=== PATIENT | female | born 1945 | race Caucasian/White ===

== ENCOUNTER 2017-02-19 08:15 | Emergency (ER) | payer OTHER ==
[~2017-02-19] VITALS: Ht 167.6 cm; Wt 84.3 kg
[~2017-02-19 08:15] MED LIST: ALLO300T2 PO; AMLO-110 PO; CLON0.2T11 PO; DLN/100 PO; ESCI1TAB9 PO; FENO145T26 PO; LEVO100T PO; LYR50 PO; METO1TAB31 PO; MULT-506 PO; NXM/40 PO; PRED-301 PO; TACR1CAP PO
[2017-02-19 08:17] VITALS: TEMP 36.4; Ht 167.6 cm; Wt 84.3 kg
[2017-02-19] MEDS ORDERED: PANT40TA PO (08:40)
[2017-02-19] MEDS ORDERED: ERGO1CAP41 PO (08:46)
[2017-02-19] MEDS ORDERED: TACR1CAP PO (08:46)
[2017-02-19] MEDS ORDERED: CALC667C PO (08:46)
--- NOTE | 2017-02-19 09:24 | EMERGENCY ROOM VISIT NOTE ---
History First contact with patient: 08:23 Chief Complaint: RECTAL BLEEDING Stated Complaint: BLACK STOOL, NAUSEA Nursing Triage Summary: Pt. reports onset of black stools yesterday with associated nausea. states that she had a GI bleed in the past caused by a reaction to pain medications, but states she has not started any new medications recently. History of Present Illness The patient is a 71 year old female who presents to the Emergency Room with complaints of black stool since yesterday. The patient states yesterday, she moved her bowels approximately 4 times, which is more than normal. She reports her next will continue to be formed, however it was black in color. The patient denies obvious blood or pain. She denies abdominal pain, nausea, vomiting, diarrhea, fever. The patient's does state that she complained of nausea yesterday at dialysis. The patient does have a history of CKD, and is currently on dialysis. The patient does have history of cholecystectomy and appendectomy. The patient reports feeling more fatigued than normal. She denies dyspnea or chest pain. The patient believes her last colonoscopy was less than 5 years ago, however is uncertain of the exact date or time. She states this was completed by a [facility] surgeon. The patient denies recent travel or illness. The patient did bring a stool sample from home to the ED for testing. Review of Systems A complete 10 point review of systems was reviewed with the patient with pertinent positives and negatives as per history of present illness. All else were negative. Past Medical/Surgical History Medical Problems: (1) CYSTITIS NOS (2) End stage renal disease (3) HYPERLIPIDEMIA NEC/NOS (4) HYPERTENSION NOS (5) HYPOTHYROIDISM NOS (6) KIDNEY TRANSPLANT STATUS (7) MITRAL VALVE DISORDER Surgical Problems: (1) H/O: hysterectomy (2) History of nephrectomy (3) History of renal transplant (4) History of renal transplant (5) History of renal transplant (6) Hx of cholecystectomy Family History Heart disease Hypertension Kidney disease Kidney stones Seizures Social History Smoking Status: Never Smoker Smokeless Tobacco Use: No Alcohol Use: none Drug Use: none Marital Status: Housing Status: lives with family Occupation Status: retired Current/Historical Medications Scheduled Allopurinol (Zyloprim), 300 MG PO DAILY Amlodipine (Norvasc), 5 MG PO BID Calcium Acetate (Phosphate Bin (Phoslo 667 Mg), 3 CAP PO TIDM Clonidine Hcl (Catapres), 0.2 MG PO HS Ergocalciferol (Vitamin D 84995 Unit), 50,000 UNITS PO WK Escitalopram Oxalate (Lexapro), 10 MG PO DAILY Fenofibrate (Tricor), 145 MG PO DAILY Levothyroxine Sodium (Synthroid), 100 MCG PO DAILY Metoprolol Succinate (Toprol Xl), 25 MG PO BID Multivitamin (Multivitamin), 1 TAB PO DAILY Pantoprazole (Protonix), 40 MG PO DAILY Phenytoin Sodium (Dilantin), 100 MG PO QAM Prednisone (Prednisone), 5 MG PO DAILY Pregabalin (Lyrica), 50 MG PO BID Tacrolimus (Astagraf Xl), 0.5 MG PO DAILY Allergies Please see list. Physical Exam Vital Signs Date Time Temp Pulse Resp B/P (MAP) Pulse Ox O2 Delivery O2 Flow Rate FiO2 02/19/17 11:05 67 24 155/54 99 Room Air 02/19/17 10:15 64 17 163/65 99 Room Air 02/19/17 09:50 63 02/19/17 09:37 65 22 156/92 99 Room Air 02/19/17 08:17 36.4 68 18 159/79 96 Room Air Physical Exam VITALS: Vitals are noted on the nurse's note and reviewed by myself. Vital signs stable. GENERAL: 71-year-old female, in no acute distress, nondiaphoretic, well- developed well-nourished. SKIN: The skin was without rashes, erythema, edema, or bruising. There is no tenting of the skin. Capillary reflex less than 2 seconds. HEAD: Normocephalic atraumatic. EARS: External auditory canals clear, tympanic membranes pearly banks without erythema or effusion bilaterally. EYES: Pupils equal round and reactive to light and accommodation. Conjunctivae without injection, sclerae without icterus. Extraocular movements intact. NOSE: Patent, turbinates without inflammation or discharge. No sinus tenderness. MOUTH: Mucous membranes moist. Tonsils are not enlarged. Pharynx without erythema or exudate. Uvula midline. Airway patent. Tongue does not deviate. NECK: Supple without nuchal rigidity. No lymphadenopathy. No thyromegaly. Cervical spine is nontender. No JVD. HEART: Regular rate and rhythm without murmurs gallops or rubs. LUNGS: Clear to auscultation bilaterally without wheezes, rales or rhonchi. No dullness to percussion. No retractions or accessory muscle use. ABDOMEN: Positive bowel sounds x 4. Normal tympanic percussion. Soft, nontender, without masses or organomegaly. Chu sign negative. No guarding or rebound tenderness. RECTAL: No rectal fissures. No skin tags appreciated. No active bleeding. A sterile, water-soluble lubricant was applied to the examiner's finger prior to internal exam. Rectal vault without tenderness. No rectal masses. No fecal impaction. Stool Guaiac Test: Hemoccult negative. MUSCULOSKELETAL: No muscle atrophy, erythema, or edema noted. Full range of motion without joint tenderness in all extremities. No tenderness to palpation. Normal gait. Strength 5/5 throughout. NEURO: Patient was alert and oriented to person place and time. Normal sensation to light and sharp touch. Deep tendon reflexes 2+ throughout. No focal neurological deficits. Medical Decision & Procedures ER Provider Diagnostic Interpretation: Did note anemia on labs. This has improved since her previous labs were performed. I do not feel that this is related to an active bleed. Lipase also mildly elevated, however, patient is not experiencing any abdominal pain at this time. I encouraged outpatient follow-up. Renal function severely impaired, however, patient follows with nephrology regarding CKD and is on dialysis. Laboratory Results 02/19/17 09:30 Red Blood Count 3.27, Mean Corpuscular Volume 112.2, Mean Corpuscular Hemoglobin 34.3, Mean Corpuscular Hemoglobin Concent 30.5, Mean Platelet Volume 10.9, Neutrophils (%) (Auto) 64.4, Lymphocytes (%) (Auto) 23.0, Monocytes (%) ( Auto) 10.2, Eosinophils (%) (Auto) 1.8, Basophils (%) (Auto) 0.4, Neutrophils # (Auto) 3.17, Lymphocytes # (Auto) 1.13, Monocytes # (Auto) 0.50, Eosinophils # ( Auto) 0.09, Basophils # (Auto) 0.02 02/19/17 09:30 Test 02/19/17 00:00 02/19/17 09:30 Stool Occult Blood NEGATIVE (NEGATIVE) White Blood Count 4.92 K/uL (4.8-10.8) Red Blood Count 3.27 M/uL (4.2-5.4) Hemoglobin 11.2 g/dL (12.0-16.0) Hematocrit 36.7 % (37-47) Mean Corpuscular Volume 112.2 fL (80-100) Mean Corpuscular Hemoglobin 34.3 pg (25-34) Mean Corpuscular Hemoglobin Concent 30.5 g/dl (32-36) Platelet Count 101 K/uL (130-400) Mean Platelet Volume 10.9 fL (7.4-10.4) Neutrophils (%) (Auto) 64.4 % Lymphocytes (%) (Auto) 23.0 % Monocytes (%) (Auto) 10.2 % Eosinophils (%) (Auto) 1.8 % Basophils (%) (Auto) 0.4 % Neutrophils # (Auto) 3.17 K/uL (1.4-6.5) Lymphocytes # (Auto) 1.13 K/uL (1.2-3.4) Monocytes # (Auto) 0.50 K/uL (0.11-0.59) Eosinophils # (Auto) 0.09 K/uL (0-0.5) Basophils # (Auto) 0.02 K/uL (0-0.2) RDW Standard Deviation 65.9 fL (36.4-46.3) RDW Coefficient of Variation 16.0 % (11.5-14.5) Immature Granulocyte % (Auto) 0.2 % Immature Granulocyte # (Auto) 0.01 K/uL (0.00-0.02) Macrocytosis PRESENT Stomatocytes 1+ Prothrombin Time 12.1 SECONDS (9.0-12.0) Prothromb Time International Ratio 1.1 (0.9-1.1) Activated Partial Thromboplast Time 24.5 SECONDS (21.0-31.0) Partial Thromboplastin Ratio 0.9 Anion Gap 9.0 mmol/L (3-11) Est Creatinine Clear Calc Drug Dose 9.5 ml/min Estimated GFR () 7.5 Estimated GFR (Non- 6.5 BUN/Creatinine Ratio 9.5 (10-20) Calcium Level 9.2 mg/dl (8.5-10.1) Total Bilirubin 0.5 mg/dl (0.2-1) Direct Bilirubin 0.2 mg/dl (0-0.2) Aspartate Amino Transf (AST/SGOT) 33 U/L (15-37) Alanine Aminotransferase (ALT/SGPT) 25 U/L (12-78) Alkaline Phosphatase 61 U/L (45-117) Total Protein 6.9 gm/dl (6.4-8.2) Albumin 3.2 gm/dl (3.4-5.0) Lipase 594 U/L (73-393) Thyroid Stimulating Hormone (TSH) 6.620 uIu/ml (0.300-4.500) ED Course The patient was seen and evaluated as above. Labs and IV were ordered. We did send pt's home stool sample to the lab for testing. Rectal examination performed by our PA Student. Heme-occult negative. Pt's home stool sample tested negative in the lab. I did re-evaluate the patient and she states she is feeling well and has not had any further bowel movements. I reviewed discharge instructions with the patient and she was discharged home in good condition. Medical Decision Differential Diagnosis: GI bleed, diverticulitis, fissure, hemorrhoid, food- induced stool discoloration, anemia, gastroenteritis, allergic reaction to medication, malignancy, pancreatitis, and others. The patient presented with black stools yesterday. She states the stool was slightly soft in consistency. She states she had one episode of dark stool this am, however, states it was not as black as stool yesterday. Pt. has not had any further bowel movements since first thing this morning. She denies abdominal pain. I do feel that her symptoms are possibly medication-or food related, however, due to chronic medical conditions, encouraged her to follow-up outpatient with her PCP and cable television technician. Medication Reconcilliation Current Medication List: was personally reviewed by me Blood Pressure Screening Patient's blood pressure: Normal blood pressure Impression Primary Impression: Anemia Additional Impression: Stool color black Departure Information Dispostion Home / Self-Care Condition GOOD Referrals Grabiel Richard M.D. (PCP) Yadiel Posada D.O. Patient Instructions GI Bleeding - [facility], My [facility] Additional Instructions Please follow up outpatient with gastroenterology and your primary care provider for further evaluation. We did perform a workup in the emergency department and tested your stool for blood. These tests were negative in the emergency department. We did note elevated lipase, however, noted a history of this elevation in your records. You should follow-up if you begin experiencing severe abdominal pain or other symptoms. You should follow up with a cable television technician and/or your PCP in 1-2 days. If you continue to experience dark, tarry stools, lightheadedness, dizziness, fatigue, bloody stool, paleness, or other concerning symptoms, return to emergency department for further evaluation and management. Problem Qualifiers Primary Impression: Anemia Anemia type: unspecified type Qualified Codes: D64.9 - Anemia, unspecified
[2017-02-19 09:44] LABS: BASO % 0.4 %; BASO ABS # 0.02 K/uL (0-0.2); EOS % 1.8 %; HEMATOCRIT 36.7 % (37-47); IG% 0.2 %; LYMPH ABS # 1.13 K/uL (1.2-3.4); MEAN CELL VOLUME 112.2 fL (80-100); MEAN CORPUSCULAR HEMOGLOBIN 34.3 pg (25-34); MEAN CORPUSCULAR HGB CONC 30.5 g/dl (32-36); MEAN PLATELET VOLUME 10.9 fL (7.4-10.4); MONO % 10.2 %; NEUT % 64.4 %; PLATELET COUNT 101 K/uL (130-400); RED BLOOD COUNT 3.27 M/uL (4.2-5.4); WHITE BLOOD COUNT 4.92 K/uL (4.8-10.8)
[2017-02-19 09:57] LABS: INR 1.1 (0.9-1.1); PARTIAL THROMBOPLASTIN RATIO 0.9; PROTHROMBIN TIME (PATIENT) 12.1 SECONDS (9.0-12.0)
[2017-02-19 10:10] LABS: BUN/CREATININE RATIO 9.5 (10-20); CALCIUM 9.2 mg/dl (8.5-10.1); CREATININE 6.1 mg/dl (0.60-1.20); POTASSIUM 4.3 mmol/L (3.5-5.1)
[2017-02-19 10:50] LABS: THYROID STIMULATING HORMONE 6.62 uIu/ml (0.300-4.500)
[2017-02-19 10:56] LABS: COMPLETE YES; STOMATOCYTE 1+
[2017-02-19 12:13] VITALS: BP 143/93; PULSE 67; O2SAT 97
--- NOTE | 2017-02-19 16:00 | EMERGENCY ROOM VISIT NOTE ---
ED Visit Note First contact with patient: 08:23 I have personally evaluated and examined this patient. I agree with assessment and plan of Helen Cartwright PA-C. Dark heme-negative stools with normal labs and states feeling well.
== END 2017-02-19 12:15 | disposition home or self-care (01) ==
LOC: C.EDB 08:17
DX: D64.9 Anemia, unspecified (principal); Z99.2 Dependence on renal dialysis; Z90.49 Acquired absence of other specified parts of digestive tract; N18.6 End stage renal disease; I12.0 Hypertensive chronic kidney disease with stage 5 chronic kidney disease or end stage renal disease; E03.9 Hypothyroidism, unspecified; Z94.0 Kidney transplant status; Z90.710 Acquired absence of both cervix and uterus; Z90.5 Acquired absence of kidney; Z82.49 Family history of ischemic heart disease and other diseases of the circulatory system; Z84.1 Family history of disorders of kidney and ureter; Z82.0 Family history of epilepsy and other diseases of the nervous system; Z79.899 Other long term (current) drug therapy

== ENCOUNTER → 2017-02-28 | Outpatient (CLI) | payer OTHER ==
[~2017-02-28] MED LIST changes: +CALC667C PO; +ERGO1CAP41 PO; -NXM/40 PO; +PANT40TA PO
--- NOTE | 2017-02-28 14:49 | DIAGNOSTIC IMAGING REPORT ---
LUMBAR SPINE W/O CONTRAST CLINICAL HISTORY: 72 years-old Female presenting with SCIATICA, chronic low back pain radiating to the right leg, no trauma, no cancer, patient on dialysis. TECHNIQUE: Multisequence, multiplanar MR imaging of the lumbar spine was performed without the use of intravenous contrast. IV contrast: None. COMPARISON: Correlation made to CT of the abdomen and pelvis from 11/07/2012. FINDINGS: Localizer images: Unremarkable. Slight straightening of normal lumbar lordosis. Vertebral body heights, alignment, and bone marrow signal intensity preserved. No bony edema. Intervertebral disc height and signal intensity essentially preserved, allowing for the presence of multilevel degenerative change, further detailed below: T12-L1: Normal. L1-2: Minimal disc bulge. No significant spinal canal or neural foraminal narrowing. L2-3: Minimal disc bulge. No significant spinal canal or neural foraminal narrowing. L3-4: Normal. L4-5: Moderate disc bulge with focal disc protrusion along the right paramedian aspect with minimal caudal migration. This results in effacement of the right lateral recess and abutment of the transiting right L5 nerve root. No significant spinal canal narrowing. Minimal likely nonsignificant neural foraminal narrowing present. L5-S1: Minimal disc bulge. No significant spinal canal or neural foraminal narrowing. Mild hyperintensity in the interspinous region of L4-5 and L5 S1 to a lesser degree. No significant paraspinal inflammatory change. Superficial subcutaneous edema in the posterior soft tissues, nonspecific. Spinal cord ends in good position at L1. Cauda equina has a normal morphology. IMPRESSION: 1. Multilevel degenerative changes most severe at L4-5, where there is a focal disc protrusion with minimal caudal migration. This results in effacement of the right lateral recess and abutment of the transiting right L5 nerve root. No significant spinal canal narrowing. 2. Interspinous edema at L4-5 and L5-S1 is likely related to degenerative change. Electronically signed by: Omar Dewey M.D. 02/28/2017 2:47 PM Dictated Date/Time: 02/28/2017 2:33 PM
== END | disposition home or self-care (01) ==
LOC: C.MRI 12:45
PROVIDERS: ATTEND Internal Medicine
DX: M54.9 Dorsalgia, unspecified (principal); R60.0 Localized edema; M51.16 Intervertebral disc disorders with radiculopathy, lumbar region

== ENCOUNTER → 2017-04-03 | Outpatient (CLI) | payer OTHER | END | disposition home or self-care (01) | LOC: C.LABPVFM 09:43 | PROVIDERS: ATTEND Psychiatry & Neurology Neurology | DX: G40.909 Epilepsy, unspecified, not intractable, without status epilepticus (principal); G62.9 Polyneuropathy, unspecified; E55.9 Vitamin D deficiency, unspecified ==

== ENCOUNTER → 2017-05-13 | Outpatient (CLI) | payer OTHER ==
[~2017-05-13] MED LIST changes: -ALLO300T2 PO; -CLON0.2T11 PO; -LYR50 PO; -PANT40TA PO
[2017-05-13 12:26] LABS: BASO % 0.3 %; BASO ABS # 0.02 K/uL (0-0.2); COMPLETE YES; EOS % 1.8 %; HEMATOCRIT 33.2 % (37-47); IG% 0.3 %; LYMPH % 19.2 %; LYMPH ABS # 1.31 K/uL (1.2-3.4); MEAN CELL VOLUME 108.5 fL (80-100); MEAN CORPUSCULAR HGB CONC 32.2 g/dl (32-36); MEAN PLATELET VOLUME 9.6 fL (7.4-10.4); MONO % 9.8 %; NEUT % 68.6 %; PLATELET COUNT 122 K/uL (130-400); RED BLOOD COUNT 3.06 M/uL (4.2-5.4); WHITE BLOOD COUNT 6.81 K/uL (4.8-10.8)
== END | disposition home or self-care (01) ==
LOC: C.LAB1850 10:10
PROVIDERS: ATTEND Internal Medicine
DX: N18.9 Chronic kidney disease, unspecified (principal)

== ENCOUNTER → 2017-05-21 | Day surgery (SDC) | payer OTHER ==
[2017-05-20 11:38] VITALS: BMI 29.0
[~2017-05-21] VITALS: Ht 167.6 cm; Wt 81.8 kg
[~2017-05-21] MED LIST changes: +ACET-1256 PO; +ALLO300T2 PO; +ATROPINE SULFATE 0.1 MG/ML 5ML SYR IV PRN; +CLON0.2T PO; +DLN100 PO; +EpHEDrine SULFATE INJ 50 MG/ML AMP IV PRN; +LIDOCAINE HCL 2% 2 ML VIAL (20MG/ML) ONE; -MULT-506 PO; +MULT-648 PO; +ONDA4TAB46 PO; +ONDANSETRON INJ 2 MG/ML 2 ML VIAL ONE; +PANT1TAB48 PO; +PROPOFOL IV EMULSION 10 MG/ML 20 ML VIAL IV ONE; +SODIUM CHLORIDE 0.9% 500ML 500 ML IV ONE; -TACR1CAP PO; +TRAM-10 PO
--- NOTE | 2017-05-21 14:06 | Endo History and Physical ---
History & Physical Date of Service: May 21, 2017. Chief Complaint: GERD, Nausea and Vomiting Referring Physician: Dr. Richard History of Present Illness 72 yo CF who presents for EGD secondary to GERD, nausea and vomiting. Past Medical History Seizure Disorder, Hypertension, Thyroid Disease, Chronic Steroid Use, Kidney Disease, Depression Past Surgical History Hx Cardiac Surgery: No Hx Internal Defibrillator: No Hx Pacemaker: No Hx Abdominal Surgery: No Hx of Implantable Prosthesis: No Hx Post-Op Nausea and Vomiting: No Hx Cancer Surgery: No Hx Thoracic Surgery: No Hx Orthopedic: No Hx Urinary Tract Surgery: Yes (KIDNEY TRANSPLANT) Family History None Social History Smoking Status: Never Smoker Hx Substance Use: No Hx Alcohol Use: No Allergies Coded Allergies: Levofloxacin (Verified Allergy, Intermediate, hives, itching, per patient tolerates Cipro, 05/21/17) Lisinopril (Verified Allergy, Intermediate, HIVES, ITCHING, 05/21/17) Morphine (Verified Allergy, Intermediate, HIVES, 05/21/17) Cephalosporins (Verified Allergy, Unknown, ertapenem ok from multiple occasions, 05/21/17) Codeine (Verified Allergy, Unknown, RASH, 05/21/17) Meperidine (Verified Allergy, Unknown, HAD RXN IN RR, 05/21/17) Sulfa Drugs (Verified Allergy, Unknown, PT ON BACTRIM AT HOME, 05/21/17) Chlorhexidine (Verified Adverse Reaction, Intermediate, RASH, 05/21/17) SEVERE ITCHING Celecoxib (Verified Adverse Reaction, Mild, ITCHING, 05/21/17) Nitrofurantoin (Verified Adverse Reaction, Mild, GI PROBLEMS, 05/21/17) Captopril (Verified Adverse Reaction, Unknown, ITCHING, 05/21/17) Hydralazine (Verified Adverse Reaction, Unknown, ITCHING, 05/21/17) Uncoded Allergies: contrast dye (Adverse Reaction, Severe, had a kidney transplant, 04/11/17) Current Medications Reported Home Medications Medications Dose Route/Sig Max Daily Dose Days Date Category Dose Instructions Protonix (Pantoprazole) 40 Mg Tab 40 Mg PO BID 05/20/17 Reported Zofran (Ondansetron HCl) 4 Mg Tab 4 Mg PO Q6H PRN 05/20/17 Reported Catapres (Clonidine Hcl) 0.2 Mg Tab 0.2 Mg PO HS 05/20/17 Reported Zyloprim (Allopurinol) 300 Mg Tab 300 Mg PO QAM 05/20/17 Reported Tylenol (Acetaminophen) 500 Mg Tab 500 Mg PO TID PRN 05/20/17 Reported Ultram (Tramadol HCl) 50 Mg Tab 50 Mg PO TID PRN 05/20/17 Reported Prorenal Vital (Multiple Vitamins W/ Minerals) 1 Tab Tab 1 Tab PO QAM 05/20/17 Reported Dilantin (Phenytoin Sodium) 100 Mg Cap 2 Cap PO QPM 05/20/17 Reported Vitamin D 00562 Unit (Ergocalciferol) 50,000 Unit Cap 50,000 Units PO WK 02/19/17 Reported on tuesdays Phoslo 667 Mg (Calcium Acetate (Phosphate Bin) 667 Mg Cap 3 Cap PO TIDM 02/19/17 Reported Synthroid (Levothyroxine Sodium) 100 Mcg Tab 100 Mcg PO QAM 12/29/13 Reported Norvasc (Amlodipine Besylate) 5 Mg Tab 5 Mg PO BID 11/29/13 Reported Toprol Xl (Metoprolol Succinate) 25 Mg Tab 25 Mg PO BID 10/17/13 Reported Tricor (Fenofibrate) 145 Mg Tab 145 Mg PO QAM 10/17/13 Reported Lexapro (Escitalopram Oxalate) 10 Mg Tab 10 Mg PO Q2D 07/15/12 Reported Dilantin (Phenytoin Sodium) 100 Mg Cap 100 Mg PO QAM 03/27/12 Reported Prednisone 5 Mg Tab 5 Mg PO QAM 03/27/12 Reported Vital Signs Weight (Kilograms): 81.82 Height (Feet): 5 Height (Inches): 6 Physical Exam General Appearance: WD/WN, no apparent distress Respiratory/Chest: Auscultation: breath sounds normal Cardiovascular: Heart Auscultation: RRR Abdomen: Bowel Sounds: normal Inspection & Palpation: soft, non-distended, no tenderness, guarding & rebound Assessment and Plan Assessment: 72 yo CF who presents for EGD secondary to GERD, nausea and vomiting. Plan: Proceed with EGD.
[2017-05-21 14:18] VITALS: Ht 167.6 cm; Wt 81.8 kg
--- NOTE | 2017-05-21 15:04 | Discharge Instructions ---
Endoscopy Patient Instructions Date / Procedure(s) Performed May 21, 2017. EGD Allergy Information Coded Allergies: Levofloxacin (Verified Allergy, Intermediate, hives, itching, per patient tolerates Cipro, 05/21/17) Lisinopril (Verified Allergy, Intermediate, HIVES, ITCHING, 05/21/17) Morphine (Verified Allergy, Intermediate, HIVES, 05/21/17) Cephalosporins (Verified Allergy, Unknown, ertapenem ok from multiple occasions, 05/21/17) Codeine (Verified Allergy, Unknown, RASH, 05/21/17) Iodinated Diagnostic Agents (Verified Allergy, Unknown, PT HAD A KIDNEY TRANSPLANT, 05/21/17) Meperidine (Verified Allergy, Unknown, HAD RXN IN RR, 05/21/17) Sulfa Drugs (Verified Allergy, Unknown, PT ON BACTRIM AT HOME, 05/21/17) Chlorhexidine (Verified Adverse Reaction, Intermediate, RASH, 05/21/17) SEVERE ITCHING Celecoxib (Verified Adverse Reaction, Mild, ITCHING, 05/21/17) Nitrofurantoin (Verified Adverse Reaction, Mild, GI PROBLEMS, 05/21/17) Captopril (Verified Adverse Reaction, Unknown, ITCHING, 05/21/17) Hydralazine (Verified Adverse Reaction, Unknown, ITCHING, 05/21/17) Discharge Date / Findings May 21, 2017. Gastritis s/p biopsies Medication Instructions Stopped Medication(s): NONE TAKEN THIS AM OK to resume all medications today as prescribed Reported Home Medications Medications Dose Route/Sig Max Daily Dose Days Date Category Dose Instructions Protonix (Pantoprazole) 40 Mg Tab 40 Mg PO BID 05/20/17 Reported Zofran (Ondansetron HCl) 4 Mg Tab 4 Mg PO Q6H PRN 05/20/17 Reported Catapres (Clonidine Hcl) 0.2 Mg Tab 0.2 Mg PO HS 05/20/17 Reported Zyloprim (Allopurinol) 300 Mg Tab 300 Mg PO QAM 05/20/17 Reported Tylenol (Acetaminophen) 500 Mg Tab 500 Mg PO TID PRN 05/20/17 Reported Ultram (Tramadol HCl) 50 Mg Tab 50 Mg PO TID PRN 05/20/17 Reported Prorenal Vital (Multiple Vitamins W/ Minerals) 1 Tab Tab 1 Tab PO QAM 05/20/17 Reported Dilantin (Phenytoin Sodium) 100 Mg Cap 2 Cap PO QPM 05/20/17 Reported Vitamin D 90708 Unit (Ergocalciferol) 50,000 Unit Cap 50,000 Units PO WK 02/19/17 Reported on tuesdays Phoslo 667 Mg (Calcium Acetate (Phosphate Bin) 667 Mg Cap 3 Cap PO TIDM 02/19/17 Reported Synthroid (Levothyroxine Sodium) 100 Mcg Tab 100 Mcg PO QAM 12/29/13 Reported Norvasc (Amlodipine Besylate) 5 Mg Tab 5 Mg PO BID 11/29/13 Reported Toprol Xl (Metoprolol Succinate) 25 Mg Tab 25 Mg PO BID 10/17/13 Reported Tricor (Fenofibrate) 145 Mg Tab 145 Mg PO QAM 10/17/13 Reported Lexapro (Escitalopram Oxalate) 10 Mg Tab 10 Mg PO Q2D 07/15/12 Reported Dilantin (Phenytoin Sodium) 100 Mg Cap 100 Mg PO QAM 03/27/12 Reported Prednisone 5 Mg Tab 5 Mg PO QAM 03/27/12 Reported Provider Instructions Activity Restrictions - No exercising or heavy lifting for 24 hours. - Do not drink alcohol the day of the procedure. - Do not drive a car or operate machinery until the day after the procedure. - Do not make any important decisions or sign important papers in 24 hours after the procedure. Following Day: - Return to full activity which may include returning to work/school. Diet Start your diet with liquids and light foods (jello, soup, juice, toast). Then eat your usual diet if not nauseated. Treatment For Common After Affects For mild abdominal pain, bloating, or excessive gas: - Rest - Eat lightly - Lie on right side Follow-Up Information Follow-up with DR. ZAVALA as scheduled Anesthesia Information What You Should Know You have had a procedure that required some medicine to reduce anxiety and discomfort. This treatment is called moderate sedation. After receiving the treatment, you may be sleepy, but you will be able to breathe on your own. The effects of the treatment may last for several hours. Follow these instructions along with Activity/Diet recommendations noted above: * Do NOT do anything where dizziness or clumsiness would be dangerous. * Rest quietly at home today, then you can be up and about tomorrow. * Have a responsible person stay with you the rest of today. * You may have had an I.V. today. If so, you may take the dressing off later today. Recommendations Call your doctor if: * Trouble breathing * Continuous vomiting for more than 24 hours * Temperature above 101 degrees * Severe abdominal pain or bloating * Pain not relieved by pain medicine ordered * There is increased drainage or redness from any incision * A large amount of rectal bleeding greater than 2-3 tablespoons. (If you had a polyp/s removed or have hemorrhoids, a small amount of blood - from the rectum is to be expected.) * You have any unanswered questions or concerns. IN THE EVENT OF A SERIOUS EMERGENCY, GO TO THE NEAREST EMERGENCY ROOM Your discharge instructions were prepared by provider Yadiel Posada. Patient Instructions Signature Page Whit Cruz Patient (or Guardian) Signature/Date: I have read and understand the instructions given to me by my caregivers. Caregiver/RN/Doctor Signature/Date: The above-named patient and/or guardian has received patient instructions on this date. + Original Patient Signature Page (only) stays with chart. Please make copy for patient.
[2017-05-21 16:00] VITALS: BP 191/83; PULSE 73; O2SAT 97
--- NOTE | 2017-05-21 16:22 | Anesthesiology Progress Note ---
Anesthesia Post Op Note Date & Time May 21, 2017 at 16:22 Vital Signs Pain Intensity: 0 Vital Signs Past 12 Hours Date Time Temp Pulse Resp B/P (MAP) Pulse Ox O2 Delivery O2 Flow Rate FiO2 05/21/17 16:00 73 20 191/83 (119) 97 Room Air 05/21/17 15:38 74 18 178/83 (114) 97 Room Air 05/21/17 15:23 74 18 172/84 (113) 97 Room Air 05/21/17 15:07 73 13 166/85 (112) 96 Room Air 05/21/17 14:28 37.1 75 20 163/85 (111) 96 Room Air Notes Mental Status: alert / awake / arousable, participated in evaluation Pt Amnestic to Procedure: Yes Nausea / Vomiting: adequately controlled Pain: adequately controlled Airway Patency, RR, SpO2: stable & adequate BP & HR: stable & adequate Hydration State: stable & adequate Anesthetic Complications: no major complications apparent
--- NOTE | 2017-05-21 20:25 | GI REPORT ---
Procedure Date: 05/21/2017 2:40 PM Procedure: Upper GI endoscopy Indications: Gastro-esophageal reflux disease, Nausea with vomiting Medicines: Monitored Anesthesia Care Complications: No immediate complications. Estimated Blood Loss: Estimated blood loss: none. Procedure: Pre-Anesthesia Assessment: - Prior to the procedure, a History and Physical was performed, and patient medications and allergies were reviewed. The patient's tolerance of previous anesthesia was also reviewed. The risks and benefits of the procedure and the sedation options and risks were discussed with the patient. All questions were answered, and informed consent was obtained. Prior Anticoagulants: The patient has taken no previous anticoagulant or antiplatelet agents. ASA Grade Assessment: II - A patient with mild systemic disease. After reviewing the risks and benefits, the patient was deemed in satisfactory condition to undergo the procedure. After obtaining informed consent, the endoscope was passed under direct vision. Throughout the procedure, the patient's blood pressure, pulse, and oxygen saturations were monitored continuously. The Scope was introduced through the mouth, and advanced to the second part of duodenum. The upper GI endoscopy was accomplished without difficulty. The patient tolerated the procedure well. Findings: The esophagus was normal. Localized mild inflammation characterized by erythema was found in the gastric antrum. Biopsies were taken with a cold forceps for histology. The examined duodenum was normal. Impression: - Normal esophagus. - Gastritis. Biopsied. - Normal examined duodenum. Recommendation: - Resume previous diet. - Continue present medications. - Await pathology results. - Return to primary care physician as previously scheduled. Yadiel Posada DO 05/21/2017 3:08:51 PM This report has been signed electronically. Note Initiated On: 05/21/2017 2:40 PM I attest to the content of the Intraoperative Record and orders documented therein, exceptions below
== END | disposition home or self-care (01) ==
LOC: C.GI 13:09
PROVIDERS: ATTEND Internal Medicine
DX: K21.9 Gastro-esophageal reflux disease without esophagitis (principal); R11.2 Nausea with vomiting, unspecified; K29.70 Gastritis, unspecified, without bleeding; R56.9 Unspecified convulsions; I10 Essential (primary) hypertension; Z79.52 Long term (current) use of systemic steroids; F32.9 Major depressive disorder, single episode, unspecified; Z94.0 Kidney transplant status; E78.5 Hyperlipidemia, unspecified; N18.6 End stage renal disease; E03.9 Hypothyroidism, unspecified; G47.33 Obstructive sleep apnea (adult) (pediatric); D64.9 Anemia, unspecified

== ENCOUNTER → 2017-06-11 | Outpatient (CLI) | payer OTHER ==
[~2017-06-11] MED LIST changes: -ATROPINE SULFATE 0.1 MG/ML 5ML SYR IV PRN; -ERGO1CAP41 PO; +ERGO500011 PO; -EpHEDrine SULFATE INJ 50 MG/ML AMP IV PRN; -LIDOCAINE HCL 2% 2 ML VIAL (20MG/ML) ONE; +METO-478 PO; -METO1TAB31 PO; -ONDANSETRON INJ 2 MG/ML 2 ML VIAL ONE; -PROPOFOL IV EMULSION 10 MG/ML 20 ML VIAL IV ONE; -SODIUM CHLORIDE 0.9% 500ML 500 ML IV ONE
--- NOTE | 2017-06-11 15:21 | MAMMOGRAPHY REPORT ---
ULTRASOUND OF LEFT BREAST: 06/11/2017 CLINICAL HISTORY: Callback from screening mammogram for left breast mass. COMPARISON: Comparison is made to exams dated: 05/28/2017 mammogram, 04/17/2016 mammogram, 04/14/2015 m ammogram, 02/24/2014 mammogram, 02/23/2013 mammogram - [facility], and 01/19/2009. TECHNIQUE: Real-time targeted ultrasound of the left breast was performed. FINDINGS: Real-time, high resolution targeted ultrasound was performed of the left superior breast a t approximately 12 to 1:00 in the region of the mammographic mass seen on the recent screening mammog lisette. In the left breast at approximately 11:00, 8 cm from the nipple, there is a superficial mixed e chogenicity mass which contains hyperechoic portions as well as central hypoechoic portions. In tota l the mass measures 10 x 7 x 6 mm. The patient reported focal point tenderness in this region during the ultrasound exam. The patient denies any known trauma to this region but notes that she is on di alysis and bruises easily. On clinical exam, a faint yellowish bruise is noted on the skin over this mass. This corresponds with the mammographic mass and has sonographic features of fat necrosis. Re commend short interval follow-up to ensure resolution. IMPRESSION: ACR-BI-RADS CATEGORY 3: PROBABLY BENIGN - FOLLOW-UP RECOMMENDED Superficial mixed echogenicity 10 mm mass in the left 11:00 breast on ultrasound, which corresponds w ith the new mammographic mass. This has imaging features of fat necrosis. The patient denies any kn own trauma to the region although there is a faint bruise on the overlying skin and the patient noted tenderness in this region during the ultrasound. Findings are probably benign and likely represent fat necrosis. Recommend follow-up diagnostic tomosynthesis mammogram and possible ultrasound of the left breast in 3 months to ensure resolution. The patient was verbally notified of the results. Eri Chavez M.D. /:06/11/2017 10:37:10 Fence Maker: Denisa WHYTE)([place]), [facility] letter sent: Follow Up Recommended 3 BI-RADS Code: ACR-BI-RADS Category 3: Probably Benign
== END | disposition home or self-care (01) ==
LOC: C.MAMM 10:13
PROVIDERS: ATTEND Internal Medicine
DX: N63.0 Unspecified lump in unspecified breast (principal)

== ENCOUNTER 2017-07-01 11:50 | Inpatient (IN) | payer OTHER ==
[~2017-07-01] VITALS: Ht 167.6 cm; Wt 74.3 kg
--- NOTE | 2017-07-01 12:59 | EMERGENCY ROOM VISIT NOTE ---
History First contact with patient: 12:26 Chief Complaint: NAUSEA Stated Complaint: NAUSEA History of Present Illness The patient is a 72 year old female who presents to the Emergency Room with complaints of loss of weight and intense pruritus. The patient comes from home where her is her primary caregiver. There is a slight baseline of dementia. The patient is on dialysis and receives dialysis Tuesdays and Saturdays. is concerned that the patient has had a failure to thrive and that her blood pressure has not been under control. The patient has a history of a failed renal transplant. She is currently complaining of the rash and is asking for a cream for it. Review of Systems See HPI for pertinent positives & negatives. A total of 10 systems reviewed and were otherwise negative. Past Medical/Surgical History Medical Problems: (1) CYSTITIS NOS (2) End stage renal disease (3) HYPERLIPIDEMIA NEC/NOS (4) HYPERTENSION NOS (5) HYPOTHYROIDISM NOS (6) KIDNEY TRANSPLANT STATUS (7) MITRAL VALVE DISORDER (8) severe hypokalemia, esrd, accelerated HTN (9) severe hypokalemia, esrd, accelerated HTN Surgical Problems: (1) H/O: hysterectomy (2) History of nephrectomy (3) History of renal transplant (4) History of renal transplant (5) History of renal transplant (6) Hx of cholecystectomy Family History Heart disease Hypertension Kidney disease Kidney stones Seizures Social History Smoking Status: Never Smoker Alcohol Use: none Drug Use: none Marital Status: Housing Status: lives with family Occupation Status: retired Current/Historical Medications Scheduled Allopurinol (Zyloprim), 300 MG PO QAM Amlodipine (Norvasc), 5 MG PO BID Calcium Acetate (Phosphate Bin (Phoslo 667 Mg), 2 CAP PO TIDM Clonidine Hcl (Catapres), 0.2 MG PO HS Ergocalciferol (Vitamin D 64722 Unit), 50,000 UNITS PO WK Escitalopram Oxalate (Lexapro), 10 MG PO Q2D Fenofibrate (Tricor), 145 MG PO QAM Levothyroxine Sodium (Synthroid), 100 MCG PO QAM Metoprolol Succinate (Toprol Xl), 25 MG PO BID Multiple Vitamins W/ Minerals (Prorenal Vital), 1 TAB PO QAM Pantoprazole (Protonix), 40 MG PO BID Phenytoin Sodium (Dilantin), 100 MG PO QAM Phenytoin Sodium (Dilantin), 200 MG PO QPM Prednisone (Prednisone), 5 MG PO QAM Scheduled PRN Acetaminophen (Tylenol), 500 MG PO TID PRN for Pain Ondansetron Hcl (Zofran), 4 MG PO Q6H PRN for Nausea Tramadol (Ultram), 50 MG PO TID PRN for Pain Physical Exam Vital Signs Date Time Temp Pulse Resp B/P (MAP) Pulse Ox O2 Delivery O2 Flow Rate FiO2 07/01/17 13:22 76 20 194/85 97 07/01/17 13:16 76 07/01/17 13:10 76 194/85 80 186/92 87 182/87 07/01/17 13:10 97 Room Air 07/01/17 11:53 36.3 78 18 161/77 100 Room Air Physical Exam GENERAL: Patient is a healthy-appearing well-nourished female HEAD: Normocephalic atraumatic EYES: Ocular movements intact pupils equal and react to light OROPHARYNX mucous membranes are moist no exudates present no erythema or edema present NECK: Supple no nuchal rigidity CHEST: Good equal expansion LUNGS: Clear and equal to auscultation CARDIAC: Normal S1 and S2 ABDOMEN: Soft nontender no guarding BACK: No CVA tenderness EXTREMITIES: No pain upon palpation normal muscle strength in all groups no clubbing cyanosis or edema, bruising present b/l UE, Dialysis fistula present with bruit NEURO: Patient is following commands is answering questions appropriately. Alert and oriented x3 Cranial Nerves 2-12 grossly intact Medical Decision & Procedures ER Provider Diagnostic Interpretation: SINGLE VIEW CHEST CLINICAL HISTORY: Generalized weakness. Nausea FINDINGS: An AP, portable, upright chest radiograph is compared to study dated 03/07/2014. The examination is degraded by portable technique and patient rotation. A left subclavian central venous infusion port is unchanged in position. The heart is top normal for projection and there is atherosclerotic calcification of the thoracic aorta. The pulmonary vasculature is noncongested. Chronic interstitial thickening is similar to previous. There is chronic elevation of the right hemidiaphragm with mild basilar atelectasis. No airspace consolidation, large pleural effusion, or pneumothorax is seen. The skeletal structures are osteopenic. The bony thorax is grossly intact. IMPRESSION: No acute cardiopulmonary abnormality. Electronically signed by: Sami Schmidt M.D. 07/01/2017 1:38 PM Dictated Date/Time: 07/01/2017 1:37 PM Laboratory Results 07/01/17 12:50 Red Blood Count 3.15, Mean Corpuscular Volume 111.7, Mean Corpuscular Hemoglobin 35.6, Mean Corpuscular Hemoglobin Concent 31.8, Mean Platelet Volume 10.1, Neutrophils (%) (Auto) 65.8, Lymphocytes (%) (Auto) 20.1, Monocytes (%) ( Auto) 11.5, Eosinophils (%) (Auto) 1.8, Basophils (%) (Auto) 0.6, Neutrophils # (Auto) 3.21, Lymphocytes # (Auto) 0.98, Monocytes # (Auto) 0.56, Eosinophils # ( Auto) 0.09, Basophils # (Auto) 0.03 Test 07/01/17 12:22 07/01/17 12:50 07/01/17 13:10 Bedside Glucose 114 mg/dl (70-90) White Blood Count 4.88 K/uL (4.8-10.8) Red Blood Count 3.15 M/uL (4.2-5.4) Hemoglobin 11.2 g/dL (12.0-16.0) Hematocrit 35.2 % (37-47) Mean Corpuscular Volume 111.7 fL (80-100) Mean Corpuscular Hemoglobin 35.6 pg (25-34) Mean Corpuscular Hemoglobin Concent 31.8 g/dl (32-36) Platelet Count 127 K/uL (130-400) Mean Platelet Volume 10.1 fL (7.4-10.4) Neutrophils (%) (Auto) 65.8 % Lymphocytes (%) (Auto) 20.1 % Monocytes (%) (Auto) 11.5 % Eosinophils (%) (Auto) 1.8 % Basophils (%) (Auto) 0.6 % Neutrophils # (Auto) 3.21 K/uL (1.4-6.5) Lymphocytes # (Auto) 0.98 K/uL (1.2-3.4) Monocytes # (Auto) 0.56 K/uL (0.11-0.59) Eosinophils # (Auto) 0.09 K/uL (0-0.5) Basophils # (Auto) 0.03 K/uL (0-0.2) RDW Standard Deviation 68.8 fL (36.4-46.3) RDW Coefficient of Variation 17.3 % (11.5-14.5) Immature Granulocyte % (Auto) 0.2 % Immature Granulocyte # (Auto) 0.01 K/uL (0.00-0.02) Nucleated RBC Absolute Count (auto) 0.05 K/uL (0-0) Nucleated Red Blood Cells % 1.0 % Macrocytosis PRESENT Prothrombin Time 12.0 SECONDS (9.0-12.0) Prothromb Time International Ratio 1.1 (0.9-1.1) Total Bilirubin 0.9 mg/dl (0.2-1) Direct Bilirubin 0.4 mg/dl (0-0.2) Aspartate Amino Transf (AST/SGOT) 57 U/L (15-37) Alanine Aminotransferase (ALT/SGPT) 33 U/L (12-78) Alkaline Phosphatase 67 U/L (45-117) Total Creatine Kinase 19 U/L (26-192) Creatine Kinase MB 0.9 ng/ml (0.5-3.6) Creatine Kinase MB Ratio 4.7 (0-3.0) Troponin I 0.050 ng/ml (0-0.045) Total Protein 6.7 gm/dl (6.4-8.2) Albumin 3.1 gm/dl (3.4-5.0) Thyroid Stimulating Hormone (TSH) 5.330 uIu/ml (0.300-4.500) Phenytoin (Dilantin) Level 5.2 mcg/mL (10-20) Influenza Type A (RT-PCR) Neg for Influ A (NEG) Influenza Type A Antigen Neg for Influ A (NEG) Influenza Type B Antigen Neg for Influ B (NEG) Influenza Type B (RT-PCR) Neg for Influ B (NEG) Medications Administered Medications (Trade) Dose Ordered Sig/Adam Route Start Time Stop Time Status Last Admin Dose Admin Menthol/Zinc Oxide (Calmoseptine Oint) 1 appln QID PRN EXT 07/01/17 12:45 07/31/17 12:44 07/01/17 13:35 1 APPLN Heparin Sodium (Porcine) (Heparin 100 Unit/ml 5ml Flush) 5 ml STK-MED ONCE .ROUTE 07/01/17 13:26 07/01/17 13:27 DC 07/01/17 13:26 5 ML Potassium Chloride (Klor-Con M10) 40 meq NOW STAT PO 07/01/17 13:40 07/01/17 13:41 DC 07/01/17 13:56 40 MEQ Acetaminophen (Tylenol Tab) 650 mg Q4H PRN PO 07/01/17 13:45 07/31/17 13:44 07/01/17 23:37 650 MG Ondansetron HCl (Zofran Inj) 4 mg Q6H PRN IV 07/01/17 13:45 07/31/17 13:44 07/01/17 17:01 4 MG Metoprolol Succinate (Toprol Xl Tab) 25 mg NOW STAT PO 07/01/17 13:43 07/01/17 14:17 DC 07/01/17 14:38 25 MG Amlodipine Besylate (Norvasc Tab) 5 mg NOW ONCE PO 07/01/17 13:45 07/01/17 14:17 DC 07/01/17 14:38 5 MG Hydralazine HCl (HydrALAZINE INJ) 20 mg Q6 PRN IV. 07/01/17 13:45 07/31/17 13:44 07/01/17 15:53 20 MG Phenytoin Sodium (Dilantin Er Cap) 100 mg NOW STAT PO 07/01/17 13:57 07/01/17 14:17 DC 07/01/17 14:37 100 MG Medical Decision This is a 72-year-old female who presents emergency Department with generalized weakness fatigue and itching. The patient receives her dialysis on Tuesdays and Saturdays. She comes to the emergency department from dialysis. 8-year-old female who presents emergency department complaining of generalized weakness after dialysis. The patient's potassium supposed to be low. She was given potassium in the emergency department as well as a cream for her itching. I did discuss the case with the hospitalist service who agreed to admit the patient. Patient and family were in agreement with treatment plan. Impression Primary Impression: severe hypokalemia, esrd, accelerated HTN Departure Information Dispostion Still a Patient Referrals Grabiel Richard M.D. (PCP) Patient Instructions [facility]
[2017-07-01 13:08] LABS: BASO % 0.6 %; BASO ABS # 0.03 K/uL (0-0.2); EOS % 1.8 %; HEMATOCRIT 35.2 % (37-47); IG% 0.2 %; LYMPH % 20.1 %; LYMPH ABS # 0.98 K/uL (1.2-3.4); MEAN CELL VOLUME 111.7 fL (80-100); MEAN CORPUSCULAR HEMOGLOBIN 35.6 pg (25-34); MEAN CORPUSCULAR HGB CONC 31.8 g/dl (32-36); MEAN PLATELET VOLUME 10.1 fL (7.4-10.4); MONO % 11.5 %; NEUT % 65.8 %; PLATELET COUNT 127 K/uL (130-400); RED BLOOD COUNT 3.15 M/uL (4.2-5.4); WHITE BLOOD COUNT 4.88 K/uL (4.8-10.8)
[2017-07-01 13:14] LABS: INR 1.1 (0.9-1.1)
[2017-07-01] MEDS: MENTHOL-ZINC OXIDE 360 APPLN/120 GM TUBE EXT PRN ×2 (13:23→13:35)
[2017-07-01 13:27] LABS: COMPLETE YES
[2017-07-01 13:36] LABS: BUN/CREATININE RATIO 3.6 (10-20); CALCIUM 8.3 mg/dl (8.5-10.1); CREATININE 3.11 mg/dl (0.60-1.20); POTASSIUM 2.5 mmol/L (3.5-5.1)
[2017-07-01] MEDS ORDERED: POTASSIUM CHLORIDE 10 MEQ TABCR PO STA ×2 (13:40→13:43)
--- NOTE | 2017-07-01 13:40 | NEPHROLOGY CONSULTATION ---
DATE OF CONSULTATION: 07/01/2017 REQUESTING PHYSICIAN: [facility] hospitalist service. SUBJECTIVE: Mrs. Cruz is a 72-year-old white female who was brought to the Emergency Room directly from the [facility] dialysis unit in [place]. She was accompanied by her . Over the course of the past several months, Mrs. Cruz has had a failure to thrive. She has had multiple complaints including back pain, which apparently has resolved; significant hypertension, which has improved somewhat with therapy; recurring episodes of nausea without vomiting and generalized weakness and malaise. Mrs. Cruz has a history of adult polycystic kidney disease, which is hereditary. Years ago, she had a left nephrectomy because of a persistent renal hemorrhage. Overtime, her renal function failed completely. In 2000, she was started on maintenance dialysis. At that time because of recurring infections, she had a right nephrectomy and a cholecystectomy to prepare her for renal transplant. In 2001, she received a renal transplant from her son. She did well with the transplant, but began to have problems with declining renal function and hypertension in late 2012. By November of 2013, she developed symptomatic uremia and volume overload. She was started back on hemodialysis. Her current vascular access is a left upper arm AV fistula. Initially, Mrs. Cruz did reasonably well on dialysis. However, it has been apparent that she has developed very slowly progressive periods of confusion. She did have an evaluation for dementia with neuropsychological testing, which was consistent with an early dementia, possibly on a vascular basis. In the early winter of this year, she was in [place], where and Mrs. Cruz have a home. While there, she had a fall and suffered a fracture of her left ankle. That did require some surgery. Nonetheless, she seemed to do well. However, her course was complicated by gastrointestinal bleeding. It was presumed that that was related to the use of nonsteroidal anti-inflammatory drugs use to help control her discomfort. Nonetheless, after transfusion, she was stabilized and otherwise did well and was nicely rehabilitated. However, her periods of confusion have persisted, although they do seem to wax and wane to some degree. Over the course of the past several months, she has had a persistently elevated blood pressure, which has improved with adjustments in her medications. She usually presents to the dialysis unit with a significant elevation of her blood pressure, but it does respond to volume reduction with her dialysis treatments. Additionally, she is complained of headaches, although they seem to be less severe of late. She has a longstanding history of headaches and neck pain. Those headaches appeared to be cervical in nature. Additionally, she has complained of nausea. She has had dry heaves, but rarely has episodes of vomiting. She has had no definite diarrhea. According to her, she is having one formed bowel movement a day at the current time. She has had generalized weakness. When asked what her major complaint is, she said that she hurts all over, but when I asked her where her pain is, she says that she has no pain!. Nonetheless, over the course of the past several days, she has been increasingly lethargic and spending most of her time in bed. She says that she is too weak to get out of bed and too weak to go to eat. For that reason, her discussed her problems with me and I suggested that she at least be held in the hospital for observation after her dialysis treatment today. She has no other specific complaints, although she does say that she will occasionally have some left-sided chest discomfort when she takes a deep breath or coughs. PAST MEDICAL HISTORY: Essentially as outlined above. Her major issue was one of adult polycystic kidney disease, which is hereditary and complicated by hypertension and subsequent renal failure. Hypothyroidism, controlled with Synthroid and gout controlled with allopurinol. Seizure disorder. PAST SURGICAL HISTORY: Left nephrectomy, subsequent right nephrectomy, cholecystectomy and a renal transplant. ALLERGIES: PRESUMED ALLERGIES OR ADVERSE REACTIONS TO LAMONT INHIBITORS, CELEBREX, CEPHALOSPORINS, CHLORHEXIDINE, CODEINE, HYDRALAZINE, IODINATED DIAGNOSTIC AGENTS, LEVOFLOXACIN, MEPERIDINE AND MORPHINE. CURRENT MEDICATIONS: Tylenol 500 mg q. 8 hours p.r.n. pain, allopurinol 300 mg daily for gout, amlodipine 5 mg b.i.d., PhosLo 667 mg 3 with each meal, clonidine hydrochloride 0.4 mg at bedtime, vitamin D 50,000 units weekly on Tuesdays, Lexapro 10 mg daily, fenofibrate 145 mg each morning, levothyroxine 100 mcg daily, metoprolol succinate 25 mg daily, multiple vitamins 1 daily, Zofran 4 mg q. 6 hours p.r.n. nausea, Protonix 40 mg daily, Dilantin 100 mg in the morning and 200 mg at bedtime, prednisone 5 mg daily, and tramadol 50 mg q. 8 hours p.r.n. pain. FAMILY HISTORY: There is a strong family history of polycystic kidney disease. There is also a family history in her children of hypercholesterolemia. REVIEW OF SYSTEMS: Essentially as outlined in her present illness. OBJECTIVE: GENERAL: On physical exam when seen by me, she appears to be a somewhat chronically ill woman of about her stated age of 72. VITAL SIGNS: She is afebrile (36.3), her blood pressure 161/77, her pulse 78 and regular, respiratory rate 18, and her pulse ox 100% on room air. SKIN: Shows a somewhat sallow complexion. She has scars from prior surgical procedures including a right lower quadrant scar from her kidney transplant and a scar on her left arm from the creation of her current AV fistula, which is dilated. She has some ecchymoses around that fistula. There are scars on her right arm from previous AV fistulas. There are scars from her 2 nephrectomies and a scar from her cholecystectomy. There is no rash or evidence of urticaria. She has no palpable lymphadenopathy. HEAD: Normal. EYES: Grossly normal, although somewhat injected. Pupils are equal and reactive to light. Her ocular fundi on the left shows a relatively dense cataract. On the right, there is a cataract. She has some scattered small hemorrhages in both eyes, more prominent on the right than on the left. EARS, NOSE, MOUTH AND THROAT: Unremarkable. Her oral mucous membranes are moist. NECK: Supple. There is no current jugular venous distention. She has no carotid bruit or thyromegaly. CHEST: Clear to auscultation. She has some left chest wall tenderness to palpation. CARDIAC: Shows a regular rhythm. S1 and S2 are normal. She has a soft systolic murmur at the base. ABDOMEN: Nontender. There is no organomegaly or mass. Bowel sounds are present. There is a right lower quadrant renal transplant, which is nontender. She has no bruit over the graft. EXTREMITIES: Show no cyanosis, clubbing or peripheral edema. She has a left upper arm AV fistula. Her left ankle is somewhat tender to palpation in movement. NEUROLOGIC: Shows some intermittent confusion. She has no focal or lateralizing neurologic findings. No laboratory work is currently available. ASSESSMENT: Mrs. Cruz has a history of end-stage renal disease. She has been back on dialysis for about 3 years after having had a kidney transplant for 12 years. She has had progressive issues with confusion and early dementia. She has had recent problems with hypertension that has been somewhat difficult to control, but has been somewhat improved. On physical exam, she has some evidence of small hemorrhages in her retina. Whether or not that is a direct relation to her blood pressure or simply the results of her chronic kidney disease is difficult to say. Her blood vessels do not appear that abnormal in the ocular fundi. She has some nonspecific symptoms of nausea, generalized weakness and headache. Certainly, there will be concerns that her headache is related to severe hypertension. However, the headache as most of her symptoms has tended to come and go. RECOMMENDATIONS: I would place her on observation for the next 24-48 hours to watch her blood pressure and symptomatology. Many of her symptoms have been evaluated as an outpatient. She has been seen by neurology. She has had an MRI of her low back. She has been to physical therapy with regard to her low back with some improvement. She complains of pruritus. Symptoms have improved with Sarna cream and moisturizers. I will follow her on a daily basis. If it appears that her blood pressure continues to be a significant issue that contributes to her symptomatology, we can try to adjust her medications, but she does have multiple sensitivities to the multiple medications that had been tried as alluded to above. No other immediate recommendations, but I will likely have more as her clinical course unfolds.
--- NOTE | 2017-07-01 13:40 | DIAGNOSTIC IMAGING REPORT ---
SINGLE VIEW CHEST CLINICAL HISTORY: Generalized weakness. Nausea FINDINGS: An AP, portable, upright chest radiograph is compared to study dated 03/07/2014. The examination is degraded by portable technique and patient rotation. A left subclavian central venous infusion port is unchanged in position. The heart is top normal for projection and there is atherosclerotic calcification of the thoracic aorta. The pulmonary vasculature is noncongested. Chronic interstitial thickening is similar to previous. There is chronic elevation of the right hemidiaphragm with mild basilar atelectasis. No airspace consolidation, large pleural effusion, or pneumothorax is seen. The skeletal structures are osteopenic. The bony thorax is grossly intact. IMPRESSION: No acute cardiopulmonary abnormality. Electronically signed by: Sami Schmidt M.D. 07/01/2017 1:38 PM Dictated Date/Time: 07/01/2017 1:37 PM
[2017-07-01] MEDS ORDERED: METOPROLOL SUCC 25MG EXT REL TAB PO STA (13:43)
[2017-07-01] MEDS ORDERED: TRAMADOL HCL 50 MG TAB PO PRN (13:45)
[2017-07-01] MEDS ORDERED: MAGNESIUM HYDROXIDE SUSP 30 ML UDC PO PRN (13:45)
[2017-07-01] MEDS ORDERED: AMLODIPINE BESYLATE 5 MG TAB PO ONE (13:45)
[2017-07-01] MEDS ORDERED: HydrALAZINE HCL 20 MG/ML VIAL IV. PRN (13:45)
[2017-07-01] MEDS ORDERED: ALUMINUM/MAGNESIUM/SIMETH (MAALOX MAX) 30 ML UDC PO PRN (13:45)
[2017-07-01] MEDS ORDERED: POLYETHYLENE (MIRALAX) 17 GM PACK PO PRN (13:45)
[2017-07-01] MEDS ORDERED: ZOLPIDEM TARTRATE 5 MG TAB PO PRN (13:45)
[2017-07-01 13:46] LABS: CKMB/CK RATIO 4.7 (0-3.0); THYROID STIMULATING HORMONE 5.33 uIu/ml (0.300-4.500)
[2017-07-01] MEDS ORDERED: PHENYTOIN SODIUM ER 100 MG CAP PO STA (13:57)
[2017-07-01 14:42] LABS: INFLUENZA A PCR Neg for Influ A (NEG); INFLUENZA B PCR Neg for Influ B (NEG)
--- NOTE | 2017-07-01 14:51 | HISTORY & PHYSICAL EXAMINATION ---
DATE OF ADMISSION: 07/01/2017 This is a level 3 observation H&P 40 minutes. CHIEF COMPLAINT: Generalized weakness, forgetful and headache. HISTORY OF PRESENT ILLNESS: The patient is a 72-year-old white female with a significant past medical history of adult polycystic kidney disease. She was having kidney transplant which was failed , and now she is getting dialysis on Friday, and Friday, has some other conditions such as hypertension, cystitis, dyslipidemia, hypothyroidism, kidney transplant, mitral valve disorder, comes to the hospital Emergency Department because of the above chief complaint. The patient's chief complaint is weight loss and intense pleuritis. She came from home with her after dialysis. Report has baseline dementia. concerned the patient has failure to thrive and her blood pressure has been out of control. When patient arrived to the Emergency Room, blood pressure was significantly high up to 190/85. Lab was checked, potassium was 2.5. When I interviewed with her she is complaining about skin pleuritis for several months. Report confirmed me the above information include history of fall and ankle fractures and weight loss, no appetite as well. She reported chronic headache and skin scratchiness too. The patient's at the bedside feels frustrated of her not getting better. Denied fever or chills. Denied cough, sputum, shortness of breath. Denied chest pain, palpitation, lower extremity swelling. Denied vomiting, abdominal pain, diarrhea, constipation. Denied dysuria, urgency and frequencies. The patient is not making any urine. PAST MEDICAL HISTORY: Like I mentioned in the above which include cystitis, end-stage renal disease, dyslipidemia, hypertension, hypothyroidism, kidney transplantation, mitral valve disorder. PAST SURGICAL HISTORY: Include hysterectomy, nephrectomy, renal transplant and cholecystectomy. FAMILY HISTORY: Include heart disease, hypertension, kidney disease and seizure. SOCIAL HISTORY: Never smoked. Denied alcohol abuse disorder, denied drug abuse, denied illicit drug abuse. The patient is and lives with family, retired. MEDICATIONS: Taking at home include allopurinol 300 mg p.o. q.a.m., Norvasc 5 mg p.o. b.i.d., PhosLo 3 caps p.o. t.i.d., clonidine 0.2 mg p.o. at bedtime, vitamin D 50,000 international p.o. q. weekly, lisinopril 10 mg p.o. q. every other day, TriCor 145 mg p.o. q.a.m., Synthroid 100 mcg p.o. q.a.m., Toprol 25 mg p.o. b.i.d., multiple vitamin 1 tab p.o. q.a.m., Protonix 40 mg p.o. b.i.d., phenytoin 100 mg p.o. q.a.m. 2 cap p.o. q.p.m., prednisone 5 mg p.o. q.a.m. Medicine as needed include Zofran 4 mg p.o. q. 6 hours p.r.n. for nauseation, Ultram 50 mg p.o. t.i.d. p.r.n. for the pain. PHYSICAL EXAMINATION: VITAL SIGNS: Temperature is 36.6, pulse 78, respiratory rate 18, blood pressure initially was 161/77, currently is 194/85. GENERAL: The patient is white female, healthy, but looked tired but pleasant to conversational. HEAD: Normocephalic. EYES: Pupils equal, round responds to light. EARS: Ear was normal. NOSE: Normal. NECK: Supple. Thyroid no enlargement. Trachea midline. MOUTH: Mild dry mucous membranes. HEART: Regular rhythm. Obvious systolic murmur. S1, S2. LUNGS: Decreased breathing sounds. There was no wheezing, rhonchi or crackle. ABDOMEN: Soft, nontender. Bowel sound was positive. EXTREMITIES: Bilateral CVA was nontender. Bilateral lower extremities, no limited range of motion. No clubbing, no cyanosis. Dialysis fistulas in the left arm with good bruits, left anterior chest wall has MediPort. NEUROLOGICAL EVALUATION: Cranial nerve II-XII was intact. There were no local deficits. SKIN: Has no obvious rashes. LABORATORY STUDIES: WBC 4, hemoglobin 11, platelet 127. PT/INR was 12/1.1. Sodium 136, potassium 2.5. BUN 11, creatinine 3.1. AST 57, ALT 33, total CK 19. Troponin 0.05. TSH was 5.53. Phenytoin 5.2. Influenza A and B is pending. IMAGING STUDIES: Chest x-ray studies which shows no acute abnormalities. EKG studies shows sinus rhythm with marked sinus arrhythmia with first degree AV block, right superior atrial deviations, septal infarction. ASSESSMENT AND PLAN: A 72-year-old white female with the conditions seen below: 1. Severe weakness, possible deconditioning. 2. End-stage renal disease on dialysis. 3. Severe hypokalemia. 4. Dementia. 5. History of seizure, on Dilantin. 6. Accelerated hypertension. 7. Mild elevated troponin at 0.05. 8. Mild elevated TSH at 5.3. 9. Phenytoin level is hypotherapeutic. 10. Hypothyroidism. 11. Dyslipidemia. PLAN: The patient has end-stage renal disease with severe hypokalemia and accelerated hypertension. I feel she needs full admission and needs to have tele monitor. She reported usually after dialysis she take blood pressure medicine. Today instead she came into the Emergency Room, therefore need to have blood pressure medicine additional dose for now, which was ordered. I ordered Toprol 25 mg p.o. 1 dose now and amlodipine 5 mg p.o. 1 dose now. At the same time, I ordered hydralazine as needed. The patient has end-stage renal disease. Will continue renal diet. Request nephrology consultation. Will ordered PT, OT evaluation and treatment. Will replace potassium and check magnesium level. For the headache will continue naproxen as needed. Per Dr. Richard patient has EGD and MRI done recently, was not remarkable. Because platelet levels is 127 which is on lower side, I will not give heparin but will give SCD for DVT prophylaxis. The patient is on Protonix, GI prophylaxis is covered. THE PATIENT IS FULL CODE. [facility]
[2017-07-01] MEDS: ACETAMINOPHEN 325 MG TAB PO PRN ×2 (15:07→23:37)
[2017-07-01 15:54] VITALS: BP 158/70; PULSE 81; TEMP 36.8; O2SAT 100; BMI 29.5
[2017-07-01 15:56] VITALS: Ht 167.6 cm; Wt 74.3 kg
[2017-07-01 16:06] VITALS: O2SAT 100
[2017-07-01] MEDS ORDERED: IV FLUIDS COMPLETED PRN (16:15)
[2017-07-01] MEDS: ONDANSETRON INJ 2 MG/ML 2 ML VIAL IV PRN (17:01)
[2017-07-01 18:28] LABS: BUN/CREATININE RATIO 4.1 (10-20); CALCIUM 8.5 mg/dl (8.5-10.1); CREATININE 4.01 mg/dl (0.60-1.20); POTASSIUM 3.1 mmol/L (3.5-5.1)
[2017-07-01] MEDS: CALCIUM ACETATE 667MG GELCAP PO SCH (18:38)
[2017-07-01 19:52] VITALS: BP 154/70; PULSE 81; TEMP 37; O2SAT 96
[2017-07-01] MEDS ORDERED: HEPARIN SOD 5000 UNIT/0.5 ML CARP SQ SCH (21:00)
[2017-07-01 21:48] VITALS: BP 162/91; PULSE 70; O2SAT 98
[2017-07-01] MEDS: CLONIDINE HCL 0.1 MG TAB PO SCH (21:50)
[2017-07-01] MEDS: AMLODIPINE BESYLATE 5 MG TAB PO SCH (21:50)
[2017-07-01] MEDS: METOPROLOL SUCC 25MG EXT REL TAB PO SCH (21:50)
[2017-07-01] MEDS: PANTOprazole SOD 40 MG TAB PO SCH (21:50)
[2017-07-01] MEDS: PHENYTOIN SODIUM ER 100 MG CAP PO SCH (21:51)
[2017-07-01 23:48] VITALS: BP 154/75; PULSE 69; TEMP 37.1; O2SAT 95
[2017-07-02] VITALS (7 sets, daily range): BP systolic 124–207; BP diastolic 55–100; PULSE 19–76; TEMP 36.5–37.2; O2SAT 94–97
[2017-07-02] MEDS: LEVOTHYROXINE 100 MCG TAB PO SCH (05:53)
[2017-07-02 06:37] LABS: BUN/CREATININE RATIO 4.9 (10-20); CALCIUM 8.3 mg/dl (8.5-10.1); CREATININE 4.83 mg/dl (0.60-1.20); POTASSIUM 3.6 mmol/L (3.5-5.1)
--- NOTE | 2017-07-02 06:57 | Family Medicine Progress Note ---
Progress Note Date of Service Jul 02, 2017. Subjective Pt evaluation today including: conversation w/ patient, physical exam, chart review, lab review, review of studies Found patient sitting up in the bed, very pleasantly conversational, explaining how she didn't feel well which prompted this admission. Says she would like to get better then go home. Denies any particular acute concerns but says she has her baseline frontal bilateral headache this morning. Says her itching is completely currently controlled with topical lotions. Denies any other acute c/ o. Constitutional: No fever, No chills Respiratory: No cough, No shortness of breath Cardiovascular: No chest pain, No edema Abdomen: No pain, No nausea Neurologic: + problem reported (ongoing headache) Medications Current Inpatient Medications Medications (Trade) Dose Ordered Sig/Adam Route Start Time Stop Time Status Last Admin Dose Admin Menthol/Zinc Oxide (Calmoseptine Oint) 1 appln QID PRN EXT 07/01/17 12:45 07/31/17 12:44 07/01/17 13:35 1 APPLN Acetaminophen (Tylenol Tab) 650 mg Q4H PRN PO 07/01/17 13:45 07/31/17 13:44 07/01/17 23:37 650 MG Al Hydrox/Mg Hydrox/Simethicone (Maalox Max Susp) 15 ml Q4H PRN PO 07/01/17 13:45 07/31/17 13:44 Magnesium Hydroxide (Milk Of Magnesia Susp) 30 ml Q12H PRN PO 07/01/17 13:45 07/31/17 13:44 Zolpidem Tartrate (Ambien Tab) 5 mg HSZ PRN PO 07/01/17 13:45 07/31/17 13:44 Ondansetron HCl (Zofran Inj) 4 mg Q6H PRN IV 07/01/17 13:45 07/31/17 13:44 07/01/17 17:01 4 MG Polyethylene (Miralax Powder Packet) 17 gm DAILY PRN PO 07/01/17 13:45 07/31/17 13:44 Allopurinol (Zyloprim Tab) 300 mg QAM PO 07/02/17 09:00 08/01/17 08:59 Amlodipine Besylate (Norvasc Tab) 5 mg BID PO 07/01/17 21:00 07/31/17 20:59 07/01/17 21:50 5 MG Calcium Acetate (Phoslo Cap) 1,334 mg TIDM PO 07/01/17 17:00 07/31/17 17:59 07/01/17 18:38 1,334 MG Ergocalciferol (Vitamin D Cap) 50,000 interunit Tu@0900 PO 07/08/17 09:00 08/07/17 08:59 Escitalopram Oxalate (Lexapro Tab) 10 mg Q2D@0900 PO 07/02/17 09:00 08/01/17 08:59 Fenofibrate (Tricor Tab) 145 mg QAM PO 07/02/17 09:00 08/01/17 08:59 Levothyroxine Sodium (Synthroid Tab) 100 mcg DAILYBB PO 07/02/17 06:30 08/01/17 06:59 07/02/17 05:53 100 MCG Metoprolol Succinate (Toprol Xl Tab) 25 mg BID PO 07/01/17 21:00 07/31/17 20:59 07/01/17 21:50 25 MG Multivitamins/ Minerals (Multivitamin W/ Minerals Tab) 1 tab QAM PO 07/02/17 09:00 08/01/17 08:59 Ondansetron HCl (Zofran Tab) 4 mg Q6H PRN PO 07/01/17 13:45 07/31/17 13:44 Pantoprazole Sodium (Protonix Tab) 40 mg BID PO 07/01/17 21:00 07/31/17 20:59 07/01/17 21:50 40 MG Phenytoin Sodium (Dilantin Er Cap) 100 mg QAM PO 07/02/17 09:00 08/01/17 08:59 Phenytoin Sodium (Dilantin Er Cap) 200 mg QPM PO 07/01/17 21:00 07/31/17 20:59 07/01/17 21:51 200 MG Prednisone (PredniSONE TAB) 5 mg QAM PO 07/02/17 09:00 08/01/17 08:59 Tramadol HCl (Ultram Tab) 50 mg TID PRN PO 07/01/17 13:45 07/31/17 13:44 Clonidine HCl (Catapres Tab) 0.2 mg HS PO 07/01/17 21:00 07/31/17 20:59 07/01/17 21:50 0.2 MG Hydralazine HCl (HydrALAZINE INJ) 20 mg Q6 PRN IV. 07/01/17 13:45 07/31/17 13:44 07/01/17 15:53 20 MG Miscellaneous (Iv Fluids Completed) 1 ea PRN PRN N/A 07/01/17 16:15 07/01/18 16:14 Heparin Sodium (Porcine) (Heparin 100 Unit/ml 5ml Flush) 5 ml PRN PRN IV 07/02/17 06:15 08/01/17 06:14 07/02/17 06:33 5 ML Objective Vital Signs Date Time Temp Pulse Resp B/P (MAP) Pulse Ox O2 Delivery O2 Flow Rate FiO2 07/02/17 04:00 Room Air 07/02/17 03:37 36.5 65 16 161/76 (104) 97 Room Air 07/02/17 00:00 Room Air 07/01/17 23:48 37.1 69 18 154/75 (101) 95 Room Air 07/01/17 21:48 70 162/91 (114) 98 07/01/17 20:00 Room Air 07/01/17 19:52 37.0 81 18 154/70 (98) 96 Room Air 07/01/17 16:06 82 18 185/75 100 Room Air 07/01/17 16:00 Room Air 07/01/17 15:54 36.8 81 16 158/70 100 Room Air 07/01/17 15:53 83 18 205/98 99 Room Air 07/01/17 15:09 76 18 198/87 99 Room Air 07/01/17 14:51 77 20 170/74 96 Room Air 07/01/17 13:22 76 20 194/85 97 07/01/17 13:16 76 07/01/17 13:10 76 194/85 80 186/92 87 182/87 07/01/17 13:10 97 Room Air 07/01/17 11:53 36.3 78 18 161/77 100 Room Air Physical Exam General Appearance: no apparent distress (very lucid, describing past events without any hesitation or difficulty) Respiratory/Chest: lungs clear, normal breath sounds, no respiratory distress Cardiovascular: regular rate, rhythm, + systolic murmur, + pertinent finding ( left chest mediport) Abdomen: normal bowel sounds, non tender, soft Extremities: normal range of motion, no pedal edema, + pertinent finding (left arm dialysis fistula) Neurologic/Psychiatric: alert, + pertinent finding (rather upbeat, smiling overall, trying to keep positive attitude) Laboratory Results 07/01/17 12:50 Red Blood Count 3.15, Mean Corpuscular Volume 111.7, Mean Corpuscular Hemoglobin 35.6, Mean Corpuscular Hemoglobin Concent 31.8, Mean Platelet Volume 10.1, Neutrophils (%) (Auto) 65.8, Lymphocytes (%) (Auto) 20.1, Monocytes (%) ( Auto) 11.5, Eosinophils (%) (Auto) 1.8, Basophils (%) (Auto) 0.6, Neutrophils # (Auto) 3.21, Lymphocytes # (Auto) 0.98, Monocytes # (Auto) 0.56, Eosinophils # ( Auto) 0.09, Basophils # (Auto) 0.03 07/02/17 05:21 Test 07/01/17 12:22 07/01/17 12:50 07/01/17 13:10 07/01/17 15:07 Bedside Glucose 114 mg/dl (70-90) White Blood Count 4.88 K/uL (4.8-10.8) Red Blood Count 3.15 M/uL (4.2-5.4) Hemoglobin 11.2 g/dL (12.0-16.0) Hematocrit 35.2 % (37-47) Mean Corpuscular Volume 111.7 fL (80-100) Mean Corpuscular Hemoglobin 35.6 pg (25-34) Mean Corpuscular Hemoglobin Concent 31.8 g/dl (32-36) Platelet Count 127 K/uL (130-400) Mean Platelet Volume 10.1 fL (7.4-10.4) Neutrophils (%) (Auto) 65.8 % Lymphocytes (%) (Auto) 20.1 % Monocytes (%) (Auto) 11.5 % Eosinophils (%) (Auto) 1.8 % Basophils (%) (Auto) 0.6 % Neutrophils # (Auto) 3.21 K/uL (1.4-6.5) Lymphocytes # (Auto) 0.98 K/uL (1.2-3.4) Monocytes # (Auto) 0.56 K/uL (0.11-0.59) Eosinophils # (Auto) 0.09 K/uL (0-0.5) Basophils # (Auto) 0.03 K/uL (0-0.2) RDW Standard Deviation 68.8 fL (36.4-46.3) RDW Coefficient of Variation 17.3 % (11.5-14.5) Immature Granulocyte % (Auto) 0.2 % Immature Granulocyte # (Auto) 0.01 K/uL (0.00-0.02) Nucleated RBC Absolute Count (auto) 0.05 K/uL (0-0) Nucleated Red Blood Cells % 1.0 % Macrocytosis PRESENT Prothrombin Time 12.0 SECONDS (9.0-12.0) Prothromb Time International Ratio 1.1 (0.9-1.1) Total Bilirubin 0.9 mg/dl (0.2-1) Direct Bilirubin 0.4 mg/dl (0-0.2) Aspartate Amino Transf (AST/SGOT) 57 U/L (15-37) Alanine Aminotransferase (ALT/SGPT) 33 U/L (12-78) Alkaline Phosphatase 67 U/L (45-117) Total Creatine Kinase 19 U/L (26-192) Creatine Kinase MB 0.9 ng/ml (0.5-3.6) Creatine Kinase MB Ratio 4.7 (0-3.0) Troponin I 0.050 ng/ml (0-0.045) Total Protein 6.7 gm/dl (6.4-8.2) Albumin 3.1 gm/dl (3.4-5.0) Thyroid Stimulating Hormone (TSH) 5.330 uIu/ml (0.300-4.500) Phenytoin (Dilantin) Level 5.2 mcg/mL (10-20) Influenza Type A (RT-PCR) Neg for Influ A (NEG) Influenza Type A Antigen Neg for Influ A (NEG) Influenza Type B Antigen Neg for Influ B (NEG) Influenza Type B (RT-PCR) Neg for Influ B (NEG) Vitamin B12 Level 768 pg/mL (211-911) Folate > 24.00 ng/mL (>5.38) Thyroxine (T4) 9.3 mcg/dl (4.5-10.9) Free Triiodothyronine 2.50 pg/ml (2.30-4.20) Test 07/02/17 05:21 Anion Gap 5.0 mmol/L (3-11) Est Creatinine Clear Calc Drug Dose 11.3 ml/min Estimated GFR () 9.8 Estimated GFR (Non- 8.5 BUN/Creatinine Ratio 4.9 (10-20) Calcium Level 8.3 mg/dl (8.5-10.1) Magnesium Level 2.0 mg/dl (1.8-2.4) Assessment and Plan Ms. Cruz is a 72-year-old white female with a PMH of adult PCKD (on dialysis, failed kidney transplant), HTN, HLD, hypothyroid, MV issues who was admitted on [id number] after transfer from [facility] dialysis unit in [place] for generalized weakness, forgetful and headache. 1. Severe weakness, possible deconditioning, and headache - Reports of chronic headache, possibly cervical in nature. Concern for failure to thrive, recurring episodes of nausea without emesis. More recent reported lethargy, staying in bed, not eating much. 06Dec am appears very comfortable overall, no acute changes in headaches, does not appear acutely weak at all. - Has previously been seen by neurology for headaches. - Tylenol prn. 1.5. Pruritis - Improved with Sarna cream and moisturizers 2. End-stage renal disease on dialysis. - PSH left nephrectomy due to renal hemorrhage. Began dialysis 2000, then right nephrectomy. 2001 renal transplant, restarted dialysis 2013 via LUE AV fistula. - Normal dialysis schedule TuThSat. Aneuric at baseline. - Nephrology consulted, please see [facility] note. 3. Severe hypokalemia: In ED on admit was 2.5. - Replaced K in ED. Magnesium check was 2.0. Monitoring. 4. Dementia. - Possibly vascular. 5. History of seizure, on Dilantin. 5.5. History of traumatic subarachnoid hemorrhage (s/p fall). - Mentioned in neurology note Oct 2013. 6. Accelerated hypertension. - Noted elevation in ED 190/85. - Given on admit Toprol 25 mg p.o. one dose and amlodipine 5 mg p.o. one dose - As inpatient Norvasc 5 BID, Toprol XL 25 BID, Clonidine 0.2 HS, Hydralazine 20 q6h PRN. 7. Mild elevated troponin at 0.05. 8. Mild elevated TSH at 5.3. 9. Phenytoin level is hypotherapeutic. - As inpatient Phenytoin 200 PM. 10. Hypothyroidism. - As inpatient Synthroid 100 daily. 10.5. Gout - Allopurinol previously 11. Dyslipidemia. 12. GI prophy - History of GI bleed in early 2017, ? related to hospitalization for left ankle fracture/surgery. - As inpatient Protonix 40 BID. Code: Full DVT: SCD's. Hold heparin due to relatively low platelets. Disbo: Admitted overnight. - PT consulted - OT consulted Resident Physician Supervision Note: I interviewed and examined the patient. Discussed with Dr. Fish and agree with findings and plan as documented in the note. Any exceptions or clarifications are listed here: If she has not had a recent adjustment of her Synthroid, would increase dose given TSH > 5 in setting of increased fatigue. Documented By: Joe Perez Resident Tracking Resident Involvement: Resident Care Provided Care Provided: Adult Hospital Medicine (inpt rounds)
[2017-07-02] MEDS: AMLODIPINE BESYLATE 5 MG TAB PO SCH ×2 (07:31→20:40)
[2017-07-02] MEDS: METOPROLOL SUCC 25MG EXT REL TAB PO SCH ×2 (07:31→20:40)
[2017-07-02] MEDS: ALLOPURINOL 300 MG TAB PO SCH (07:31)
[2017-07-02] MEDS: PANTOprazole SOD 40 MG TAB PO SCH ×2 (07:31→20:39)
[2017-07-02] MEDS: ESCITALOPRAM OXALATE 10 MG TAB PO SCH (07:31)
[2017-07-02] MEDS: CEROVITE ADV FORMULA TAB PO SCH (07:31)
[2017-07-02] MEDS: FENOFIBRATE 145 MG TAB PO SCH (07:31)
[2017-07-02] MEDS: PHENYTOIN SODIUM ER 100 MG CAP PO SCH ×2 (07:32→20:39)
[2017-07-02] MEDS: CALCIUM ACETATE 667MG GELCAP PO SCH ×3 (07:32→17:15)
--- NOTE | 2017-07-02 11:50 | NEPHROLOGY PROGRESS NOTE ---
DATE: 07/02/2017 DATE: 07/02/2017 SUBJECTIVE: Mrs. Cruz says that she is feeling a bit better. She denies having a headache. She said that she had a relatively restful might but still did not sleep well. She denies having a current headache. Yesterday, her blood pressure was significantly elevated throughout much of the day. It dropped somewhat in the evening. She did receive some IV hydralazine, which did lead to a significant improvement. She has no chest pain and no shortness of breath. She has no headache. She denies having a stiff neck. She is not being bothered by pruritus. OBJECTIVE: GENERAL: On her current exam she appears relatively comfortable and well. She has a minimal temperature of 37.2. Her blood pressure is 124/55 but after having received IV hydralazine. Prior to that, systolic blood pressures were much higher. Her pulse is 64 and regular, respiratory rate 18, her pulse ox 95-97% on room air. SKIN: Shows normal skin turgor. She has no rash or infiltrative skin disease. She has scars from prior surgical procedures including a scar over her left antecubital fossa from the creation of her left upper arm AV fistula. She has a right lower quadrant scar from her kidney transplant and bilateral flank incisions for nephrectomies as well as a right upper quadrant incision from her cholecystectomy. LYMPHATICS: Show no palpable adenopathy. HEAD: Grossly normal. EYES: Normal. Her pupils are equal and reactive to light. She has no conjunctival injection. The ocular fundi were not examined. Yesterday they did show evidence of small hemorrhages. EARS, NOSE, MOUTH AND THROAT: All unremarkable. Her oral mucous membranes are moist. NECK: Supple. There is no jugular venous distention, carotid bruit or thyromegaly. CHEST: Clear to auscultation. There are no wheezes, rales or rhonchi. CARDIAC EXAMINATION: Shows a regular rhythm. S1 and S2 are normal. I hear no murmur or gallop. ABDOMEN: Nontender. There is no organomegaly or mass. Her transplant is palpable in the right lower quadrant. EXTREMITIES: Show no cyanosis, clubbing or peripheral edema. She has a left arm AV fistula. NEUROLOGIC EXAMINATION: Shows some minimal confusion. However, there are no lateralizing neurologic changes. LABORATORY WORK ON ADMISSION: Showed a white count of 4880. Her hemoglobin 11.2. Her hematocrit 35.2. Red cell indices are macrocytic consistent with her use of Dilantin. Her platelet count 127,000. Her prothrombin time was 12.0 with an INR of 1.1. Her Dilantin level was 5.2. Her clinical chemistries from today show a sodium of 137 mmol/L, potassium 3.6 mmol/L, chloride 100 mmol/L, and CO2 content 32 mmol/L. Her BUN is 24, creatinine 4.83. Her influenza titers are negative. Her chest x-ray shows evidence of mild cardiomegaly and some calcifications in the thoracic aorta. She has no pulmonary vascular congestion. She does have some chronic interstitial thickening that is again noted. She does have an A-Port in the left subclavian vein. ASSESSMENT: Mrs. Cruz seems symptomatically a bit better. However, she continued to have hypertension even in a post-dialysis period for much of the day yesterday. Oral hydralazine was apparently discontinued at the time of her admission. She does appear to respond to IV hydralazine however. RECOMMENDATIONS: Laboratory quinn would check a renin and aldosterone level. Certainly if her renin is high and her aldosterone level is high, she may respond to an angiotensin receptor ligia. Previously renins were normal, as this has been checked before. Tomorrow we will try to reduce her plasma volume further by removing about 4 liters of fluid on dialysis. Orders have been written. For now, we will place her on a higher dose of oral hydralazine, 50 mg twice a day. If she responds to that we might want to try to cut back on her use of either Catapres or beta blockers since the combination may lead to increasing symptoms of lethargy. No other immediate recommendations. I will continue to follow her with you.
[2017-07-02] MEDS: ONDANSETRON 4 MG TAB PO PRN (18:04)
[2017-07-02] MEDS: CLONIDINE HCL 0.1 MG TAB PO SCH (20:39)
[2017-07-03] VITALS (24 sets, daily range): BP systolic 98–184; BP diastolic 53–97; PULSE 54–95; TEMP 36.5–37.1; O2SAT 95–99
[2017-07-03] MEDS: LEVOTHYROXINE 100 MCG TAB PO SCH (06:47)
[2017-07-03] MEDS: AMLODIPINE BESYLATE 5 MG TAB PO SCH ×2 (07:06→20:33)
[2017-07-03] MEDS: METOPROLOL SUCC 25MG EXT REL TAB PO SCH ×2 (07:07→20:34)
[2017-07-03] MEDS: ONDANSETRON INJ 2 MG/ML 2 ML VIAL IV PRN (07:32)
[2017-07-03] MEDS: CALCIUM ACETATE 667MG GELCAP PO SCH ×3 (07:32→16:58)
[2017-07-03] MEDS: PANTOprazole SOD 40 MG TAB PO SCH ×2 (07:33→20:35)
[2017-07-03] MEDS: PHENYTOIN SODIUM ER 100 MG CAP PO SCH ×2 (07:33→20:36)
[2017-07-03] MEDS: CEROVITE ADV FORMULA TAB PO SCH (07:33)
[2017-07-03] MEDS: ALLOPURINOL 300 MG TAB PO SCH (07:33)
[2017-07-03] MEDS: FENOFIBRATE 145 MG TAB PO SCH (07:34)
[2017-07-03] MEDS ORDERED: SODIUM CHLORIDE 0.9% 1000ML 1,000 ML IV PRN (08:00)
--- NOTE | 2017-07-03 08:31 | Family Medicine Progress Note ---
Progress Note Date of Service Jul 03, 2017. Subjective Pt evaluation today including: conversation w/ patient, physical exam, chart review, lab review, review of studies Found patient resting comfortably in bed. She smiles but says she remains generally uncomfortable, noting ongoing nausea and her chronic headache. Denies any emesis or abdominal pains/concerns. No other acute patient concerns. Constitutional: No fever, No chills Respiratory: No cough, No shortness of breath Cardiovascular: No chest pain, No edema Abdomen: + nausea, No pain, No vomiting, No diarrhea Medications Current Inpatient Medications Medications (Trade) Dose Ordered Sig/Adam Route Start Time Stop Time Status Last Admin Dose Admin Menthol/Zinc Oxide (Calmoseptine Oint) 1 appln QID PRN EXT 07/01/17 12:45 07/31/17 12:44 07/01/17 13:35 1 APPLN Acetaminophen (Tylenol Tab) 650 mg Q4H PRN PO 07/01/17 13:45 07/31/17 13:44 07/01/17 23:37 650 MG Al Hydrox/Mg Hydrox/Simethicone (Maalox Max Susp) 15 ml Q4H PRN PO 07/01/17 13:45 07/31/17 13:44 Magnesium Hydroxide (Milk Of Magnesia Susp) 30 ml Q12H PRN PO 07/01/17 13:45 07/31/17 13:44 Zolpidem Tartrate (Ambien Tab) 5 mg HSZ PRN PO 07/01/17 13:45 07/31/17 13:44 Ondansetron HCl (Zofran Inj) 4 mg Q6H PRN IV 07/01/17 13:45 07/31/17 13:44 07/03/17 07:32 4 MG Polyethylene (Miralax Powder Packet) 17 gm DAILY PRN PO 07/01/17 13:45 07/31/17 13:44 Allopurinol (Zyloprim Tab) 300 mg QAM PO 07/02/17 09:00 08/01/17 08:59 07/03/17 07:33 300 MG Amlodipine Besylate (Norvasc Tab) 5 mg BID PO 07/01/17 21:00 07/31/17 20:59 07/02/17 20:40 5 MG Calcium Acetate (Phoslo Cap) 1,334 mg TIDM PO 07/01/17 17:00 07/31/17 17:59 07/03/17 07:32 1,334 MG Ergocalciferol (Vitamin D Cap) 50,000 interunit Tu@0900 PO 07/08/17 09:00 08/07/17 08:59 Escitalopram Oxalate (Lexapro Tab) 10 mg Q2D@0900 PO 07/02/17 09:00 08/01/17 08:59 07/02/17 07:31 10 MG Fenofibrate (Tricor Tab) 145 mg QAM PO 07/02/17 09:00 08/01/17 08:59 07/03/17 07:34 145 MG Levothyroxine Sodium (Synthroid Tab) 100 mcg DAILYBB PO 07/02/17 06:30 08/01/17 06:59 07/03/17 06:47 100 MCG Metoprolol Succinate (Toprol Xl Tab) 25 mg BID PO 07/01/17 21:00 07/31/17 20:59 07/02/17 20:40 25 MG Multivitamins/ Minerals (Multivitamin W/ Minerals Tab) 1 tab QAM PO 07/02/17 09:00 08/01/17 08:59 07/03/17 07:33 1 TAB Ondansetron HCl (Zofran Tab) 4 mg Q6H PRN PO 07/01/17 13:45 07/31/17 13:44 07/02/17 18:04 4 MG Pantoprazole Sodium (Protonix Tab) 40 mg BID PO 07/01/17 21:00 07/31/17 20:59 07/03/17 07:33 40 MG Phenytoin Sodium (Dilantin Er Cap) 100 mg QAM PO 07/02/17 09:00 08/01/17 08:59 07/03/17 07:33 100 MG Phenytoin Sodium (Dilantin Er Cap) 200 mg QPM PO 07/01/17 21:00 07/31/17 20:59 07/02/17 20:39 200 MG Prednisone (PredniSONE TAB) 5 mg QAM PO 07/02/17 09:00 08/01/17 08:59 07/03/17 07:33 5 MG Tramadol HCl (Ultram Tab) 50 mg TID PRN PO 07/01/17 13:45 07/31/17 13:44 Clonidine HCl (Catapres Tab) 0.2 mg HS PO 07/01/17 21:00 07/31/17 20:59 07/02/17 20:39 0.2 MG Miscellaneous (Iv Fluids Completed) 1 ea PRN PRN N/A 07/01/17 16:15 07/01/18 16:14 Heparin Sodium (Porcine) (Heparin 100 Unit/ml 5ml Flush) 5 ml PRN PRN IV 07/02/17 06:15 08/01/17 06:14 07/02/17 11:22 5 ML Hydralazine HCl (Apresoline Tab) 50 mg BID PO 07/02/17 21:00 08/01/17 20:59 07/02/17 20:38 50 MG Sodium Chloride 1,000 ml @ 0 mls/hr Q0M PRN IV 07/03/17 08:00 07/03/17 18:00 Objective Vital Signs Date Time Temp Pulse Resp B/P (MAP) Pulse Ox O2 Delivery O2 Flow Rate FiO2 07/03/17 07:31 36.5 66 18 184/75 (111) 96 Room Air 07/03/17 04:10 Room Air 07/03/17 03:50 36.6 63 18 148/66 (93) 96 Room Air 07/03/17 00:10 Room Air 07/02/17 23:30 36.8 67 18 154/70 (98) 96 Room Air 07/02/17 19:52 36.9 73 18 183/83 (116) 95 Room Air 07/02/17 19:50 Room Air 07/02/17 16:00 Room Air 07/02/17 15:45 36.8 19 19 152/100 (117) 94 Room Air 07/02/17 12:43 72 193/80 (117) 07/02/17 12:28 36.8 76 18 207/84 (125) 96 Room Air 07/02/17 12:00 Room Air Physical Exam General Appearance: no apparent distress (remains lucid, upbeat overall) Respiratory/Chest: lungs clear, normal breath sounds, no respiratory distress, + pertinent finding (left chest mediport) Cardiovascular: regular rate, rhythm, + systolic murmur Abdomen: normal bowel sounds, non tender, soft Extremities: non-tender, no pedal edema, + pertinent finding (left arm dialysis fistula) Neurologic/Psychiatric: alert Laboratory Results Test 07/02/17 11:33 Assessment and Plan Ms. 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 Severe weakness, possible deconditioning, and headache - Reports of chronic headache, possibly cervical in nature. Concern for failure to thrive, recurring episodes of nausea without emesis. More recent reported lethargy, staying in bed, not eating much. 06 and 07Dec am appears very comfortable overall, no acute changes in headaches, does not appear acutely weak at all. - Has previously been seen by neurology for headaches. - Tylenol prn for headache symptoms. Accelerated hypertension - Persistent elevations in SBP 180-200's. - Given on admit Toprol 25 mg p.o. one dose and amlodipine 5 mg p.o. one dose. - As inpatient Norvasc 5 BID, Toprol XL 25 BID, Clonidine 0.2 HS. - Transitioned to hydralazine 50 mg PO BID scheduled, which apparently has helped in the past. Is due for hemodialysis today (07Dec) which should help with overall volume. - Per renal note, can consider decreasing doses of clondine or her metoprolol ( due to symptoms of lethargy). Will watch overall BP, though. After 07Dec dialysis, was noted to be quite labile. End-stage renal disease on dialysis - PSH left nephrectomy due to renal hemorrhage. Began dialysis 2000, then right nephrectomy. 2001 renal transplant, restarted dialysis 2013 via LUE AV fistula. - Normal dialysis schedule TuThSat. Aneuric at baseline. - Nephrology consulted, please see their notes as well. - 07Dec after her scheduled dialysis said she felt a little better but still was itchy. Admit ED lab findings - Hypokalemia: In ED on admit was 2.5. Replaced K in ED, resolved. Magnesium check was 2.0. Monitoring. - Mild elevated troponin at 0.05. Never really c/o chest pain or respiratory difficulties to suggest ACS. May be renal-related. - Phenytoin level was low, though patient had just arrived from dialysis. Patient has PMH of seizures. Prior medical history - Hypothyroidism: Admit mildly elevated TSH at 5.3. Prior to admit was on Synthroid 100 daily. 07Dec increased synthroid to 125 mcg daily. - Pruritis: Improved with Sarna cream and moisturizers. - Dementia: Possibly vascular. - Gout: On home allopurinol 300 daily. - Dyslipidemia - History of traumatic subarachnoid hemorrhage (s/p fall) as mentioned in neurology note Oct 2013. GI prophy - History of GI bleed in early 2016, ? related to hospitalization for left ankle fracture/surgery. - As inpatient Protonix 40 BID. Code: Full. DVT: SCD's. Hold heparin due to relatively low platelets. Disbo: Pending. Resident Physician Supervision Note: I was present with the resident during the history and exam. I discussed the case with the resident and agree with the findings and plan as documented in the note. Any exceptions or clarifications are listed here: Overall, the patient feels better with the exception of the pruritus. PLAN 1) Monitor BPs 2) Topical agents for the pruritus, which is somewhat chronic; consider Atarax this evening if needed. 3) increase Synthroid to 125 g daily; recommend repeat TSH in 8 weeks. Documented By: Joe Perez Resident Tracking Resident Involvement: Resident Care Provided Care Provided: Adult Hospital Medicine (inpt rounds)
--- NOTE | 2017-07-03 11:02 | PROGRESS NOTE ---
DATE: 07/03/2017 SUBJECTIVE: Mrs. Cruz says that she is feeling relatively well. However, she still complains of pruritus which is generalized. Apparently it had improved yesterday, but is somewhat worse today. She has no associated rash. She denies having a headache. She denies chest pain or shortness of breath. She has no definite symptoms of uremia or volume overload. OBJECTIVE: GENERAL: On physical examination, Mrs. Cruz appears comfortable and relatively well and was not scratching at the time seen by me. She was seen during her dialysis treatment. VITAL SIGNS: Her blood pressure at the time seen was 155/53, her pulse 67 and regular, her respiratory rate was 18 and her pulse ox 96% on room air. SKIN: Seem somewhat dry. There is no rash or infiltrative skin disease. She has scars from prior surgical procedures including a scar in her left arm from a current AV fistula with some ecchymoses near the fistula. She has scars on her right arm from attempts at AV fistulas. She has scars over both flanks from nephrectomies and right upper quadrant scar from a cholecystectomy. There is a right lower quadrant scar from her kidney transplant. LYMPHATICS: Show no palpable lymphadenopathy. HEAD: Normal. EYES: Grossly normal. The ocular fundi were not examined. Previously, she did show evidence of bilateral cataract worse on the left than on the right plus she had multiple small hemorrhages, particularly noted in her right eye, but some noted bilaterally. EARS, NOSE, MOUTH AND THROAT: Unremarkable. Her oral mucous membranes are moist. CHEST: Clear to auscultation. There are no wheezes, rales or rhonchi. CARDIAC: Shows a regular rhythm. S1 and S2 are normal. I hear no definite murmur or gallop. ABDOMEN: Nontender. There is no organomegaly or mass. Her transplant is palpable in the right lower quadrant. There is no bruit over the transplant. EXTREMITIES: Show no cyanosis, clubbing or peripheral edema. She has a left upper arm AV fistula which is functioning nicely. NEUROLOGIC: Shows no lateralizing changes. She is minimally confused. No laboratory work was done today. ASSESSMENT: Mrs. Cruz seems to be fairly stable. However, her blood pressure has been significantly elevated. It is trending downward with her dialysis treatment today. We have already removed about 1.7 liters of fluid at the time of this dictation and her blood pressure has improved. It is planned for her to have an additional 2 liters removed with today's dialysis. She seems to be tolerating it well. Her pruritus is likely secondary to dry skin. At the current time, her antihypertensive medications continue to include amlodipine 5 mg twice a day, metoprolol succinate ER 25 mg twice daily, clonidine 0.2 mg at bedtime and hydralazine currently at a dose of 50 mg b.i.d. PLAN: No change. We will see how her blood pressure does as additional fluid is removed. Hopefully, she will tolerate it and we will see if her blood pressure stabilizes at a lower level. Renin and aldosterone levels are pending. For her pruritus topical agents would appear to be the best alternative, although drugs such as Atarax might also be used.
[2017-07-03] MEDS: CLONIDINE HCL 0.1 MG TAB PO SCH (20:34)
[2017-07-04] MEDS: ONDANSETRON 4 MG TAB PO PRN (04:07)
[2017-07-04] MEDS: ACETAMINOPHEN 325 MG TAB PO PRN (04:07)
[2017-07-04 04:31] VITALS: BP 175/97; PULSE 71; TEMP 36.4; O2SAT 96
[2017-07-04 06:23] LABS: HEMATOCRIT 37.5 % (37-47); MEAN CELL VOLUME 114.7 fL (80-100); MEAN CORPUSCULAR HEMOGLOBIN 36.4 pg (25-34); MEAN CORPUSCULAR HGB CONC 31.7 g/dl (32-36); RED BLOOD COUNT 3.27 M/uL (4.2-5.4); WHITE BLOOD COUNT 4.97 K/uL (4.8-10.8)
[2017-07-04 06:24] VITALS: BP 153/91; PULSE 77
[2017-07-04] MEDS ORDERED: LEVOTHYROXINE 125 MCG TAB PO SCH (06:30)
[2017-07-04 06:55] LABS: BUN/CREATININE RATIO 4.9 (10-20); CREATININE 4.47 mg/dl (0.60-1.20)
[2017-07-04 06:58] LABS: ALB/GLOB RATIO 0.9 (0.9-2)
[2017-07-04 07:01] LABS: BASO % 0.6 %; BASO ABS # 0.03 K/uL (0-0.2); COMPLETE YES; IG% 0.4 %; LYMPH ABS # 1.74 K/uL (1.2-3.4); MEAN PLATELET VOLUME 9.5 fL (7.4-10.4); MONO % 12.9 %; NEUT % 48.1 %; PLATELET COUNT 99 K/uL (130-400); PLT ESTIMATE DECREASED
[2017-07-04 07:49] VITALS: BP 169/95; PULSE 68; TEMP 36.6; O2SAT 98
[2017-07-04] MEDS: CALCIUM ACETATE 667MG GELCAP PO SCH (07:54)
[2017-07-04 07:55] VITALS: BP 171/83; PULSE 64; TEMP 36.6; O2SAT 97
[2017-07-04] MEDS: ESCITALOPRAM OXALATE 10 MG TAB PO SCH (07:55)
[2017-07-04] MEDS: CEROVITE ADV FORMULA TAB PO SCH (07:55)
[2017-07-04] MEDS: AMLODIPINE BESYLATE 5 MG TAB PO SCH (07:55)
[2017-07-04] MEDS: PANTOprazole SOD 40 MG TAB PO SCH (07:55)
[2017-07-04] MEDS: METOPROLOL SUCC 25MG EXT REL TAB PO SCH (07:55)
[2017-07-04] MEDS: ALLOPURINOL 300 MG TAB PO SCH (07:56)
[2017-07-04] MEDS: FENOFIBRATE 145 MG TAB PO SCH (07:56)
[2017-07-04] MEDS: PHENYTOIN SODIUM ER 100 MG CAP PO SCH (07:56)
--- NOTE | 2017-07-04 08:46 | Family Medicine Progress Note ---
Progress Note Date of Service Jul 04, 2017. Medications Current Inpatient Medications Medications (Trade) Dose Ordered Sig/Adam Route Start Time Stop Time Status Last Admin Dose Admin Menthol/Zinc Oxide (Calmoseptine Oint) 1 appln QID PRN EXT 07/01/17 12:45 07/31/17 12:44 07/01/17 13:35 1 APPLN Acetaminophen (Tylenol Tab) 650 mg Q4H PRN PO 07/01/17 13:45 07/31/17 13:44 07/04/17 04:07 650 MG Al Hydrox/Mg Hydrox/Simethicone (Maalox Max Susp) 15 ml Q4H PRN PO 07/01/17 13:45 07/31/17 13:44 Magnesium Hydroxide (Milk Of Magnesia Susp) 30 ml Q12H PRN PO 07/01/17 13:45 07/31/17 13:44 Zolpidem Tartrate (Ambien Tab) 5 mg HSZ PRN PO 07/01/17 13:45 07/31/17 13:44 Ondansetron HCl (Zofran Inj) 4 mg Q6H PRN IV 07/01/17 13:45 07/31/17 13:44 07/03/17 07:32 4 MG Polyethylene (Miralax Powder Packet) 17 gm DAILY PRN PO 07/01/17 13:45 07/31/17 13:44 Allopurinol (Zyloprim Tab) 300 mg QAM PO 07/02/17 09:00 08/01/17 08:59 07/04/17 07:56 300 MG Amlodipine Besylate (Norvasc Tab) 5 mg BID PO 07/01/17 21:00 07/31/17 20:59 07/04/17 07:55 5 MG Calcium Acetate (Phoslo Cap) 1,334 mg TIDM PO 07/01/17 17:00 07/31/17 17:59 07/04/17 07:54 1,334 MG Ergocalciferol (Vitamin D Cap) 50,000 interunit Tu@0900 PO 07/08/17 09:00 08/07/17 08:59 Escitalopram Oxalate (Lexapro Tab) 10 mg Q2D@0900 PO 07/02/17 09:00 08/01/17 08:59 07/04/17 07:55 10 MG Fenofibrate (Tricor Tab) 145 mg QAM PO 07/02/17 09:00 08/01/17 08:59 07/04/17 07:56 145 MG Metoprolol Succinate (Toprol Xl Tab) 25 mg BID PO 07/01/17 21:00 07/31/17 20:59 07/04/17 07:55 25 MG Multivitamins/ Minerals (Multivitamin W/ Minerals Tab) 1 tab QAM PO 07/02/17 09:00 08/01/17 08:59 07/04/17 07:55 1 TAB Ondansetron HCl (Zofran Tab) 4 mg Q6H PRN PO 07/01/17 13:45 07/31/17 13:44 07/04/17 04:07 4 MG Pantoprazole Sodium (Protonix Tab) 40 mg BID PO 07/01/17 21:00 07/31/17 20:59 07/04/17 07:55 40 MG Phenytoin Sodium (Dilantin Er Cap) 100 mg QAM PO 07/02/17 09:00 08/01/17 08:59 07/04/17 07:56 100 MG Phenytoin Sodium (Dilantin Er Cap) 200 mg QPM PO 07/01/17 21:00 07/31/17 20:59 07/03/17 20:36 200 MG Prednisone (PredniSONE TAB) 5 mg QAM PO 07/02/17 09:00 08/01/17 08:59 07/04/17 07:56 5 MG Tramadol HCl (Ultram Tab) 50 mg TID PRN PO 07/01/17 13:45 07/31/17 13:44 Clonidine HCl (Catapres Tab) 0.2 mg HS PO 07/01/17 21:00 07/31/17 20:59 07/03/17 20:34 0.2 MG Miscellaneous (Iv Fluids Completed) 1 ea PRN PRN N/A 07/01/17 16:15 07/01/18 16:14 Heparin Sodium (Porcine) (Heparin 100 Unit/ml 5ml Flush) 5 ml PRN PRN IV 07/02/17 06:15 08/01/17 06:14 07/02/17 11:22 5 ML Hydralazine HCl (Apresoline Tab) 50 mg BID PO 07/02/17 21:00 08/01/17 20:59 07/04/17 07:56 50 MG Levothyroxine Sodium (Synthroid Tab) 125 mcg DAILYBB PO 07/04/17 06:30 08/03/17 06:29 07/04/17 06:22 125 MCG Objective Vital Signs Date Time Temp Pulse Resp B/P (MAP) Pulse Ox O2 Delivery O2 Flow Rate FiO2 07/04/17 07:55 36.6 64 18 171/83 (112) 97 07/04/17 07:49 36.6 68 18 169/95 (119) 98 Room Air 07/04/17 06:24 77 153/91 (111) 07/04/17 04:31 36.4 71 16 175/97 (123) 96 Room Air 07/04/17 04:00 Room Air 07/03/17 23:59 Room Air 07/03/17 23:53 36.6 72 20 121/71 (88) 95 Room Air 07/03/17 20:00 Room Air 07/03/17 19:09 36.9 73 16 150/78 (102) 97 Room Air 07/03/17 16:00 Room Air 07/03/17 15:49 37.1 76 18 136/65 (88) 96 Room Air 07/03/17 13:45 Room Air 07/03/17 13:45 36.8 69 16 153/71 (98) 99 Room Air 07/03/17 13:01 36.6 67 150/80 (103) 07/03/17 12:45 68 145/72 07/03/17 12:30 74 157/87 07/03/17 12:15 70 139/71 07/03/17 12:00 69 124/72 07/03/17 11:45 74 146/97 07/03/17 11:30 71 153/85 07/03/17 11:15 95 99/81 07/03/17 11:00 54 98/68 07/03/17 10:45 71 150/81 07/03/17 10:30 70 162/79 07/03/17 10:15 67 155/53 07/03/17 10:00 72 148/92 07/03/17 09:45 69 165/75 07/03/17 09:30 72 166/86 07/03/17 09:15 66 164/84 07/03/17 09:00 69 169/89 Laboratory Results 07/04/17 05:39 Red Blood Count 3.27, Mean Corpuscular Volume 114.7, Mean Corpuscular Hemoglobin 36.4, Mean Corpuscular Hemoglobin Concent 31.7, Mean Platelet Volume 9.5, Neutrophils (%) (Auto) 48.1, Lymphocytes (%) (Auto) 35.0, Monocytes (%) ( Auto) 12.9, Eosinophils (%) (Auto) 3.0, Basophils (%) (Auto) 0.6, Neutrophils # (Auto) 2.39, Lymphocytes # (Auto) 1.74, Monocytes # (Auto) 0.64, Eosinophils # ( Auto) 0.15, Basophils # (Auto) 0.03 07/04/17 05:39 Test 07/04/17 04:15 07/04/17 05:39 Bedside Glucose 90 mg/dl (70-90) White Blood Count 4.97 K/uL (4.8-10.8) Red Blood Count 3.27 M/uL (4.2-5.4) Hemoglobin 11.9 g/dL (12.0-16.0) Hematocrit 37.5 % (37-47) Mean Corpuscular Volume 114.7 fL (80-100) Mean Corpuscular Hemoglobin 36.4 pg (25-34) Mean Corpuscular Hemoglobin Concent 31.7 g/dl (32-36) Platelet Count 99 K/uL (130-400) Mean Platelet Volume 9.5 fL (7.4-10.4) Neutrophils (%) (Auto) 48.1 % Lymphocytes (%) (Auto) 35.0 % Monocytes (%) (Auto) 12.9 % Eosinophils (%) (Auto) 3.0 % Basophils (%) (Auto) 0.6 % Neutrophils # (Auto) 2.39 K/uL (1.4-6.5) Lymphocytes # (Auto) 1.74 K/uL (1.2-3.4) Monocytes # (Auto) 0.64 K/uL (0.11-0.59) Eosinophils # (Auto) 0.15 K/uL (0-0.5) Basophils # (Auto) 0.03 K/uL (0-0.2) RDW Standard Deviation 74.4 fL (36.4-46.3) RDW Coefficient of Variation 17.7 % (11.5-14.5) Immature Granulocyte % (Auto) 0.4 % Immature Granulocyte # (Auto) 0.02 K/uL (0.00-0.02) Platelet Estimate DECREASED Macrocytosis PRESENT Anion Gap 6.0 mmol/L (3-11) Est Creatinine Clear Calc Drug Dose 12.2 ml/min Estimated GFR () 10.8 Estimated GFR (Non- 9.3 BUN/Creatinine Ratio 4.9 (10-20) Calcium Level 9.0 mg/dl (8.5-10.1) Total Bilirubin 0.9 mg/dl (0.2-1) Aspartate Amino Transf (AST/SGOT) 52 U/L (15-37) Alanine Aminotransferase (ALT/SGPT) 33 U/L (12-78) Alkaline Phosphatase 69 U/L (45-117) Total Protein 6.9 gm/dl (6.4-8.2) Albumin 3.2 gm/dl (3.4-5.0) Globulin 3.7 gm/dl (2.5-4.0) Albumin/Globulin Ratio 0.9 (0.9-2) Resident Tracking Resident Involvement: Resident Care Provided Care Provided: Adult Hospital Medicine (inpt rounds)
--- NOTE | 2017-07-04 11:01 | Discharge Summary ---
Discharge Summary Date of Service Jul 04, 2017. Discharge Summary Admission Date: Jul 01, 2017 at 14:18 Discharge Date: Jul 04, 2017 Discharge Disposition: Home Principal Diagnosis: Weakness Problems/Secondary Diagnoses: - Hypertension - Headache - ESRD Immunizations: Have You Had Influenza Vaccine: Yes Influenza Vaccine Date: May 25, 2010 History of Tetanus Vaccine?: Yes History of Pneumococcal: Yes History of Hepatitis B Vaccine: No Procedures: [id number] CXR single view: No acute cardiopulmonary abnormality. Consultations: Nephrology (Dr. Richard, patient's PCM as well) Medication Reconciliation New Medications: Hydralazine HCl (Hydralazine HCl) 50 Mg Tab 50 MG PO BID for 30 Days, #60 TAB 0 Refills Continued Medications: Acetaminophen (Tylenol) 500 Mg Tab 500 MG PO TID PRN for Pain Allopurinol (Zyloprim) 300 Mg Tab 300 MG PO QAM Amlodipine (Norvasc) 5 Mg Tab 5 MG PO BID, TAB Calcium Acetate (Phosphate Bin (Phoslo 667 Mg) 667 Mg Cap 2 CAP PO TIDM Clonidine Hcl (Catapres) 0.2 Mg Tab 0.2 MG PO HS Ergocalciferol (Vitamin D 30778 Unit) 50,000 Unit Cap 96590 UNITS PO WK on tuesdays Escitalopram Oxalate (Lexapro) 10 Mg Tab 10 MG PO Q2D Fenofibrate (Tricor) 145 Mg Tab 145 MG PO QAM Levothyroxine Sodium (Synthroid) 100 Mcg Tab 100 MCG PO QAM Metoprolol Succinate (Toprol Xl) 25 Mg Tab 25 MG PO BID Multiple Vitamins W/ Minerals (Prorenal Vital) 1 Tab Tab 1 TAB PO QAM Ondansetron Hcl (Zofran) 4 Mg Tab 4 MG PO Q6H PRN for Nausea Pantoprazole (Protonix) 40 Mg Tab 40 MG PO BID Phenytoin Sodium (Dilantin) 100 Mg Cap 100 MG PO QAM, CAP Phenytoin Sodium (Dilantin) 100 Mg Cap 200 MG PO QPM Prednisone (Prednisone) 5 Mg Tab 5 MG PO QAM Tramadol (Ultram) 50 Mg Tab 50 MG PO TID PRN for Pain Discharge Exam Review of Systems: Constitutional: No fever, No chills Respiratory: No cough, No shortness of breath Cardiovascular: No chest pain, No edema Abdomen: + nausea (much improved), No vomiting Physical Exam: General Appearance: WD/WN, no apparent distress Respiratory/Chest: lungs clear, normal breath sounds, no respiratory distress, + pertinent finding (left chest mediport) Cardiovascular: regular rate, rhythm, + systolic murmur Abdomen / GI: normal bowel sounds, non tender, soft Extremities: no calf tenderness, no pedal edema, + pertinent finding (left arm dialysis fistula) Neurologic/Psychiatric: alert, normal mood/affect Hospital Course HPI at time of admission on [id number] HISTORY OF PRESENT ILLNESS: The patient is a 72-year-old white female with a significant past medical history of adult polycystic kidney disease. She was having kidney transplant which was failed , and now she is getting dialysis on Friday, and Friday, has some other conditions such as hypertension, cystitis, dyslipidemia, hypothyroidism, kidney transplant, mitral valve disorder , comes to the hospital Emergency Department because of the above chief complaint. The patient's chief complaint is weight loss and intense pleuritis. She came from home with her after dialysis. Report has baseline dementia. concerned the patient has failure to thrive and her blood pressure has been out of control. When patient arrived to the Emergency Room, blood pressure was significantly high up to 190/85. Lab was checked, potassium was 2.5. When I interviewed with her she is complaining about skin pleuritis for several months. Report confirmed me the above information include history of fall and ankle fractures and weight loss, no appetite as well. She reported chronic headache and skin scratchiness too. The patient's at the bedside feels frustrated of her not getting better. Denied fever or chills. Denied cough, sputum, shortness of breath. Denied chest pain, palpitation, lower extremity swelling. Denied vomiting, abdominal pain, diarrhea, constipation. Denied dysuria, urgency and frequencies. The patient is not making any urine. Discharge summary on 04Jul2017 Ms. 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 Severe weakness, possible deconditioning, and headache - Reports of chronic headache, possibly cervical in nature. Concern for failure to thrive, recurring episodes of nausea without emesis. More recent reported lethargy, staying in bed, not eating much. 06 and 07Dec am appears very comfortable overall, no acute changes in headaches, does not appear acutely weak at all. - 07Dec: States headache has resolved, though per nursing notes did c/o a headache a few hours before, given tylenol prn for same. Accelerated hypertension - Persistent elevations in SBP 180-200's. - Given on admit Toprol 25 mg p.o. one dose and amlodipine 5 mg p.o. one dose. - As inpatient Norvasc 5 BID, Toprol XL 25 BID, Clonidine 0.2 HS. - Transitioned to hydralazine 50 mg PO BID scheduled, which apparently has helped in the past. Last dialysis De, with BP noted to be quite labile, then leveled out with SBP elevated again. - Per renal note, can consider decreasing doses of clondine or her metoprolol ( due to symptoms of lethargy), but did not modify at all as inpatient. Plan for d/c home on above medication. End-stage renal disease on dialysis - PSH left nephrectomy due to renal hemorrhage. Began dialysis 2000, then right nephrectomy. 2001 renal transplant, restarted dialysis 2013 via LUE AV fistula. - Normal dialysis schedule TuThSat. Aneuric at baseline. Had uneventful dialysis on . - Nephrology consulted, please see their notes as well. Admit ED lab findings - Hypokalemia: In ED on admit was 2.5. Replaced K in ED, resolved. Magnesium check was 2.0. - Mild elevated troponin at 0.05. Never really c/o chest pain or respiratory difficulties to suggest ACS. May be renal-related. - Phenytoin level was low, though patient had just arrived from dialysis. Patient has PMH of seizures. Prior medical history - Hypothyroidism: Admit mildly elevated TSH at 5.3. Prior to admit was on Synthroid 100 daily. 07Dec increased synthroid to 125 mcg daily. - Pruritis: Improved with Sarna cream and moisturizers. - Dementia: Possibly vascular. - Gout: On home allopurinol 300 daily. - Dyslipidemia - History of traumatic subarachnoid hemorrhage (s/p fall) as mentioned in neurology note Oct 2013. GI prophy - History of GI bleed in early 2017, ? related to hospitalization for left ankle fracture/surgery. - As inpatient Protonix 40 BID. Resident Physician Supervision Note: I was present with Dr. Fish during the history and exam. I discussed the case with the resident and agree with the findings and plan as documented in the note. I also discussed the case with nephrology. Documented By: Joe Perze Total Time Spent: Less than 30 minutes This includes examination of the patient, discharge planning, medication reconciliation, and communication with other providers. Discharge Instructions Please refer to the electronic Patient Visit Report (Discharge Instructions) for additional information. Follow-Up With PCM Additional Copies To Grabiel Richard M.D.
--- NOTE | 2017-07-04 11:06 | NEPHROLOGY PROGRESS NOTE ---
DATE: 07/04/2017 SUBJECTIVE: Mrs. Cruz says that she is feeling much better today. However, she does admit that she still has a mild ____ headache, not nearly as severe as it has been in the past. She also has some pruritus, which started again after she had a bath this morning. She says that she bathed in quite warm water. Her appetite is good. She has no nausea or vomiting and she feels somewhat more energetic. She denies chest pain and shortness of breath. She has no other symptoms of uremia or volume overload. Her dialysis treatment yesterday went well and was well tolerated. A 3.2 kilos of fluid were removed. She then became somewhat hypotensive with systolic blood pressures less than 100. Her blood pressure has rebounded somewhat, but still remains much improved. Her maximum blood pressure was 175/97 early this morning. However, post-dialysis blood pressures yesterday showed systolic pressures for the most part in the range of 140-155 with diastolic blood pressures predominantly in the 70s and 80s. OBJECTIVE: GENERAL: On physical exam at the current time, she appears relatively well, but still somewhat chronically ill. VITAL SIGNS: She is afebrile (36.6), her blood pressure this morning 171/83 with a pulse of 64 and regular. Her respiratory rate is 18 and her pulse ox 96%-98% on room air. SKIN: Shows a somewhat sallow complexion. She has no rash or infiltrative skin disease. She has a few scattered ecchymoses, particularly on her left upper arm at the site of her AV fistula. Her skin turgor is normal. She has no palpable lymphadenopathy. HEAD: Normal. EYES: Grossly normal. The ocular fundi were not examined. As noted previously, they had shown a few scattered small hemorrhages bilaterally. EARS, NOSE, MOUTH AND THROAT: Unremarkable. Oral mucous membranes are moist. CHEST: Clear to auscultation. She has no wheezes, rales or rhonchi. CARDIAC: Shows a regular rhythm. S1 and S2 are normal. She has no definite murmur or gallop. ABDOMEN: Nontender. There is no organomegaly or mass. Her transplant is barely palpable in the right lower quadrant. She has no bruit over the transplant. She has abdominal scars from prior surgeries. EXTREMITIES: Show no cyanosis, clubbing or peripheral edema. There is a left upper arm AV fistula, which is functioning. NEUROLOGIC: Shows no lateralizing changes. PERTINENT LABORATORY WORK: From today shows a white count of 4970 with a normal differential. Her hemoglobin is 11.9 and her hematocrit is 37.5. Red cell indices are macrocytic. Her platelet count was 99,000. Her clinical chemistries show a sodium of 137 mmol/L, potassium 4.0 mmol/L, chloride is 100 mmol/L, and CO2 content 32 mmol/L. Her BUN is 22 and creatinine 4.47 less than 24 hours following the completion of her dialysis treatment. Her blood sugars vary from 75 to 103. Her serum calcium 9.0. Her AST is 52. Her ALT is 33. Her alkaline phosphatase is 69. Her total protein 6.9 and her albumin is 3.2. ASSESSMENT: Mrs. Cruz seems significantly better. Her blood pressure still is somewhat labile, but appears to be improved and that is associated with an improvement in her headache. She still has some pruritus, which I think is related to dry skin. RECOMMENDATIONS: I think that she can be safely discharged for outpatient followup. She will have her dialysis treatment tomorrow at [facility]. Her discharge medications should be the same medicines that she is on as an inpatient. She may need a prescription for hydralazine. No other immediate recommendations. I will be following her closely as an outpatient.
[2017-07-04] MEDS ORDERED: APR50 PO (11:08)
--- NOTE | 2017-07-04 11:11 | Discharge Instructions ---
Discharge Instructions Date of Service Jul 04, 2017. Admission Reason for Admission: Severe Hypokalemia, Esrd, Accelerated Htn Discharge Discharge Diagnosis / Problem: Weakness, Elevated blood pressure (Hypertension) Discharge Goals Goal(s): Improve disease control, Learn about illness Activity Recommendations Activity Limitations: resume your previous activity . Instructions / Follow-Up Instructions / Follow-Up You were admitted to the hospital for your weakness and very elevated blood pressures. Both have improved during your stay, however both issues still need to be addressed by your primary care provider (Dr. Richard) on an ongoing basis. For your blood pressure, we have added a medication called Hydralazine that you should take twice a day. An electronic prescription to your pharmacy was sent for this. Otherwise, your home medications are unchanged after this hospitalization. Please continue your normal schedule for dialysis, including early tomorrow ( Friday) morning. Please also continue to closely follow with Dr. Richard for your ongoing medical care, including monitoring of your weakness, headaches, overall kidney/dialysis status, and overall medical care. Return to the emergency department (or call 911) if you have any new emergent concerns. Current Hospital Diet Patient's current hospital diet: Renal Diet Discharge Diet Recommended Diet: Renal Diet Pending Studies Studies pending at discharge: no Medical Emergencies . Who to Call and When: Medical Emergencies: If at any time you feel your situation is an emergency, please call 911 immediately. . Non-Emergent Contact Non-Emergency issues call your: Primary Care Provider . . "Provider Documentation" section prepared by Steve Fish. . VTE Core Measure Inpt VTE Proph given/why not?: SCD's
[2017-07-04 11:21] VITALS: BP 171/83; PULSE 64; TEMP 36.6; O2SAT 97
[2017-07-04] MEDS ORDERED: SYN125 PO (17:42)
[2017-07-08] MEDS ORDERED: ERGOCALCIFEROL 50,000 INTER.UNIT CAP PO SCH (09:00)
== END 2017-07-04 11:56 | disposition home or self-care (01) | DRG 640 ==
LOC: C.EDB 11:51 → C.MED 14:18 → ENRESERV 15:41
PROVIDERS: ADMIT Hospitalist; ATTEND Family Medicine
DX: E87.6 Hypokalemia (principal); N18.6 End stage renal disease; I12.0 Hypertensive chronic kidney disease with stage 5 chronic kidney disease or end stage renal disease; Z94.0 Kidney transplant status; R62.7 Adult failure to thrive; R51 Headache; R94.6 Abnormal results of thyroid function studies; R74.8 Abnormal levels of other serum enzymes; R53.1 Weakness; R53.81 Other malaise; L29.9 Pruritus, unspecified; L85.3 Xerosis cutis; R11.0 Nausea; H35.63 Retinal hemorrhage, bilateral; R89.2 Abnormal level of other drugs, medicaments and biological substances in specimens from other organs, systems and tissues; E78.5 Hyperlipidemia, unspecified; E03.9 Hypothyroidism, unspecified; I05.9 Rheumatic mitral valve disease, unspecified; M10.9 Gout, unspecified; G40.909 Epilepsy, unspecified, not intractable, without status epilepticus; F01.50 Vascular dementia, unspecified severity, without behavioral disturbance, psychotic disturbance, mood disturbance, and anxiety; R63.4 Abnormal weight loss; Z68.26 Body mass index [BMI] 26.0-26.9, adult; Z95.828 Presence of other vascular implants and grafts; Z99.2 Dependence on renal dialysis; Z91.81 History of falling; Z86.79 Personal history of other diseases of the circulatory system; Z87.19 Personal history of other diseases of the digestive system; Z79.52 Long term (current) use of systemic steroids; Z79.891 Long term (current) use of opiate analgesic; Z79.899 Other long term (current) drug therapy

== ENCOUNTER → 2017-07-11 | Outpatient (CLI) | payer OTHER ==
[~2017-07-11] MED LIST changes: +APR50 PO; +PANT1TAB3 PO; -PANT1TAB48 PO; +SYN125 PO
--- NOTE | 2017-07-11 11:09 | DIAGNOSTIC IMAGING REPORT ---
CT OF THE ABDOMEN AND PELVIS WITH ORAL CONTRAST CLINICAL HISTORY: Lower abdominal pain and nausea. COMPARISON STUDY: CT of the abdomen and pelvis November 07, 2012. FINDINGS: Evaluation of the abdomen and pelvis is suboptimal given the lack of IV contrast. Innumerable cysts within the liver are noted. Mild dilatation of the common bile duct is unchanged and likely related to prior cholecystectomy. There is mild nodularity of the liver surface. Borderline splenomegaly is unchanged. Both [place] kidneys have been resected. A right lower quadrant renal allograft is noted. There is marked allograft cortical thinning with graft hydronephrosis which is new since exam of November 07, 2012. No pneumatosis, free air or portal venous gas is present. There is no bowel obstruction. The appendix is not visualized. There is sigmoid diverticulosis. There is mild wall thickening of the proximal to mid sigmoid colon with mild adjacent infiltration. There is no free air or abscess. No abdominal or pelvic lymphadenopathy is present. There are no suspicious osseous lesions. There is extensive vascular calcification. IMPRESSION: 1. Sigmoid diverticulosis with mild wall thickening of the proximal to mid sigmoid colon with mild pericolonic infiltration. The findings suggest mild acute sigmoid diverticulitis. No free air or abscess. 2. 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 3. Innumerable hepatic cysts. 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 4. Mild nodularity of the liver surface which raises the possibility of cirrhosis. Electronically signed by: Nasim Selby M.D. 07/11/2017 11:08 AM Dictated Date/Time: 07/11/2017 10:54 AM
== END | disposition home or self-care (01) ==
LOC: C.CTS 10:10
PROVIDERS: ATTEND Internal Medicine
DX: R10.9 Unspecified abdominal pain (principal)

== ENCOUNTER → 2017-09-05 | Outpatient (CLI) | payer OTHER ==
[~2017-09-05] MED LIST changes: -SYN125 PO
--- NOTE | 2017-09-05 15:27 | MAMMOGRAPHY REPORT ---
UNILATERAL LEFT DIGITAL DIAGNOSTIC MAMMOGRAM TOMOSYNTHESIS WITH CAD: 09/05/2017 CLINICAL HISTORY: Short interval follow-up of left breast asymmetry, which was felt to represent fat necrosis. TECHNIQUE: Breast tomosynthesis in addition to standard 2D mammography was performed. Current study was also evaluated with a Computer Aided Detection (CAD) system. Left CC and MLO 2-D and tomosynthes is images were obtained. COMPARISON: Comparison is made to exams dated: 06/11/2017 ultrasound, 05/28/2017 mammogram, 04/17/2016 mammogram, 04/14/2015 mammogram, 02/24/2014 mammogram, and 02/23/2013 mammogram - [facility]. BREAST COMPOSITION: There are scattered areas of fibroglandular density in the left breast. FINDINGS: The previously described mass seen within the left superior breast at approximately 12:00 i s no longer evident on the current exam, and is therefore benign and compatible with resolved fat nec rosis. The remainder of the left breast is stable compared to prior exams, without suspicious masses , calcifications, or areas of architectural distortion noted. A port catheter is partially visualize d in the left axillary region. A few scattered benign-appearing left breast calcifications are stabl e. IMPRESSION: ACR BI-RADS CATEGORY 2: BENIGN The previously seen mammographic mass in the left 12 o'clock breast is no longer evident, and is olaf gn and compatible with resolved fat necrosis. There is no mammographic evidence of malignancy. Retur n to annual mammogram screening schedule is recommended, due May 2018. The patient has been stefanie bally notified of the results. Approximately 10% of breast cancers are not detected with mammography. A negative mammographic report should not delay biopsy if a clinically suggestive mass is present. Eri Chavez M.D. /:09/05/2017 09:15:55 Senior Data Integration Developer: Jessy Flannery, [facility] letter sent: Normal 1/2 BI-RADS Code: ACR BI-RADS Category 2: Benign
== END | disposition home or self-care (01) ==
LOC: C.MAMM 08:46
PROVIDERS: ATTEND Internal Medicine
DX: R92.8 Other abnormal and inconclusive findings on diagnostic imaging of breast (principal)

== ENCOUNTER 2021-08-27 08:46 | Inpatient (IN) ==
[2021-08-27] MEDS ORDERED: ONDANSETRON INJ 2 MG/ML 2 ML VIAL IV STA (09:21)
[2021-08-27] MEDS ORDERED: SODIUM CHLORIDE 0.9% 1000ML 1,000 ML IV SCH (09:30)
--- NOTE | 2021-08-27 09:48 | CT Scan Report ---
CT head/brain wo con CLINICAL HISTORY: 76 years-old Female with AMS. Acutely altered mental status TECHNIQUE: Multiple axial CT images of the head were obtained without contrast. A dose lowering tech nique was utilized adhering to the principles of ALARA. CT DOSE: 638.56 mGycm COMPARISON: Head CT 01/15/2021. FINDINGS: No acute intracranial hemorrhage, midline shift, intracranial mass, hydrocephalus, territorial ischem ia or abnormal extra-axial collection. Age-related involutional changes. Cerebral vascular calcificat ions. Unchanged subcentimeter hypodense focus posterior to the left caudate head on image 13 series 2 , possibly food products sales representative of a chronic lacunar infarct. The calvarium is intact. Prior bilateral lens repair. Prior bilateral maxillary antrostomy. The paran michael sinuses, mastoid air cells, and middle ear cavities are clear. IMPRESSION: No acute intracranial abnormality. ACT 112: Negative or not required by law. The above report was generated using voice recognition software. It may contain grammatical, syntax o r spelling errors. Electronically signed by: Tito Sanabria M.D. 08/27/2021 9:46 AM
--- NOTE | 2021-08-27 09:59 | XRay Report ---
XR chest 1V portable CLINICAL HISTORY: weakness. Evaluate cardiopulmonary status COMPARISON STUDY: 01/15/2021 TECHNIQUE: 1 view of the chest FINDINGS: Single frontal view of the chest demonstrates the cardiomediastinal silhouette to be within normal li mits. There is a decreased inspiratory effort with elevation of the hemidiaphragms, right greater liam n left and crowding of the bronchovascular markings at the lung bases and centrally. The lungs are cl ear of alveolar opacities. There is no evidence for pleural effusion. There is no evidence for vascul ar congestion. There is no acute osseous pathology. IMPRESSION: There is a decreased inspiratory effort with otherwise no acute chest disease. ACT 112: Negative or not required by law. Electronically signed by: Rolando Cooper M.D. 08/27/2021 9:58 AM
[2021-08-27 10:22] LABS: Basophils # (auto) 0.01 K/uL (0-0.2); Basophils % (auto) 0.2 %; Eosinophils # (auto) 0.01 K/uL (0-0.5); Eosinophils % (auto) 0.2 %; Hemoglobin 11.2 g/dL (12.0-16.0); Immature Granulocytes # (auto) 0.01 K/uL (0.00-0.02); Immature Granulocytes % (auto) 0.2 %; Lymphocytes # (auto) 1.01 K/uL (1.2-3.4); Lymphocytes % (auto) 21.3 %; Mean Corpuscular Hemoglobin 35.7 pg (25-34); Mean Corpuscular Hgb Conc 31.1 g/dL (32-36); Mean Corpuscular Volume 114.6 fL (80-100); Mean Platelet Volume 11.3 fL (7.4-10.4); Monocytes # (auto) 0.29 K/uL (0.11-0.59); Monocytes % (auto) 6.1 %; Neutrophils # (auto) 3.42 K/uL (1.4-6.5); Platelet Count 119 K/uL (130-400); RDW Coefficient of Variation 15.7 % (11.5-14.5); RDW Standard Deviation 64.5 fL (36.4-46.3); Red Blood Count 3.14 M/uL (4.2-5.4); White Blood Count 4.75 K/uL (4.8-10.8)
[2021-08-27 10:32] LABS: INR 1.3 (0.9-1.1); Prothrombin Time 12.8 Seconds (9.0-12.0)
[2021-08-27 10:43] LABS: Macrocytosis Present; Ovalocytes 1+
[2021-08-27 10:47] LABS: Troponin I 0.04 ng/ml (0-0.04)
--- NOTE | 2021-08-27 11:11 | Electrocardiogram Report ---
Test Reason : Blood Pressure : / mmHG Vent. Rate : 072 BPM Atrial Rate : 072 BPM P-R Int : 200 ms QRS Dur : 102 ms QT Int : 458 ms P-R-T Axes : 074 255 035 degrees QTc Int : 501 ms Normal sinus rhythm Right superior axis deviation Septal infarct , age undetermined Abnormal ECG When compared with ECG of 15-JAN-2021 16:00, Nonspecific T wave abnormality no longer evident in Anterior leads Confirmed by Julito Covarrubias ([id number]) on 08/27/2021 11:11:14 AM Referred By: REFERRED SELF Confirmed By:Julito Covarrubias
[2021-08-27 11:17] LABS: Albumin Globulin Ratio 1.3 (0.9-2); Albumin Level 3.7 gm/dl (3.4-5.0); BUN Creatinine Ratio 8.7 (10-20); Bilirubin,Total 1.3 mg/dl (0.2-1.0); Calcium 9.6 mg/dl (8.5-10.1); Creatinine Clr Calc Pharmacy 6.3 ml/min; Est GFR (African American) 5.5 ml/min; Est GFR (Non-African American) 4.8 ml/min; Globulin 2.9 gm/dl (2.5-4.0); Magnesium 2.4 mg/dl (1.7-2.4); Potassium 4.3 mmol/L (3.5-5.1); Total Protein 6.6 gm/dl (6.0-8.3)
--- NOTE | 2021-08-27 12:54 | History & Physical Report ---
Date of Service August 27, 2021 Assessment & Plan (1) Mild cognitive impairment: Plan: From history and patient appearance, I suspect this may be worsening dementia more so than acute encephalopathy Lab abnormalities consistent with hemodialysis patient, no sign of infection. Patient is anuric at baseline. Ammonia normal. TSH normal No significant findings on CT of the head. can consider MRI Will ask PT/OT to evaluate for ambulation Consideration to neurology evaluation for any further work-up after hemodialysis (2) Cirrhosis: Plan: Cirrhosis and liver liver cyst seen on previous imaging We will ask GI to evaluate prior patient request. Consideration to adding lactulose on the possibility that there is hepatic encephalopathy but again this does not seem likely considering patient's prese ntation (3) Colitis: Plan: Currently asymptomatic, patient describes no abdominal symptoms and has no pain or tenderness on exam Continue to monitor for now. Advance diet as able (4) End-stage renal disease on hemodialysis: Plan: Patient follows with Dr. Reis, will consult him for hemodialysis No indication for emergent hemodialysis (5) HTN (hypertension): Plan: Will continue medications as ordered. Reassess after hemodialysis History of Present Illness Chief Complaint: confusion Primary Care Provider: Niki Nobles MD This is a 76-year-old female with past medical history of end-stage renal disease on hemodialysis Friday, hyperlipidemia, diverticulosis, previous hemorrhagic colitis that presents today with confusion. Patient is a limited historian although very pleasant. is at bedside is able to give more details. states that he is noted for the past week that the patient has been getting slowly more confused. She typically will color with colored pencils as recreation, he has noticed that she now will stare at the coloring book or organizing pencils without clear idea how to use his eyes. He is also noted that she has had much more difficulty ambulating over the past few days. She will typically use a walker but he has been having to assist her much more than previously. She has had diminished appetite along with a little bit of nausea that was relieved with oral Zofran. He will typically cook for her but finds that she is not eating as well. He denies any things such as fever or chills, cough, ongoing vomiting, significant weight changes. He did note that she was having some lower abdominal pain and has had previous diverticulitis but this is not been significant over the past few weeks. The felt that the overall problems were worsening, she was due for hemodialysis today but elected to bring the patient to the hospital for further evaluation. For me, patient is awake and alert. She is pleasant but has obvious memory deficit. She is oriented to person. She does recognize she is in the hospital but not which one specifically. Patient previously followed with Dr. Richard but is establishing with a new physician after his snf. She was just seen on 08/24. She was told at that time that she may have cirrhosis due to multiple hepatic cysts seen on imaging and was referred to GI. She has not yet seen that specialist yet. Allergies Allergy/AdvReac Type Severity Reaction Status Date / Time Cephalosporins Allergy Intermediate ertapenem Verified 08/27/21 10:34 ok from multiple occasions codeine Allergy Intermediate RASH Verified 08/27/21 10:34 levofloxacin Allergy Intermediate hives, Verified 08/27/21 10:34 itching, per patient tolerates Cipro lisinopril Allergy Intermediate HIVES, Verified 08/27/21 10:34 ITCHING morphine Allergy Intermediate HIVES Verified 08/27/21 10:34 Sulfa (Sulfonamide Allergy Intermediate Rash Verified 08/27/21 10:34 Antibiotics) meperidine Allergy Unknown HAD RXN IN Verified 08/27/21 10:34 RR Iodinated Contrast Media AdvReac Severe PT HAD A Verified 08/27/21 10:34 KIDNEY TRANSPLANT chlorhexidine AdvReac Intermediate RASH Verified 08/27/21 10:34 captopril AdvReac Mild ITCHING Verified 08/27/21 10:34 celecoxib AdvReac Mild ITCHING Verified 08/27/21 10:34 hydralazine AdvReac Mild ITCHING Verified 08/27/21 10:34 nitrofurantoin AdvReac Mild GI PROBLEMS Verified 08/27/21 10:34 Home Medications Medication Instructions Recorded Confirmed Type vit B complx, C-iron 8 mg-folic 1 tab PO QAM 12/25/18 08/27/21 History acid 800 mcg-D3 1,000 unit-zinc tablet (ProRenal) calcium acetate(phosphat bind) 667 1,334 mg PO TIDM #720 cap 07/29/19 08/27/21 Rx mg capsule ondansetron HCl 4 mg tablet 4 mg PO QID PRN #12 tab 12/06/19 08/27/21 Rx levothyroxine 100 mcg tablet 100 mcg PO QAM 10/19/20 08/27/21 History pantoprazole 40 mg tablet,delayed 40 mg PO QAM 10/19/20 08/27/21 History release sertraline 25 mg tablet 25 mg PO DAILY #90 tab 11/23/20 08/27/21 Rx metoprolol succinate 25 mg 25 mg PO BID #180 tab 01/03/21 08/27/21 Rx tablet,extended release 24 hr amlodipine 5 mg tablet 5 mg PO BID #180 tab 01/04/21 08/27/21 Rx allopurinol 300 mg tablet 300 mg PO QAM #90 tab 01/10/21 08/27/21 Rx clonidine HCl 0.2 mg tablet 0.2 mg PO HS #90 tab 03/11/21 08/27/21 Rx fenofibrate nanocrystallized 145 145 mg PO DAILY #90 tab 03/11/21 08/27/21 Rx mg tablet (Tricor) tramadol 50 mg tablet 50 mg PO TID PRN #30 tab 07/25/21 08/27/21 Rx Lactobacillus acidophilus and 1 cap PO DAILY 08/27/21 08/27/21 History rhamnosus 15 billion cell capsule (Probiotic) Past Med/Surg History Medical History Acute gastric ulcer AMY (acute kidney injury) (06/28/13) Anemia HX OF Anxiety HX OF Arachnoid cyst Ataxic gait AV fistula thrombosis UPPER LEFT ARM Back pain with sciatica Benign familial tremor Breast mass, left Cardiac murmur Cellulitis of left arm Chronic abdominal pain Chronic kidney disease (06/28/13) Cirrhosis Clostridium difficile colitis Colitis Degenerative joint disease, ankle, left Depression HX OF End-stage renal disease on hemodialysis FRIDAY, FRIDAY AND FRIDAY [facility] Gout, joint HANNA (headache) Hemorrhage of colon Hyperlipidemia Hypertension Hypothyroidism Intractable headache (11/18/13) Intractable nausea and vomiting (11/18/13) Left tibialis posterior tendonitis Lower back pain Lumbosacral radiculopathy Mild cognitive impairment Mitral valve disorder (10/14/12) MVP (mitral valve prolapse) Peripheral neuropathy Renal failure CKD (REASON FOR FAILURE) 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 CHAUDHARY) Sensorineural hearing loss (SNHL) of both ears Stomach ulcer Subarachnoid hemorrhage 5 YEARS AGO Transplanted organ rejection 1 TRANSPLANTED KIDNEY Traumatic injury of head Vitamin D deficiency Surgical History H/O: hysterectomy History of colonoscopy History of esophagogastroduodenoscopy (EGD) History of herniorrhaphy History of nephrectomy RT/LEFT REMOVED History of open reduction and internal fixation (ORIF) procedure LEFT ANKLE History of vascular access device A-PORT ACCESS LEFT SIDE (DIFFICULT IV STICK) Hx of cholecystectomy Status post hardware removal 12/2018 left ankle Family History Other Family history non-contributory Denies family history of Ovarian cancer Prostate cancer Crohn's disease Myocardial infarction Breast cancer Colorectal cancer Ulcerative colitis Social History Smoking Status: Never smoker Second Hand Exposure: No; Hx Alcohol Use: No Hx Substance Use: No Preferred Language: Italian Communication Ability: Effective Plan Consultant Required: No Beliefs That Will Affect Care: None marital status: Current Living Situation: Spouse Feels Safe at Home: Yes Assistive Devices: Glasses and Wheelchair Review of Systems Constitutional: + anorexia and + weight loss; no fever, no chills, no weakness and no weight gain Eyes: as per Subjective / HPI Respiratory: no cough, no chest congestion, no dyspnea and no dyspnea on ex ertion Cardiovascular: no chest pain, no orthopnea, no palpitations, no lightheadedness and no edema Gastrointestinal: + abdominal pain and + nausea; no vomiting, no constipation and no diarrhea/loose stools Genitourinary: no dysuria, no difficulty urinating, no urinary frequency, no urinary hesitancy, no urinary urgency and no flank pain Musculoskeletal: no back pain, no neck pain, no joint pain, no stiffness and no myalgia Integumentary: no rash Neurologic: + unsteadiness, + generalized weakness and + confusion; no gait abnormality and no falls Physical Exam Constitutional: cooperative; no acute distress Neck: trachea midline, no thyromegaly Respiratory: normal respiratory effort Auscultation: lungs clear to auscultation bilaterally; no crackles, no rales, no rhonchi and no wheezes Cardiovascular: Rate/Rhythm: regular rate and regular rhythm Heart Sounds: normal S1 and normal S2 Gastrointestinal (Abdomen): Inspection/Auscultation: abdomen normal to inspection Percussion/Palpation: abdomen soft; abdomen nontender, no guarding, abdomen not rigid and no hepatosplenomegaly Skin: no rashes, warm and dry Results & Data Results & Data ([facility]) Vital Signs (Past 12 Hours) Vital Signs Temp Pulse Resp BP Pulse Ox 08/27/21 10:31 69 20 173/85 H 100 08/27/21 10:30 69 17 100 08/27/21 10:25 68 18 120/103 H 100 08/27/21 09:21 100 08/27/21 09:02 36.6 C 74 20 174/83 H 100 Laboratory Results Laboratory Results WBC 4.75 K/uL (4.8-10.8) L 08/27/21 10:10 RBC 3.14 M/uL (4.2-5.4) L 08/27/21 10:10 Hgb 11.2 g/dL (12.0-16.0) L 08/27/21 10:10 Hct 36.0 % (37-47) L 08/27/21 10:10 MCV 114.6 fL (80-100) H 08/27/21 10:10 MCH 35.7 pg (25-34) H 08/27/21 10:10 MCHC 31.1 g/dL (32-36) L 08/27/21 10:10 RDW Std Deviation 64.5 fL (36.4-46.3) H 08/27/21 10:10 RDW Coeff of Joseph 15.7 % (11.5-14.5) H 08/27/21 10:10 Plt Count 119 K/uL (130-400) L 08/27/21 10:10 MPV 11.3 fL (7.4-10.4) H 08/27/21 10:10 Immature Gran % (Auto) 0.2 % 08/27/21 10:10 Neut % (Auto) 72.0 % 08/27/21 10:10 Lymph % (Auto) 21.3 % 08/27/21 10:10 Upson % (Auto) 6.1 % 08/27/21 10:10 Eos % (Auto) 0.2 % 08/27/21 10:10 Baso % (Auto) 0.2 % 08/27/21 10:10 Neut # (Auto) 3.42 K/uL (1.4-6.5) 08/27/21 10:10 Lymph # (Auto) 1.01 K/uL (1.2-3.4) L 08/27/21 10:10 Upson # (Auto) 0.29 K/uL (0.11-0.59) 08/27/21 10:10 Eos # (Auto) 0.01 K/uL (0-0.5) 08/27/21 10:10 Baso # (Auto) 0.01 K/uL (0-0.2) 08/27/21 10:10 Immature Gran # (Auto) 0.01 K/uL (0.00-0.02) 08/27/21 10:10 Macrocytosis Present 08/27/21 10:10 Ovalocytes 1+ 08/27/21 10:10 PT 12.8 Seconds (9.0-12.0) H 08/27/21 10:10 INR 1.3 (0.9-1.1) H 08/27/21 10:10 Sodium 145 mmol/L (136-145) 08/27/21 10:10 Potassium 4.3 mmol/L (3.5-5.1) 08/27/21 10:10 Chloride 100 mmol/L (98-107) 08/27/21 10:10 Carbon Dioxide 28 mmol/L (21-32) 08/27/21 10:10 Anion Gap 17 (3-11) H 08/27/21 10:10 BUN 66 mg/dl (6-23) H 08/27/21 10:10 Creatinine 7.59 mg/dl (0.6-1.2) H* 08/27/21 10:10 Est Cr Clr Drug Dosing 6.3 ml/min 08/27/21 10:10 Est GFR ( Amer) 5.5 ml/min 08/27/21 10:10 Est GFR (Non-Af Amer) 4.8 ml/min 08/27/21 10:10 BUN/Creatinine Ratio 8.7 (10-20) L 08/27/21 10:10 Glucose 95 mg/dl (70-99(Fasting)) 08/27/21 10:10 Lactate 1.3 mmol/L (0.4-2.0) 08/27/21 10:10 Calcium 9.6 mg/dl (8.5-10.1) 08/27/21 10:10 Magnesium 2.4 mg/dl (1.7-2.4) 08/27/21 10:10 Total Bilirubin 1.3 mg/dl (0.2-1.0) H 08/27/21 10:10 AST 49 U/L (13-39) H 08/27/21 10:10 ALT 24 U/L (7-52) 08/27/21 10:10 Alkaline Phosphatase 81 U/L (34-104) 08/27/21 10:10 Ammonia 36.0 umol/L (18-72) 08/27/21 10:10 Troponin I 0.04 ng/ml (0-0.04) 08/27/21 10:10 Total Protein 6.6 gm/dl (6.0-8.3) 08/27/21 10:10 Albumin 3.7 gm/dl (3.4-5.0) 08/27/21 10:10 Globulin 2.9 gm/dl (2.5-4.0) 08/27/21 10:10 Albumin/Globulin Ratio 1.3 (0.9-2) 08/27/21 10:10 TSH 2.602 uIu/ml (0.300-4.500) 08/27/21 10:10 SARS-CoV-2, RNA, NAAT NEGATIVE (NEGATIVE) 08/27/21 09:29 Impressions Chest X-Ray 08/27/21 09:21 XR chest 1V portable CLINICAL HISTORY: weakness. Evaluate cardiopulmonary status COMPARISON STUDY: 01/15/2021 TECHNIQUE: 1 view of the chest FINDINGS: Single frontal view of the chest demonstrates the cardiomediastinal silhouette to be within normal limits. There is a decreased inspiratory effort with elevation of the hemidiaphragms, right greater than left and crowding of the bronchovascular markings at the lung bases and centrally. The lungs are clear of alveolar opacities. There is no evidence for pleural effusion. There is no evidence for vascular congestion. There is no acute osseous pathology. IMPRESSION: There is a decreased inspiratory effort with otherwise no acute chest disease. ACT 112: Negative or not required by law. Electronically signed by: Rolando Cooper M.D. 08/27/2021 9:[address] 08/27/21 09:21 CT head/brain wo con CLINICAL HISTORY: 76 years-old Female with AMS. Acutely altered mental status TECHNIQUE: Multiple axial CT images of the head were obtained without contrast. A dose lowering technique was utilized adhering to the principles of ALARA. CT DOSE: 638.56 mGycm COMPARISON: Head CT 01/15/2021. FINDINGS: No acute intracranial hemorrhage, midline shift, intracranial mass, hydrocephalus, territorial ischemia or abnormal extra-axial collection. Age- related involutional changes. Cerebral vascular calcifications. Unchanged subcentimeter hypodense focus posterior to the left caudate head on image 13 series 2, possibly outside sales representative of a chronic lacunar infarct. The calvarium is intact. Prior bilateral lens repair. Prior bilateral maxillary antrostomy. The paranasal sinuses, mastoid air cells, and middle ear cavities are clear. IMPRESSION: No acute intracranial abnormality. ACT 112: Negative or not required by law. The above report was generated using voice recognition software. It may contain grammatical, syntax or spelling errors. Electronically signed by: Tito Sanabria M.D. 08/27/2021 9:46 AM PG Care Time/CCT Total # of Minutes Spent Total Time Spent with Patient: Total time spent is greater than 50% in coordination of care (as documented) at patient's floor/unit and/or counseling patient: Coding Level of Care Code 61094 Initial Inpt Care Lvl 3 Diagnoses Cirrhosis K74.60 Colitis K52.9 Mild cognitive impairment G31.84 End-stage renal disease on hemodialysis N18.6; Z99.2 HTN (hypertension) I10
--- NOTE | 2021-08-27 14:38 | Emergency Department Note ---
Impression & Plan Encephalopathy acute, Cirrhosis, ESRD on hemodialysis, Anemia in chronic renal disease ED Provider Note CHIEF COMPLAINT: AMS, weakness HISTORY OF PRESENT ILLNESS: This 76 yo female patient presents to the emergency department with who states she has been a bit off for ~1 week since he picked up after dialysis. He noticed the pt picking at things in the air and not responding appropriately. Sx seem to wax and wane, but he had great difficulty getting her into bed that same day. Pt as confused and incontinent of loose stool, which is unusual. He did not notice blood in the stool. Pt has recently been diagnosed with cirrhosis of the liver by PCP and is awaiting evaluation by GI. denies fever, chills, cough, vomiting and recent fall/[facility]. Pt did miss dialysis today. REVIEW OF SYSTEMS: A review of systems was performed with positives and pertinent negatives listed in the history of present illness. 10 systems were reviewed and are otherwise negative. ALLERGIES: see below MEDICATIONS: see below PMH: see below SOCIAL HISTORY: see below DDx: Infection, dehydration, metabolic abnormality, hypo/hyperglycemia, electrolyte disturbance, anemia, hypoxia, cardiac sources, intracerebral event, toxicologic, neurologic, as well as other pathologies. PHYSICAL EXAM: Vital signs reviewed. General: Chronically ill appearing 76 yo female, in no significant distress. HEENT: No scleral icterus, PERRLA, neck supple. Atraumatic. Cardiovascular: Regular rate and rhythm, no extra sounds. Pulmonary: Clear to auscultation bilaterally, normal work of breathing. Abdomen: Soft, nontender, nondistended, positive bowel sounds. Musculoskeletal: Atraumatic, no peripheral edema. Neurologic: Patient awake alert and following commands, but subtly confused. Skin: Warm, dry, no rash. Multiple areas of iatrogenic bruising to BUE. EMERGENCY DEPARTMENT COURSE/MDM: This patient was evaluated and appeared to be in no significant distress. IV access was obtained and laboratory work was drawn. 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 Head CT was performed and is negative for acute intracranial pathology. Chest x-ray is negative for focal infiltrate and reveals only decreased respiratory effort. EKG reveals no evidence of acute ischemia. Patient's laboratory work reveals a chronic anemia. Stool studies have been ordered. The etiology of the patient's encephalopathy is unclear at this time but may be related to chronic renal and/or liver disease. she will require further evaluation by the hospitalist service. They have been consulted. Patient and are aware of the plan and agreed. MONITORING: An order for cardiac monitoring was placed and the patient is noted to be in a NSR at 68 beats per minute. RADIOLOGY: see below EKG: NSR at 72 bpm with right axis deviation. Previous septal infarct, normal ST segments, no PVC, no PAC, prolonged QTc at 501. DISPOSITION:admit Past Med/Surg History Medical History (Updated 08/30/21 @ 09:19 by Pao Brand MD) Acute gastric ulcer AMY (acute kidney injury) (06/28/13) Anemia HX OF Anxiety HX OF Arachnoid cyst Ataxic gait AV fistula thrombosis UPPER LEFT ARM Back pain with sciatica Benign familial tremor Breast mass, left Cardiac murmur Cellulitis of left arm Chronic abdominal pain Chronic kidney disease (06/28/13) Cirrhosis Clostridium difficile colitis Colitis Degenerative joint disease, ankle, left Depression HX OF End-stage renal disease on hemodialysis FRIDAY, FRIDAY AND FRIDAY [facility] ESRD on hemodialysis Gout, joint HANNA (headache) Hemorrhage of colon Hyperlipidemia Hypertension Hypothyroidism Intractable headache (11/18/13) Intractable nausea and vomiting (11/18/13) Left tibialis posterior tendonitis Lower back pain Lumbosacral radiculopathy Mild cognitive impairment Mitral valve disorder (10/14/12) MVP (mitral valve prolapse) Peripheral neuropathy Renal failure CKD (REASON FOR FAILURE) 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 CHAUDHARY) Sensorineural hearing loss (SNHL) of both ears Stomach ulcer Subarachnoid hemorrhage 5 YEARS AGO Transplanted organ rejection 1 TRANSPLANTED KIDNEY Traumatic injury of head Vitamin D deficiency Surgical History H/O: hysterectomy History of colonoscopy History of esophagogastroduodenoscopy (EGD) History of herniorrhaphy History of nephrectomy RT/LEFT REMOVED History of open reduction and internal fixation (ORIF) procedure LEFT ANKLE History of vascular access device A-PORT ACCESS LEFT SIDE (DIFFICULT IV STICK) Hx of cholecystectomy Status post hardware removal 12/2018 left ankle Family History Other Family history non-contributory Denies family history of Ovarian cancer Prostate cancer Crohn's disease Myocardial infarction Breast cancer Colorectal cancer Ulcerative colitis Social History Smoking Status: Never smoker Second Hand Exposure: No; Hx Alcohol Use: No Hx Substance Use: No Preferred Language: Kyrgyz Communication Ability: Impaired Interviewing Clerk Required: No Beliefs That Will Affect Care: None marital status: Current Living Situation: Spouse Feels Safe at Home: Yes Assistive Devices: Glasses and Walker Allergies Allergies Allergy/AdvReac Type Severity Reaction Status Date / Time Cephalosporins Allergy Intermediate ertapenem Verified 08/27/21 10:34 ok from multiple occasions codeine Allergy Intermediate RASH Verified 08/27/21 10:34 levofloxacin Allergy Intermediate hives, Verified 08/27/21 10:34 itching, per patient tolerates Cipro lisinopril Allergy Intermediate HIVES, Verified 08/27/21 10:34 ITCHING morphine Allergy Intermediate HIVES Verified 08/27/21 10:34 Sulfa (Sulfonamide Allergy Intermediate Rash Verified 08/27/21 10:34 Antibiotics) meperidine Allergy Unknown HAD RXN IN Verified 08/27/21 10:34 RR Iodinated Contrast Media AdvReac Severe PT HAD A Verified 08/27/21 10:34 KIDNEY TRANSPLANT chlorhexidine AdvReac Intermediate RASH Verified 08/27/21 10:34 captopril AdvReac Mild ITCHING Verified 08/27/21 10:34 celecoxib AdvReac Mild ITCHING Verified 08/27/21 10:34 hydralazine AdvReac Mild ITCHING Verified 08/27/21 10:34 nitrofurantoin AdvReac Mild GI PROBLEMS Verified 08/27/21 10:34 Home Meds Home Medications Medication Instructions Recorded Confirmed vit B complx, C-iron 8 mg-folic 1 tab PO QAM 12/25/18 08/27/21 acid 800 mcg-D3 1,000 unit-zinc tablet (ProRenal) levothyroxine 100 mcg tablet 100 mcg PO QAM 10/19/20 08/27/21 pantoprazole 40 mg tablet,delayed 40 mg PO QAM 10/19/20 08/27/21 release Lactobacillus acidophilus and 1 cap PO DAILY 08/27/21 08/27/21 rhamnosus 15 billion cell capsule (Probiotic) Previous Rx's Medication Instructions Recorded calcium acetate(phosphat bind) 667 1,334 mg PO TIDM #720 cap 07/29/19 mg capsule ondansetron HCl 4 mg tablet 4 mg PO QID PRN #12 tab 12/06/19 sertraline 25 mg tablet 25 mg PO DAILY #90 tab 11/23/20 metoprolol succinate 25 mg 25 mg PO BID #180 tab 01/03/21 tablet,extended release 24 hr amlodipine 5 mg tablet 5 mg PO BID #180 tab 01/04/21 allopurinol 300 mg tablet 300 mg PO QAM #90 tab 01/10/21 clonidine HCl 0.2 mg tablet 0.2 mg PO HS #90 tab 03/11/21 fenofibrate nanocrystallized 145 145 mg PO DAILY #90 tab 03/11/21 mg tablet (Tricor) tramadol 50 mg tablet 50 mg PO TID PRN #30 tab 07/25/21 Results & Data (ED) Vital Signs Vital Signs - 24 hr 08/27/21 09:02 08/27/21 09:21 08/27/21 10:25 Temperature 36.6 C Temperature Source Oral Pulse Rate 74 68 Pulse Rate from SpO2 Sensor Pulse Rhythm Regular Pulse Strength Normal Respiratory Rate 20 18 Respiratory Effort / Characteristics Non-Labored Spontaneous Respiratory Depth Normal Respiratory Pattern Regular Blood Pressure 174/83 H 120/103 H Blood Pressure Mean 113 108 Blood Pressure Position Sitting Pulse Oximetry 100 100 100 Oxygen Delivery Method Room Air Room Air Sepsis Recent Fever Within 48 Hours No Sepsis New/Unexplained Change in Mental Status No Sepsis Action Taken by Nursing No Action Required 08/27/21 10:30 08/27/21 10:31 08/27/21 11:01 Temperature Temperature Source Pulse Rate 69 69 Pulse Rate from SpO2 Sensor 69 Pulse Rhythm Pulse Strength Respiratory Rate 17 20 Respiratory Effort / Characteristics Respiratory Depth Respiratory Pattern Blood Pressure 173/85 H 163/60 H Blood Pressure Mean 114 94 Blood Pressure Position Pulse Oximetry 100 100 Oxygen Delivery Method Sepsis Recent Fever Within 48 Hours Sepsis New/Unexplained Change in Mental Status Sepsis Action Taken by Nursing 08/27/21 12:00 08/27/21 13:00 08/27/21 13:01 Temperature Temperature Source Pulse Rate 70 70 69 Pulse Rate from SpO2 Sensor 70 70 69 Pulse Rhythm Pulse Strength Respiratory Rate 17 11 L 12 Respiratory Effort / Characteristics Respiratory Depth Respiratory Pattern Blood Pressure 191/74 H Blood Pressure Mean 113 Blood Pressure Position Pulse Oximetry 100 100 100 Oxygen Delivery Method Sepsis Recent Fever Within 48 Hours Sepsis New/Unexplained Change in Mental Status Sepsis Action Taken by Nursing 08/27/21 14:01 Temperature Temperature Source Pulse Rate 71 Pulse Rate from SpO2 Sensor 72 Pulse Rhythm Pulse Strength Respiratory Rate 13 Respiratory Effort / Characteristics Respiratory Depth Respiratory Pattern Blood Pressure Blood Pressure Mean 111 Blood Pressure Position Pulse Oximetry 100 Oxygen Delivery Method Sepsis Recent Fever Within 48 Hours Sepsis New/Unexplained Change in Mental Status Sepsis Action Taken by [facility] Medications Current Medication List: was personally reviewed by me Laboratory Data Attestation: I reviewed the patient's lab results. Result diagrams: 08/29/21 06:37 08/29/21 06:37 Lab Results 08/27/21 08/27/21 08/27/21 Range/Units 09:29 10:10 10:10 WBC 4.75 L (4.8-10.8) K/uL RBC 3.14 L (4.2-5.4) M/uL Hgb 11.2 L (12.0-16.0) g/dL Hct 36.0 L (37-47) % MCV 114.6 H (80-100) fL MCH 35.7 H (25-34) pg MCHC 31.1 L (32-36) g/dL RDW Std Deviation 64.5 H (36.4-46.3) fL RDW Coeff of Joseph 15.7 H (11.5-14.5) % Plt Count 119 L (130-400) K/uL MPV 11.3 H (7.4-10.4) fL Immature Gran % (Auto) 0.2 % Neut % (Auto) 72.0 % Lymph % (Auto) 21.3 % [place] % (Auto) 6.1 % Eos % (Auto) 0.2 % Baso % (Auto) 0.2 % Neut # (Auto) 3.42 (1.4-6.5) K/uL Lymph # (Auto) 1.01 L (1.2-3.4) K/uL [place] # (Auto) 0.29 (0.11-0.59) K/uL Eos # (Auto) 0.01 (0-0.5) K/uL Baso # (Auto) 0.01 (0-0.2) K/uL Immature Gran # (Auto) 0.01 (0.00-0.02) K/uL Macrocytosis Present Ovalocytes 1+ PT 12.8 H (9.0-12.0) Seconds INR 1.3 H (0.9-1.1) Sodium (136-145) mmol/L Potassium (3.5-5.1) mmol/L Chloride (98-107) mmol/L Carbon Dioxide (21-32) mmol/L Anion Gap (3-11) BUN (6-23) mg/dl Creatinine (0.6-1.2) mg/dl Est Cr Clr Drug Dosing ml/min Est GFR ( Amer) ml/min Est GFR (Non-Af Amer) ml/min BUN/Creatinine Ratio (10-20) Glucose (70-99(Fasting)) mg/dl Lactate (0.4-2.0) mmol/L Calcium (8.5-10.1) mg/dl Magnesium (1.7-2.4) mg/dl Total Bilirubin (0.2-1.0) mg/dl AST (13-39) U/L ALT (7-52) U/L Alkaline Phosphatase (34-104) U/L Ammonia (18-72) umol/L Troponin I (0-0.04) ng/ml Total Protein (6.0-8.3) gm/dl Albumin (3.4-5.0) gm/dl Globulin (2.5-4.0) gm/dl Albumin/Globulin Ratio (0.9-2) TSH (0.300-4.500) uIu/ml SARS-CoV-2, RNA, NAAT NEGATIVE (NEGATIVE) 08/27/21 08/27/21 08/27/21 Range/Units 10:10 10:10 10:10 WBC (4.8-10.8) K/uL RBC (4.2-5.4) M/uL Hgb (12.0-16.0) g/dL Hct (37-47) % MCV (80-100) fL MCH (25-34) pg MCHC (32-36) g/dL RDW Std Deviation (36.4-46.3) fL RDW Coeff of Joseph (11.5-14.5) % Plt Count (130-400) K/uL MPV (7.4-10.4) fL Immature Gran % (Auto) % Neut % (Auto) % Lymph % (Auto) % [place] % (Auto) % Eos % (Auto) % Baso % (Auto) % Neut # (Auto) (1.4-6.5) K/uL Lymph # (Auto) (1.2-3.4) K/uL [place] # (Auto) (0.11-0.59) K/uL Eos # (Auto) (0-0.5) K/uL Baso # (Auto) (0-0.2) K/uL Immature Gran # (Auto) (0.00-0.02) K/uL Macrocytosis Ovalocytes PT (9.0-12.0) Seconds INR (0.9-1.1) Sodium 145 (136-145) mmol/L Potassium 4.3 (3.5-5.1) mmol/L Chloride 100 (98-107) mmol/L Carbon Dioxide 28 (21-32) mmol/L Anion Gap 17 H (3-11) BUN 66 H (6-23) mg/dl Creatinine 7.59 H* (0.6-1.2) mg/dl Est Cr Clr Drug Dosing 6.3 ml/min Est GFR ( Amer) 5.5 ml/min Est GFR (Non-Af Amer) 4.8 ml/min BUN/Creatinine Ratio 8.7 L (10-20) Glucose 95 (70-99(Fasting)) mg/dl Lactate 1.3 (0.4-2.0) mmol/L Calcium 9.6 (8.5-10.1) mg/dl Magnesium 2.4 (1.7-2.4) mg/dl Total Bilirubin 1.3 H (0.2-1.0) mg/dl AST 49 H (13-39) U/L ALT 24 (7-52) U/L Alkaline Phosphatase 81 (34-104) U/L Ammonia (18-72) umol/L Troponin I 0.04 (0-0.04) ng/ml Total Protein 6.6 (6.0-8.3) gm/dl Albumin 3.7 (3.4-5.0) gm/dl Globulin 2.9 (2.5-4.0) gm/dl Albumin/Globulin Ratio 1.3 (0.9-2) TSH 2.602 (0.300-4.500) uIu/ml SARS-CoV-2, RNA, NAAT (NEGATIVE) 08/27/21 Range/Units 10:10 WBC (4.8-10.8) K/uL RBC (4.2-5.4) M/uL Hgb (12.0-16.0) g/dL Hct (37-47) % MCV (80-100) fL MCH (25-34) pg MCHC (32-36) g/dL RDW Std Deviation (36.4-46.3) fL RDW Coeff of Joseph (11.5-14.5) % Plt Count (130-400) K/uL MPV (7.4-10.4) fL Immature Gran % (Auto) % Neut % (Auto) % Lymph % (Auto) % [place] % (Auto) % Eos % (Auto) % Baso % (Auto) % Neut # (Auto) (1.4-6.5) K/uL Lymph # (Auto) (1.2-3.4) K/uL [place] # (Auto) (0.11-0.59) K/uL Eos # (Auto) (0-0.5) K/uL Baso # (Auto) (0-0.2) K/uL Immature Gran # (Auto) (0.00-0.02) K/uL Macrocytosis Ovalocytes PT (9.0-12.0) Seconds INR (0.9-1.1) Sodium (136-145) mmol/L Potassium (3.5-5.1) mmol/L Chloride (98-107) mmol/L Carbon Dioxide (21-32) mmol/L Anion Gap (3-11) BUN (6-23) mg/dl Creatinine (0.6-1.2) mg/dl Est Cr Clr Drug Dosing ml/min Est GFR ( Amer) ml/min Est GFR (Non-Af Amer) ml/min BUN/Creatinine Ratio (10-20) Glucose (70-99(Fasting)) mg/dl Lactate (0.4-2.0) mmol/L Calcium (8.5-10.1) mg/dl Magnesium (1.7-2.4) mg/dl Total Bilirubin (0.2-1.0) mg/dl AST (13-39) U/L ALT (7-52) U/L Alkaline Phosphatase (34-104) U/L Ammonia 36.0 (18-72) umol/L Troponin I (0-0.04) ng/ml Total Protein (6.0-8.3) gm/dl Albumin (3.4-5.0) gm/dl Globulin (2.5-4.0) gm/dl Albumin/Globulin Ratio (0.9-2) TSH (0.300-4.500) uIu/ml SARS-CoV-2, RNA, NAAT (NEGATIVE) Administered Medications Discontinued Medications Allopurinol (Allopurinol 300 Mg Tab) 300 mg PO QAM [facility] Stop: 09/27/21 08:59 Last Admin: 08/29/21 08:58 Dose: 300 mg Documented by: [id number] Admin: 08/28/21 08:22 Dose: 300 mg Documented by: [id number] Amlodipine Besylate (Amlodipine Besylate 5 Mg Tab) 5 mg PO BID [facility] Stop: 09/26/21 20:59 Last Admin: 08/29/21 09:00 Dose: 5 mg Documented by: [id number] Admin: 08/28/21 20:00 Dose: 5 mg Documented by: [id number] Admin: 08/28/21 10:50 Dose: Not Given Documented by: [id number] Admin: 08/27/21 20:21 Dose: 5 mg Documented by: [id number] Calcium Acetate (Calcium Acetate 667 Mg Cap/Tab) 1,334 mg PO TIDM [facility] Stop: 09/26/21 16:59 Last Admin: 08/29/21 17:27 Dose: 1,334 mg Documented by: [id number] Admin: 08/29/21 12:27 Dose: 1,334 mg Documented by: [id number] Admin: 08/29/21 08:58 Dose: 1,334 mg Documented by: [id number] Admin: 08/28/21 15:56 Dose: Not Given Documented by: [id number] Admin: 08/28/21 13:06 Dose: Not Given Documented by: [id number] Admin: 08/28/21 08:21 Dose: 1,334 mg Documented by: [id number] Admin: 08/27/21 18:30 Dose: 1,334 mg Documented by: [id number] Clonidine HCl (Clonidine Hcl 0.1 Mg Tab) 0.2 mg PO HS [facility] Stop: 09/26/21 20:59 Last Admin: 08/28/21 20:01 Dose: 0.2 mg Documented by: [id number] Admin: 08/27/21 20:21 Dose: 0.2 mg Documented by: [id number] Epoetin [place] (Epoetin [place] 20,000 Units/Ml Vial) 20,000 units IV NOW STA Stop: 08/28/21 10:47 Last Admin: 08/28/21 17:37 Dose: 20,000 units Documented by: [id number] Fenofibrate (Fenofibrate Nanocrystallized 145 Mg Tablet) 145 mg PO DAILY [facility] Stop: 09/27/21 08:59 Last Admin: 08/29/21 08:58 Dose: 145 mg Documented by: [id number] Admin: 08/28/21 08:21 Dose: 145 mg Documented by: [id number] Heparin Sodium (Porcine) (Heparin Sod 5,000 Unit/0.5 Ml Vial) 5,000 units SQ Q12 [facility] Stop: 09/26/21 20:59 Last Admin: 08/29/21 09:00 Dose: 5,000 units Documented by: [id number] Admin: 08/28/21 20:01 Dose: 5,000 units Documented by: [id number] Admin: 08/28/21 08:21 Dose: 5,000 units Documented by: [id number] Admin: 08/27/21 20:21 Dose: 5,000 units Documented by: [id number] Sodium Chloride (Nss 1000ml) 1,000 mls @ 100 mls/hr IV .Q10H [facility] Stop: 08/27/21 19:29 Last Infusion: 08/27/21 19:30 Dose: 0 mls/hr Documented by: [id number] Admin: 08/27/21 10:26 Dose: 100 mls/hr Documented by: [id number] Levothyroxine Sodium (Levothyroxine Sodium 100 Mcg Tablet) 100 mcg PO DAILYBB [facility] Stop: 09/27/21 06:29 Last Admin: 08/29/21 05:36 Dose: 100 mcg Documented by: [id number] Admin: 08/28/21 05:40 Dose: 100 mcg Documented by: [id number] Metoprolol Succinate (Metoprolol Succ 25mg Ext Rel Tab) 25 mg PO BID [facility] Stop: 09/26/21 20:59 Last Admin: 02/02/22 08:58 Dose: 25 mg Documented by: [id number] Admin: 08/28/21 20:01 Dose: 25 mg Documented by: [id number] Admin: 08/28/21 10:51 Dose: Not Given Documented by: [id number] Admin: 08/27/21 20:21 Dose: 25 mg Documented by: [id number] Miconazole Nitrate (Miconazole Nitrate Powder 43 Gm) 1 appln EXT BID [facility] Stop: 09/28/21 08:59 Last Admin: 08/29/21 09:31 Dose: 1 appln Documented by: [id number] Ondansetron HCl (Ondansetron Inj 2 Mg/Ml 2 Ml Vial) 4 mg IV NOW STA Stop: 08/27/21 09:22 Last Admin: 08/27/21 10:26 Dose: 4 mg Documented by: [id number] Ondansetron HCl (Ondansetron Inj 2 Mg/Ml 2 Ml Vial) 4 mg IV Q6H PRN PRN Reason: Nausea Stop: 09/26/21 16:13 Last Admin: 08/28/21 18:02 Dose: 4 mg Documented by: [id number] Pantoprazole Sodium (Pantoprazole 40 Mg Tab) 40 mg PO QAM [facility] Stop: 09/27/21 08:59 Last Admin: 08/29/21 09:01 Dose: 40 mg Documented by: [id number] Admin: 08/28/21 08:22 Dose: 40 mg Documented by: [id number] Sertraline HCl (Sertraline Hcl 50 Mg Tablet) 25 mg PO DAILY [facility] Stop: 09/27/21 08:59 Last Admin: 08/29/21 08:58 Dose: 25 mg Documented by: [id number] Admin: 08/28/21 08:22 Dose: 25 mg Documented by: [id number] Vitamin B Complex/Folic Acid (Nephrocaps) 1 cap PO QAM [facility] Stop: 09/27/21 08:59 Last Admin: 08/29/21 08:58 Dose: 1 cap Documented by: [id number] Admin: 08/28/21 08:21 Dose: 1 cap Documented by: [id number] Imaging Data Radiologist's Impression: Chest X-Ray 08/27/21 09:21 XR chest 1V portable CLINICAL HISTORY: weakness. Evaluate cardiopulmonary status COMPARISON STUDY: 01/15/2021 TECHNIQUE: 1 view of the chest FINDINGS: Single frontal view of the chest demonstrates the cardiomediastinal silhouette to be within normal limits. There is a decreased inspiratory effort with elevation of the hemidiaphragms, right greater than left and crowding of the bronchovascular markings at the lung bases and centrally. The lungs are clear of alveolar opacities. There is no evidence for pleural effusion. There is no evidence for vascular congestion. There is no acute osseous pathology. IMPRESSION: There is a decreased inspiratory effort with otherwise no acute chest disease. ACT 112: Negative or not required by law. Electronically signed by: Rolando Cooper M.D. 08/27/2021 9:[address] 08/27/21 09:21 CT head/brain wo con CLINICAL HISTORY: 76 years-old Female with AMS. Acutely altered mental status TECHNIQUE: Multiple axial CT images of the head were obtained without contrast. A dose lowering technique was utilized adhering to the principles of ALARA. CT DOSE: 638.56 mGycm COMPARISON: Head CT 01/15/2021. FINDINGS: No acute intracranial hemorrhage, midline shift, intracranial mass, hydrocephalus, territorial ischemia or abnormal extra-axial collection. Age- related involutional changes. Cerebral vascular calcifications. Unchanged subcentimeter hypodense focus posterior to the left caudate head on image 13 series 2, possibly service support representative of a chronic lacunar infarct. The calvarium is intact. Prior bilateral lens repair. Prior bilateral maxillary antrostomy. The paranasal sinuses, mastoid air cells, and middle ear cavities are clear. IMPRESSION: No acute intracranial abnormality. ACT 112: Negative or not required by law. The above report was generated using voice recognition software. It may contain grammatical, syntax or spelling errors. Electronically signed by: Tito Sanabria M.D. 08/27/2021 9:46 AM Blood Pressure Blood Pressure Findings: Elevated blood pressure Blood Pressure Disposition: further management by hospitalist Discharge Plan Visit Data Chief Complaint: Confusion ED Provider: Pao Brand Discharge Problem: Encephalopathy acute, Cirrhosis, ESRD on hemodialysis, Anemia in chronic renal disease Patient Disposition: Admitted As Inpatient Discharge Instructions Interventions: ED Discharge Assessment Last Done: 08/27/21 16:32 Discharge Problem: Cirrhosis Qualifiers: Hepatic cirrhosis type: unspecified hepatic cirrhosis Ascites presence: without ascites Qualified Code(s): K74.60 - Unspecified cirrhosis of liver Anemia in chronic renal disease Qualifiers: Chronic kidney disease stage: stage 5, not on chronic dialysis Qualified Code(s): N18.5 - Chronic kidney disease, stage 5
[2021-08-27] MEDS ORDERED: ACETAMINOPHEN 325 MG TAB PO PRN (16:14)
[2021-08-27] MEDS ORDERED: ONDANSETRON INJ 2 MG/ML 2 ML VIAL IV PRN (16:14)
[2021-08-27] MEDS: CALCIUM ACETATE 667 MG CAP/TAB PO SCH (18:30)
[2021-08-27] MEDS: HEPARIN SOD 5,000 UNIT/0.5 ML VIAL SQ SCH (20:21)
[2021-08-27] MEDS: cloNIDine HCL 0.1 MG TAB PO SCH (20:21)
[2021-08-27] MEDS: METOPROLOL SUCC 25MG EXT REL TAB PO SCH (20:21)
[2021-08-27] MEDS: amLODIPine BESYLATE 5 MG TAB PO SCH (20:21)
[2021-08-28] MEDS: LEVOTHYROXINE SODIUM 100 MCG TABLET PO SCH (05:40)
[2021-08-28 07:53] LABS: Hematocrit (blood only) 30.5 % (37-47); Hemoglobin 9.4 g/dL (12.0-16.0); Mean Corpuscular Hemoglobin 35.3 pg (25-34); Mean Corpuscular Hgb Conc 30.8 g/dL (32-36); Mean Corpuscular Volume 114.7 fL (80-100); Nucleated RBC # (auto) 0.02 K/uL (0-0); Nucleated RBC % (auto) 0.5 %; RDW Standard Deviation 66.1 fL (36.4-46.3); Red Blood Count 2.66 M/uL (4.2-5.4)
[2021-08-28 08:14] LABS: Albumin Globulin Ratio 1.2 (0.9-2); Albumin Level 3.1 gm/dl (3.4-5.0); BUN Creatinine Ratio 8.5 (10-20); Bilirubin,Total 1.2 mg/dl (0.2-1.0); Calcium 8.6 mg/dl (8.5-10.1); Creatinine Clr Calc Pharmacy 5.3 ml/min; Est GFR (African American) 4.7 ml/min; Est GFR (Non-African American) 4.1 ml/min; Globulin 2.5 gm/dl (2.5-4.0); Potassium 4.6 mmol/L (3.5-5.1); Total Protein 5.6 gm/dl (6.0-8.3)
[2021-08-28] MEDS: FENOFIBRATE NANOCRYSTALLIZED 145 MG TABLET PO SCH (08:21)
[2021-08-28] MEDS: CALCIUM ACETATE 667 MG CAP/TAB PO SCH ×3 (08:21→15:56)
[2021-08-28] MEDS: HEPARIN SOD 5,000 UNIT/0.5 ML VIAL SQ SCH ×2 (08:21→20:01)
[2021-08-28] MEDS: NEPHROCAPS PO SCH (08:21)
[2021-08-28] MEDS: SERTRALINE HCL 50 MG TABLET PO SCH (08:22)
[2021-08-28] MEDS: PANTOprazole 40 MG TAB PO SCH (08:22)
[2021-08-28] MEDS: allopurinoL 300 MG TAB PO SCH (08:22)
[2021-08-28 08:25] LABS: Basophils # (auto) 0.01 K/uL (0-0.2); Basophils % (auto) 0.3 %; Eosinophils # (auto) 0.04 K/uL (0-0.5); Eosinophils % (auto) 1.3 %; Immature Granulocytes # (auto) 0.01 K/uL (0.00-0.02); Immature Granulocytes % (auto) 0.3 %; Lymphocytes # (auto) 1.18 K/uL (1.2-3.4); Lymphocytes % (auto) 36.9 %; Macrocytosis Present; Mean Platelet Volume 10.1 fL (7.4-10.4); Monocytes # (auto) 0.16 K/uL (0.11-0.59); Neutrophils % (auto) 56.2 %; Platelet Count 95 K/uL (130-400); Platelet Estimate Decreased (Normal)
[2021-08-28] MEDS ORDERED: [UNRECOGNIZED DRUG - OTHER] PO SCH (09:00)
--- NOTE | 2021-08-28 09:39 | Gastrointestinal Consultation ---
Date of Consultation August 28, 2021 Assessment & Plan (1) Cirrhosis: Incidentally noted on CT scan. Will plan to do a full evaluation regarding the etiology of her cirrhosis as well as HCC management and screenings in the outpatient setting once patient is discharged. I do not suspect hepatic encephalopathy given the presentation and normal ammonia levels, but if no other etiology of her encephalopathy is identified, could consider addition of Xifaxan 550 mg BID and Lactulose titrated to 3 BMs daily. Of note, it is documented that patient is anuric, however nursing staff did report to me that she makes urine and was incontinent overnight. If she truly makes urine, would advise obtaining a UA to rule out UTI as source of her confusion. Supervising Physician Co-Signing Physician Notes I personally evaluated the patient and agree with the findings as documented by Leigh Alvarado, ALEX Exam: abd: soft, nt, nd History of Present Illness Reason for Consultation: Possible cirrhosis Attending Physician: Tyson Mancuso, DO History of Present Illness Patient is a 76 yo female with PMH of ESRD on HD MWF, HLD, diverticulosis, & history of hemorrhagic colitis. She presented to the ED due to confusion. She is alone at the time of my evaluation, but had previously reported to staff that over the past week, she has been confused and disoriented at home. notes that she has had ambulatory dysfunction as well. Her appetite was decreased. There were no other symptoms with the exception of lower abdominal cramping intermittently. Her ammonia level was unremarkable as was her TSH. Head CT negative for acute changes. Incidentally noted on liver imaging recently was possible suspected cirrhosis. Patient is confused at the time of my visit and is unable to offer a great history. She denies abdominal pain, jaundice, and constipation. No UA has been obtained and it is documented in her chart that she is anuric, but nurse noted that she was incontinent overnight. Her MELD score at 23 is certainly influenced by the fact that she has ESRD. Allergies Allergy/AdvReac Type Severity Reaction Status Date / Time Cephalosporins Allergy Intermediate ertapenem Verified 08/27/21 10:34 ok from multiple occasions codeine Allergy Intermediate RASH Verified 08/27/21 10:34 levofloxacin Allergy Intermediate hives, Verified 08/27/21 10:34 itching, per patient tolerates Cipro lisinopril Allergy Intermediate HIVES, Verified 08/27/21 10:34 ITCHING morphine Allergy Intermediate HIVES Verified 08/27/21 10:34 Sulfa (Sulfonamide Allergy Intermediate Rash Verified 08/27/21 10:34 Antibiotics) meperidine Allergy Unknown HAD RXN IN Verified 08/27/21 10:34 RR Iodinated Contrast Media AdvReac Severe PT HAD A Verified 08/27/21 10:34 KIDNEY TRANSPLANT chlorhexidine AdvReac Intermediate RASH Verified 08/27/21 10:34 captopril AdvReac Mild ITCHING Verified 08/27/21 10:34 celecoxib AdvReac Mild ITCHING Verified 08/27/21 10:34 hydralazine AdvReac Mild ITCHING Verified 08/27/21 10:34 nitrofurantoin AdvReac Mild GI PROBLEMS Verified 08/27/21 10:34 Home Medications Medication Instructions Recorded Confirmed Type vit B complx, C-iron 8 mg-folic 1 tab PO QAM 12/25/18 08/27/21 History acid 800 mcg-D3 1,000 unit-zinc tablet (ProRenal) calcium acetate(phosphat bind) 667 1,334 mg PO TIDM #720 cap 07/29/19 08/27/21 Rx mg capsule ondansetron HCl 4 mg tablet 4 mg PO QID PRN #12 tab 12/06/19 08/27/21 Rx levothyroxine 100 mcg tablet 100 mcg PO QAM 10/19/20 08/27/21 History pantoprazole 40 mg tablet,delayed 40 mg PO QAM 10/19/20 08/27/21 History release sertraline 25 mg tablet 25 mg PO DAILY #90 tab 11/23/20 08/27/21 Rx metoprolol succinate 25 mg 25 mg PO BID #180 tab 01/03/21 08/27/21 Rx tablet,extended release 24 hr amlodipine 5 mg tablet 5 mg PO BID #180 tab 01/04/21 08/27/21 Rx allopurinol 300 mg tablet 300 mg PO QAM #90 tab 01/10/21 08/27/21 Rx clonidine HCl 0.2 mg tablet 0.2 mg PO HS #90 tab 03/11/21 08/27/21 Rx fenofibrate nanocrystallized 145 145 mg PO DAILY #90 tab 03/11/21 08/27/21 Rx mg tablet (Tricor) tramadol 50 mg tablet 50 mg PO TID PRN #30 tab 07/25/21 08/27/21 Rx Lactobacillus acidophilus and 1 cap PO DAILY 08/27/21 08/27/21 History rhamnosus 15 billion cell capsule (Probiotic) Patient History Medical History (Updated 08/28/21 @ 10:42 by Anahi Castro MD) Acute gastric ulcer AMY (acute kidney injury) (06/28/13) Anemia HX OF Anxiety HX OF Arachnoid cyst Ataxic gait AV fistula thrombosis UPPER LEFT ARM Back pain with sciatica Benign familial tremor Breast mass, left Cardiac murmur Cellulitis of left arm Chronic abdominal pain Chronic kidney disease (06/28/13) Cirrhosis Clostridium difficile colitis Colitis Degenerative joint disease, ankle, left Depression HX OF End-stage renal disease on hemodialysis FRIDAY, FRIDAY AND FRIDAY [facility] ESRD on hemodialysis Gout, joint HANNA (headache) Hemorrhage of colon Hyperlipidemia Hypertension Hypothyroidism Intractable headache (11/18/13) Intractable nausea and vomiting (11/18/13) Left tibialis posterior tendonitis Lower back pain Lumbosacral radiculopathy Mild cognitive impairment Mitral valve disorder (10/14/12) MVP (mitral valve prolapse) Peripheral neuropathy Renal failure CKD (REASON FOR FAILURE) 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 CHAUDHARY) Sensorineural hearing loss (SNHL) of both ears Stomach ulcer Subarachnoid hemorrhage 5 YEARS AGO Transplanted organ rejection 1 TRANSPLANTED KIDNEY Traumatic injury of head Vitamin D deficiency Surgical History H/O: hysterectomy History of colonoscopy History of esophagogastroduodenoscopy (EGD) History of herniorrhaphy History of nephrectomy RT/LEFT REMOVED History of open reduction and internal fixation (ORIF) procedure LEFT ANKLE History of vascular access device A-PORT ACCESS LEFT SIDE (DIFFICULT IV STICK) Hx of cholecystectomy Status post hardware removal 12/2018 left ankle Family History Other Family history non-contributory Denies family history of Ovarian cancer Prostate cancer Crohn's disease Myocardial infarction Breast cancer Colorectal cancer Ulcerative colitis Social History Smoking Status: Never smoker Second Hand Exposure: No; Hx Alcohol Use: No Hx Substance Use: No Preferred Language: Citizen Of [place] Communication Ability: Effective Cancer Registry Coordinator Required: No Beliefs That Will Affect Care: None marital status: Current Living Situation: Spouse Feels Safe at Home: Yes Assistive Devices: Glasses and Wheelchair Review of Systems Review of Systems: Patient participates in ROS, but she is intermittently confused Constitutional: + fatigue Gastrointestinal: no abdominal pain, no constipation and no blood in stools Neurologic: + confusion Psychiatric: + confusion Hematologic / Lymphatic: no unexplained weight loss Physical Exam Constitutional: no acute distress Respiratory: normal respiratory effort Cardiovascular: Rate/Rhythm: regular rate Gastrointestinal (Abdomen): Inspection/Auscultation: abdomen normal to inspection Percussion/Palpation: abdomen soft; abdomen nontender and no ascites No asterixis Musculoskeletal: Head/Neck/Chest: normocephalic Skin: no jaundice Psychiatric: Orientation: alert and oriented x 3 Results & Data ([facility]) Vital Signs (Past 12 Hours) Vital Signs Temp Pulse Pulse Resp BP Pulse Ox 08/28/21 08:00 36.6 C 98 H 18 161/85 H 94 08/28/21 03:09 36.4 C L 58 L 18 129/61 98 08/27/21 22:50 36.3 C L 58 L 18 108/60 98 08/27/21 22:20 59 L PG Care Time/CCT Total # of Minutes Spent Total Time Spent with Patient: Total time spent is greater than 50% in coordination of care (as documented) at patient's floor/unit and/or counseling patient: Coding Level of Care Code 77556 Initial Inpt Care Lvl 3 Diagnoses Cirrhosis K74.60
--- NOTE | 2021-08-28 10:34 | Nephrology Consultation ---
Date of Consultation August 28, 2021 Assessment & Plan (1) ESRD on hemodialysis: (2) Anemia: (3) HTN (hypertension): End-stage renal disease on hemodialysis, admitted with confusion, change in mental status. Workup unremarkable. Recent finding of cirrhosis on imaging however ammonia level is normal. Electrolyte within her baseline level. --plan for dialysis today as she missed dialysis yesterday and currently more than 2 kg over her dry weight although respiratory status acceptable and electrolyte acceptable. Will aim for of 2 L if blood pressure allows. -- although there was some confusion on admission currently she seems to be close to her baseline. However, she has history of vascular dementia and periods of confusion for years and overall she seems to be clinically declining. --CARMINE 53289 units x 1 dose -- Left arm nephrology precaution, does meds for eGFR less than 10 Will follow Thank you for allowing me to participate in your patient's care. It was a pleasure to see Whit History of Present Illness Reason for Consultation: End-stage renal disease on hemodialysis, admitted with confusion and change in mental status. Attending Physician: Tyson Mancuso DO History of Present Illness Whit Cruz is a 76-year-old female with PMH significant for ESRD, on hemodialysis, hypertension, dyslipidemia, diverticulosis and recent finding of cirrhosis on imaging admitted to the hospital with confusion and change in mental status. Nephrology consult was requested to manage ESRD and provide hemodialysis. EMR records are reviewed in detail during patient's visit. Nkechi/Q was admitted to hospital yesterday after she was brought to the hospital by her with concern of progressive confusion over last week or so. She also has been having difficulty ambulating at home. her appetite has been low and she has not been eating much and was having some nausea at home. Workup since admission including CT head, chest x-ray, EKG otherwise unremarkable. Lab seems to be close to her baseline. Urinalysis was ordered but was not done. This morning she denied any dysuria, fever, chest pain, shortness of breath. she does not make much urine anymore. She was emotional and tearful and just wanted to go home. ESRD secondary to polycystic kidney disease, has been on hemodialysis Friday, Friday, Friday via left brachiocephalic AV fistula at [facility]. Had left nephrectomy many years ago because of repeated hemorrhage in renal cyst. Eventually her renal function started to decline and she was started on hemodialysis in 2000. Soon after that she had right nephrectomy and cholecystectomy prior to live donor renal transplant from her son in 2001. Renal allograft function started to decline eventually and by 2012 she developed advanced CKD and hypertension and started on hemodialysis again in 2013 via left brachiocephalic AV fistula. Has been doing well on dialysis. Currently under care of Dr. Reis. She had history of repeated episodes of periods of confusion with history of vascular dementia for last at least more than 5 years. Her is her main caregiver who takes care of her at home. HTN for years, BP has been variable. Blood pressure relatively well controlled today, volume status acceptable. Electrolyte within acceptable range. Allergies Allergy/AdvReac Type Severity Reaction Status Date / Time Cephalosporins Allergy Intermediate ertapenem Verified 08/27/21 10:34 ok from multiple occasions codeine Allergy Intermediate RASH Verified 08/27/21 10:34 levofloxacin Allergy Intermediate hives, Verified 08/27/21 10:34 itching, per patient tolerates Cipro lisinopril Allergy Intermediate HIVES, Verified 08/27/21 10:34 ITCHING morphine Allergy Intermediate HIVES Verified 08/27/21 10:34 Sulfa (Sulfonamide Allergy Intermediate Rash Verified 08/27/21 10:34 Antibiotics) meperidine Allergy Unknown HAD RXN IN Verified 08/27/21 10:34 RR Iodinated Contrast Media AdvReac Severe PT HAD A Verified 08/27/21 10:34 KIDNEY TRANSPLANT chlorhexidine AdvReac Intermediate RASH Verified 08/27/21 10:34 captopril AdvReac Mild ITCHING Verified 08/27/21 10:34 celecoxib AdvReac Mild ITCHING Verified 08/27/21 10:34 hydralazine AdvReac Mild ITCHING Verified 08/27/21 10:34 nitrofurantoin AdvReac Mild GI PROBLEMS Verified 08/27/21 10:34 Home Medications Medication Instructions Recorded Confirmed Type vit B complx, C-iron 8 mg-folic 1 tab PO QAM 12/25/18 08/27/21 History acid 800 mcg-D3 1,000 unit-zinc tablet (ProRenal) calcium acetate(phosphat bind) 667 1,334 mg PO TIDM #720 cap 07/29/19 08/27/21 Rx mg capsule ondansetron HCl 4 mg tablet 4 mg PO QID PRN #12 tab 12/06/19 08/27/21 Rx levothyroxine 100 mcg tablet 100 mcg PO QAM 10/19/20 08/27/21 History pantoprazole 40 mg tablet,delayed 40 mg PO QAM 10/19/20 08/27/21 History release sertraline 25 mg tablet 25 mg PO DAILY #90 tab 11/23/20 08/27/21 Rx metoprolol succinate 25 mg 25 mg PO BID #180 tab 01/03/21 08/27/21 Rx tablet,extended release 24 hr amlodipine 5 mg tablet 5 mg PO BID #180 tab 01/04/21 08/27/21 Rx allopurinol 300 mg tablet 300 mg PO QAM #90 tab 01/10/21 08/27/21 Rx clonidine HCl 0.2 mg tablet 0.2 mg PO HS #90 tab 03/11/21 08/27/21 Rx fenofibrate nanocrystallized 145 145 mg PO DAILY #90 tab 03/11/21 08/27/21 Rx mg tablet (Tricor) tramadol 50 mg tablet 50 mg PO TID PRN #30 tab 07/25/21 08/27/21 Rx Lactobacillus acidophilus and 1 cap PO DAILY 08/27/21 08/27/21 History rhamnosus 15 billion cell capsule (Probiotic) Patient History Medical History (Updated 08/28/21 @ 10:42 by Anahi Castro MD) Acute gastric ulcer AMY (acute kidney injury) (06/28/13) Anemia HX OF Anxiety HX OF Arachnoid cyst Ataxic gait AV fistula thrombosis UPPER LEFT ARM Back pain with sciatica Benign familial tremor Breast mass, left Cardiac murmur Cellulitis of left arm Chronic abdominal pain Chronic kidney disease (06/28/13) Cirrhosis Clostridium difficile colitis Colitis Degenerative joint disease, ankle, left Depression HX OF End-stage renal disease on hemodialysis FRIDAY, FRIDAY AND FRIDAY [facility] ESRD on hemodialysis Gout, joint HANNA (headache) Hemorrhage of colon Hyperlipidemia Hypertension Hypothyroidism Intractable headache (11/18/13) Intractable nausea and vomiting (11/18/13) Left tibialis posterior tendonitis Lower back pain Lumbosacral radiculopathy Mild cognitive impairment Mitral valve disorder (10/14/12) MVP (mitral valve prolapse) Peripheral neuropathy Renal failure CKD (REASON FOR FAILURE) 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 NEENA) Sensorineural hearing loss (SNHL) of both ears Stomach ulcer Subarachnoid hemorrhage 5 YEARS AGO Transplanted organ rejection 1 TRANSPLANTED KIDNEY Traumatic injury of head Vitamin D deficiency Surgical History H/O: hysterectomy History of colonoscopy History of esophagogastroduodenoscopy (EGD) History of herniorrhaphy History of nephrectomy RT/LEFT REMOVED History of open reduction and internal fixation (ORIF) procedure LEFT ANKLE History of vascular access device A-PORT ACCESS LEFT SIDE (DIFFICULT IV STICK) Hx of cholecystectomy Status post hardware removal 12/2018 left ankle Family History Other Family history non-contributory Denies family history of Ovarian cancer Prostate cancer Crohn's disease Myocardial infarction Breast cancer Colorectal cancer Ulcerative colitis Social History Smoking Status: Never smoker Second Hand Exposure: No; Hx Alcohol Use: No Hx Substance Use: No Preferred Language: Portuguese Communication Ability: Effective Button 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 Physical Exam Constitutional: WD/WN, vitals as above + ill appearing and + frail appearing; no acute distress Eyes: + anicteric sclerae Neck: normal visual inspection Thyroid: no thyromegaly Respiratory: normal respiratory effort; no respiratory distress and no cough Auscultation: lungs clear to auscultation bilaterally Cardiovascular: Rate/Rhythm: regular rate and regular rhythm Heart Sounds: normal S1 and normal S2 Extremities: no edema Gastrointestinal (Abdomen): Inspection/Auscultation: abdomen normal to inspection and normal bowel sounds Percussion/Palpation: abdomen soft; abdomen nontender Musculoskeletal: Extremities: extremities normal to inspection Skin: + turgor decreased, + rash, + skin atrophy and + ecchymosis Neurologic: no focal motor deficits and not confused Psychiatric: Orientation: alert and oriented x 3 Affect: euthymic affect and + tearful affect Results & Data ([facility]) Vital Signs (Past 12 Hours) Vital Signs Temp Pulse Resp BP Pulse Ox 08/28/21 08:00 36.6 C 98 H 18 161/85 H 94 08/28/21 03:09 36.4 C L 58 L 18 129/61 98 08/27/21 22:50 36.3 C L 58 L 18 108/60 98 PG Care Time/CCT Total # of Minutes Spent Total Time Spent with Patient: Total time spent is greater than 50% in coordination of care (as documented) at patient's floor/unit and/or counseling patient: Coding Level of Care Code 63747 Initial Inpt Care Lvl 3 Diagnoses ESRD on hemodialysis N18.6; Z99.2 Anemia D64.9 HTN (hypertension) I10
[2021-08-28] MEDS ORDERED: EPOETIN ALFA 20,000 UNITS/ML VIAL IV STA (10:46)
[2021-08-28] MEDS: amLODIPine BESYLATE 5 MG TAB PO SCH ×2 (10:50→20:00)
[2021-08-28] MEDS: METOPROLOL SUCC 25MG EXT REL TAB PO SCH ×2 (10:51→20:01)
[2021-08-28 11:53] LABS: Vitamin B12 608 pg/ml (211-911)
[2021-08-28 16:24] LABS: Folate (Folic Acid) > 22.30 ng/ml (>5.38)
--- NOTE | 2021-08-28 18:30 | Hospitalist Progress Note ---
Date of Service August 28, 2021 Assessment & Plan (1) Mild cognitive impairment: Plan: From history and patient appearance, I suspect this may be worsening dementia more so than acute encephalopathy -- Possibly some dehydration? has had ongoing issues with colitis/stool so maybe the culprit? given she was due to dialysis that day maybe some toxin build-up? Lab abnormalities consistent with hemodialysis patient, no sign of infection. Patient is anuric at baseline. Ammonia normal. TSH normal. B12 normal No significant findings on CT of the head. can consider MRI but currently appearing more at baseline Will ask PT/OT to evaluate for ambulation (2) Cirrhosis: Plan: - Cirrhosis and liver liver cyst seen on previous imaging - GI - planning for outpatient work-up - Ammonia WNL - had multiple BMs today - would hold on Lactulose/Rifaximin (3) Colitis: Plan: - Currently no symptoms but reports this is a chronic issue - no pain when palpating abdomen - Multiple stool studies ordered - await results (4) End-stage renal disease on hemodialysis: Plan: - Patient follows with Dr. Reis, will consult him for hemodialysis; normally MWF - Had dialysis this afternoon (5) HTN (hypertension): Plan: - Continue Amlodipine 5 mg BID; Clonidine 0.2 mg HS; Metoprolol Succinate 25 mg BID Plan: - Await stool studies - GI assessment as outpatient - PT/OT evaluations - Possible D/C next 1-2 days Admission and Anticipated Discharge Date Admission Date: August 27, 2021 Subjective No acute events overnight. It appears she may have had some urine last night but and patient reports she is anuric. She was having multiple BMs today and possibly some of the liquid may have made it appear to be urine? Multiple stool studies ordered. Patient verbalizes no complaints. at bedside states she is acting more her normal self. She was due for dialysis this afternoon. Review of Systems Review of Systems: All systems reviewed & are unremarkable except as noted in Subjective Physical Exam Physical Exam: PHYSICAL EXAM General Appearance: WDWN in NAD who is A&O to person; intermittent to place; not to situation HEENT: Head is normocephalic/atraumatic; Hearing grossly intact; Mucous membranes moist Neck: Supple; Trachea midline; Neg JVD Heart: RRR with no M/G/R Lungs: CTA in all lung wesley bilaterally; Respirations unlabored; Neg accessory muscle use Abdomen: Soft, non-tender, non-distended; Positive BS x 4 quadrants Extremities: Neg cyanosis or edema Neurological: Speech clear; Gross motor/sensory function intact; Neg focal neurologic deficits Psychiatric: Appropriate mood/affect Skin: Normal Color; Warm/Dry Results & Data Results & Data ([facility]) Vital Signs (Past 12 Hours) Vital Signs Temp Pulse Pulse Pulse Resp BP BP 08/28/21 18:20 75 124/74 08/28/21 18:00 69 143/66 H 08/28/21 17:40 70 157/80 H 08/28/21 17:20 66 156/81 H 08/28/21 17:10 36.9 C 64 08/28/21 17:00 64 147/73 H 08/28/21 16:48 64 154/73 H 08/28/21 15:23 70 08/28/21 12:50 37.2 C 118 H 19 121/85 08/28/21 12:49 36.6 C 62 19 155/83 H 08/28/21 08:00 36.6 C 58 L 98 H 18 161/85 H Pulse Ox 08/28/21 18:20 08/28/21 18:00 08/28/21 17:40 08/28/21 17:20 08/28/21 17:10 08/28/21 17:00 08/28/21 16:48 08/28/21 15:23 08/28/21 12:50 94 08/28/21 12:49 100 08/28/21 08:00 94 PG Care Time/CCT Total # of Minutes Spent Total Time Spent with Patient: Total time spent is greater than 50% in coordination of care (as documented) at patient's floor/unit and/or counseling patient: Coding Level of Care Code 66518 Subseq Hosp Care Lvl 3 Diagnoses Mild cognitive impairment G31.84 Cirrhosis K74.60 Colitis K52.9 End-stage renal disease on hemodialysis N18.6; Z99.2 HTN (hypertension) I10
[2021-08-28] MEDS: cloNIDine HCL 0.1 MG TAB PO SCH (20:01)
[2021-08-29] MEDS: LEVOTHYROXINE SODIUM 100 MCG TABLET PO SCH (05:36)
[2021-08-29 07:04] LABS: Hematocrit (blood only) 29.6 % (37-47); Hemoglobin 8.9 g/dL (12.0-16.0); Mean Corpuscular Hemoglobin 34.5 pg (25-34); Mean Corpuscular Hgb Conc 30.1 g/dL (32-36); Mean Corpuscular Volume 114.7 fL (80-100); Nucleated RBC # (auto) 0.03 K/uL (0-0); RDW Coefficient of Variation 16.1 % (11.5-14.5); RDW Standard Deviation 67.1 fL (36.4-46.3); Red Blood Count 2.58 M/uL (4.2-5.4)
[2021-08-29 07:29] LABS: Mean Platelet Volume 10.7 fL (7.4-10.4); Platelet Count 92 K/uL (130-400); Platelet Estimate Decreased (Normal)
[2021-08-29 07:41] LABS: Albumin Globulin Ratio 1.3 (0.9-2); Albumin Level 2.9 gm/dl (3.4-5.0); BUN Creatinine Ratio 6.4 (10-20); Bilirubin,Total 1.1 mg/dl (0.2-1.0); Calcium 8.1 mg/dl (8.5-10.1); Creatinine Clr Calc Pharmacy 8.5 ml/min; Est GFR (African American) 8.6 ml/min; Est GFR (Non-African American) 7.4 ml/min; Globulin 2.2 gm/dl (2.5-4.0); Potassium 3.8 mmol/L (3.5-5.1); Total Protein 5.1 gm/dl (6.0-8.3)
[2021-08-29] MEDS: NEPHROCAPS PO SCH (08:58)
[2021-08-29] MEDS: SERTRALINE HCL 50 MG TABLET PO SCH (08:58)
[2021-08-29] MEDS: METOPROLOL SUCC 25MG EXT REL TAB PO SCH (08:58)
[2021-08-29] MEDS: allopurinoL 300 MG TAB PO SCH (08:58)
[2021-08-29] MEDS: CALCIUM ACETATE 667 MG CAP/TAB PO SCH ×3 (08:58→17:27)
[2021-08-29] MEDS: FENOFIBRATE NANOCRYSTALLIZED 145 MG TABLET PO SCH (08:58)
[2021-08-29] MEDS: amLODIPine BESYLATE 5 MG TAB PO SCH (09:00)
[2021-08-29] MEDS: HEPARIN SOD 5,000 UNIT/0.5 ML VIAL SQ SCH (09:00)
[2021-08-29] MEDS ORDERED: MICONAZOLE NITRATE POWDER 43 GM EXT SCH (09:00)
[2021-08-29] MEDS: PANTOprazole 40 MG TAB PO SCH (09:01)
--- NOTE | 2021-08-29 11:27 | Nephrology Progress Note ---
Date of Service August 29, 2021 Assessment & Plan (1) ESRD on hemodialysis: (2) Anemia: (3) HTN (hypertension): Plan: End-stage renal disease on hemodialysis, admitted with confusion, change in mental status. Workup unremarkable. Recent finding of cirrhosis on imaging however ammonia level is normal. Electrolyte within her baseline level. Overall doing better, had dialysis yesterday. -- hold HD today and monitor with plan for next HD on Friday. --CARMINE 66738 units x 1 dose given on 08/28/21 -- Left arm nephrology precaution, does meds for eGFR less than 10 Will follow. Admission and Anticipated Discharge Date Admission Date: August 27, 2021 Cesia Sherman was seen and evaluated this am, no overnight events. Overall she is feeling better, close to her baseline. Had HD yesterday, but could not complete as BP was low, had 1.1 L UF. BP, volume status and electrolyte acceptable. Review of Systems Review of Systems: Detailed review of system was negative except mentioned above. Physical Exam Constitutional: WD/WN, vitals as above + frail appearing; no acute distress Eyes: + anicteric sclerae Respiratory: normal respiratory effort; no respiratory distress and no cough Auscultation: lungs clear to auscultation bilaterally Cardiovascular: Rate/Rhythm: regular rate and regular rhythm Heart Sounds: normal S1 and normal S2 Extremities: no edema Skin: + turgor decreased, + rash, + skin atrophy and + ecchymosis Neurologic: no focal motor deficits and not confused Psychiatric: Orientation: alert and oriented x 3 Affect: euthymic affect Results & Data ([facility]) Vital Signs (Past 12 Hours) Vital Signs Temp Pulse Pulse Resp BP Pulse Ox 08/29/21 07:48 36.4 C L 64 18 151/94 H 100 08/29/21 07:20 57 L 08/29/21 03:36 36.6 C 57 L 18 138/72 100 PG Care Time/CCT Total # of Minutes Spent Total Time Spent with Patient: Total time spent is greater than 50% in coordination of care (as documented) at patient's floor/unit and/or counseling patient: Coding Level of Care Code 66839 Subseq Hosp Care Lvl 2 Diagnoses ESRD on hemodialysis N18.6; Z99.2 Anemia D64.9 HTN (hypertension) I10
[2021-08-29 13:04] LABS: Adenovirus F 40/41 PCR Not Detected (NotDetected); Astrovirus PCR Not Detected (NotDetected); Campylobacter PCR Not Detected (NotDetected); Cryptosporidium PCR Not Detected (NotDetected); Cyclospora cayetanensis PCR Not Detected (NotDetected); Entamoeba histolytica PCR Not Detected (NotDetected); Enteroaggregative E.coli(EAEC) Not Detected (NotDetected); Enteropathogenic E.coli (EPEC) Not Detected (NotDetected); Enterotoxigenic E.coli (ETEC) Not Detected (NotDetected); Giardia lamblia PCR Not Detected (NotDetected); Norovirus GI/GII PCR Not Detected (NotDetected); Plesiomonas shigelloides PCR Not Detected (NotDetected); Rotavirus A PCR Not Detected (NotDetected); Salmonella PCR Not Detected (NotDetected); Sapovirus PCR Not Detected (NotDetected); Shiga-like Toxin E.coli (STEC) Not Detected (NotDetected); Shigella/Enteroinvasive E.coli Not Detected (NotDetected); Vibrio cholerae PCR Not Detected (NotDetected); Vibrio species PCR Not Detected (NotDetected); Yersinia enterocolitica PCR Not Detected (NotDetected)
[2021-08-29 14:53] LABS: Cdiff Antigen Positive; Cdiff Toxin A+B Negative Cdiff Toxin (Negative)
--- NOTE | 2021-08-29 16:55 | Discharge Summary ---
Date of Service August 29, 2021 Admission HPI Per Admitting Provider This is a 76-year-old female with past medical history of end-stage renal disease on hemodialysis Friday, hyperlipidemia, diverticulosis, previous hemorrhagic colitis that presents today with confusion. Patient is a limited historian although very pleasant. is at bedside is able to give more details. states that he is noted for the past week that the patient has been getting slowly more confused. She typically will color with colored pencils as recreation, he has noticed that she now will stare at the coloring book or organizing pencils without clear idea how to use his eyes. He is also noted that she has had much more difficulty ambulating over the past few days. She will typically use a walker but he has been having to assist her much more than previously. She has had diminished appetite along with a little bit of nausea that was relieved with oral Zofran. He will typically cook for her but finds that she is not eating as well. He denies any things such as fever or chills, cough, ongoing vomiting, significant weight changes. He did note that she was having some lower abdominal pain and has had previous diverticulitis but this is not been significant over the past few weeks. The felt that the overall problems were worsening, she was due for hemodialysis today but elected to bring the patient to the hospital for further evaluation. For me, patient is awake and alert. She is pleasant but has obvious memory deficit. She is oriented to person. She does recognize she is in the hospital but not which one specifically. Patient previously followed with Dr. Richard but is establishing with a new physician after his fpc. She was just seen on 08/24. She was told at that time that she may have cirrhosis due to multiple hepatic cysts seen on imaging and was referred to GI. She has not yet seen that specialist yet. Principal Diagnosis Confusion (RESOLVED) - Uncertain Etiology Discharge Exam PHYSICAL EXAM General Appearance: WDWN in NAD who is A&O to person and place; not to situation HEENT: Head is normocephalic/atraumatic; Hearing grossly intact; Mucous membranes moist Neck: Supple; Trachea midline; Neg JVD Heart: RRR with no M/G/R Lungs: CTA in all lung wesley bilaterally; Respirations unlabored; Neg accessory muscle use Abdomen: Soft, non-tender, non-distended; Positive BS x 4 quadrants Extremities: Neg cyanosis or edema Neurological: Speech clear; Gross motor/sensory function intact; Neg focal neurologic deficits Psychiatric: Appropriate mood/affect Skin: Normal Color; Warm/Dry Discharge Data Allergies Allergy/AdvReac Type Severity Reaction Status Date / Time Cephalosporins Allergy Intermediate ertapenem Verified 09/06/21 14:11 ok from multiple occasions codeine Allergy Intermediate RASH Verified 09/06/21 14:11 levofloxacin Allergy Intermediate hives, Verified 09/06/21 14:11 itching, per patient tolerates Cipro lisinopril Allergy Intermediate HIVES, Verified 09/06/21 14:11 ITCHING morphine Allergy Intermediate HIVES Verified 09/06/21 14:11 Sulfa (Sulfonamide Allergy Intermediate Rash Verified 09/06/21 14:11 Antibiotics) meperidine Allergy Unknown HAD RXN IN Verified 09/06/21 14:11 RR Iodinated Contrast Media AdvReac Severe PT HAD A Verified 09/06/21 14:11 KIDNEY TRANSPLANT chlorhexidine AdvReac Intermediate RASH Verified 09/06/21 14:11 captopril AdvReac Mild ITCHING Verified 09/06/21 14:11 celecoxib AdvReac Mild ITCHING Verified 09/06/21 14:11 hydralazine AdvReac Mild ITCHING Verified 09/06/21 14:11 nitrofurantoin AdvReac Mild GI PROBLEMS Verified 09/06/21 14:11 Consultations 08/27/21 11:48 ED Decision to Admit Stat 08/27/21 16:14 Consult Gastroenterology Routine Consult Nephrology Routine Ordered Studies Chest X-Ray 08/27/21 09:21 XR chest 1V portable CLINICAL HISTORY: weakness. Evaluate cardiopulmonary status COMPARISON STUDY: 01/15/2021 TECHNIQUE: 1 view of the chest FINDINGS: Single frontal view of the chest demonstrates the cardiomediastinal silhouette to be within normal limits. There is a decreased inspiratory effort with elevation of the hemidiaphragms, right greater than left and crowding of the bronchovascular markings at the lung bases and centrally. The lungs are clear of alveolar opacities. There is no evidence for pleural effusion. There is no evidence for vascular congestion. There is no acute osseous pathology. IMPRESSION: There is a decreased inspiratory effort with otherwise no acute chest disease. ACT 112: Negative or not required by law. Electronically signed by: Rolando Cooper M.D. 08/27/2021 9:[address] 08/27/21 09:21 CT head/brain wo con CLINICAL HISTORY: 76 years-old Female with AMS. Acutely altered mental status TECHNIQUE: Multiple axial CT images of the head were obtained without contrast. A dose lowering technique was utilized adhering to the principles of ALARA. CT DOSE: 638.56 mGycm COMPARISON: Head CT 01/15/2021. FINDINGS: No acute intracranial hemorrhage, midline shift, intracranial mass, hydrocephalus, territorial ischemia or abnormal extra-axial collection. Age- related involutional changes. Cerebral vascular calcifications. 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 The calvarium is intact. Prior bilateral lens repair. Prior bilateral maxillary antrostomy. The paranasal sinuses, mastoid air cells, and middle ear cavities are clear. IMPRESSION: No acute intracranial abnormality. ACT 112: Negative or not required by law. The above report was generated using voice recognition software. It may contain grammatical, syntax or spelling errors. Electronically signed by: Tito Sanabria M.D. 08/27/2021 9:46 AM Hospital Course (1) Mild cognitive impairment: From history and patient appearance, I suspect this may be worsening dementia more so than acute encephalopathy (but reporting back to baseline today) -- Possibly some dehydration? has had ongoing issues with colitis/stool so maybe the culprit? given she was due to dialysis that day maybe some toxin build-up? Lab abnormalities consistent with hemodialysis patient, no sign of infection. Patient is anuric at baseline. Ammonia normal. TSH normal. B12 normal No significant findings on CT of the head. can consider MRI but currently appearing at baseline and no focal deficit appreciated Ambulating better today and very supportive at home (2) Cirrhosis: - Cirrhosis and liver cyst seen on previous imaging -- Question polycystic liver - GI - planning for outpatient work-up - Ammonia WNL - had multiple BMs today - would hold on Lactulose/Rifaximin as unlikely that hepatic encephalopathy was the cause of the noted confusion (3) Colitis: - Currently no symptoms but reports this is a chronic issue - no pain when palpating abdomen -- Patient states that sometimes it hurts more in the morning and improves throughout the day - Multiple stool studies ordered - PCR negative; 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 However, reviewed her last colonoscopy from a few years ago that had this friable tissue...could this be inflammatory bowel disease/ulcerative colitis? -- Hgb is stable and given this is chronic can safely discharge her with outpatient follow-up. Maybe repeat colonoscopy or further work-up warranted by GI (4) End-stage renal disease on hemodialysis: - Patient follows with Dr. Reis - Had dialysis this on Friday - volume status is acceptable and was planning on HD in-house of Friday if still hospitalized and can then just keep normal schedule as outpatient (5) HTN (hypertension): - Continue Amlodipine 5 mg BID; Clonidine 0.2 mg HS; Metoprolol Succinate 25 mg BID Discharge home; Recomend close PCP and GI follow-up Total Time Total Time Spent Total Time Spent (In Minutes): Spent greater than 30 minutes preparing patient for discharge. This includes discussion with patient/family, assessment, intervention, medication reconciliation, and coordination of care. Discharge Plan Discharge Items Patient Disposition: Home - Self-Care Reason For Visit: CONFUSION Discharge Diagnosis: Confusion - possibly from dehydration or needing dialysis Activity: Resume your previous activity Non-emergency contact: Primary Care Provider Call non-emergency contact if: you have any medication questions, your symptoms worsen and you have a fever Follow-up/Referrals: Chance Paiz MD [Physician] - (Followup in 2-3 weeks if possible) Niki Nobles MD [Primary Care Provider] - Diet: Low Potassium (2gm) Addtl Attending Provider Instructions: Confusion: - We do not have a clear explanation for this. It is possible she was a little dehydrated vs she was soon to have dialysis so sometimes toxins we normally just urinate out build up and could have caused this - Thankfully we did not find any source of infection. No pneumonia, no urinary tract infection, the stool studies were negative for infection. - The CAT scan of the brain did not show any strokes - We checked the thyroid which was normal. Also checked B12 levels which were normal as well. We checked ammonia levels and this was normal. Liver and Colitis: - The CAT scan of the abdomen shows some cysts of the liver. It does question if this is a polycystic liver condition and the GI doctors would like to follow-up as an outpatient to do more screenings/testing. - Thankfully the liver tests are only slightly out of normal range but these should be monitored - It may be worth doing another colonoscopy to look at the inflammed colon (colitis). So far it does not seem like an infectious cause as the stool studies are negative. The only finding is that she is a c. diff carrier but no active infection. - The GI doctors can follow-up on this as well and see if other treatments are warranted. - It may be worth a try to follow a gluten-free diet to see if this eases some GI symptoms Dialysis: - You had dialysis on Friday. The plan is to continue dialysis as previously scheduled on Friday Pending Studies at Discharge: Yes Studies:: Stool studies Stand-Alone Forms: My [facility] [employer], Smoking Cessation Medications and DC Order Prescriptions: Continued calcium acetate(phosphat bind) 667 mg capsule 1,334 mg PO TIDM Qty: 720 RF: 3 ondansetron HCl 4 mg tablet 4 mg PO QID PRN (Reason: Nausea) Qty: 12 RF: 0 sertraline 25 mg tablet 25 mg PO DAILY Qty: 90 RF: 3 metoprolol succinate 25 mg tablet extended release 24 hr 25 mg PO BID Qty: 180 RF: 3 amlodipine 5 mg tablet 5 mg PO BID Qty: 180 RF: 3 allopurinol 300 mg tablet 300 mg PO QAM Qty: 90 RF: 3 fenofibrate nanocrystallized [Tricor] 145 mg tablet 145 mg PO DAILY Qty: 90 RF: 3 clonidine HCl 0.2 mg tablet 0.2 mg PO HS Qty: 90 RF: 3 tramadol 50 mg tablet 50 mg PO TID PRN (Reason: Pain) Qty: 30 RF: 0 ProRenal 8 mg iron-800 mcg-1,000 unit Tablet 1 tab PO QAM RF: 0 levothyroxine 100 mcg tablet 100 mcg PO QAM RF: 0 pantoprazole 40 mg tablet,delayed release (DR/EC) 40 mg PO QAM RF: 0 Probiotic 15 billion cell Capsule 1 cap PO DAILY RF: 0 Discharge Orders: Discharge Order (Routine); Ordered 08/29/21 Ordered By: Tawny Kunz Admission Data Admit Date/Time: 08/27/21 13:08 Attending Provider: Tyson Mancuso Admit Provider: Barry Kraus Primary Care Provider: Niki Nobles Other Providers: Barry Kraus ; Brent Feng Kevin C. Other Interventions: Discharge Summary Assessment (RN) Last Done: 08/29/21 17:47 Supervising Physician Co-Signing Physician Notes Attending note: patient seen and examined with Tawny Kunz PA-C. I agree with her discharge summary. I personally reviewed the labs and imaging findings. patient doing well, tolerating diet, mental status back to baseline after getting HD - Cognitive impairment: resolved after HD Coding Level of Care Code D/C DAY MANAGEMENT >30 MINS Diagnoses Mild cognitive impairment G31.84 Cirrhosis K74.60 Colitis K52.9 End-stage renal disease on hemodialysis N18.6; Z99.2 HTN (hypertension) I10
== END 2021-08-29 18:39 | disposition home or self-care (01) | DRG 947 ==
LOC: ED 08:46 → EDINP 13:08 → SUATTDRO 13:08 → 2N 16:32

== ENCOUNTER 2021-10-08 08:56 | Inpatient (IN) ==
[2021-10-08] MEDS ORDERED: ONDANSETRON INJ 2 MG/ML 2 ML VIAL IV STA (09:05)
[2021-10-08] MEDS ORDERED: ACETAMINOPHEN 1000 MG/100 ML IV IV ONE (09:07)
--- NOTE | 2021-10-08 09:08 | Emergency Department Note ---
Impression & Plan Closed hip fracture ADMIT ED Provider Note HPI: The patient is a 76-year-old female with history of end-stage renal disease, on dialysis Friday/Friday/Friday, presents the emergency department with a chief complaint of left hip pain status post mechanical fall this morning. Patient states that she tripped on her pajamas when she was attempting to walk in her house and fell and hit the left hip. She has not been able to move her left leg since the fall. On arrival to the ED the patient is in mild distress secondary to pain, she is otherwise alert and hemodynamically stable. ROS: -MSK: Left hip pain status post fall *10 point review systems was conducted and is otherwise negative unless stated above *Outpatient medications and allergy history reviewed PE: General: Alert, NAD HEENT: Normocephalic, atraumatic Eyes: Extraocular eye movement is intact, no scleral erythema Pulmonary: Clear to auscultation bilaterally, no wheezing Cardio: Regular rate and rhythm GI: Abdomen is soft, nontender : No suprapubic tenderness MSK: No evidence of trauma or malformation of the extremities, no edema, fistula with palpable thrill in the left upper extremity, limited range of motion of the left lower extremity secondary to pain at the left hip, motor and sensory function is intact distally in the left foot Skin: No evidence of rash Neuro: Alert, no focal deficits 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 X-ray imaging does not show any obvious hip fracture although the patient does have relatively significant acute pain in this area after fall, therefore I did obtain CT imaging of the left hip that shows evidence of nondisplaced fracture. CT imaging of the head does not show any evidence of intracranial bleeding. Patient was given IV Tylenol here in the ED for pain secondary to opioid allergy. 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, Dr. Hector, and the patient will be accepted for orthopedic consultation and further management. Patient was in agreement to the above plan and she was admitted in stable condition. Diagnosis: 1. Left hip fracture, closed 2. End-stage renal disease patient, on dialysis 3. Mechanical fall 4. Chronic anemia Disposition: ADMIT Azam Carney DO Emergency Medicine Past Med/Surg History Medical History (Updated 10/08/21 @ 12:20 by Azam Carney DO) Anxiety HX OF Arachnoid cyst Ataxic gait Back pain with sciatica Benign familial tremor Breast mass, left Cardiac murmur Chronic abdominal pain Cirrhosis Clostridium difficile colitis Colitis Degenerative joint disease, ankle, left Depression HX OF ESRD on hemodialysis Gout, joint Hyperlipidemia Hypertension Hypothyroidism Lumbosacral radiculopathy Mild cognitive impairment MVP (mitral valve prolapse) Pancytopenia Peripheral neuropathy 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 CHAUDHARY) Sensorineural hearing loss (SNHL) of both ears Stomach ulcer Subarachnoid hemorrhage 5 YEARS AGO Transplanted organ rejection 1 TRANSPLANTED KIDNEY Traumatic injury of head Vitamin D deficiency Surgical History H/O: hysterectomy History of colonoscopy History of esophagogastroduodenoscopy (EGD) History of herniorrhaphy History of nephrectomy RT/LEFT REMOVED History of open reduction and internal fixation (ORIF) procedure LEFT ANKLE History of vascular access device A-PORT ACCESS LEFT SIDE (DIFFICULT IV STICK) Hx of cholecystectomy Status post hardware removal 12/2018 left ankle Family History Other Family history non-contributory Denies family history of Ovarian cancer Prostate cancer Crohn's disease Myocardial infarction Breast cancer Colorectal cancer Ulcerative colitis Social History Smoking Status: Never smoker Second Hand Exposure: No; Hx Alcohol Use: No Hx Substance Use: No Preferred Language: Pry[place]in[place] Communication Ability: Impaired 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 Beliefs That Will Affect Care: None marital status: Current Living Situation: Spouse How many Children do You have: 2 Feels Safe at Home: Yes caffeine: No during the past year weight has: remained stable Assistive Devices: Glasses, Walker and Wheelchair Allergies Allergies Allergy/AdvReac Type Severity Reaction Status Date / Time Cephalosporins Allergy Intermediate ertapenem Verified 10/08/21 09:25 ok from multiple occasions codeine Allergy Intermediate RASH Verified 10/08/21 09:25 levofloxacin Allergy Intermediate hives, Verified 10/08/21 09:25 itching, per patient tolerates Cipro lisinopril Allergy Intermediate HIVES, Verified 10/08/21 09:25 ITCHING morphine Allergy Intermediate HIVES Verified 10/08/21 09:25 Sulfa (Sulfonamide Allergy Intermediate Rash Verified 10/08/21 09:25 Antibiotics) meperidine Allergy Unknown HAD RXN IN Verified 10/08/21 09:25 RR Iodinated Contrast Media AdvReac Severe PT HAD A Verified 10/08/21 09:25 KIDNEY TRANSPLANT chlorhexidine AdvReac Intermediate RASH Verified 10/08/21 09:25 captopril AdvReac Mild ITCHING Verified 10/08/21 09:25 celecoxib AdvReac Mild ITCHING Verified 10/08/21 09:25 hydralazine AdvReac Mild ITCHING Verified 10/08/21 09:25 nitrofurantoin AdvReac Mild GI PROBLEMS Verified 10/08/21 09:25 Home Meds Home Medications Medication Instructions Recorded Confirmed vit B complx, C-iron 8 mg-folic 1 tab PO QAM 12/25/18 10/08/21 acid 800 mcg-D3 1,000 unit-zinc tablet (ProRenal) pantoprazole 40 mg tablet,delayed 40 mg PO QAM 10/19/20 10/08/21 release Lactobacillus acidophilus and 1 cap PO DAILY 08/27/21 10/08/21 rhamnosus 15 billion cell capsule (Probiotic) levothyroxine 100 mcg tablet 100 mcg PO DAILYBB 10/08/21 10/08/21 Previous Rx's Medication Instructions Recorded calcium acetate(phosphat bind) 667 1,334 mg PO TIDM #720 cap 07/29/19 mg capsule ondansetron HCl 4 mg tablet 4 mg PO QID PRN #12 tab 12/06/19 metoprolol succinate 25 mg 25 mg PO BID #180 tab 01/03/21 tablet,extended release 24 hr amlodipine 5 mg tablet 5 mg PO BID #180 tab 01/04/21 clonidine HCl 0.2 mg tablet 0.2 mg PO HS #90 tab 03/11/21 tramadol 50 mg tablet 50 mg PO TID PRN #30 tab 07/25/21 budesonide 3 mg 9 mg PO DAILY #90 ea 09/13/21 capsule,delayed,extended release (Entocort EC) allopurinol 100 mg tablet 100 mg PO QAM #90 tab 09/18/21 sertraline 25 mg tablet 25 mg PO DAILY #90 tab 09/18/21 Results & Data (ED) Vital Signs Vital Signs - 24 hr 10/08/21 08:41 10/08/21 09:04 10/08/21 11:04 Temperature 36.7 C Temperature Source Oral Pulse Rate 60 Pulse Rate [Apical] 57 L Respiratory Rate 14 18 Respiratory Effort / Characteristics Non-Labored Spontaneous Respiratory Depth Normal Blood Pressure 159/63 H Blood Pressure [Right Arm] 145/51 H Blood Pressure Mean 95 Blood Pressure Mean [Right Arm] 82 Blood Pressure Position [Right Arm] Sitting Pulse Oximetry 98 99 97 Oxygen Delivery Method Room Air Room Air Room Air Sepsis Recent Fever Within 48 Hours No Sepsis New/Unexplained Change in Mental Status N/A Sepsis Action Taken by Nursing No Action Required Laboratory Data Result diagrams: 10/08/21 09:21 10/08/21 09:21 Lab Results 10/08/21 10/08/21 10/08/21 Range/Units 09:21 09:21 09:21 WBC 4.46 L (4.8-10.8) K/uL RBC 2.80 L (4.2-5.4) M/uL Hgb 10.1 L (12.0-16.0) g/dL Hct 33.0 L (37-47) % MCV 117.9 H (80-100) fL MCH 36.1 H (25-34) pg MCHC 30.6 L (32-36) g/dL RDW Std Deviation 83.5 H (36.4-46.3) fL RDW Coeff of Joseph 19.3 H (11.5-14.5) % Plt Count 91 L (130-400) K/uL MPV 11.8 H (7.4-10.4) fL Immature Gran % (Auto) 0.4 % Neut % (Auto) 68.3 % Lymph % (Auto) 22.4 % [place] % (Auto) 7.6 % Eos % (Auto) 1.1 % Baso % (Auto) 0.2 % Neut # (Auto) 3.04 (1.4-6.5) K/uL Lymph # (Auto) 1.00 L (1.2-3.4) K/uL [place] # (Auto) 0.34 (0.11-0.59) K/uL Eos # (Auto) 0.05 (0-0.5) K/uL Baso # (Auto) 0.01 (0-0.2) K/uL Immature Gran # (Auto) 0.02 (0.00-0.02) K/uL Platelet Estimate Decreased L (Normal) Polychromasia 1+ Anisocytosis Present Macrocytosis Present PT Cancelled INR Cancelled Sodium 141 (136-145) mmol/L Potassium TNP Chloride 99 (98-107) mmol/L Carbon Dioxide 27 (21-32) mmol/L Anion Gap 15 H (3-11) BUN 74 H (6-23) mg/dl Creatinine 7.35 H* (0.6-1.2) mg/dl Est Cr Clr Drug Dosing 6.3 ml/min Est GFR ( Amer) 5.8 ml/min Est GFR (Non-Af Amer) 5.0 ml/min BUN/Creatinine Ratio 10.1 (10-20) Glucose 83 (70-99(Fasting)) mg/dl Calcium 8.8 (8.5-10.1) mg/dl Total Bilirubin 1.5 H (0.2-1.0) mg/dl AST TNP ALT 21 (7-52) U/L Alkaline Phosphatase 66 (34-104) U/L Total Protein 5.8 L (6.0-8.3) gm/dl Albumin 3.2 L (3.4-5.0) gm/dl Globulin 2.6 (2.5-4.0) gm/dl Albumin/Globulin Ratio 1.2 (0.9-2) SARS-CoV-2, RNA, NAAT (NEGATIVE) 10/08/21 10/08/21 Range/Units 10:16 11:40 WBC (4.8-10.8) K/uL RBC (4.2-5.4) M/uL Hgb (12.0-16.0) g/dL Hct (37-47) % MCV (80-100) fL MCH (25-34) pg MCHC (32-36) g/dL RDW Std Deviation (36.4-46.3) fL RDW Coeff of Joseph (11.5-14.5) % Plt Count (130-400) K/uL MPV (7.4-10.4) fL Immature Gran % (Auto) % Neut % (Auto) % Lymph % (Auto) % [place] % (Auto) % Eos % (Auto) % Baso % (Auto) % Neut # (Auto) (1.4-6.5) K/uL Lymph # (Auto) (1.2-3.4) K/uL [place] # (Auto) (0.11-0.59) K/uL Eos # (Auto) (0-0.5) K/uL Baso # (Auto) (0-0.2) K/uL Immature Gran # (Auto) (0.00-0.02) K/uL Platelet Estimate (Normal) Polychromasia Anisocytosis Macrocytosis PT 13.5 H INR 1.3 H Sodium (136-145) mmol/L Potassium Chloride (98-107) mmol/L Carbon Dioxide (21-32) mmol/L Anion Gap (3-11) BUN (6-23) mg/dl Creatinine (0.6-1.2) mg/dl Est Cr Clr Drug Dosing ml/min Est GFR ( Amer) ml/min Est GFR (Non-Af Amer) ml/min BUN/Creatinine Ratio (10-20) Glucose (70-99(Fasting)) mg/dl Calcium (8.5-10.1) mg/dl Total Bilirubin (0.2-1.0) mg/dl AST ALT (7-52) U/L Alkaline Phosphatase (34-104) U/L Total Protein (6.0-8.3) gm/dl Albumin (3.4-5.0) gm/dl Globulin (2.5-4.0) gm/dl Albumin/Globulin Ratio (0.9-2) SARS-CoV-2, RNA, NAAT NEGATIVE (NEGATIVE) Administered Medications Discontinued Medications Acetaminophen (Acetaminophen 1000 Mg/100 Ml Iv) 1,000 mg IV ONCE ONE Stop: 10/08/21 09:08 Last Admin: 10/08/21 09:37 Dose: 1,000 mg Documented by: [id number] Ondansetron HCl (Ondansetron Inj 2 Mg/Ml 2 Ml Vial) 4 mg IV NOW STA Stop: 10/08/21 09:06 Last Admin: 10/08/21 09:37 Dose: 4 mg Documented by: [id number] Imaging Data Radiologist's Impression: Chest X-Ray 10/08/21 09:04 XR chest 1V portable CLINICAL HISTORY: fall COMPARISON STUDY: Chest radiograph September 07, 2021. FINDINGS: Lung volumes are normal. Linear right basilar opacity favors atelectasis. There is no pneumothorax or pleural effusion. Cardiac size is stable. Mediastinal contours are normal. There is no evidence for pulmonary edema. Mild elevation of the right hemidiaphragm is unchanged. Skin folds project over the chest. IMPRESSION: No acute cardiopulmonary findings. No change in appearance of the chest. ACT 112: Negative or not required by law. Electronically signed by: Nasim Selby M.D. 10/08/2021 10:[address] 10/08/21 09:[address] DOSE: 912.23 mGycm HISTORY: Progressive weakness. Trauma/fall TECHNIQUE: Multiaxial CT images of the head were performed without the use of intravenous contrast. Automated exposure control was utilized for this study. A dose lowering technique was utilized adhering to the principles of ALARA. Comparison: Head CT 08/27/2021. Findings: Partially visualized small retention cyst within the right maxillary sinus. The remaining paranasal sinuses and mastoid air cells are clear. Mild motion artifact. The calvarium and skull base are intact. There is no mass, hematoma, midline shift, acute infarct. White matter hypodensity is nonspecific but suggestive of microvascular ischemic change. The ventricles and sulci demo nstrate mild age-related involutional changes. Impression: Motion artifact. No definite acute intracranial abnormality. ACT 112: Negative or not required by law. Electronically signed by: Antonino Oden M.D. 10/08/2021 10:54 AM Hip/Pelvis X-Ray 10/08/21 09:05 XR hip WILLEM 2v w pelvis HISTORY: 76 years-old Female fall . Acute pelvic and left hip pain status post fall COMPARISON: CT abdomen and pelvis 07/25/2021 TECHNIQUE: AP view of the pelvis with 2 views of the hips FINDINGS: Demineralized appearance the bones. Mild osteoarthritis of the hips. No acute fracture, dislocation or avascular necrosis. There is soft tissue swelling lateral to the left hip. Arterial calcifications. Partially calcified right lower quadrant renal allograft. IMPRESSION: No acute fracture or dislocation. ACT 112: Negative or not required by law. The above report was generated using voice recognition software. It may contain grammatical, syntax or spelling errors. Electronically signed by: Tito Sanabria M.D. 10/08/2021 9:[address] 10/08/21 10:10 CT hip LT wo con HISTORY: 76 years-old Female fall acute pain of the left hip status post fall COMPARISON: Pelvis and hip radiographs of same day, CT abdomen and pelvis 2020 TECHNIQUE: Multiple axial CT images of the left hip were obtained without the use of IV contrast. A dose lowering technique was used consistent with the principals of ALARA. FINDINGS: Arterial calcifications. Nonspecific circumferential wall thickening of the rectum and sigmoid with perirectal and pericolonic inflammation. Colonic diverticulosis. Small volume free pelvic fluid. Urinary bladder wall thickening with partial distention. Partially imaged renal allograft within the abdominal right lower quadrant with parenchymal calcifications. Hysterectomy. Demineralized appearance of the bones. Mild to moderate osteoarthritis of the hips. There is an acute comminuted fracture involving the left greater trochanter and basicervical distribution with subtle extension into the intertrochanteric posterior cortex as seen on image 88 series 2. There is mild impaction of a few millimeters with posterior displacement measuring up to 5 mm at the base of the femoral neck. No dislocation. The left hemipelvis appears intact. Small left joint effusion/hemarthrosis with deep tissue edema surrounding the left hip fracture. IMPRESSION: 1. Acute mildly impacted and minimally displaced left femoral greater trochanteric and basicervical fractures with subtle fracture extension into the intertrochanteric posterior cortex. 2. Small posttraumatic hemarthrosis. 3. Findings compatible with a nonspecific proctocolitis with small volume of pelvic ascites. Findings could be correlated with colonoscopy. 4. Colonic diverticulosis. ACT 112: Negative or not required by law. The above report was generated using voice recognition software. It may contain grammatical, syntax or spelling errors. Electronically signed by: Tito Sanabria M.D. 10/08/2021 10:56 AM Discharge Plan Visit Data Chief Complaint: Fall Stated Complaint: FALL, L HIP & ARM PAIN ED Provider: Azam Carney Discharge Problem: Closed hip fracture Forms Stand Alone Forms: [facility] Prescriptions Prescriptions: No Action calcium acetate(phosphat bind) 667 mg capsule 1,334 mg PO TIDM Qty: 720 RF: 3 ondansetron HCl 4 mg tablet 4 mg PO QID PRN (Reason: Nausea) Qty: 12 RF: 0 metoprolol succinate 25 mg tablet extended release 24 hr 25 mg PO BID Qty: 180 RF: 3 amlodipine 5 mg tablet 5 mg PO BID Qty: 180 RF: 3 clonidine HCl 0.2 mg tablet 0.2 mg PO HS Qty: 90 RF: 3 allopurinol 100 mg tablet 100 mg PO QAM Qty: 90 RF: 3 tramadol 50 mg tablet 50 mg PO TID PRN (Reason: Pain) Qty: 30 RF: 0 budesonide [Entocort EC] 3 mg capsule,delayed,extend.release 9 mg PO DAILY Qty: 90 RF: 1 sertraline 25 mg tablet 25 mg PO DAILY Qty: 90 RF: 3 ProRenal 8 mg iron-800 mcg-1,000 unit Tablet 1 tab PO QAM RF: 0 pantoprazole 40 mg tablet,delayed release (DR/EC) 40 mg PO QAM RF: 0 Probiotic 15 billion cell Capsule 1 cap PO DAILY RF: 0 levothyroxine 100 mcg tablet 100 mcg PO DAILYBB RF: 0 Referrals Referrals: Niki Nobles MD [Primary Care Provider] - Discharge Problem: Closed hip fracture Qualifiers: Encounter type: initial encounter Laterality: left Qualified Code(s): S72.002A - Fracture of unspecified part of neck of left femur, initial encounter for closed fracture
[2021-10-08 09:32] LABS: Hemoglobin 10.1 g/dL (12.0-16.0); Mean Corpuscular Hemoglobin 36.1 pg (25-34); Mean Corpuscular Hgb Conc 30.6 g/dL (32-36); Mean Corpuscular Volume 117.9 fL (80-100); RDW Coefficient of Variation 19.3 % (11.5-14.5); RDW Standard Deviation 83.5 fL (36.4-46.3); White Blood Count 4.46 K/uL (4.8-10.8)
[2021-10-08 09:57] LABS: Alanine Aminotransferase 21 U/L (7-52); Albumin Globulin Ratio 1.2 (0.9-2); Albumin Level 3.2 gm/dl (3.4-5.0); Alkaline Phosphatase 66 U/L (34-104); Anion Gap 15 (3-11); BUN Creatinine Ratio 10.1 (10-20); Bilirubin,Total 1.5 mg/dl (0.2-1.0); Blood Urea Nitrogen 74 mg/dl (6-23); Calcium 8.8 mg/dl (8.5-10.1); Carbon Dioxide 27 mmol/L (21-32); Chloride 99 mmol/L (98-107); Creatinine Clr Calc Pharmacy 6.3 ml/min; Est GFR (African American) 5.8 ml/min; Globulin 2.6 gm/dl (2.5-4.0); Glucose 83 mg/dl (70-99(Fasting)); Sodium 141 mmol/L (136-145); Total Protein 5.8 gm/dl (6.0-8.3)
--- NOTE | 2021-10-08 10:00 | XRay Report ---
XR hip WILLEM 2v w pelvis HISTORY: 76 years-old Female fall . Acute pelvic and left hip pain status post fall COMPARISON: CT abdomen and pelvis 07/25/2021 TECHNIQUE: AP view of the pelvis with 2 views of the hips FINDINGS: Demineralized appearance the bones. Mild osteoarthritis of the hips. No acute fracture, dislocation o r avascular necrosis. There is soft tissue swelling lateral to the left hip. Arterial calcifications. Partially calcified right lower quadrant renal allograft. IMPRESSION: No acute fracture or dislocation. ACT 112: Negative or not required by law. The above report was generated using voice recognition software. It may contain grammatical, syntax o r spelling errors. Electronically signed by: Tito Sanabria M.D. 10/08/2021 9:58 AM
--- NOTE | 2021-10-08 10:01 | XRay Report ---
XR chest 1V portable CLINICAL HISTORY: fall COMPARISON STUDY: Chest radiograph September 07, 2021. FINDINGS: Lung volumes are normal. Linear right basilar opacity favors atelectasis. There is no pneum othorax or pleural effusion. Cardiac size is stable. Mediastinal contours are normal. There is no kamila dence for pulmonary edema. Mild elevation of the right hemidiaphragm is unchanged. Skin folds project over the chest. IMPRESSION: No acute cardiopulmonary findings. No change in appearance of the chest. ACT 112: Negative or not required by law. Electronically signed by: Nasim Selby M.D. 10/08/2021 10:00 AM
[2021-10-08 10:17] LABS: Anisocytosis Present; Basophils # (auto) 0.01 K/uL (0-0.2); Basophils % (auto) 0.2 %; Eosinophils # (auto) 0.05 K/uL (0-0.5); Eosinophils % (auto) 1.1 %; Immature Granulocytes # (auto) 0.02 K/uL (0.00-0.02); Immature Granulocytes % (auto) 0.4 %; Lymphocytes % (auto) 22.4 %; Macrocytosis Present; Mean Platelet Volume 11.8 fL (7.4-10.4); Monocytes # (auto) 0.34 K/uL (0.11-0.59); Monocytes % (auto) 7.6 %; Neutrophils # (auto) 3.04 K/uL (1.4-6.5); Neutrophils % (auto) 68.3 %; Platelet Count 91 K/uL (130-400); Platelet Estimate Decreased (Normal); Polychromasia 1+
[2021-10-08 10:49] LABS: INR 1.3 (0.9-1.1); Prothrombin Time 13.5 Seconds (9.0-12.0)
--- NOTE | 2021-10-08 11:12 | Electrocardiogram Report ---
Test Reason : Blood Pressure : / mmHG Vent. Rate : 061 BPM Atrial Rate : 061 BPM P-R Int : 160 ms QRS Dur : 100 ms QT Int : 466 ms P-R-T Axes : 057 264 047 degrees QTc Int : 469 ms Normal sinus rhythm Right superior axis deviation Abnormal ECG When compared with ECG of 27-AUG-2021 08:52, No significant change was found Confirmed by Bal Ramos ([id number]) on 10/08/2021 11:11:29 AM Referred By: Confirmed By:Bal Ramos
--- NOTE | 2021-10-08 11:27 | CT Scan Report ---
CT hip LT wo con HISTORY: 76 years-old Female fall acute pain of the left hip status post fall COMPARISON: Pelvis and hip radiographs of same day, CT abdomen and pelvis 07/25/2021 TECHNIQUE: Multiple axial CT images of the left hip were obtained without the use of IV contrast. A d ose lowering technique was used consistent with the principals of ENEIDA. FINDINGS: Arterial calcifications. Nonspecific circumferential wall thickening of the rectum and sigmoid with p erirectal and pericolonic inflammation. Colonic diverticulosis. Small volume free pelvic fluid. Urina ry bladder wall thickening with partial distention. Partially imaged renal allograft within the abdom inal right lower quadrant with parenchymal calcifications. Hysterectomy. Demineralized appearance of the bones. Mild to moderate osteoarthritis of the hips. There is an acute comminuted fracture involving the left greater trochanter and basicervical distribution with subtle extension into the intertrochanteric posterior cortex as seen on image 88 series 2. There is mild imp action of a few millimeters with posterior displacement measuring up to 5 mm at the base of the femor al neck. No dislocation. The left hemipelvis appears intact. Small left joint effusion/hemarthrosis w ith deep tissue edema surrounding the left hip fracture. IMPRESSION: 1. Acute mildly impacted and minimally displaced left femoral greater trochanteric and basicervical f ractures with subtle fracture extension into the intertrochanteric posterior cortex. 2. Small posttraumatic hemarthrosis. 3. Findings compatible with a nonspecific proctocolitis with small volume of pelvic ascites. Findings could be correlated with colonoscopy. 4. Colonic diverticulosis. ACT 112: Negative or not required by law. The above report was generated using voice recognition software. It may contain grammatical, syntax o r spelling errors. Electronically signed by: Tito Sanabria M.D. 10/08/2021 10:56 AM
--- NOTE | 2021-10-08 11:27 | CT Scan Report ---
HEAD CT NONCONTRAST CT DOSE: 912.23 mGycm HISTORY: Progressive weakness. Trauma/fall TECHNIQUE: Multiaxial CT images of the head were performed without the use of intravenous contrast. A utomated exposure control was utilized for this study. A dose lowering technique was utilized adheri ng to the principles of ALARA. Comparison: Head CT 08/27/2021. Findings: Partially visualized small retention cyst within the right maxillary sinus. The remaining p aranasal sinuses and mastoid air cells are clear. Mild motion artifact. The calvarium and skull base are intact. There is no mass, hematoma, midline shift, acute infarct. White matter hypodensity is non specific but suggestive of microvascular ischemic change. The ventricles and sulci demonstrate mild a ge-related involutional changes. Impression: Motion artifact. No definite acute intracranial abnormality. ACT 112: Negative or not required by law. Electronically signed by: Antonino Oden M.D. 10/08/2021 10:54 AM
--- NOTE | 2021-10-08 12:19 | History & Physical Report ---
Date of Service October 08, 2021 Assessment & Plan (1) Closed left hip fracture: Plan: Tramadol (1st line) +/- Dilaudid (2nd line) for pain Bedrest Does not produce urine therefore no need for martins catheter Revised cardiac risk index 1: 6.0% 30 day risk of , ME or cardiac arrest - likely an underestimate given her co-morbidities not included in this score. Pending dialysis today and clearance by nephrology she medically optimized for surgery Consult orthopedics (2) Left wrist pain: Plan: XR left wrist (3) Nonspecific colitis: Plan: No diarrhea but has chronic abdominal pain and proctocolitis on CT despite budesonide use. ?cause of her ongoing weakness therefore will consult GI for reassessment this admission. (4) ESRD on hemodialysis: Plan: Avoid IV fluids Consult nephrology for dialysis management, due MWF (5) Pancytopenia: Plan: At baseline, secondary to ESRD (6) Frequent falls: Plan: Suspected secondary to multiple medical conditions (7) Anemia in chronic renal disease: Plan: Management per nephrology with EPO At baseline (8) Cirrhosis: Plan: No acute management Fluid management with dialysis (9) HTN (hypertension): Plan: Continue home meds: Amlodipine 5mg PO BID Clonidine 0.2mg HS Metoprolol succinate 25mg PO BID Plan: VTE Prophylaxis - pending surgery Diet - dialysis renal, NPO after midnight Disposition - admit to med/surg Admission and Anticipated Discharge Date Admission Date: October 08, 2021 History of Present Illness Chief Complaint: Hip hurts, can't walk Primary Care Provider: Niki Nobles MD Whit Cruz is a 76 year old female who presents to the ER with left hip pain following a fall. The patient reports having multiple falls recently due to being unbalanced. While getting up this morning before heading to dialysis, her was bringing her breakfast but did not witness the fall. She was getting herself dressed while leaning on the side of the bed. She fell to her left side and hit her head on the way down. After falling she had been unable to stand up due to left hip pain therefore her called for an ambulance who brought her to the ER. While she is still she is not in any pain but has pain on any movement. She denies any chest pain, shortness of breath or dizziness before falling. Her has noted she has been more weak over the last week and required help getting her back from dialysis last week to get her back into the car. No fever or chills. Most of the time at home she spends in bed where she is most comfortable. In the ER CT hip was concerning for mildly impacted and minimally displaced left femoral greater trochanteric and basicervical fractures. She was referred to medicine for admission and ongoing management of this. This CT also showed nonspecific proctocolitis with small volume pelvic ascites. She has chronic abdominal pain and reports this is no worse than usual but no improvement with budesonide recently started last month by gastroenterology. She cannot remember is she is having any problems with diarrhea. She has known end stage renal disease and undergoes dialysis on Friday, Friday and Fridays. Can't remember if she is having any problem with diarrhea. Allergies Allergy/AdvReac Type Severity Reaction Status Date / Time Cephalosporins Allergy Intermediate ertapenem Verified 10/08/21 09:25 ok from multiple occasions codeine Allergy Intermediate RASH Verified 10/08/21 09:25 levofloxacin Allergy Intermediate hives, Verified 10/08/21 09:25 itching, per patient tolerates Cipro lisinopril Allergy Intermediate HIVES, Verified 10/08/21 09:25 ITCHING morphine Allergy Intermediate HIVES Verified 10/08/21 09:25 Sulfa (Sulfonamide Allergy Intermediate Rash Verified 10/08/21 09:25 Antibiotics) meperidine Allergy Unknown HAD RXN IN Verified 10/08/21 09:25 RR Iodinated Contrast Media AdvReac Severe PT HAD A Verified 10/08/21 09:25 KIDNEY TRANSPLANT chlorhexidine AdvReac Intermediate RASH Verified 10/08/21 09:25 captopril AdvReac Mild ITCHING Verified 10/08/21 09:25 celecoxib AdvReac Mild ITCHING Verified 10/08/21 09:25 hydralazine AdvReac Mild ITCHING Verified 10/08/21 09:25 nitrofurantoin AdvReac Mild GI PROBLEMS Verified 10/08/21 09:25 Home Medications Medication Instructions Recorded Confirmed Type vit B complx, C-iron 8 mg-folic 1 tab PO QAM 12/25/18 10/08/21 History acid 800 mcg-D3 1,000 unit-zinc tablet (ProRenal) calcium acetate(phosphat bind) 667 1,334 mg PO TIDM #720 cap 07/29/19 10/08/21 Rx mg capsule ondansetron HCl 4 mg tablet 4 mg PO QID PRN #12 tab 12/06/19 10/08/21 Rx pantoprazole 40 mg tablet,delayed 40 mg PO QAM 10/19/20 10/08/21 History release metoprolol succinate 25 mg 25 mg PO BID #180 tab 01/03/21 10/08/21 Rx tablet,extended release 24 hr amlodipine 5 mg tablet 5 mg PO BID #180 tab 01/04/21 10/08/21 Rx clonidine HCl 0.2 mg tablet 0.2 mg PO HS #90 tab 03/11/21 10/08/21 Rx tramadol 50 mg tablet 50 mg PO TID PRN #30 tab 07/25/21 10/08/21 Rx Lactobacillus acidophilus and 1 cap PO DAILY 08/27/21 10/08/21 History rhamnosus 15 billion cell capsule (Probiotic) budesonide 3 mg 9 mg PO DAILY #90 ea 09/13/21 10/08/21 Rx capsule,delayed,extended release (Entocort EC) allopurinol 100 mg tablet 100 mg PO QAM #90 tab 09/18/21 10/08/21 Rx sertraline 25 mg tablet 25 mg PO DAILY #90 tab 09/18/21 10/08/21 Rx levothyroxine 100 mcg tablet 100 mcg PO DAILYBB 10/08/21 10/08/21 History Past Med/Surg History Medical History (Updated 10/09/21 @ 00:05 by Juan Rliey) Anxiety HX OF Arachnoid cyst Ataxic gait Back pain with sciatica Benign familial tremor Breast mass, left Cardiac murmur Chronic abdominal pain Cirrhosis Clostridium difficile colitis Colitis Degenerative joint disease, ankle, left Depression HX OF ESRD on hemodialysis Gout, joint Hyperlipidemia Hypertension Hypothyroidism Lumbosacral radiculopathy Mild cognitive impairment MVP (mitral valve prolapse) Pancytopenia Peripheral neuropathy 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 CHAUDHARY) Sensorineural hearing loss (SNHL) of both ears Stomach ulcer Subarachnoid hemorrhage 5 YEARS AGO Transplanted organ rejection 1 TRANSPLANTED KIDNEY Traumatic injury of head Vitamin D deficiency Surgical History H/O: hysterectomy History of colonoscopy History of esophagogastroduodenoscopy (EGD) History of herniorrhaphy History of nephrectomy RT/LEFT REMOVED History of open reduction and internal fixation (ORIF) procedure LEFT ANKLE History of vascular access device A-PORT ACCESS LEFT SIDE (DIFFICULT IV STICK) Hx of cholecystectomy Status post hardware removal 12/2018 left ankle Family History Other Family history non-contributory Denies family history of Ovarian cancer Prostate cancer Crohn's disease Myocardial infarction Breast cancer Colorectal cancer Ulcerative colitis Social History Smoking Status: Never smoker Second Hand Exposure: No; Do You Dip or Chew Tobacco: No; Tobacco Cessation Education Requested by Patient: No Hx Alcohol Use: No Hx Substance Use: No Preferred Language: [place] Communication Ability: Effective Product Support Representative Required: No Beliefs That Will Affect Care: None marital status: Current Living Situation: Spouse How many Children do You have: 2 Other Information That Helps Us Care for You: No Feels Safe at Home: Yes Safety Concerns: Feels Safe At This Time caffeine: No during the past year weight has: remained stable Assistive Devices: None Review of Systems Review of Systems: All systems reviewed & are unremarkable except as noted in HPI & below Physical Exam Constitutional: WD/WN, vitals as above Eyes: PERRL, conjunctivae normal, anicteric sclerae Neck: trachea midline, no thyromegaly Respiratory: normal respiratory effort, lungs clear to auscultation Cardiovascular: Rate/Rhythm: regular rate and regular rhythm Heart Sounds: no murmur Vessels: no JVD Extremities: normal capillary refill; no calf tenderness and no pedal edema Gastrointestinal (Abdomen): Inspection/Auscultation: normal bowel sounds Percussion/Palpation: + abdomen tender (suprapubic) and abdomen soft; no guarding and abdomen not rigid Musculoskeletal: Left leg shortened and internally rotation. NV intact distally. Left wrist swollen and tender along joint line Skin: no rashes, warm and dry Neurologic: moves all extremities and awake; not confused Psychiatric: A+Ox3, euthymic affect Results & Data Results & Data ([facility]) Vital Signs (Past 12 Hours) Vital Signs Temp Pulse Pulse Resp BP BP Pulse Ox 10/08/21 11:04 57 L 18 145/51 H 97 10/08/21 09:04 99 10/08/21 08:41 36.7 C 60 14 159/63 H 98 Laboratory Results Abnormal lab results 10/08/21 10/08/21 10/08/21 Range/Units 09:21 09:21 10:16 WBC 4.46 L (4.8-10.8) K/uL RBC 2.80 L (4.2-5.4) M/uL Hgb 10.1 L (12.0-16.0) g/dL Hct 33.0 L (37-47) % MCV 117.9 H (80-100) fL MCH 36.1 H (25-34) pg MCHC 30.6 L (32-36) g/dL RDW Std Deviation 83.5 H (36.4-46.3) fL RDW Coeff of Joseph 19.3 H (11.5-14.5) % Plt Count 91 L (130-400) K/uL MPV 11.8 H (7.4-10.4) fL Lymph # (Auto) 1.00 L (1.2-3.4) K/uL Platelet Estimate Decreased L (Normal) PT 13.5 H (9.0-12.0) Seconds INR 1.3 H (0.9-1.1) Anion Gap 15 H (3-11) BUN 74 H (6-23) mg/dl Creatinine 7.35 H* (0.6-1.2) mg/dl Total Bilirubin 1.5 H (0.2-1.0) mg/dl Total Protein 5.8 L (6.0-8.3) gm/dl Albumin 3.2 L (3.4-5.0) gm/dl Diagnostic Findings HEAD CT NONCONTRAST CT DOSE: 912.23 mGycm HISTORY: Progressive weakness. Trauma/fall TECHNIQUE: Multiaxial CT images of the head were performed without the use of intravenous contrast. Automated exposure control was utilized for this study. A dose lowering technique was utilized adhering to the principles of ALARA. Comparison: Head CT 08/27/2021. Findings: Partially visualized small retention cyst within the right maxillary sinus. The remaining paranasal sinuses and mastoid air cells are clear. Mild motion artifact. The calvarium and skull base are intact. There is no mass, hematoma, midline shift, acute infarct. White matter hypodensity is nonspecific but suggestive of microvascular ischemic change. The ventricles and sulci demonstrate mild age-related involutional changes. Impression: Motion artifact. No definite acute intracranial abnormality. XR chest 1V portable CLINICAL HISTORY: fall COMPARISON STUDY: Chest radiograph September 07, 2021. FINDINGS: Lung volumes are normal. Linear right basilar opacity favors atelectasis. There is no pneumothorax or pleural effusion. Cardiac size is stable. Mediastinal contours are normal. There is no evidence for pulmonary edema. Mild elevation of the right hemidiaphragm is unchanged. Skin folds project over the chest. IMPRESSION: No acute cardiopulmonary findings. No change in appearance of the chest. XR hip WILLEM 2v w pelvis HISTORY: 76 years-old Female fall . Acute pelvic and left hip pain status post fall COMPARISON: CT abdomen and pelvis 07/25/2021 TECHNIQUE: AP view of the pelvis with 2 views of the hips FINDINGS: Demineralized appearance the bones. Mild osteoarthritis of the hips. No acute fracture, dislocation or avascular necrosis. There is soft tissue swelling lateral to the left hip. Arterial calcifications. Partially calcified right lower quadrant renal allograft. IMPRESSION: No acute fracture or dislocation. CT hip LT wo con HISTORY: 76 years-old Female fall acute pain of the left hip status post fall COMPARISON: Pelvis and hip radiographs of same day, CT abdomen and pelvis 07/25/2021 TECHNIQUE: Multiple axial CT images of the left hip were obtained without the use of IV contrast. A dose lowering technique was used consistent with the principals of ALARA. FINDINGS: Arterial calcifications. Nonspecific circumferential wall thickening of the rectum and sigmoid with perirectal and pericolonic inflammation. Colonic diverticulosis. Small volume free pelvic fluid. Urinary bladder wall thickening with partial distention. Partially imaged renal allograft within the abdominal right lower quadrant with parenchymal calcifications. Hysterectomy. Demineralized appearance of the bones. Mild to moderate osteoarthritis of the hips. There is an acute comminuted fracture involving the left greater trochanter and basicervical distribution with subtle extension into the intertrochanteric posterior cortex as seen on image 88 series 2. There is mild impaction of a few millimeters with posterior displacement measuring up to 5 mm at the base of the femoral neck. No dislocation. The left hemipelvis appears intact. Small left joint effusion/hemarthrosis with deep tissue edema surrounding the left hip fracture. IMPRESSION: 1. Acute mildly impacted and minimally displaced left femoral greater trochanteric and basicervical fractures with subtle fracture extension into the intertrochanteric posterior cortex. 2. Small posttraumatic hemarthrosis. 3. Findings compatible with a nonspecific proctocolitis with small volume of pelvic ascites. Findings could be correlated with colonoscopy. 4. Colonic diverticulosis. Medications Administered ER Medications Given: Acetaminophen 1000mg IV Ondansetron 4mg IV ECG Indication: other (pre-op) Rate (beats per minute): 61 Rhythm: normal sinus Findings: + other (right axis deviation) Comparison ECG Date: from (Aug 27, 2021) Change: no significant change Code Status & VTE Plan Code Status DNR/DNI per patient wishes VTE Prophylaxis Plan VTE Prophylaxis will be ordered: Yes PG Care Time/CCT Total # of Minutes Spent Total Time Spent with Patient: Total time spent is greater than 50% in coordination of care (as documented) at patient's floor/unit and/or counseling patient: Coding Level of Care Code 77509 Initial Inpt Care Lvl 3 Diagnoses Pancytopenia D61.818 Frequent falls R29.6 Anemia in chronic renal disease N18.5; D63.1 Chronic kidney disease stage: stage 5, not on chronic dialysis ESRD on hemodialysis N18.6; Z99.2 Cirrhosis K74.60 Ascites presence: without ascites Hepatic cirrhosis type: unspecified hepatic cirrhosis HTN (hypertension) I10 Nonspecific colitis K52.9 Closed left hip fracture S72.002A Left wrist pain M25.532 (1) Cirrhosis Ascites presence: without ascites Hepatic cirrhosis type: unspecified hepatic cirrhosis Qualified Code(s): K74.60 - Unspecified cirrhosis of liver (2) Anemia in chronic renal disease Chronic kidney disease stage: stage 5, not on chronic dialysis Qualified Code(s): N18.5 - Chronic kidney disease, stage 5; D63.1 - Anemia in chronic kidney disease
--- NOTE | 2021-10-08 12:44 | Nephrology Consultation ---
Date of Consultation October 08, 2021 Assessment & Plan (1) ESRD on hemodialysis: (2) Closed left hip fracture: (3) Frequent falls: (4) Anemia in chronic renal disease: (5) HTN (hypertension): End-stage renal disease on hemodialysis, admitted with fall at home and left hip fracture. blood pressure, electrolyte, volume status acceptable. She is due for dialysis today. --plan for dialysis today as her regular schedule. --Left arm nephrology precaution, does meds for eGFR less than 10 --scheduled for OR in am Will follow. Thank you for allowing me to participate in your patient's care. It was a pleasure to see Whit History of Present Illness Reason for Consultation: end-stage renal disease on hemodialysis History of Present Illness Whit Cruz is a 76-year-old female with PMH significant for ESRD, on hemodialysis, hypertension, dyslipidemia, diverticulosis admitted with left hip fracture after fall at home. Nephrology consult was requested to manage ESRD and provide hemodialysis. EMR records are reviewed in detail during patient's visit. Dena presented to ER with left hip pain after she had a mechanical fall at home this morning. X-ray showed closed left hip fracture. ESRD secondary to polycystic kidney disease, has been on hemodialysis Friday, Friday, Friday via left brachiocephalic AV fistula at [facility]. Had left nephrectomy many years ago because of repeated hemorrhage in renal cyst. Eventually her renal function started to decline and she was started on hemodialysis in 2000. Soon after that she had right nephrectomy and cholecystectomy prior to live donor renal transplant from her son in 2001. Renal allograft function started to decline eventually and by 2012 she developed advanced CKD and hypertension and started on hemodialysis again in 2013 via left brachiocephalic AV fistula. Has been doing well on dialysis. Currently under care of Dr. Reis. HTN for years, BP has been variable. Blood pressure relatively well controlled today, volume status acceptable. Electrolyte within acceptable range. Allergies Allergy/AdvReac Type Severity Reaction Status Date / Time Cephalosporins Allergy Intermediate ertapenem Verified 10/08/21 09:25 ok from multiple occasions codeine Allergy Intermediate RASH Verified 10/08/21 09:25 levofloxacin Allergy Intermediate hives, Verified 10/08/21 09:25 itching, per patient tolerates Cipro lisinopril Allergy Intermediate HIVES, Verified 10/08/21 09:25 ITCHING morphine Allergy Intermediate HIVES Verified 10/08/21 09:25 Sulfa (Sulfonamide Allergy Intermediate Rash Verified 10/08/21 09:25 Antibiotics) meperidine Allergy Unknown HAD RXN IN Verified 10/08/21 09:25 RR Iodinated Contrast Media AdvReac Severe PT HAD A Verified 10/08/21 09:25 KIDNEY TRANSPLANT chlorhexidine AdvReac Intermediate RASH Verified 10/08/21 09:25 captopril AdvReac Mild ITCHING Verified 10/08/21 09:25 celecoxib AdvReac Mild ITCHING Verified 10/08/21 09:25 hydralazine AdvReac Mild ITCHING Verified 10/08/21 09:25 nitrofurantoin AdvReac Mild GI PROBLEMS Verified 10/08/21 09:25 Home Medications Medication Instructions Recorded Confirmed Type vit B complx, C-iron 8 mg-folic 1 tab PO QAM 12/25/18 10/08/21 History acid 800 mcg-D3 1,000 unit-zinc tablet (ProRenal) calcium acetate(phosphat bind) 667 1,334 mg PO TIDM #720 cap 07/29/19 10/08/21 Rx mg capsule ondansetron HCl 4 mg tablet 4 mg PO QID PRN #12 tab 12/06/19 10/08/21 Rx pantoprazole 40 mg tablet,delayed 40 mg PO QAM 10/19/20 10/08/21 History release metoprolol succinate 25 mg 25 mg PO BID #180 tab 01/03/21 10/08/21 Rx tablet,extended release 24 hr amlodipine 5 mg tablet 5 mg PO BID #180 tab 01/04/21 10/08/21 Rx clonidine HCl 0.2 mg tablet 0.2 mg PO HS #90 tab 03/11/21 10/08/21 Rx tramadol 50 mg tablet 50 mg PO TID PRN #30 tab 07/25/21 10/08/21 Rx Lactobacillus acidophilus and 1 cap PO DAILY 08/27/21 10/08/21 History rhamnosus 15 billion cell capsule (Probiotic) budesonide 3 mg 9 mg PO DAILY #90 ea 09/13/21 10/08/21 Rx capsule,delayed,extended release (Entocort EC) allopurinol 100 mg tablet 100 mg PO QAM #90 tab 09/18/21 10/08/21 Rx sertraline 25 mg tablet 25 mg PO DAILY #90 tab 09/18/21 10/08/21 Rx levothyroxine 100 mcg tablet 100 mcg PO DAILYBB 10/08/21 10/08/21 History Patient History Medical History (Updated 10/08/21 @ 21:26 by Grabiel Hector MD) Anxiety HX OF Arachnoid cyst Ataxic gait Back pain with sciatica Benign familial tremor Breast mass, left Cardiac murmur Chronic abdominal pain Cirrhosis Clostridium difficile colitis Colitis Degenerative joint disease, ankle, left Depression HX OF ESRD on hemodialysis Gout, joint Hyperlipidemia Hypertension Hypothyroidism Lumbosacral radiculopathy Mild cognitive impairment MVP (mitral valve prolapse) Pancytopenia Peripheral neuropathy 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 CHAUDHARY) Sensorineural hearing loss (SNHL) of both ears Stomach ulcer Subarachnoid hemorrhage 5 YEARS AGO Transplanted organ rejection 1 TRANSPLANTED KIDNEY Traumatic injury of head Vitamin D deficiency Surgical History H/O: hysterectomy History of colonoscopy History of esophagogastroduodenoscopy (EGD) History of herniorrhaphy History of nephrectomy RT/LEFT REMOVED History of open reduction and internal fixation (ORIF) procedure LEFT ANKLE History of vascular access device A-PORT ACCESS LEFT SIDE (DIFFICULT IV STICK) Hx of cholecystectomy Status post hardware removal 12/2018 left ankle Family History Other Family history non-contributory Denies family history of Ovarian cancer Prostate cancer Crohn's disease Myocardial infarction Breast cancer Colorectal cancer Ulcerative colitis Social History Smoking Status: Never smoker Second Hand Exposure: No; Do You Dip or Chew Tobacco: No; Tobacco Cessation Education Requested by Patient: No Hx Alcohol Use: No Hx Substance Use: No Preferred Language: Tajik Communication Ability: Effective 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 Physical Exam Constitutional: WD/WN, vitals as above + ill appearing; no acute distress Eyes: + anicteric sclerae Neck: normal visual inspection Respiratory: no respiratory distress and no cough Auscultation: lungs clear to auscultation bilaterally Cardiovascular: Rate/Rhythm: regular rate and regular rhythm Heart Sounds: normal S1 and normal S2 Extremities: + AV fistula; no edema Gastrointestinal (Abdomen): Inspection/Auscultation: abdomen normal to inspection and normal bowel sounds Percussion/Palpation: abdomen soft; abdomen nontender Musculoskeletal: Extremities: extremities normal to inspection Skin: no rashes Neurologic: no focal motor deficits and not confused Psychiatric: Orientation: alert and oriented x 3 Affect: euthymic affect Results & Data ([facility]) Vital Signs (Past 12 Hours) Vital Signs Temp Pulse Pulse Resp BP BP Pulse Ox 10/08/21 11:04 57 L 18 145/51 H 97 10/08/21 09:04 99 10/08/21 08:41 36.7 C 60 14 159/63 H 98 PG Care Time/CCT Total # of Minutes Spent Total Time Spent with Patient: Total time spent is greater than 50% in coordination of care (as documented) at patient's floor/unit and/or counseling patient: Coding Level of Care Code 26094 Initial Inpt Care Lvl 3 Diagnoses ESRD on hemodialysis N18.6; Z99.2 Closed left hip fracture S72.002A Frequent falls R29.6 Anemia in chronic renal disease N18.5; D63.1 Chronic kidney disease stage: stage 5, not on chronic dialysis HTN (hypertension) I10 (1) Anemia in chronic renal disease Chronic kidney disease stage: stage 5, not on chronic dialysis Qualified Code(s): N18.5 - Chronic kidney disease, stage 5; D63.1 - Anemia in chronic kidney disease
--- NOTE | 2021-10-08 13:22 | XRay Report ---
XR wrist LT min 3V routine HISTORY: 76 years-old Female left wrist pain . Pain of the left wrist COMPARISON: Wrist radiographs 09/07/2021 TECHNIQUE: 4 views of the left wrist FINDINGS: Demineralized appearance of the bones. Mild multifocal osteoarthritis. Arterial calcifications. There is mild cortical buckling of the dorsal radial metaphysis. No acute displaced fracture. Mild dorsal soft tissue swelling. IMPRESSION: Subtle dorsal cortical buckling of the distal radial metaphysis with adjacent soft tissue swelling is equivocal for an acute nondisplaced fracture. Correlate with point tenderness. ACT 112: Negative or not required by law. The above report was generated using voice recognition software. It may contain grammatical, syntax o r spelling errors. Electronically signed by: Tito Sanabria M.D. 10/08/2021 1:21 PM
[2021-10-08] MEDS ORDERED: MAGNESIUM HYDROXIDE SUSP 30 ML UDC PO PRN (14:37)
[2021-10-08] MEDS ORDERED: NALOXONE HCL 0.4 MG/1 ML VIAL/CARP IV PRN (14:37)
[2021-10-08] MEDS ORDERED: bisacodyL 10 MG SUPP PR PRN (14:37)
[2021-10-08] MEDS: ONDANSETRON INJ 2 MG/ML 2 ML VIAL IV PRN (16:21)
[2021-10-08] MEDS: CALCIUM ACETATE 667 MG CAP/TAB PO SCH (19:22)
[2021-10-08] MEDS: traMADol HCL 50 MG TABLET PO PRN (19:25)
[2021-10-08] MEDS: DOCUSATE SODIUM/SENNA 50/8.6MG TAB PO SCH (20:38)
[2021-10-08] MEDS: cloNIDine HCL 0.1 MG TAB PO SCH (20:38)
[2021-10-08] MEDS: METOPROLOL SUCC 25MG EXT REL TAB PO SCH (20:38)
[2021-10-08] MEDS: amLODIPine BESYLATE 5 MG TAB PO SCH (20:38)
[2021-10-08] MEDS: HYDROmorphone INJ 0.5 MG/0.5 ML SYR IV PRN (21:20)
[2021-10-09] MEDS: traMADol HCL 50 MG TABLET PO PRN (05:35)
[2021-10-09] MEDS: LEVOTHYROXINE SODIUM 100 MCG TABLET PO SCH (05:35)
[2021-10-09 06:04] LABS: Hematocrit (blood only) 29.3 % (37-47); Hemoglobin 8.9 g/dL (12.0-16.0); Mean Corpuscular Hemoglobin 35.2 pg (25-34); Mean Corpuscular Hgb Conc 30.4 g/dL (32-36); Mean Corpuscular Volume 115.8 fL (80-100); RDW Coefficient of Variation 19.2 % (11.5-14.5); RDW Standard Deviation 81.2 fL (36.4-46.3); Red Blood Count 2.53 M/uL (4.2-5.4); White Blood Count 3.97 K/uL (4.8-10.8)
[2021-10-09 06:25] LABS: Platelet Count 82 K/uL (130-400)
[2021-10-09 06:29] LABS: Basophils # (auto) 0.02 K/uL (0-0.2); Basophils % (auto) 0.5 %; Eosinophils # (auto) 0.06 K/uL (0-0.5); Eosinophils % (auto) 1.5 %; Immature Granulocytes # (auto) 0.01 K/uL (0.00-0.02); Immature Granulocytes % (auto) 0.3 %; Lymphocytes # (auto) 1.05 K/uL (1.2-3.4); Lymphocytes % (auto) 26.4 %; Macrocytosis Present; Monocytes # (auto) 0.48 K/uL (0.11-0.59); Monocytes % (auto) 12.1 %; Neutrophils # (auto) 2.35 K/uL (1.4-6.5); Neutrophils % (auto) 59.2 %; Polychromasia 1+
[2021-10-09 06:36] LABS: BUN Creatinine Ratio 8.4 (10-20); Calcium 8.5 mg/dl (8.5-10.1); Est GFR (African American) 11.1 ml/min; Est GFR (Non-African American) 9.6 ml/min; Potassium 4.1 mmol/L (3.5-5.1)
--- NOTE | 2021-10-09 07:47 | Magnetic Resonance Report ---
MRI OF THE LEFT HIP WITHOUT CONTRAST CLINICAL HISTORY: Left hip pain following fall. COMPARISON STUDY: Pelvis and left hip radiographs October 08, 2021. CT of the left hip October 08, 2021. TECHNIQUE: Utilizing a 1.5 Sofya magnet and dedicated coil, multiplanar, multiecho imaging of the lef t hip was performed without intra-articular or intravenous contrast. FINDINGS: Note is made of an acute intertrochanteric fracture of the left femur. Fracture is essentia lly nondisplaced. This fracture corresponds to the finding on CT of October 08, 2021. There is an assoc iated small hemarthrosis. There is adjacent soft tissue edema. No additional fractures are present. T here is no evidence for avascular necrosis of the left femoral head. Probable tear of the anterior faith perior acetabular labrum. A small amount of fluid within the pelvis is noted. Sigmoid diverticulosis is noted. Wall thickening of the distal sigmoid colon and rectum is better depicted on prior CT. Righ t lower quadrant renal allograft is present. No additional fractures are identified on this exam. No suspicious marrow replacement is identified within visualized skeletal structures. Sacroiliac joints and symphysis pubis are intact. IMPRESSION: Acute intertrochanteric fracture of the left femur, essentially nondisplaced. Associated small hemarthrosis and adjacent soft tissue edema. ACT 112: Negative or not required by law. Electronically signed by: Nasim Selby M.D. 10/09/2021 7:44 AM
[2021-10-09] MEDS: HYDROmorphone INJ 0.5 MG/0.5 ML SYR IV PRN (09:15)
[2021-10-09] MEDS: CALCIUM ACETATE 667 MG CAP/TAB PO SCH ×3 (09:15→18:59)
[2021-10-09] MEDS: allopurinoL 100 MG TAB PO SCH (09:31)
[2021-10-09] MEDS: BUDESONIDE EC 3 MG CAP PO SCH (09:31)
[2021-10-09] MEDS: amLODIPine BESYLATE 5 MG TAB PO SCH ×2 (09:31→21:03)
[2021-10-09] MEDS: NEPHROCAPS PO SCH (09:32)
[2021-10-09] MEDS: PANTOprazole 40 MG TAB PO SCH (09:32)
[2021-10-09] MEDS: ADVANCED PROBIOTIC 1250 MG CAPSULE PO SCH (09:32)
[2021-10-09] MEDS: SERTRALINE HCL 50 MG TABLET PO SCH (09:32)
[2021-10-09] MEDS: METOPROLOL SUCC 25MG EXT REL TAB PO SCH ×2 (09:32→21:03)
--- NOTE | 2021-10-09 10:15 | History & Physical Bridge Note ---
Date of Service October 09, 2021 History & Physical Bridge Note I have examined the patient, reviewed the History & Physical and in the interval since the performance of the History & Physical I have noted the following changes of clinical significance: no changes noted
--- NOTE | 2021-10-09 10:35 | Gastrointestinal Consultation ---
Date of Consultation October 09, 2021 Assessment & Plan (1) Nonspecific colitis: (2) Cirrhosis: Patient is a very pleasant 76 y.o. female with a complex PMH including ESRD on hemodialysis, cirrhosis, HTN and nonspecific colitis admitted with left hip fracture and weakness after sustaining a fall at home. Fluctuating MELD given her renal history. From labs reviewed today is ~24. As the patient is currently about to under left hip surgery, would recommend continued conservative GI management of her nonspecific colitis. Agree with holding steroids at this time given recent fracture. Can treat abdominal pain with an antispasmodic if needed in the future as her diarrhea has resolved. Thank you for allowing us to participate in the care of this pleasant patient. If you have any questions or concerns, please do not hesitate to contact us. History of Present Illness Reason for Consultation: Pancolitis, worsening weakness Requesting Physician: Dr. Hector Attending Physician: Chapin Handley MD History of Present Illness Whit Cruz is a very pleasant 76 year-old female known to our practice due to history of cirrhosis and nonspecific colitis. She was last seen in the office one month ago. At that time, due to her frail health status the patient I had agreed to avoid invasive GI work up and she was treated empirically with an 8 week course of Budesonide. Since starting the medication, she reports resolution of the diarrhea but she continues to report some diffuse abdominal pains that wax and wane. She denies any abdominal pain at present. She was admitted to the hospital after sustaining a fall at home and weakness. She has a left hip fracture and is planned for surgery with Dr. Moise today. Allergies Allergy/AdvReac Type Severity Reaction Status Date / Time Cephalosporins Allergy Intermediate ertapenem Verified 10/08/21 09:25 ok from multiple occasions codeine Allergy Intermediate RASH Verified 10/08/21 09:25 levofloxacin Allergy Intermediate hives, Verified 10/08/21 09:25 itching, per patient tolerates Cipro lisinopril Allergy Intermediate HIVES, Verified 10/08/21 09:25 ITCHING morphine Allergy Intermediate HIVES Verified 10/08/21 09:25 Sulfa (Sulfonamide Allergy Intermediate Rash Verified 10/08/21 09:25 Antibiotics) meperidine Allergy Unknown HAD RXN IN Verified 10/08/21 09:25 RR Iodinated Contrast Media AdvReac Severe PT HAD A Verified 10/08/21 09:25 KIDNEY TRANSPLANT chlorhexidine AdvReac Intermediate RASH Verified 10/08/21 09:25 captopril AdvReac Mild ITCHING Verified 10/08/21 09:25 celecoxib AdvReac Mild ITCHING Verified 10/08/21 09:25 hydralazine AdvReac Mild ITCHING Verified 10/08/21 09:25 nitrofurantoin AdvReac Mild GI PROBLEMS Verified 10/08/21 09:25 Home Medications Medication Instructions Recorded Confirmed Type vit B complx, C-iron 8 mg-folic 1 tab PO QAM 12/25/18 10/08/21 History acid 800 mcg-D3 1,000 unit-zinc tablet (ProRenal) calcium acetate(phosphat bind) 667 1,334 mg PO TIDM #720 cap 07/29/19 10/08/21 Rx mg capsule ondansetron HCl 4 mg tablet 4 mg PO QID PRN #12 tab 12/06/19 10/08/21 Rx pantoprazole 40 mg tablet,delayed 40 mg PO QAM 10/19/20 10/08/21 History release metoprolol succinate 25 mg 25 mg PO BID #180 tab 01/03/21 10/08/21 Rx tablet,extended release 24 hr amlodipine 5 mg tablet 5 mg PO BID #180 tab 01/04/21 10/08/21 Rx clonidine HCl 0.2 mg tablet 0.2 mg PO HS #90 tab 03/11/21 10/08/21 Rx tramadol 50 mg tablet 50 mg PO TID PRN #30 tab 07/25/21 10/08/21 Rx Lactobacillus acidophilus and 1 cap PO DAILY 08/27/21 10/08/21 History rhamnosus 15 billion cell capsule (Probiotic) budesonide 3 mg 9 mg PO DAILY #90 ea 09/13/21 10/08/21 Rx capsule,delayed,extended release (Entocort EC) allopurinol 100 mg tablet 100 mg PO QAM #90 tab 09/18/21 10/08/21 Rx sertraline 25 mg tablet 25 mg PO DAILY #90 tab 09/18/21 10/08/21 Rx levothyroxine 100 mcg tablet 100 mcg PO DAILYBB 10/08/21 10/08/21 History Patient History Medical History Anxiety HX OF Arachnoid cyst Ataxic gait Back pain with sciatica Benign familial tremor Breast mass, left Cardiac murmur Chronic abdominal pain Cirrhosis Clostridium difficile colitis Colitis Degenerative joint disease, ankle, left Depression HX OF ESRD on hemodialysis Gout, joint Hyperlipidemia Hypertension Hypothyroidism Lumbosacral radiculopathy Mild cognitive impairment MVP (mitral valve prolapse) Pancytopenia Peripheral neuropathy 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 CHAUDHARY) Sensorineural hearing loss (SNHL) of both ears Stomach ulcer Subarachnoid hemorrhage 5 YEARS AGO Transplanted organ rejection 1 TRANSPLANTED KIDNEY Traumatic injury of head Vitamin D deficiency Surgical History H/O: hysterectomy History of colonoscopy History of esophagogastroduodenoscopy (EGD) History of herniorrhaphy History of nephrectomy RT/LEFT REMOVED History of open reduction and internal fixation (ORIF) procedure LEFT ANKLE History of vascular access device A-PORT ACCESS LEFT SIDE (DIFFICULT IV STICK) Hx of cholecystectomy Status post hardware removal 12/2018 left ankle Family History Other Family history non-contributory Denies family history of Ovarian cancer Prostate cancer Crohn's disease Myocardial infarction Breast cancer Colorectal cancer Ulcerative colitis Social History Smoking Status: Never smoker Second Hand Exposure: No; Do You Dip or Chew Tobacco: No; Tobacco Cessation Education Requested by Patient: No Hx Alcohol Use: No Hx Substance Use: No Preferred Language: Fijian Communication Ability: Effective 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 Beliefs That Will Affect Care: None marital status: Current Living Situation: Spouse How many Children do You have: 2 Other Information That Helps Us Care for You: No Feels Safe at Home: Yes Safety Concerns: Feels Safe At This Time caffeine: No during the past year weight has: remained stable Assistive Devices: Walker and Wheelchair Review of Systems Constitutional: as per Subjective / HPI, + fatigue and + weakness; no fever and no chills Respiratory: no cough and no dyspnea Cardiovascular: no chest pain and no palpitations Gastrointestinal: as per Subjective / HPI Musculoskeletal: + joint pain, + swelling and + limited range of motion Physical Exam Constitutional: + frail appearing; no acute distress Eyes: + anicteric sclerae and EOM intact bilaterally Respiratory: normal respiratory effort, lungs clear to auscultation Cardiovascular: Rate/Rhythm: regular rate and regular rhythm Heart Sounds: + murmur Gastrointestinal (Abdomen): Inspection/Auscultation: normal bowel sounds Percussion/Palpation: + abdomen tender and abdomen soft Musculoskeletal: ecchymosis of both upper and lower extremities Psychiatric: A+Ox3, euthymic affect Results & Data ([facility]) Vital Signs (Past 12 Hours) Vital Signs Temp Pulse Resp BP Pulse Ox 10/09/21 07:09 36.4 C L 55 L 17 117/60 97 Laboratory Results Abnormal lab results 10/08/21 10/09/21 10/09/21 Range/Units 10:16 05:26 05:26 WBC 3.97 L (4.8-10.8) K/uL RBC 2.53 L (4.2-5.4) M/uL Hgb 8.9 L (12.0-16.0) g/dL Hct 29.3 L (37-47) % MCV 115.8 H (80-100) fL MCH 35.2 H (25-34) pg MCHC 30.4 L (32-36) g/dL RDW Std Deviation 81.2 H (36.4-46.3) fL RDW Coeff of Joseph 19.2 H (11.5-14.5) % Plt Count 82 L (130-400) K/uL MPV 11.0 H (7.4-10.4) fL Lymph # (Auto) 1.05 L (1.2-3.4) K/uL PT 13.5 H (9.0-12.0) Seconds INR 1.3 H (0.9-1.1) BUN 36 H D (6-23) mg/dl Creatinine 4.27 H D (0.6-1.2) mg/dl BUN/Creatinine Ratio 8.4 L (10-20) PG Care Time/CCT Total # of Minutes Spent Total Time Spent with Patient: Total time spent is greater than 50% in coordination of care (as documented) at patient's floor/unit and/or counseling patient: Coding Level of Care Code 98251 Initial Inpt Care Lvl 3 Diagnoses Nonspecific colitis K52.9 Cirrhosis K74.60 Ascites presence: without ascites Hepatic cirrhosis type: unspecified hepatic cirrhosis (1) Cirrhosis Ascites presence: without ascites Hepatic cirrhosis type: unspecified hepatic cirrhosis Qualified Code(s): K74.60 - Unspecified cirrhosis of liver
--- NOTE | 2021-10-09 10:45 | Nephrology Progress Note ---
Date of Service October 09, 2021 Assessment & Plan (1) ESRD on hemodialysis: (2) Closed left hip fracture: (3) Frequent falls: (4) Anemia in chronic renal disease: (5) HTN (hypertension): Plan: End-stage renal disease on hemodialysis, admitted with fall at home and left hip fracture. blood pressure, electrolyte, volume status acceptable. Waiting for OR for femoral IM kemal for left hip fracture. --plan for dialysis tomorrow as her regular schedule. --will give CARMINE with HD --Left arm nephrology precaution, does meds for eGFR less than 10 Will follow. Admission and Anticipated Discharge Date Admission Date: October 08, 2021 Cesia Fernandes was seen in her room this morning. She is having discomfort with significant pain in her left hip. Denies shortness of breath. Had dialysis yesterday, had 2 L UF. Currently electrolyte, volume status acceptable. Blood pressure well controlled. Review of Systems Review of Systems: detailed review of system was otherwise unremarkable except mentioned above. Physical Exam Constitutional: WD/WN, vitals as above + acute distress (with pain) and + ill appearing Respiratory: no respiratory distress and no cough Auscultation: lungs clear to auscultation bilaterally Cardiovascular: Rate/Rhythm: regular rate and regular rhythm Heart Sounds: normal S1 and normal S2 Extremities: + AV fistula; no edema Neurologic: no focal motor deficits and not confused Psychiatric: Orientation: alert and oriented x 3 Affect: euthymic affect Results & Data ([facility]) Vital Signs (Past 12 Hours) Vital Signs Temp Pulse Resp BP Pulse Ox 10/09/21 07:09 36.4 C L 55 L 17 117/60 97 PG Care Time/CCT Total # of Minutes Spent Total Time Spent with Patient: Total time spent is greater than 50% in coordination of care (as documented) at patient's floor/unit and/or counseling patient: Coding Level of Care Code 13596 Subseq Hosp Care Lvl 2 Diagnoses ESRD on hemodialysis N18.6; Z99.2 Closed left hip fracture S72.002A Frequent falls R29.6 Anemia in chronic renal disease N18.5; D63.1 Chronic kidney disease stage: stage 5, not on chronic dialysis HTN (hypertension) I10 (1) Anemia in chronic renal disease Chronic kidney disease stage: stage 5, not on chronic dialysis Qualified Code(s): N18.5 - Chronic kidney disease, stage 5; D63.1 - Anemia in chronic kidney disease
--- NOTE | 2021-10-09 11:14 | Anesthesiology Consultation ---
Date of Service October 09, 2021 Assessment & Plan (1) Encounter for pre-operative examination: Chart Review Chart Review: Acceptable Risk for Surgery and Patient NOT seen in Pre Admission Testing Consults Requested none ASA ASA3 Proposed Anesthesia Anesthesia Type: General Risk / Benefits Reviewed With: PT / POA / Parent / Guardian, Accepts Plan and I nformed Consent Obtained History Surgery Operation Date: 10/09/21 08:20 Proposed Procedures p Left Hip Fracture Intramedullary West Femur - David Moise MD Height/Weight Height: 5 ft 4 in Weight: 57.2 kg Allergies Allergy/AdvReac Type Severity Reaction Status Date / Time Cephalosporins Allergy Intermediate ertapenem Verified 10/08/21 09:25 ok from multiple occasions codeine Allergy Intermediate RASH Verified 10/08/21 09:25 levofloxacin Allergy Intermediate hives, Verified 10/08/21 09:25 itching, per patient tolerates Cipro lisinopril Allergy Intermediate HIVES, Verified 10/08/21 09:25 ITCHING morphine Allergy Intermediate HIVES Verified 10/08/21 09:25 Sulfa (Sulfonamide Allergy Intermediate Rash Verified 10/08/21 09:25 Antibiotics) meperidine Allergy Unknown HAD RXN IN Verified 10/08/21 09:25 RR Iodinated Contrast Media AdvReac Severe PT HAD A Verified 10/08/21 09:25 KIDNEY TRANSPLANT chlorhexidine AdvReac Intermediate RASH Verified 10/08/21 09:25 captopril AdvReac Mild ITCHING Verified 10/08/21 09:25 celecoxib AdvReac Mild ITCHING Verified 10/08/21 09:25 hydralazine AdvReac Mild ITCHING Verified 10/08/21 09:25 nitrofurantoin AdvReac Mild GI PROBLEMS Verified 10/08/21 09:25 Medications Home Medications Medication Instructions Recorded Confirmed Last Taken vit B complx, C-iron 8 mg-folic 1 tab PO QAM 12/25/18 10/08/21 08/26/21 acid 800 mcg-D3 1,000 unit-zinc tablet (ProRenal) calcium acetate(phosphat bind) 667 1,334 mg PO TIDM #720 cap 07/29/19 10/08/21 08/26/21 mg capsule ondansetron HCl 4 mg tablet 4 mg PO QID PRN #12 tab 12/06/19 10/08/21 08/26/21 14:00 pantoprazole 40 mg tablet,delayed 40 mg PO QAM 10/19/20 10/08/21 08/26/21 release metoprolol succinate 25 mg 25 mg PO BID #180 tab 01/03/21 10/08/21 08/26/21 tablet,extended release 24 hr amlodipine 5 mg tablet 5 mg PO BID #180 tab 01/04/21 10/08/21 08/26/21 clonidine HCl 0.2 mg tablet 0.2 mg PO HS #90 tab 03/11/21 10/08/21 08/25/21 tramadol 50 mg tablet 50 mg PO TID PRN #30 tab 07/25/21 10/08/21 Unknown Lactobacillus acidophilus and 1 cap PO DAILY 08/27/21 10/08/21 08/26/21 rhamnosus 15 billion cell capsule (Probiotic) budesonide 3 mg 9 mg PO DAILY #90 ea 09/13/21 10/08/21 Unknown capsule,delayed,extended release (Entocort EC) allopurinol 100 mg tablet 100 mg PO QAM #90 tab 09/18/21 10/08/21 Unknown sertraline 25 mg tablet 25 mg PO DAILY #90 tab 09/18/21 10/08/21 Unknown levothyroxine 100 mcg tablet 100 mcg PO DAILYBB 10/08/21 10/08/21 Unknown Active Medications Generic Name Dose Route Start Last Admin Trade Name Freq PRN Reason Stop Dose Admin Allopurinol 100 mg 10/09/21 09:00 10/09/21 09:31 Allopurinol 100 Mg Tab PO 11/08/21 08:59 Not Given QAM [facility] Amlodipine Besylate 5 mg 10/08/21 21:00 10/09/21 09:31 Amlodipine Besylate 5 Mg Tab PO 11/07/21 20:59 Not Given BID [facility] Budesonide 9 mg 10/09/21 09:00 10/09/21 09:31 Budesonide Ec 3 Mg Cap PO 11/08/21 08:59 Not Given DAILY [facility] Calcium Acetate 1,334 mg 10/08/21 17:00 10/09/21 12:36 Calcium Acetate 667 Mg Cap/Tab PO 11/07/21 16:59 Not Given TIDM [facility] Clonidine HCl 0.2 mg 10/08/21 21:00 10/08/21 20:38 Clonidine Hcl 0.1 Mg Tab PO 11/07/21 20:59 0.2 mg HS [facility] Administration Hydromorphone HCl 0.5 mg 10/08/21 14:37 10/09/21 09:15 Hydromorphone Inj 0.5 Mg/0.5 Ml Syr IV 10/22/21 14:36 0.5 mg Q3H PRN Administration Pain (6,7,8,9,10) Lactobacillus Acidophilus 2 cap 10/09/21 09:00 10/09/21 09:32 Advanced Probiotic 1250 Mg Capsule PO 11/08/21 08:59 Not Given DAILY [facility] Levothyroxine Sodium 100 mcg 10/09/21 06:30 10/09/21 05:35 Levothyroxine Sodium 100 Mcg Tablet PO 11/08/21 06:29 100 mcg DAILYBB [facility] Administration Metoprolol Succinate 25 mg 10/08/21 21:00 10/09/21 09:32 Metoprolol Succ 25mg Ext Rel Tab PO 11/07/21 20:59 Not Given BID [facility] Ondansetron HCl 4 mg 10/08/21 14:37 10/08/21 16:21 Ondansetron Inj 2 Mg/Ml 2 Ml Vial IV 11/07/21 14:36 4 mg Q4H PRN Administration Nausea Pantoprazole Sodium 40 mg 10/09/21 09:00 10/09/21 09:32 Pantoprazole 40 Mg Tab PO 11/08/21 08:59 Not Given QAM [facility] Senna/Docusate Sodium 2 tab 10/08/21 21:00 10/08/21 20:38 Docusate Sodium/Senna 50/8.6mg Tab PO 11/07/21 20:59 2 tab HS [facility] Administration Sertraline HCl 25 mg 10/09/21 09:00 10/09/21 09:32 Sertraline Hcl 50 Mg Tablet PO 11/08/21 08:59 Not Given DAILY [facility] Tramadol HCl 50 mg 10/08/21 14:37 10/09/21 05:35 Tramadol Hcl 50 Mg Tablet PO 11/07/21 14:36 50 mg TID PRN Administration Pain Vitamin B Complex/Folic Acid 1 cap 10/09/21 09:00 10/09/21 09:32 Nephrocaps PO 11/08/21 08:59 Not Given QAM [facility] NPO Date Last Intake of Fluids: 10/09/21 Time Last Intake of Fluids: 05:45 Last Intake of Fluids Comment: small sip with morning medications Past Medical History Medical History Anxiety HX OF Arachnoid cyst Ataxic gait Back pain with sciatica Benign familial tremor Breast mass, left Cardiac murmur Chronic abdominal pain Cirrhosis Clostridium difficile colitis Colitis Degenerative joint disease, ankle, left Depression HX OF ESRD on hemodialysis Gout, joint Hyperlipidemia Hypertension Hypothyroidism Lumbosacral radiculopathy Mild cognitive impairment MVP (mitral valve prolapse) Pancytopenia Peripheral neuropathy 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 CHAUDHARY) Sensorineural hearing loss (SNHL) of both ears Stomach ulcer Subarachnoid hemorrhage 5 YEARS AGO Transplanted organ rejection 1 TRANSPLANTED KIDNEY Traumatic injury of head Vitamin D deficiency Exercise / Class Metabolic Activity III < 4 Walking/Shop/Light housework Past Family History Family History Other Family history non-contributory Denies family history of Ovarian cancer Prostate cancer Crohn's disease Myocardial infarction Breast cancer Colorectal cancer Ulcerative colitis Past Surgical History Surgical History H/O: hysterectomy History of colonoscopy History of esophagogastroduodenoscopy (EGD) History of herniorrhaphy History of nephrectomy RT/LEFT REMOVED History of open reduction and internal fixation (ORIF) procedure LEFT ANKLE History of vascular access device A-PORT ACCESS LEFT SIDE (DIFFICULT IV STICK) Hx of cholecystectomy Status post hardware removal 12/2018 left ankle Past Anesthesia History No Hx of Anesthesia Complications and No Family Hx of Anesthesia Complications History of PONV No Hx of PONV and No Hx of Motion Sickness Social History Smoking Status: Never smoker Do You Dip or Chew Tobacco: No Hx Alcohol Use: No Hx Substance Use: No substance use type: does not use Physical Exam Vital Signs Last Vital Signs Temp 37.0 C 10/09/21 14:39 Pulse 69 10/09/21 14:39 Resp 16 10/09/21 14:39 BP 137/43 L 10/09/21 14:39 Pulse Ox 96 10/09/21 14:39 ENMT Mouth: + poor dentition Thyromental Distance: > or= 3.5 Finger Breadths Mallampati Class: III Neck normal visual inspection Respiratory normal respiratory effort Auscultation: lungs clear to auscultation bilaterally Cardiovascular Rate/Rhythm: regular rate and regular rhythm Musculoskeletal Extremities: extremities normal to inspection contracted left leg. Psychiatric Orientation: alert Testing Laboratory Results 10/09/21 05:26 10/09/21 05:26 PT 13.5 Seconds (9.0-12.0) H 10/08/21 10:16 INR 1.3 (0.9-1.1) H 10/08/21 10:16 Blood Type A Positive 10/08/21 15:02 Antibody Screen NEGATIVE 10/08/21 15:02 Electrocardiogram Date: 10/08/21 DICTATED BY:Bal Ramos MD Test Reason : Blood Pressure : / mmHG Vent. Rate : 061 BPM Atrial Rate : 061 BPM P-R Int : 160 ms QRS Dur : 100 ms QT Int : 466 ms P-R-T Axes : 057 264 047 degrees QTc Int : 469 ms Normal sinus rhythm Right superior axis deviation Abnormal ECG When compared with ECG of 27-AUG-2021 08:52, No significant change was found Confirmed by Bal Ramos ([id number]) on 10/08/2021 11:11:29 AM Chest X-Ray Date: 10/08/21 XR chest 1V portable CLINICAL HISTORY: fall COMPARISON STUDY: Chest radiograph September 07, 2021. FINDINGS: Lung volumes are normal. Linear right basilar opacity favors atelectasis. There is no pneumothorax or pleural effusion. Cardiac size is st able. Mediastinal contours are normal. There is no evidence for pulmonary edema. Mild elevation of the right hemidiaphragm is unchanged. Skin folds project over the chest. IMPRESSION: No acute cardiopulmonary findings. No change in appearance of the chest
[2021-10-09] MEDS ORDERED: SODIUM CHLORIDE 0.9% 250 ML IV PRN (11:26)
--- NOTE | 2021-10-09 13:07 | Hospitalist Progress Note ---
Date of Service October 09, 2021 Assessment & Plan (1) Closed left hip fracture: Plan: MRI of left hip on 10/08 showed "Acute intertrochanteric fracture of the left femur." - Consult orthopedics -> Plan for surgery today. - Pain control PRN - Bed rest (2) Left wrist pain: Plan: XR left wrist on 10/08 showed "Subtle dorsal cortical buckling of the distal radial metaphysis" which is equivocal for a non-displaced fracture. - Orthopedics consulted (3) Nonspecific colitis: Plan: No diarrhea but has chronic abdominal pain and proctocolitis on CT despite budesonide use. - GI consulted - Recommend conservative management. Hold steroids for now in context of upcoming surgery. (4) ESRD on hemodialysis: Plan: - Avoid IV fluids - Consult nephrology for dialysis management, due MWF. Plan for HD tomorrow per nephrology note. (5) HTN (hypertension): Plan: BP today is 120/60. - Continue home meds: * Amlodipine 5mg PO BID * Clonidine 0.2mg HS * Metoprolol succinate 25mg PO BID (6) Pancytopenia: Plan: At baseline, secondary to ESRD & cirrhosis. - Monitor (7) Frequent falls: Plan: Suspected secondary to multiple medical conditions. - PT/OT after surgery. Patient amenable to rehab. (8) Anemia in chronic renal disease: Plan: Baseline hgb ranges from 9 - 11 mg/dL. Management per nephrology with EPO. Mild hemarthrosis represents acute blood loss anemia. - At low end of baseline, possibly due to the hemarthrosis. - Monitor (9) Cirrhosis: Plan: No acute management. Follow with [facility]. - Fluid management with dialysis (10) Hypothyroidism: Plan: TSH was 2.6 in 07/2021. No signs/symptoms of hypo-/hyperthyroidism. - Continue home Synthroid 100 mcg - Recheck TSH (11) Depression: Plan: - Continue sertraline (12) DVT prophylaxis: Plan: SCDs - Defer heparin until after surgery or per orthopedic service Admission and Anticipated Discharge Date Admission Date: October 08, 2021 Subjective Doing well today overall. She is mildly confused in that she remembers she broke her hip, but thought she had already had surgery and told me that it went well. Only after actually examining the hip (and noting no actual surgical incisions) did I realize this was incorrect. She gets slightly flustered with that, and does get somewhat off track by stating she's been to rehabs in the past, but not able to name any. Reports no fevers/chills, chest pain, shortness of breath, abdominal pain, nausea, or vomiting. Physical Exam Constitutional: WD/WN, vitals as above + acute distress Eyes: EOM intact bilaterally; no conjunctival abnormality ENMT: external ear and nose normal, oropharynx normal Neck: trachea midline, no thyromegaly normal visual inspection Respiratory: normal respiratory effort, lungs clear to auscultation no respiratory distress Cardiovascular: RRR, no murmur, no edema Gastrointestinal (Abdomen): Inspection/Auscultation: abdomen normal to inspection; abdomen not distended Musculoskeletal: Hip: + limited ROM of hip (Due to pain, passive and active); hip normal to inspection Skin: no rashes, warm and dry Neurologic: moves all extremities and awake Psychiatric: Orientation: alert, oriented to person and cooperative Results & Data Results & Data ([facility]) Vital Signs (Past 12 Hours) Vital Signs Temp Pulse Resp BP Pulse Ox 10/09/21 07:09 36.4 C L 55 L 17 117/60 97 PG Care Time/CCT Total # of Minutes Spent Total Time Spent with Patient: Total time spent is greater than 50% in coordination of care (as documented) at patient's floor/unit and/or counseling patient: Coding Level of Care Code 80726 Subseq Hosp Care Lvl 3 Diagnoses Closed left hip fracture S72.002A Left wrist pain M25.532 Nonspecific colitis K52.9 ESRD on hemodialysis N18.6; Z99.2 Pancytopenia D61.818 Frequent falls R29.6 Anemia in chronic renal disease N18.5; D63.1 Chronic kidney disease stage: stage 5, not on chronic dialysis Cirrhosis K74.60 Ascites presence: without ascites Hepatic cirrhosis type: unspecified hepatic cirrhosis HTN (hypertension) I10 Hypothyroidism E03.9 DVT prophylaxis Z29.9 Depression F32.9 (1) Anemia in chronic renal disease Chronic kidney disease stage: stage 5, not on chronic dialysis Qualified Code(s): N18.5 - Chronic kidney disease, stage 5; D63.1 - Anemia in chronic kidney disease (2) Cirrhosis Ascites presence: without ascites Hepatic cirrhosis type: unspecified hepatic cirrhosis Qualified Code(s): K74.60 - Unspecified cirrhosis of liver
--- NOTE | 2021-10-09 13:49 | Orthopedic Consultation ---
Date of Service October 09, 2021 Assessment & Plan (1) Closed left hip fracture: Patient's been medically optimized. With the treatment options were discussed and she elected proceed with IM nailing of left intertrochanteric hip fracture. She is certainly high risk. The risk meant this procedure explained to the patient in detail. She understands and desires to proceed. Informed consent was obtained. History of Present Illness Reason for Consultation: . Left intertrochanteric hip fracture Requesting Physician: . Attending Physician: Chapin Handley MD . 76-year-old female with multiple medical comorbidities sustained a fall yesterday. She had acute onset of pain unable to ambulate. She brought the emergency room where x-rays and CT scan suggested a intertrochanteric hip fracture. This was confirmed by MRI. Patient is indicated for surgical management. She has been medically optimized. She is at fairly high risk and she is aware of that. Allergies Allergy/AdvReac Type Severity Reaction Status Date / Time Cephalosporins Allergy Intermediate ertapenem Verified 10/08/21 09:25 ok from multiple occasions codeine Allergy Intermediate RASH Verified 10/08/21 09:25 levofloxacin Allergy Intermediate hives, Verified 10/08/21 09:25 itching, per patient tolerates Cipro lisinopril Allergy Intermediate HIVES, Verified 10/08/21 09:25 ITCHING morphine Allergy Intermediate HIVES Verified 10/08/21 09:25 Sulfa (Sulfonamide Allergy Intermediate Rash Verified 10/08/21 09:25 Antibiotics) meperidine Allergy Unknown HAD RXN IN Verified 10/08/21 09:25 RR Iodinated Contrast Media AdvReac Severe PT HAD A Verified 10/08/21 09:25 KIDNEY TRANSPLANT chlorhexidine AdvReac Intermediate RASH Verified 10/08/21 09:25 captopril AdvReac Mild ITCHING Verified 10/08/21 09:25 celecoxib AdvReac Mild ITCHING Verified 10/08/21 09:25 hydralazine AdvReac Mild ITCHING Verified 10/08/21 09:25 nitrofurantoin AdvReac Mild GI PROBLEMS Verified 10/08/21 09:25 Home Medications Medication Instructions Recorded Confirmed Type vit B complx, C-iron 8 mg-folic 1 tab PO QAM 12/25/18 10/08/21 History acid 800 mcg-D3 1,000 unit-zinc tablet (ProRenal) calcium acetate(phosphat bind) 667 1,334 mg PO TIDM #720 cap 07/29/19 10/08/21 Rx mg capsule ondansetron HCl 4 mg tablet 4 mg PO QID PRN #12 tab 12/06/19 10/08/21 Rx pantoprazole 40 mg tablet,delayed 40 mg PO QAM 10/19/20 10/08/21 History release metoprolol succinate 25 mg 25 mg PO BID #180 tab 01/03/21 10/08/21 Rx tablet,extended release 24 hr amlodipine 5 mg tablet 5 mg PO BID #180 tab 01/04/21 10/08/21 Rx clonidine HCl 0.2 mg tablet 0.2 mg PO HS #90 tab 03/11/21 10/08/21 Rx tramadol 50 mg tablet 50 mg PO TID PRN #30 tab 07/25/21 10/08/21 Rx Lactobacillus acidophilus and 1 cap PO DAILY 08/27/21 10/08/21 History rhamnosus 15 billion cell capsule (Probiotic) budesonide 3 mg 9 mg PO DAILY #90 ea 09/13/21 10/08/21 Rx capsule,delayed,extended release (Entocort EC) allopurinol 100 mg tablet 100 mg PO QAM #90 tab 09/18/21 10/08/21 Rx sertraline 25 mg tablet 25 mg PO DAILY #90 tab 09/18/21 10/08/21 Rx levothyroxine 100 mcg tablet 100 mcg PO DAILYBB 10/08/21 10/08/21 History Past Med/Surg History Medical History Anxiety HX OF Arachnoid cyst Ataxic gait Back pain with sciatica Benign familial tremor Breast mass, left Cardiac murmur Chronic abdominal pain Cirrhosis Clostridium difficile colitis Colitis Degenerative joint disease, ankle, left Depression HX OF ESRD on hemodialysis Gout, joint Hyperlipidemia Hypertension Hypothyroidism Lumbosacral radiculopathy Mild cognitive impairment MVP (mitral valve prolapse) Pancytopenia Peripheral neuropathy 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 CHAUDHARY) Sensorineural hearing loss (SNHL) of both ears Stomach ulcer Subarachnoid hemorrhage 5 YEARS AGO Transplanted organ rejection 1 TRANSPLANTED KIDNEY Traumatic injury of head Vitamin D deficiency Surgical History H/O: hysterectomy History of colonoscopy History of esophagogastroduodenoscopy (EGD) History of herniorrhaphy History of nephrectomy RT/LEFT REMOVED History of open reduction and internal fixation (ORIF) procedure LEFT ANKLE History of vascular access device A-PORT ACCESS LEFT SIDE (DIFFICULT IV STICK) Hx of cholecystectomy Status post hardware removal 12/2018 left ankle Family History Other Family history non-contributory Denies family history of Ovarian cancer Prostate cancer Crohn's disease Myocardial infarction Breast cancer Colorectal cancer Ulcerative colitis Social History Smoking Status: Never smoker Second Hand Exposure: No; Do You Dip or Chew Tobacco: No; Tobacco Cessation Education Requested by Patient: No Hx Alcohol Use: No Hx Substance Use: No Preferred Language: Bulgarian Communication Ability: Effective Bi Application Developer Required: No Beliefs That Will Affect Care: None marital status: Current Living Situation: Spouse How many Children do You have: 2 Other Information That Helps Us Care for You: No Feels Safe at Home: Yes Safety Concerns: Feels Safe At This Time caffeine: No during the past year weight has: remained stable Assistive Devices: Walker and Wheelchair Review of Systems All systems reviewed & are unremarkable except as noted in HPI & below. Physical Exam Stated . Physical examination reveals a frail elderly female.. General musculoskeletal exam reveals full painless range of motion of both upper extremities and the right lower extremity. Examination of left lower extremity reveals no visible deformity. She does have a some bruising over her hip area. She got multiple areas of bruising throughout. Skin is all intact. Leg lengths are equal. She has marked pain with any type of hip motion. No knee effusion. She is neurologically intact. Results & Data Results & Data Laboratory Results . Diagnostic Findings . X-rays of the left hip were reviewed. They show equivocal intertrochanteric hip fracture. CT scan was also reviewed. It shows a fracture but is difficult to determine the extent. Looks like at least the greater trochanter with may be some intertrochanteric extension. MRI was reviewed. It shows in the clear intertrochanteric hip fracture. Nondisplaced. PG Care Time/CCT Total # of Minutes Spent Total Time Spent with Patient: Total time spent is greater than 50% in coordination of care (as documented) at patient's floor/unit and/or counseling patient: Coding Level of Care Code 85379 Inpt Consult Level 5 Diagnoses Closed left hip fracture S72.002A
[2021-10-09] MEDS ORDERED: EPINEPHrine INJ 1 MG/ML AMP ONE (15:23)
[2021-10-09] MEDS ORDERED: BUPIVACAINE 0.5 % 5 MG/1 ML MPF 30ML VIAL ONE (15:23)
[2021-10-09] MEDS ORDERED: MIDAZOLAM HCL 1 MG/ML 2ML VIAL ONE (15:25)
[2021-10-09] MEDS ORDERED: DEXAMETHASONE SOD INJ 4 MG/ML VIAL ONE (15:25)
[2021-10-09] MEDS ORDERED: LIDOCAINE 2% 2 ML VIAL/AMP(20MG/ML) INFIL ONE (15:25)
[2021-10-09] MEDS ORDERED: PROPOFOL IV EMULSION 10 MG/ML 20 ML VIAL IV ONE (15:25)
[2021-10-09] MEDS ORDERED: fentaNYL citrate 100 MCG/2 ML VIAL ONE (15:25)
[2021-10-09] MEDS ORDERED: ONDANSETRON INJ 2 MG/ML 2 ML VIAL ONE (15:25)
[2021-10-09] MEDS ORDERED: ceFAZolin 1000MG 1,000 MG/7.5 ML SYR IV ONE (15:36)
[2021-10-09] MEDS ORDERED: ePHEDrine sulfate 50 MG/ML AMP IV PRN (16:39)
[2021-10-09] MEDS ORDERED: ONDANSETRON INJ 2 MG/ML 2 ML VIAL IV PRN (16:39)
[2021-10-09] MEDS ORDERED: ATROPINE SULFATE 0.1 MG/ML 10ML SYR IV PRN (16:39)
[2021-10-09] MEDS ORDERED: fentaNYL citrate 100 MCG/2 ML VIAL IV PRN (16:39)
--- NOTE | 2021-10-09 16:58 | Post Operative Brief Note ---
PG Immediate Post Op with CF Date of Surgery October 09, 2021 Pre & Post Diagnosis Operation Date: 10/09/21 08:20 Pre-Op Diagnosis: Left intertrochanteric HIP FRACTURE Post-Op Diagnosis: Left intertrochanteric HIP FRACTURE I identified the patient and participated in the time-out.: Yes Procedure Operation Date: 10/09/21 08:20 Actual Procedures p Left Hip Fracture Intramedullary West Femur(Left) - David Moise MD Surgeon David Moise MD Tuber Helper Miguel Ricardo PA-C Estimated Blood Loss 100 Findings Consistent with Post-Op Diagnosis Specimens Specimen Description: None as per Surgeon Anesthesia Type General Complications none
--- NOTE | 2021-10-09 17:19 | Fluoroscopy Report ---
FL hip LT 2-3V CLINICAL HISTORY: LT TROCH NAIL. Left hip fracture. COMPARISON STUDY: Left hip CT 10/08/2021. FLUOROSCOPY TIME: 58 seconds. FINDINGS: 4 fluoroscopic spot images of the left hip demonstrate internal fixation of a left femoral intertrochanteric fracture with intramedullary kemal and interlocking femoral neck pin. The hardware ap pears intact. Alignment appears near-anatomic. IMPRESSION: Fluoroscopic assistance provided for internal fixation of the left hip fracture ACT 112: Negative or not required by law. Electronically signed by: Antonino Oden M.D. 10/09/2021 5:17 PM
--- NOTE | 2021-10-09 17:38 | Anesthesiology Progress Note ---
Date of Service October 09, 2021 Anesthesia Post Procedure Vital Signs Vital Signs: Temp Pulse Pulse Pulse Resp BP BP 10/09/21 17:35 81 13 121/56 L 10/09/21 17:25 80 12 143/61 H 10/09/21 17:15 79 16 145/56 H 10/09/21 17:06 97.3 F L 86 16 146/77 H 10/09/21 14:39 98.6 F 69 69 16 137/43 L 10/09/21 07:09 97.5 F L 55 L 17 117/60 10/08/21 21:55 98.2 F 63 17 103/56 L 10/08/21 20:25 97.7 F 71 135/60 10/08/21 18:28 98.4 F 83 164/79 H 10/08/21 18:00 45 L 134/98 Pulse Ox 10/09/21 17:35 99 10/09/21 17:25 100 10/09/21 17:15 100 10/09/21 17:06 99 10/09/21 14:39 96 10/09/21 07:09 97 10/08/21 21:55 99 10/08/21 20:25 10/08/21 18:28 10/08/21 18:00 Pain Intensity Left Hip: Pain Intensity: 0 Transfer of Care Handoff Completed per policy Notes Mental Status: alert / awake / arousable and participated in evaluation Patient Amnestic to Procedure: Yes Nausea / Vomiting: adequately controlled Pain: adequately controlled Airway Patency, RR, SpO2: stable & adequate BP & HR: stable & adequate Hydration State: stable & adequate Anesthetic Complications: no major complications apparent and Pt Satisfied with anesthetic care
[2021-10-09] MEDS ORDERED: ONDANSETRON 4 MG OD TAB PO PRN (19:38)
[2021-10-09] MEDS: DOCUSATE SODIUM/SENNA 50/8.6MG TAB PO SCH (21:02)
[2021-10-09] MEDS: cloNIDine HCL 0.1 MG TAB PO SCH (21:03)
[2021-10-10] MEDS ORDERED: ceFAZolin 1000MG 1,000 MG/7.5 ML SYR IV ONE
[2021-10-10] MEDS: LEVOTHYROXINE SODIUM 100 MCG TABLET PO SCH (05:07)
[2021-10-10] MEDS: traMADol HCL 50 MG TABLET PO PRN ×2 (05:07→14:03)
[2021-10-10 07:18] LABS: Hematocrit (blood only) 26.4 % (37-47); Hemoglobin 8.2 g/dL (12.0-16.0); Mean Corpuscular Hemoglobin 35.2 pg (25-34); Mean Corpuscular Hgb Conc 31.1 g/dL (32-36); Mean Corpuscular Volume 113.3 fL (80-100); RDW Coefficient of Variation 18.9 % (11.5-14.5); RDW Standard Deviation 78.3 fL (36.4-46.3); Red Blood Count 2.33 M/uL (4.2-5.4); White Blood Count 5.24 K/uL (4.8-10.8)
[2021-10-10 07:24] LABS: Mean Platelet Volume 11.5 fL (7.4-10.4); Platelet Count 97 K/uL (130-400)
[2021-10-10 07:39] LABS: Basophils # (auto) 0.01 K/uL (0-0.2); Basophils % (auto) 0.2 %; Eosinophils # (auto) 0.03 K/uL (0-0.5); Eosinophils % (auto) 0.6 %; Immature Granulocytes # (auto) 0.01 K/uL (0.00-0.02); Immature Granulocytes % (auto) 0.2 %; Lymphocytes # (auto) 1.34 K/uL (1.2-3.4); Lymphocytes % (auto) 25.6 %; Macrocytosis Present; Monocytes # (auto) 0.64 K/uL (0.11-0.59); Monocytes % (auto) 12.2 %; Neutrophils # (auto) 3.21 K/uL (1.4-6.5); Neutrophils % (auto) 61.2 %; Polychromasia 1+; Tear Drop Cells 1+
[2021-10-10] MEDS: METOPROLOL SUCC 25MG EXT REL TAB PO SCH ×2 (07:50→21:15)
[2021-10-10] MEDS: amLODIPine BESYLATE 5 MG TAB PO SCH ×2 (07:50→21:15)
[2021-10-10] MEDS: PANTOprazole 40 MG TAB PO SCH (07:51)
[2021-10-10] MEDS: ADVANCED PROBIOTIC 1250 MG CAPSULE PO SCH (07:51)
[2021-10-10] MEDS: NEPHROCAPS PO SCH (07:51)
[2021-10-10] MEDS: allopurinoL 100 MG TAB PO SCH (07:51)
[2021-10-10] MEDS: CALCIUM ACETATE 667 MG CAP/TAB PO SCH ×3 (07:51→16:18)
[2021-10-10] MEDS: BUDESONIDE EC 3 MG CAP PO SCH (07:52)
[2021-10-10] MEDS: SERTRALINE HCL 50 MG TABLET PO SCH (07:52)
[2021-10-10 07:55] LABS: Thyroid Stimulating Hormone 5.186 uIu/ml (0.300-4.500)
[2021-10-10 08:07] LABS: BUN Creatinine Ratio 9.1 (10-20); Calcium 7.9 mg/dl (8.5-10.1); Creatinine Clr Calc Pharmacy 6.7 ml/min; Est GFR (African American) 6.8 ml/min; Est GFR (Non-African American) 5.9 ml/min; Magnesium 1.9 mg/dl (1.7-2.4); Potassium 4.4 mmol/L (3.5-5.1)
[2021-10-10 08:29] LABS: T4 Free Thyroxine 0.93 ng/dl (0.61-1.60)
[2021-10-10] MEDS ORDERED: EPOETIN ALFA 20,000 UNITS/ML VIAL IV STA (08:34)
[2021-10-10] MEDS: HYDROmorphone INJ 0.5 MG/0.5 ML SYR IV PRN ×2 (09:07→16:18)
--- NOTE | 2021-10-10 11:23 | Nephrology Progress Note ---
Date of Service October 10, 2021 Assessment & Plan (1) ESRD on hemodialysis: (2) Closed left hip fracture: (3) Frequent falls: (4) Anemia in chronic renal disease: (5) HTN (hypertension): Plan: End-stage renal disease on hemodialysis, admitted with fall at home and left hip fracture. blood pressure, electrolyte, volume status acceptable. Had femoral IM kemal for left hip fracture on 10/09/21. --dialysis today as her regular schedule. --will give CARMINE with HD --Left arm nephrology precaution, does meds for eGFR less than 10 Will follow. Admission and Anticipated Discharge Date Admission Date: October 08, 2021 Cesia Fernandes was in a lot of distress this morning with pain in her hip as well as some confusion. She has been somewhat forgetful lately. blood pressure, electrolyte and vital sign otherwise stable. Volume status acceptable. Review of Systems Review of Systems: detailed review of system was otherwise unremarkable except mentioned above. Physical Exam Constitutional: WD/WN, vitals as above + acute distress (with pain) and + ill appearing Respiratory: no respiratory distress Auscultation: lungs clear to auscultation bilaterally Cardiovascular: Rate/Rhythm: regular rate and regular rhythm Heart Sounds: normal S1 and normal S2 Extremities: + AV fistula; no edema Skin: + turgor decreased and + skin atrophy Neurologic: no focal motor deficits Psychiatric: Orientation: alert Affect: euthymic affect confused, forgetful Results & Data ([facility]) Vital Signs (Past 12 Hours) Vital Signs Temp Pulse Pulse Resp BP Pulse Ox 10/10/21 10:18 37.1 C 72 10/10/21 07:36 36.5 C 71 16 117/53 L 100 10/10/21 02:07 37.4 C 74 16 90/56 L 98 PG Care Time/CCT Total # of Minutes Spent Total Time Spent with Patient: Total time spent is greater than 50% in coordination of care (as documented) at patient's floor/unit and/or counseling patient: Coding Level of Care Code 26838 Subseq Hosp Care Lvl 2 Diagnoses ESRD on hemodialysis N18.6; Z99.2 Closed left hip fracture S72.002A Frequent falls R29.6 Anemia in chronic renal disease N18.5; D63.1 Chronic kidney disease stage: stage 5, not on chronic dialysis HTN (hypertension) I10 (1) Anemia in chronic renal disease Chronic kidney disease stage: stage 5, not on chronic dialysis Qualified Code(s): N18.5 - Chronic kidney disease, stage 5; D63.1 - Anemia in chronic kidney disease
--- NOTE | 2021-10-10 12:04 | Hospitalist Progress Note ---
Date of Service October 10, 2021 Assessment & Plan (1) Closed left hip fracture: Plan: MRI of left hip on 10/08 showed "Acute intertrochanteric fracture of the left femur." - Consulted orthopedics -> S/p left intramedullary kemal with Dr. Moise on 10/09. - Pain control PRN - Now with some expected post-operative acute blood loss anemia. Will give IV iron if ok with nephrology. Given EPO at HD on 10/10. (2) Left wrist pain: Plan: XR left wrist on 10/08 showed "Subtle dorsal cortical buckling of the distal radial metaphysis" which is equivocal for a non-displaced fracture. - Orthopedics consulted -> Reached out to Ortho on 10/10 as they had not addressed this in their original consult. (3) Nonspecific colitis: Plan: No diarrhea but has chronic abdominal pain and proctocolitis on CT despite budesonide use. - GI consulted - Recommend conservative management. Continue home budesonide. (4) ESRD on hemodialysis: Plan: - Avoid IV fluids - Consult nephrology for dialysis management, due MWF. HD today. (5) HTN (hypertension): Plan: BP today is 115/50. - Continue home meds: * Amlodipine 5mg PO BID * Clonidine 0.2mg HS * Metoprolol succinate 25mg PO BID - HD attempting to take 2L off today. (6) Pancytopenia: Plan: At baseline, secondary to ESRD & cirrhosis. - Monitor (7) Frequent falls: Plan: Suspected secondary to multiple medical conditions. - PT/OT after surgery. Patient amenable to rehab. (8) Anemia in chronic renal disease: Plan: Baseline hgb ranges from 9 - 11 mg/dL. Management per nephrology with EPO. Mild hemarthrosis represents acute blood loss anemia. - At low end of baseline, possibly due to the hemarthrosis. - Monitor (9) Cirrhosis: Plan: No acute management. Follow with [facility]. - Fluid management with dialysis (10) Hypothyroidism: Plan: TSH was 2.6 in 07/2021. Now TSH is 5.2, but FT4 is 0.9 (normal). No signs/symptoms of hypo-/hyperthyroidism. - Continue home Synthroid 100 mcg - Recheck TSH in 6 weeks. (11) Depression: Plan: - Continue sertraline (12) DVT prophylaxis: Plan: SCDs - Defer to orthopedic service Admission and Anticipated Discharge Date Admission Date: October 08, 2021 Subjective Seen in dialysis unit. Reports lower abdominal pain as well as pain in the left hip. She does wince as she tries to shift in the bed. Reports no fevers/chills, chest pain, shortness of breath, nausea, or vomiting. Does seem forgetful and ke eps moving her left arm despite being hooked up to the HD lines. Says something like, "Well, I did have dialysis today." despite obviously still being in dialysis. Physical Exam Constitutional: WD/WN, vitals as above + acute distress Eyes: EOM intact bilaterally; no conjunctival abnormality ENMT: external ear and nose normal, oropharynx normal Neck: trachea midline, no thyromegaly normal visual inspection Respiratory: normal respiratory effort, lungs clear to auscultation no respiratory distress Cardiovascular: RRR, no murmur, no edema Gastrointestinal (Abdomen): Inspection/Auscultation: abdomen normal to inspection; abdomen not distended Musculoskeletal: no cyanosis or clubbing, extremities motor strength 5/5 Hip: + surgical incision (Covered with bandage) and + limited ROM of hip (Due to pain, passive and active) Skin: no rashes, warm and dry Neurologic: moves all extremities and awake Psychiatric: Orientation: alert, oriented to person and cooperative Results & Data Results & Data ([facility]) Vital Signs (Past 12 Hours) Vital Signs Temp Pulse Pulse Pulse Resp BP BP 10/10/21 11:20 72 113/47 L 10/10/21 11:00 56 L 100/83 10/10/21 10:40 70 112/52 L 10/10/21 10:22 70 120/45 L 10/10/21 10:18 37.1 C 72 10/10/21 07:36 36.5 C 71 16 117/53 L 10/10/21 02:07 37.4 C 74 16 90/56 L Pulse Ox 10/10/21 11:20 10/10/21 11:00 10/10/21 10:40 10/10/21 10:22 10/10/21 10:18 10/10/21 07:36 100 10/10/21 02:07 98 PG Care Time/CCT Total # of Minutes Spent Total Time Spent with Patient: Total time spent is greater than 50% in coordination of care (as documented) at patient's floor/unit and/or counseling patient: Coding Level of Care Code 50175 Subseq Hosp Care Lvl 3 Diagnoses Closed left hip fracture S72.002A Left wrist pain M25.532 Nonspecific colitis K52.9 ESRD on hemodialysis N18.6; Z99.2 HTN (hypertension) I10 Pancytopenia D61.818 Frequent falls R29.6 Anemia in chronic renal disease N18.5; D63.1 Chronic kidney disease stage: stage 5, not on chronic dialysis Cirrhosis K74.60 Ascites presence: without ascites Hepatic cirrhosis type: unspecified hepatic cirrhosis Hypothyroidism E03.9 Depression F32.9 DVT prophylaxis Z29.9 (1) Anemia in chronic renal disease Chronic kidney disease stage: stage 5, not on chronic dialysis Qualified Code(s): N18.5 - Chronic kidney disease, stage 5; D63.1 - Anemia in chronic kidney disease (2) Cirrhosis Ascites presence: without ascites Hepatic cirrhosis type: unspecified hepatic cirrhosis Qualified Code(s): K74.60 - Unspecified cirrhosis of liver
--- NOTE | 2021-10-10 13:53 | Operative Report ---
PG Post Operative Report Pre & Post Diagnosis Operation Date: 10/09/21 08:20 Pre-Op Diagnosis: Left intertrochanteric HIP FRACTURE Post-Op Diagnosis: Left intertrochanteric HIP FRACTURE I identified the patient and participated in the time-out.: Yes Procedure Operation Date: 10/09/21 08:20 Actual Procedures p Left Hip Fracture Intramedullary West Femur(Left) - David Moise MD Surgeon David Moise MD Advanced Manufacturing Engineer Miguel Ricardo PA-C Estimated Blood Loss 100 Findings Consistent with Post-Op Diagnosis Specimens None Anesthesia Type General Complications none Disposition Accompanied Patient To Recovery: No Indications She is a 76-year-old female with multiple medical comorbidities who sustained a fall prior to admission. She had acute onset of pain and unable to ambulate. She was admitted the hospital with a distal intertrochanteric hip fracture. This is confirmed by MRI. Patient indicated for surgical management. Description of Procedure Of implants consist of: 1. Synthes left 360 mm x 11 mm long trochanteric nail 2. 95 mm helical blade. 3. 5.0 distal interlocking screw x1. Patient was taken to the operating, identified, placed on the operating table supine position. All contact areas were properly padded. IV antibiotics tried by anesthesia team. A general anesthetic was implemented. The patient then placed on the fracture table. The left leg was placed in boot traction the right leg was placed in a well leg jerry. Applied some longitudinal traction to the left leg and internally rotated foot so the kneecap pointed to the ceiling. X-rays brought in. We verified the reduction and the fracture was anatomically aligned. The left hip and leg were then scrubbed with Hibiclens, prepped with ChloraPrep and draped in usual sterile fashion. A slightly curvilinear incision was made at the tip of the trochanter and extending slightly proximal. Blunt dissection got through subcutaneous tissue down to level gluteal fascia gluteal fascia was incised longitudinally in line with skin incision. I then placed a guidewire just lateral to the tip of the trochanter on both AP and lateral films and in line with the IM canal and then advanced down the IM canal. This was verified fluoroscopically. I then overreamed this with the larger reamer. The guidewire was removed. A ball- tipped guidewire was placed clear. We measured for nail length and a 360 mm nail was selected. I did place a 12 and half millimeter reamer down the canal x1. I then placed the 360 mm x 11 mm left long trochanteric nail over the guidewire. Guidewire was removed. The nail was tapped into position. The arm was at attached the nail and advanced to the lateral aspect of the femur after making a stab incision. The guidewire was placed in the central aspect of the femoral head neck in both AP and lateral planes. The guidewire was measured. A 90 and 5 mm helical blade was selected. The cortical step drill was used to breach the lateral cortex and then the triple reamer set at 95 with advanced over the guidewire. An tiny 5 mm helical blade was then placed over the guidewire and tapped in position. This was verified fluoroscopically. The proximal setscrew was tightened and some final x-rays were obtained. The operating device was removed. Attention drawn toward distal interlocking. Using the perfect [place] technique the distal interlocking screw was placed in the dynamic hole. It was made. The drill was used to create the path under fluoroscopic guidance. A 5.0 mm distal interlocking screw was placed. This is verified fluoroscopically. Attention drawn toward closing. All wounds irrigated scope soft with normal saline. I did inject locally with 30 cc of half percent Marcaine with epinephrine. The gluteal fascia was then closed #1 Vicryl suture in running fashion for subcutaneous tissues of all wounds were then closed in 2 layers with a deep layer #1 Vicryl suture and subcutaneous tissues with 2-0 Dexon suture in a buried interrupted fashion. Skin was closed skin estefani. Leg was then cleaned and dried a sterile dressing with Xeroform, 4 x 4's, ABD pad, foam tape was applied. The patient was then brought out of general esthesia. She was taken off the fracture table and transferred to the recovery room in stable condition. Patient tolerated procedure well and there were no complications. Miguel Ricardo, my physician assistant sales center manager, was present for the entire procedure. His assistance was required for proper patient positioning, prepping and draping, surgical exposure, retraction, perform technical details the operation, closure of wound, placement of the sterile bandage. I attest to the content of the Intraoperative Record and any orders documented therein. Any exceptions are noted below.
--- NOTE | 2021-10-10 14:18 | Progress Notes ---
DATE OF SERVICE: 10/10/2021. SUBJECTIVE: A 76-year-old white female with multiple medical comorbidities. Postoperative day 1 fro m IM nailing of a left intertrochanteric fracture. She just got back from dialysis. She is doing re asonably well. Really not much pain at all while resting. Complains of pain just with motion. She does state that she has got some mild wrist pain. OBJECTIVE: VITAL SIGNS: Temperature 37.1. Vital signs are stable. PHYSICAL EXAMINATION: GENERAL: Shows a pleasant, elderly, frail female. She is sitting up in bed and looks pretty comfort able. EXTREMITIES: Examination of the left hip reveals the leg to be well aligned. Dressing is clean, dry and intact. She can dorsiflex and plantarflex her foot appropriately. She is neurologically intact . Examination of the left wrist reveals diffuse bruising on the arm. There is no real swelling. Mild tenderness. Fairly normal and appropriate wrist motion. She is neurologically intact. LABORATORY DATA: Hemoglobin 8.2. Hematocrit 26.4. Electrolytes are stable. ASSESSMENT: A 76-year-old female with multiple medical comorbidities, now postoperative day 1 from i ntramedullary nailing of a left intertrochanteric fracture. She also has some wrist pain, but I do n ot see any signs of any true fracture on x-ray and her examination is pretty benign. PLAN: 1. DVT prophylaxis includes thigh-high TEDs and SCDs. I do not think she is a candidate for more ag gressive anticoagulation due to her low platelets. 2. PT/OT. She can weight bear as tolerated in the left lower extremity. 3. Pain control, doing okay with current pain regimen. 4. Left wrist pain. We will get her a cock-up wrist splint to wear as needed. I do not think there is any true fracture. 5. Medical management as per the medicine doctors. 6. Disposition is pending. She will likely need a rehab stay. Job ID: [id number]
[2021-10-10] MEDS: cloNIDine HCL 0.1 MG TAB PO SCH (21:15)
[2021-10-10] MEDS: DOCUSATE SODIUM/SENNA 50/8.6MG TAB PO SCH (21:15)
[2021-10-11] MEDS: traMADol HCL 50 MG TABLET PO PRN ×3 (00:46→12:50)
[2021-10-11] MEDS: LEVOTHYROXINE SODIUM 100 MCG TABLET PO SCH (05:29)
[2021-10-11 06:25] LABS: Hematocrit (blood only) 22.9 % (37-47); Hemoglobin 7.1 g/dL (12.0-16.0); Mean Corpuscular Hemoglobin 35.1 pg (25-34); Mean Corpuscular Volume 113.4 fL (80-100); RDW Coefficient of Variation 18.3 % (11.5-14.5); Red Blood Count 2.02 M/uL (4.2-5.4); White Blood Count 4.87 K/uL (4.8-10.8)
[2021-10-11 06:50] LABS: Mean Platelet Volume 10.1 fL (7.4-10.4); Platelet Count 81 K/uL (130-400)
[2021-10-11 06:56] LABS: Basophils # (auto) 0.02 K/uL (0-0.2); Basophils % (auto) 0.4 %; Eosinophils # (auto) 0.03 K/uL (0-0.5); Eosinophils % (auto) 0.6 %; Immature Granulocytes # (auto) 0.01 K/uL (0.00-0.02); Immature Granulocytes % (auto) 0.2 %; Lymphocytes # (auto) 0.98 K/uL (1.2-3.4); Lymphocytes % (auto) 20.1 %; Macrocytosis Present; Monocytes # (auto) 0.68 K/uL (0.11-0.59); Neutrophils # (auto) 3.15 K/uL (1.4-6.5); Neutrophils % (auto) 64.7 %; Polychromasia 1+
--- NOTE | 2021-10-11 07:44 | Progress Notes ---
DATE OF SERVICE: 10/11/2021. SUBJECTIVE: A 76-year-old white female postop day 2 from IM nailing of left intertrochanteric fractu re. She is doing pretty well. She appears comfortable this morning. No new complaints. OBJECTIVE: VITAL SIGNS: Temperature 37.2. Vital signs stable. GENERAL: Physical examination shows a frail, elderly female. She is lying in bed, looks pretty comf ortable. EXTREMITIES: Examination of the left leg reveals the dressing to be clean, dry and intact. There is no significant discharge. She can dorsiflex and plantarflex her foot appropriately. Fairly mild pa in with hip motion. Examination of the left wrist reveals diffuse bruising. No obvious deformity. Mild diffuse tenderness. She is neurologically intact. LABORATORY DATA: Hemoglobin 7.1. Hematocrit 22.9. ASSESSMENT: A 76-year-old female postoperative day 2 from IM nailing of left intertrochanteric fract ure with some degree of a left wrist injury. No obvious fracture in the wrist. She is anemic. She has got multiple medical comorbidities, but appears fairly stable. PLAN: 1. DVT prophylaxis includes thigh-high TEDs and SCDs. I do not think she is a candidate for more ag gressive anticoagulation considering her platelet dysfunction. 2. PT/OT. She can weight bear as tolerated. 3. Pain control, doing okay with current pain regimen. 4. Left wrist injury. We are awaiting getting a cock-up wrist splint that she will wear for 1 month . 5. Anemia. Currently, asymptomatic. Will let medicine determine whether to give any blood. This w ill have to be balanced with her dialysis. 6. Disposition: She is orthopedically okay for discharge any time medically stable. I need to see her back two to three weeks out from surgery date. Wrist splint for the left wrist. Call with any questions. Job ID: [id number]
[2021-10-11] MEDS ORDERED: ACETAMINOPHEN 500 MG TAB PO PRN ×2 (08:20→12:30)
[2021-10-11] MEDS: HYDROmorphone INJ 0.5 MG/0.5 ML SYR IV PRN (09:18)
[2021-10-11] MEDS: ADVANCED PROBIOTIC 1250 MG CAPSULE PO SCH (09:23)
[2021-10-11] MEDS: PANTOprazole 40 MG TAB PO SCH (09:23)
[2021-10-11] MEDS: CALCIUM ACETATE 667 MG CAP/TAB PO SCH ×3 (09:23→18:10)
[2021-10-11] MEDS: amLODIPine BESYLATE 5 MG TAB PO SCH ×2 (09:23→21:38)
[2021-10-11] MEDS: allopurinoL 100 MG TAB PO SCH (09:23)
[2021-10-11] MEDS: SERTRALINE HCL 50 MG TABLET PO SCH (09:23)
[2021-10-11] MEDS: BUDESONIDE EC 3 MG CAP PO SCH (09:23)
[2021-10-11] MEDS: METOPROLOL SUCC 25MG EXT REL TAB PO SCH ×2 (09:23→21:39)
[2021-10-11] MEDS: NEPHROCAPS PO SCH (09:23)
--- NOTE | 2021-10-11 10:42 | Nephrology Progress Note ---
Date of Service October 11, 2021 Assessment & Plan (1) ESRD on hemodialysis: (2) Closed left hip fracture: (3) Frequent falls: (4) Anemia in chronic renal disease: (5) HTN (hypertension): Plan: End-stage renal disease on hemodialysis, admitted with fall at home and left hip fracture. blood pressure, electrolyte, volume status acceptable. Had femoral IM kemal for left hip fracture on 10/09/21. -- the had dialysis yesterday, uneventful, blood pressure, electrolyte volume status acceptable. Received Epogen with dialysis yesterday. Hemoglobin has been dropping since the surgery. Recommend monitoring H&H Q 12 hours, if hemoglobin less than 7, may need blood transfusion. --Left arm nephrology precaution, does meds for eGFR less than 10 Will follow. Admission and Anticipated Discharge Date Admission Date: October 08, 2021 Cesia Fernandes was again in a lot of distress this morning with pain in her hip and continues to have some confusion and forgetful lately. blood pressure, electrolyte and vital sign otherwise stable. Volume status acceptable. hemoglobin has been dropping, dropped to 7.1 this morning. Review of Systems Review of Systems: detailed review of system was otherwise unremarkable except mentioned above. Physical Exam Constitutional: WD/WN, vitals as above + acute distress (with pain) and + ill appearing Respiratory: no respiratory distress Auscultation: lungs clear to auscultation bilaterally Cardiovascular: Rate/Rhythm: regular rate and regular rhythm Heart Sounds: normal S1 and normal S2 Extremities: + AV fistula; no edema Skin: + turgor decreased and + skin atrophy Neurologic: no focal motor deficits Psychiatric: Orientation: alert Affect: euthymic affect confused, forgetful Results & Data ([facility]) Vital Signs (Past 12 Hours) Vital Signs Temp Pulse Resp BP Pulse Ox 10/11/21 07:16 36.6 C 75 16 120/69 98 PG Care Time/CCT Total # of Minutes Spent Total Time Spent with Patient: Total time spent is greater than 50% in coordination of care (as documented) at patient's floor/unit and/or counseling patient: Coding Level of Care Code 63911 Subseq Hosp Care Lvl 3 Diagnoses ESRD on hemodialysis N18.6; Z99.2 Closed left hip fracture S72.002A Frequent falls R29.6 Anemia in chronic renal disease N18.5; D63.1 Chronic kidney disease stage: stage 5, not on chronic dialysis HTN (hypertension) I10 (1) Anemia in chronic renal disease Chronic kidney disease stage: stage 5, not on chronic dialysis Qualified Code(s): N18.5 - Chronic kidney disease, stage 5; D63.1 - Anemia in chronic kidney disease
--- NOTE | 2021-10-11 12:16 | Hospitalist Progress Note ---
Date of Service October 11, 2021 Assessment & Plan (1) Closed left hip fracture: Plan: MRI of left hip on 10/08 showed "Acute intertrochanteric fracture of the left femur." - Consulted orthopedics -> S/p left intramedullary kemal with Dr. Moise on 10/09. - Pain control PRN - Tramadol; can use Tylenol PRN and will keep to 2 g or less a day given H/O cirrhosis - Now with some expected post-operative acute blood loss anemia. Given EPO at HD on 10/10. -- Hgb 7.1 on AM labs -- will repeat this afternoon -- currently asymptomatic and vitals stable (2) Left wrist pain: Plan: XR left wrist on 10/08 showed "Subtle dorsal cortical buckling of the distal radial metaphysis" which is equivocal for a non-displaced fracture. - Orthopedics consulted -> Reached out to Ortho on 10/10 as they had not addressed this in their original consult. - Orthotic consulted - cock-up splint to wear x 1 month (3) Nonspecific colitis: Plan: No diarrhea but has chronic abdominal pain and proctocolitis on CT despite budesonide use. -- Stool PCR negative on last admission - is a c. diff carrier and stool calprotectin elevated at 328 - GI consulted - Recommend conservative management. Continue home budesonide. (4) ESRD on hemodialysis: Plan: - Avoid IV fluids - Consult nephrology for dialysis management, due MWF (5) HTN (hypertension): Plan: - STABLE - Continue home meds: * Amlodipine 5mg PO BID * Clonidine 0.2mg HS * Metoprolol succinate 25mg PO BID (6) Pancytopenia: Plan: At baseline, secondary to ESRD & cirrhosis. - Monitor (7) Frequent falls: Plan: Suspected secondary to multiple medical conditions. - PT/OT after surgery. Patient amenable to rehab. (8) Anemia in chronic renal disease: Plan: Baseline hgb ranges from 9 - 11 mg/dL. Management per nephrology with EPO. Mild hemarthrosis represents acute blood loss anemia. - Currently at 7.1, possibly due to the hemarthrosis. - Monitor (9) Cirrhosis: Plan: No acute management. Follow with [facility]. - Fluid management with dialysis (10) Hypothyroidism: Plan: TSH was 2.6 in 07/2021. Now TSH is 5.2, but FT4 is 0.9 (normal). No signs/symptoms of hypo-/hyperthyroidism. - Continue home Synthroid 100 mcg - Recheck TSH in 6 weeks. (11) Depression: Plan: - Continue sertraline (12) DVT prophylaxis: Plan: SCDs - Defer to orthopedic service Plan: Plan for rehab at [facility] (suspect more SNF level); orthopedically stable but will need to monitor Hgb prior to determining medical stability for discharge. Will update Owens today Admission and Anticipated Discharge Date Admission Date: October 08, 2021 Supervising Physician Co-Signing Physician Notes Attending Attestation - Chart reviewed, care plan d/w ERIC Kunz. I agree w/ the costa components of her documentation. Grabiel Oro MD Subjective No acute events overnight. Patient is pleasantly confused which is normal for her. She does do better when is present. She reports she is having a wonderful day but having hip pain. Then stated she hasn't looked out the window once today which is unusual for her. She is more talkative today compared to my last admission encounter with her. Review of Systems Review of Systems: All systems reviewed & are unremarkable except as noted in Subjective Physical Exam Physical Exam: PHYSICAL EXAM General Appearance: WDWN in NAD who is A&O x 1 HEENT: Head is normocephalic; ecchymosis noted to upper mid-lip; EOMI; PERRLA; Hearing grossly intact; Mucous membranes moist; small area of blood in L sclera Neck: Supple; Trachea midline; Neg JVD Heart: RRR with no M/G/R Lungs: CTA in all lung wesley bilaterally; Respirations unlabored; Neg accessory muscle use Abdomen: Soft, non-tender, non-distended; Positive BS x 4 quadrants Extremities: Neg cyanosis or edema; distal surgical incision open to air which is well-approximated with estefani in place; proximal surgical incision with dressing in place that is C/D/I; L wrist with swelling Neurological: Speech clear; Gross motor/sensory function intact; Neg focal neurologic deficits Psychiatric: Appropriate mood/affect Skin: Normal Color; Warm/Dry; significant ecchymosis on bilateral arms Results & Data Results & Data ([facility]) Vital Signs (Past 12 Hours) Vital Signs Temp Pulse Resp BP Pulse Ox 10/11/21 07:16 36.6 C 75 16 120/69 98 PG Care Time/CCT Total # of Minutes Spent Total Time Spent with Patient: Total time spent is greater than 50% in coordination of care (as documented) at patient's floor/unit and/or counseling patient: Coding Level of Care Code 97906 Subseq Hosp Care Lvl 3 Diagnoses Closed left hip fracture S72.002A Left wrist pain M25.532 Nonspecific colitis K52.9 ESRD on hemodialysis N18.6; Z99.2 HTN (hypertension) I10 Pancytopenia D61.818 Frequent falls R29.6 Anemia in chronic renal disease N18.5; D63.1 Chronic kidney disease stage: stage 5, not on chronic dialysis Cirrhosis K74.60 Ascites presence: without ascites Hepatic cirrhosis type: unspecified hepatic cirrhosis Hypothyroidism E03.9 Depression F32.9 DVT prophylaxis Z29.9 (1) Cirrhosis Ascites presence: without ascites Hepatic cirrhosis type: unspecified hepatic cirrhosis Qualified Code(s): K74.60 - Unspecified cirrhosis of liver (2) Anemia in chronic renal disease Chronic kidney disease stage: stage 5, not on chronic dialysis Qualified Code(s): N18.5 - Chronic kidney disease, stage 5; D63.1 - Anemia in chronic kidney disease
[2021-10-11 16:47] LABS: Hematocrit (blood only) 18.6 % (37-47); Hemoglobin 5.9 g/dL (12.0-16.0); Mean Corpuscular Hemoglobin 35.3 pg (25-34); Mean Corpuscular Hgb Conc 31.7 g/dL (32-36); Mean Corpuscular Volume 111.4 fL (80-100); RDW Coefficient of Variation 17.9 % (11.5-14.5); RDW Standard Deviation 73.6 fL (36.4-46.3); Red Blood Count 1.67 M/uL (4.2-5.4); White Blood Count 4.41 K/uL (4.8-10.8)
[2021-10-11] MEDS ORDERED: SODIUM CHLORIDE 0.9% 250 ML IV PRN (16:53)
[2021-10-11 17:05] LABS: Mean Platelet Volume 9.9 fL (7.4-10.4); Platelet Count 66 K/uL (130-400); Platelet Estimate Decreased (Normal)
[2021-10-11] MEDS: cloNIDine HCL 0.1 MG TAB PO SCH (21:38)
[2021-10-11] MEDS: DOCUSATE SODIUM/SENNA 50/8.6MG TAB PO SCH (21:39)
[2021-10-12] MEDS: LEVOTHYROXINE SODIUM 100 MCG TABLET PO SCH (05:49)
[2021-10-12 06:21] LABS: Hematocrit (blood only) 27.6 % (37-47); Hemoglobin 9.2 g/dL (12.0-16.0); Mean Corpuscular Hemoglobin 34.1 pg (25-34); Mean Corpuscular Hgb Conc 33.3 g/dL (32-36); Mean Corpuscular Volume 102.2 fL (80-100); Mean Platelet Volume 10.8 fL (7.4-10.4); Platelet Count 71 K/uL (130-400); RDW Coefficient of Variation 20.1 % (11.5-14.5); White Blood Count 4.04 K/uL (4.8-10.8)
[2021-10-12 08:11] LABS: Anisocytosis Present; Eosinophils # (auto) 0.04 K/uL (0-0.5); Immature Granulocytes # (auto) 0.01 K/uL (0.00-0.02); Immature Granulocytes % (auto) 0.2 %; Lymphocytes # (auto) 0.87 K/uL (1.2-3.4); Lymphocytes % (auto) 21.5 %; Monocytes # (auto) 0.41 K/uL (0.11-0.59); Monocytes % (auto) 10.1 %; Neutrophils # (auto) 2.71 K/uL (1.4-6.5); Neutrophils % (auto) 67.2 %
[2021-10-12] MEDS: NEPHROCAPS PO SCH (08:58)
[2021-10-12] MEDS: BUDESONIDE EC 3 MG CAP PO SCH (08:58)
[2021-10-12] MEDS: ADVANCED PROBIOTIC 1250 MG CAPSULE PO SCH (08:58)
[2021-10-12] MEDS: allopurinoL 100 MG TAB PO SCH (08:58)
[2021-10-12] MEDS: PANTOprazole 40 MG TAB PO SCH (08:58)
[2021-10-12] MEDS: CALCIUM ACETATE 667 MG CAP/TAB PO SCH ×3 (08:58→16:06)
[2021-10-12] MEDS: METOPROLOL SUCC 25MG EXT REL TAB PO SCH ×2 (08:59→21:07)
[2021-10-12] MEDS: SERTRALINE HCL 50 MG TABLET PO SCH (08:59)
--- NOTE | 2021-10-12 12:09 | Nephrology Progress Note ---
Date of Service October 12, 2021 Assessment & Plan (1) ESRD on hemodialysis: (2) Closed left hip fracture: (3) Frequent falls: (4) Anemia in chronic renal disease: (5) HTN (hypertension): Plan: End-stage renal disease on hemodialysis, admitted with fall at home and left hip fracture. blood pressure, electrolyte, volume status acceptable. Had femoral IM kemal for left hip fracture on 10/09/21. Significant drop in hemoglobin yesterday to below 6 requiring 2 units of blood transfusion with expected improvement of hemoglobin above 9. volume status and blood pressure acceptable. -- Plan for dialysis this afternoon as regular schedule. -- Received Epogen with last dialysis yesterday. will give another dose today.. --Left arm nephrology precaution, does meds for eGFR less than 10 Will follow. Admission and Anticipated Discharge Date Admission Date: October 08, 2021 Cesia Sherman was seen this morning, she remained confused however denies any significant pain today. Hemoglobin improved to above 9 after 2 units of blood transfusion yesterday. Denies shortness or breath or chest pain. Blood pressure has been acceptable. Review of Systems Review of Systems: detailed review of system was otherwise unremarkable except mentioned above. Physical Exam Constitutional: WD/WN, vitals as above + acute distress (with pain) and + ill appearing Respiratory: no respiratory distress Auscultation: lungs clear to auscultation bilaterally Cardiovascular: Rate/Rhythm: regular rate and regular rhythm Heart Sounds: normal S1 and normal S2 Extremities: + AV fistula; no edema Skin: + turgor decreased and + skin atrophy Neurologic: no focal motor deficits Psychiatric: Orientation: alert Affect: euthymic affect confused, forgetful Results & Data ([facility]) Vital Signs (Past 12 Hours) Vital Signs Temp Pulse Pulse Resp BP BP Pulse Ox 10/12/21 11:26 36.9 C 71 14 120/62 99 10/12/21 07:35 36.6 C 66 14 102/54 L 96 10/12/21 01:05 36.6 C 66 14 113/68 96 10/12/21 00:29 36.5 C 63 16 103/64 98 PG Care Time/CCT Total # of Minutes Spent Total Time Spent with Patient: Total time spent is greater than 50% in coordination of care (as documented) at patient's floor/unit and/or counseling patient: Coding Level of Care Code 49609 Subseq Hosp Care Lvl 2 Diagnoses ESRD on hemodialysis N18.6; Z99.2 Closed left hip fracture S72.002A Frequent falls R29.6 Anemia in chronic renal disease N18.5; D63.1 Chronic kidney disease stage: stage 5, not on chronic dialysis HTN (hypertension) I10 (1) Anemia in chronic renal disease Chronic kidney disease stage: stage 5, not on chronic dialysis Qualified Code(s): N18.5 - Chronic kidney disease, stage 5; D63.1 - Anemia in chronic kidney disease
[2021-10-12] MEDS ORDERED: EPOETIN ALFA 20,000 UNITS/ML VIAL IV ONE (12:10)
--- NOTE | 2021-10-12 12:42 | Progress Notes ---
DATE OF SERVICE: 10/12/2021. SUBJECTIVE: A 76-year-old female with multiple medical comorbidities, now postoperative day #3 from IM nailing of left intertrochanteric fracture. She is doing pretty well. Pain seems to be getting b janet daily. She continues to have some mild wrist discomfort. No other real complaints. OBJECTIVE: VITAL SIGNS: Temperature 36.9. Vital signs are stable. PHYSICAL EXAMINATION: GENERAL: Shows a pleasant, elderly female. I had to wake her this afternoon. EXTREMITIES: Examination of the left hip and leg reveals the wounds to be clean, dry and intact. No drainage. Leg lengths equal. Mild pain with hip motion. She is neurologically intact. LABORATORY DATA: Hemoglobin 9.2. Hematocrit 27.6. ASSESSMENT: A 76-year-old female with multiple medical comorbidities, now postoperative day 3 from i ntramedullary nailing of left intertrochanteric fracture. She did have a mild left wrist injury and has got a cock-up splint in place. PLAN: 1. DVT prophylaxis includes thigh-high TEDs and SCDs. Not really a candidate for more aggressive an ticoagulation due to her platelet issues. 2. PT/OT. She can weight bear as tolerated in the left lower extremity. 3. Pain control, doing okay with current pain regimen. 4. Left wrist injury. She is in a cock-up wrist splint for 4 weeks. 5. Medical management as per the medicine service. 6. Disposition: She is orthopedically okay for discharge any time medically stable. I need to see her back in 2 to 3 weeks out from her surgery date. Any orthopedic questions can be directed to me brenna saini [phone]. Job ID: [id number]
[2021-10-12] MEDS: ONDANSETRON INJ 2 MG/ML 2 ML VIAL IV PRN (12:55)
--- NOTE | 2021-10-12 14:17 | Hospitalist Progress Note ---
Date of Service October 12, 2021 Assessment & Plan (1) Closed left hip fracture: Plan: MRI of left hip on 10/08 showed "Acute intertrochanteric fracture of the left femur." - Consulted orthopedics -> S/p left intramedullary kemal with Dr. Moise on 10/09. - Pain control PRN - Tramadol; can use Tylenol PRN and will keep to 2 g or less a day given H/O cirrhosis - Now with some expected post-operative acute blood loss anemia. Given EPO at HD on 10/10. -- Hgb dropped to 5.9 yesterday afternoon - back to 9.2 this morning s/p s units PRBCs (2) Left wrist pain: Plan: XR left wrist on 10/08 showed "Subtle dorsal cortical buckling of the distal radial metaphysis" which is equivocal for a non-displaced fracture. - Orthopedics consulted -> Reached out to Ortho on 10/10 as they had not addressed this in their original consult. - Orthotic consulted - cock-up splint to wear x 1 month (3) Nonspecific colitis: Plan: No diarrhea but has chronic abdominal pain and proctocolitis on CT despite budesonide use. -- Stool PCR negative on last admission - is a c. diff carrier and stool calprotectin elevated at 328 - GI consulted - Recommend conservative management. Continue home budesonide. (4) ESRD on hemodialysis: Plan: - Avoid IV fluids - Consult nephrology for dialysis management, due MWF (5) HTN (hypertension): Plan: - STABLE - Continue home meds: * Amlodipine 5mg PO BID * Clonidine 0.2mg HS * Metoprolol succinate 25mg PO BID (6) Pancytopenia: Plan: At baseline, secondary to ESRD & cirrhosis. - Monitor (7) Frequent falls: Plan: Suspected secondary to multiple medical conditions. - PT/OT after surgery. Patient amenable to rehab. (8) Anemia in chronic renal disease: Plan: Baseline hgb ranges from 9 - 11 mg/dL. Management per nephrology with EPO. Mild hemarthrosis represents acute blood loss anemia. - s/p 2 units PRBCs as above - FOB pending collection but no gross melena or bright red blood in stool (9) Cirrhosis: Plan: No acute management. Follow with [facility]. - Fluid management with dialysis (10) Hypothyroidism: Plan: TSH was 2.6 in 07/2021. Now TSH is 5.2, but FT4 is 0.9 (normal). No signs/symptoms of hypo-/hyperthyroidism. - Continue home Synthroid 100 mcg - Recheck TSH in 6 weeks. (11) Depression: Plan: - Continue sertraline (12) DVT prophylaxis: Plan: SCDs - Defer to orthopedic service Plan: Plan for rehab at [facility] vs [facility] (suspect more SNF level); orthopedically stable but will need to monitor Hgb prior to determining medical stability for discharge. Admission and Anticipated Discharge Date Admission Date: October 08, 2021 Subjective Patient denies any change in symptoms after blood transfusions yesterday. Remains occasionally confused as she mentions just coming into the hospital today. No chest pain, shortness of breath or dizziness. PT recommending SNF placement - planning on [facility] when bed is available. Review of Systems Review of Systems: All systems reviewed & are unremarkable except as noted in Subjective Physical Exam Constitutional: WD/WN, vitals as above Eyes: PERRL, conjunctivae normal, anicteric sclerae Respiratory: normal respiratory effort, lungs clear to auscultation Cardiovascular: Rate/Rhythm: regular rate and regular rhythm Heart Sounds: no murmur Vessels: no JVD Extremities: normal capillary refill; no calf tenderness and no pedal edema Gastrointestinal (Abdomen): Inspection/Auscultation: normal bowel sounds Percussion/Palpation: abdomen soft; abdomen nontender, no guarding and abdomen not rigid Musculoskeletal: NV intact distal to operation site with good cap refill < 2 s and sensation intact, no foot drop noted Skin: no rashes, warm and dry (estefani and dressing clean/dry intact, no indication of bleeding or echymos) Neurologic: moves all extremities and awake; not confused Psychiatric: A+Ox3, euthymic affect Results & Data Results & Data ([facility]) Vital Signs (Past 12 Hours) Vital Signs Temp Pulse Resp BP Pulse Ox 10/12/21 11:26 36.9 C 71 14 120/62 99 10/12/21 07:35 36.6 C 66 14 102/54 L 96 PG Care Time/CCT Total # of Minutes Spent Total Time Spent with Patient: Total time spent is greater than 50% in coordination of care (as documented) at patient's floor/unit and/or counseling patient: Coding Level of Care Code 97205 Subseq Hosp Care Lvl 2 Diagnoses Closed left hip fracture S72.002A Left wrist pain M25.532 Nonspecific colitis K52.9 ESRD on hemodialysis N18.6; Z99.2 HTN (hypertension) I10 Pancytopenia D61.818 Frequent falls R29.6 Anemia in chronic renal disease N18.5; D63.1 Chronic kidney disease stage: stage 5, not on chronic dialysis Cirrhosis K74.60 Ascites presence: without ascites Hepatic cirrhosis type: unspecified hepatic cirrhosis Hypothyroidism E03.9 Depression F32.9 DVT prophylaxis Z29.9 (1) Cirrhosis Ascites presence: without ascites Hepatic cirrhosis type: unspecified hepatic cirrhosis Qualified Code(s): K74.60 - Unspecified cirrhosis of liver (2) Anemia in chronic renal disease Chronic kidney disease stage: stage 5, not on chronic dialysis Qualified Code(s): N18.5 - Chronic kidney disease, stage 5; D63.1 - Anemia in chronic kidney disease
[2021-10-12] MEDS: amLODIPine BESYLATE 5 MG TAB PO SCH (21:06)
[2021-10-12] MEDS: cloNIDine HCL 0.1 MG TAB PO SCH (21:06)
[2021-10-12] MEDS: DOCUSATE SODIUM/SENNA 50/8.6MG TAB PO SCH (21:07)
[2021-10-12] MEDS: HYDROmorphone INJ 0.5 MG/0.5 ML SYR IV PRN (21:08)
[2021-10-12] MEDS: traMADol HCL 50 MG TABLET PO PRN (21:12)
[2021-10-13 06:19] LABS: Hematocrit (blood only) 27.5 % (37-47); Mean Corpuscular Hemoglobin 33.6 pg (25-34); Mean Corpuscular Hgb Conc 32.7 g/dL (32-36); Mean Corpuscular Volume 102.6 fL (80-100); RDW Standard Deviation 74.2 fL (36.4-46.3); Red Blood Count 2.68 M/uL (4.2-5.4); White Blood Count 2.76 K/uL (4.8-10.8)
[2021-10-13] MEDS: LEVOTHYROXINE SODIUM 100 MCG TABLET PO SCH (06:36)
[2021-10-13 06:39] LABS: Mean Platelet Volume 9.9 fL (7.4-10.4); Platelet Count 73 K/uL (130-400)
[2021-10-13 06:47] LABS: BUN Creatinine Ratio 8.6 (10-20); Calcium 7.8 mg/dl (8.5-10.1); Creatinine Clr Calc Pharmacy 11.2 ml/min; Est GFR (African American) 12.7 ml/min; Potassium 4.4 mmol/L (3.5-5.1)
[2021-10-13 07:01] LABS: Anisocytosis Present; Basophils # (auto) 0.01 K/uL (0-0.2); Basophils % (auto) 0.4 %; Eosinophils # (auto) 0.04 K/uL (0-0.5); Eosinophils % (auto) 1.4 %; Lymphocytes # (auto) 0.62 K/uL (1.2-3.4); Lymphocytes % (auto) 22.5 %; Monocytes # (auto) 0.29 K/uL (0.11-0.59); Monocytes % (auto) 10.5 %; Neutrophils % (auto) 65.2 %; Polychromasia 1+
--- NOTE | 2021-10-13 08:46 | Progress Notes ---
DATE OF SERVICE: 10/13/2021. SUBJECTIVE: A 76-year-old female, now postop day 4 from IM nailing of left intertrochanteric fractur e. She is doing well. Pain seems to be getting better daily. No new complaints. Some mild wrist p ain. OBJECTIVE: VITAL SIGNS: Temperature 36.5. Vital signs are stable. GENERAL: Shows a pleasant, elderly female. She is sitting up in bed, eating breakfast. Looks comfo rtable. EXTREMITIES: Examination of the left hip reveals the leg to be well aligned. Her incisions are pema n, dry, and intact. Mild swelling and bruising. She is neurologically intact. Examination of the left wrist reveals the splint to be in place. Minimal pain. She can move her fin gers normally. LABORATORY DATA: Hemoglobin 9.0, hematocrit 27.5. Platelets 73. ASSESSMENT: A 76-year-old white female with multiple medical comorbidities, now 4 days out from IM n ailing of a left intertrochanteric fracture and conservative care treatment of a mild wrist injury. She is doing pretty well. She seems to be stable. Hemoglobin and hematocrit are now stable. PLAN: 1. DVT prophylaxis includes thigh-high TEDs, SCDs. I do not think she is indicated for more aggress magdy anticoagulation due to her platelet issues. 2. PT/OT. She can weight bear as tolerated. 3. Wrist injury. She is in a cock-up wrist splint for a month. 4. Medical management as per the medicine service. 5. Disposition: She is orthopedically okay for discharge any time medically stable. I need to see her back two to three weeks out from surgery date. Any orthopedic questions can be directed to me at [phone]. Job ID: [id number]
[2021-10-13] MEDS: SERTRALINE HCL 50 MG TABLET PO SCH (09:15)
[2021-10-13] MEDS: allopurinoL 100 MG TAB PO SCH (09:15)
[2021-10-13] MEDS: PANTOprazole 40 MG TAB PO SCH (09:15)
[2021-10-13] MEDS: METOPROLOL SUCC 25MG EXT REL TAB PO SCH ×2 (09:15→21:44)
[2021-10-13] MEDS: BUDESONIDE EC 3 MG CAP PO SCH (09:15)
[2021-10-13] MEDS: ADVANCED PROBIOTIC 1250 MG CAPSULE PO SCH (09:15)
[2021-10-13] MEDS: CALCIUM ACETATE 667 MG CAP/TAB PO SCH ×3 (09:16→18:01)
[2021-10-13] MEDS: NEPHROCAPS PO SCH (09:16)
[2021-10-13] MEDS: traMADol HCL 50 MG TABLET PO PRN ×2 (10:53→21:43)
[2021-10-13] MEDS: HYDROmorphone INJ 0.5 MG/0.5 ML SYR IV PRN ×2 (11:11→19:29)
--- NOTE | 2021-10-13 12:48 | Nephrology Progress Note ---
Date of Service October 13, 2021 Assessment & Plan (1) ESRD on hemodialysis: Plan: ESRD on HD MWF. Tolerated HD well yesterday. Volume status acceptable. Adequate clearance. Electrolytes controlled. Next anticipated HD Friday. AVF functioning well. Medications appropriately dosed for IHD. (2) Closed left hip fracture: Plan: ORIF 10/10 with kemal placement. Ortho cleared for discharge. (3) Frequent falls: Plan: Anticipated discharge to [facility] on Friday for PT. (4) Anemia in chronic renal disease: Plan: PRBC transfusion support provided post operatively. Epogen provided with HD yesterday. Repeat H/H prior to next dialysis treatment. (5) HTN (hypertension): Plan: Euvolemic. BP controlled. Admission and Anticipated Discharge Date Admission Date: October 08, 2021 Subjective No acute events overnight. Pain reasonably controlled. Resting comfortably in bed this AM. Overall, Whit reports feeling reasonably well. Tolerated HD yesterday without complications. Review of Systems Review of Systems: All systems reviewed & are unremarkable except as noted in HPI & below Constitutional: + fatigue and + weakness Musculoskeletal: + joint pain, + stiffness and + limited range of motion Physical Exam Constitutional: well developed and + thin; no acute distress Eyes: + anicteric sclerae; no corneal abnormality ENMT: Mouth: no oral mucosal abnormality and oral mucous membranes not dry Neck: normal visual inspection and trachea midline Respiratory: normal respiratory effort Auscultation: lungs clear to auscultation bilaterally Cardiovascular: Rate/Rhythm: + bradycardic Heart Sounds: normal S1, normal S2 and + murmur Extremities: + AV fistula; no edema Musculoskeletal: Extremities: no cyanosis and no clubbing Skin: + turgor decreased and + incision (dressing CDI) Neurologic: Motor/Sensory: no tremor and no asterixis Psychiatric: Orientation: alert and oriented x 3 Results & Data ([facility]) Vital Signs (Past 12 Hours) Vital Signs Temp Pulse Resp BP Pulse Ox 10/13/21 07:38 36.5 C 65 18 129/67 99 Laboratory Results Laboratory Results - last 24 hr 10/13/21 10/13/21 10/13/21 05:41 05:41 05:41 WBC 2.76 L RBC 2.68 L Hgb 9.0 L Hct 27.5 L MCV 102.6 H MCH 33.6 MCHC 32.7 RDW Std Deviation 74.2 H RDW Coeff of Joseph 20.0 H Plt Count 73 L MPV 9.9 Immature Gran % (Auto) 0.0 Neut % (Auto) 65.2 Lymph % (Auto) 22.5 Pacific % (Auto) 10.5 Eos % (Auto) 1.4 Baso % (Auto) 0.4 Neut # (Auto) 1.80 Lymph # (Auto) 0.62 L Pacific # (Auto) 0.29 Eos # (Auto) 0.04 Baso # (Auto) 0.01 Immature Gran # (Auto) 0.00 Polychromasia 1+ Anisocytosis Present Sodium 134 L Potassium 4.4 Chloride 97 L Carbon Dioxide 27 Anion Gap 10 BUN 33 H Creatinine 3.82 H Est Cr Clr Drug Dosing 11.2 Est GFR ( Amer) 12.7 Est GFR (Non-Af Amer) 11.0 BUN/Creatinine Ratio 8.6 L Glucose 83 Calcium 7.8 L Hep Bs Antigen Pending PG Care Time/CCT Total # of Minutes Spent Total Time Spent with Patient: Total time spent is greater than 50% in coordination of care (as documented) at patient's floor/unit and/or counseling patient: Coding Level of Care Code 90261 Subseq Hosp Care Lvl 3 Diagnoses ESRD on hemodialysis N18.6; Z99.2 Closed left hip fracture S72.002A Frequent falls R29.6 Anemia in chronic renal disease N18.5; D63.1 Chronic kidney disease stage: stage 5, not on chronic dialysis HTN (hypertension) I10 (1) Anemia in chronic renal disease Chronic kidney disease stage: stage 5, not on chronic dialysis Qualified Code(s): N18.5 - Chronic kidney disease, stage 5; D63.1 - Anemia in chronic kidney disease
--- NOTE | 2021-10-13 19:01 | Hospitalist Progress Note ---
Date of Service October 13, 2021 Assessment & Plan (1) Closed left hip fracture: Plan: MRI of left hip on 10/08 showed "Acute intertrochanteric fracture of the left femur." - Consulted orthopedics -> S/p left intramedullary kemal with Dr. Moise on 10/09. - Pain control PRN - Tramadol; can use Tylenol PRN and will keep to 2 g or less a day given H/O cirrhosis - Now with some expected post-operative acute blood loss anemia. Given EPO at HD on 10/10. -- Hgb dropped to 5.9 10/12 - back to 9.2 this morning s/p s units PRBCs, now stable (2) Left wrist pain: Plan: XR left wrist on 10/08 showed "Subtle dorsal cortical buckling of the distal radial metaphysis" which is equivocal for a non-displaced fracture. - Orthopedics consulted -> Reached out to Ortho on 10/10 as they had not addressed this in their original consult. - Orthotic consulted - cock-up splint to wear x 1 month (3) Nonspecific colitis: Plan: No diarrhea but has chronic abdominal pain and proctocolitis on CT despite budesonide use. -- Stool PCR negative on last admission - is a c. diff carrier and stool calprotectin elevated at 328 - GI consulted - Recommend conservative management. Continue home budesonide. (4) ESRD on hemodialysis: Plan: - Avoid IV fluids - Consult nephrology for dialysis management, due MWF (5) HTN (hypertension): Plan: - STABLE - Continue home meds: * Amlodipine 5mg PO BID * Clonidine 0.2mg HS * Metoprolol succinate 25mg PO BID (6) Pancytopenia: Plan: At baseline, secondary to ESRD & cirrhosis. - Monitor (7) Frequent falls: Plan: Suspected secondary to multiple medical conditions. - PT/OT after surgery. Patient amenable to rehab. (8) Anemia in chronic renal disease: Plan: Baseline hgb ranges from 9 - 11 mg/dL. Management per nephrology with EPO. Mild hemarthrosis represents acute blood loss anemia. - s/p 2 units PRBCs as above - FOB pending collection but no gross melena or bright red blood in stool (9) Cirrhosis: Plan: No acute management. Follow with [facility]. - Fluid management with dialysis (10) Hypothyroidism: Plan: TSH was 2.6 in 07/2021. Now TSH is 5.2, but FT4 is 0.9 (normal). No signs/symptoms of hypo-/hyperthyroidism. - Continue home Synthroid 100 mcg - Recheck TSH in 6 weeks. (11) Depression: Plan: - Continue sertraline Plan: VTE Prophylaxis - chemical prophylaxis deferred per orthopedics and significant hemoglobin drop Plan for rehab at [facility] vs [facility] (suspect more SNF level); medically stable pending placement at this time Admission and Anticipated Discharge Date Admission Date: October 08, 2021 Subjective Hemoglobin stable. No chest pain, shortness of breath or dizziness. Medically stable awaiting placement at this time. Review of Systems Review of Systems: All systems reviewed & are unremarkable except as noted in Subjective Physical Exam Constitutional: WD/WN, vitals as above Neck: trachea midline, no thyromegaly Respiratory: normal respiratory effort, lungs clear to auscultation Cardiovascular: Rate/Rhythm: regular rate and regular rhythm Heart Sounds: no murmur Vessels: no JVD Extremities: normal capillary refill; no calf tenderness and no pedal edema Gastrointestinal (Abdomen): Inspection/Auscultation: normal bowel sounds Percussion/Palpation: abdomen soft; abdomen nontender, no guarding and abdomen not rigid Skin: no rashes, warm and dry (estefani and dressing clean/dry intact, no indication of bleeding or echymos) Neurologic: moves all extremities and awake; not confused Psychiatric: A+Ox3, euthymic affect Results & Data Results & Data ([facility]) Vital Signs (Past 12 Hours) Vital Signs Temp Pulse Resp BP BP Pulse Ox 10/13/21 14:43 36.7 C 63 16 123/62 97 10/13/21 07:38 36.5 C 65 18 129/67 99 PG Care Time/CCT Total # of Minutes Spent Total Time Spent with Patient: Total time spent is greater than 50% in coordination of care (as documented) at patient's floor/unit and/or counseling patient: Coding Level of Care Code 13482 Subseq Hosp Care Lvl 1 Diagnoses Closed left hip fracture S72.002A Left wrist pain M25.532 Nonspecific colitis K52.9 ESRD on hemodialysis N18.6; Z99.2 HTN (hypertension) I10 Pancytopenia D61.818 Frequent falls R29.6 Anemia in chronic renal disease N18.5; D63.1 Chronic kidney disease stage: stage 5, not on chronic dialysis Cirrhosis K74.60 Ascites presence: without ascites Hepatic cirrhosis type: unspecified hepatic cirrhosis Hypothyroidism E03.9 Depression F32.9 (1) Cirrhosis Ascites presence: without ascites Hepatic cirrhosis type: unspecified hepatic cirrhosis Qualified Code(s): K74.60 - Unspecified cirrhosis of liver (2) Anemia in chronic renal disease Chronic kidney disease stage: stage 5, not on chronic dialysis Qualified Code(s): N18.5 - Chronic kidney disease, stage 5; D63.1 - Anemia in chronic kidney disease
[2021-10-13] MEDS: amLODIPine BESYLATE 5 MG TAB PO SCH (21:43)
[2021-10-13] MEDS: cloNIDine HCL 0.1 MG TAB PO SCH (21:44)
[2021-10-13] MEDS: DOCUSATE SODIUM/SENNA 50/8.6MG TAB PO SCH (21:44)
[2021-10-14] MEDS: traMADol HCL 50 MG TABLET PO PRN ×2 (06:37→16:04)
[2021-10-14] MEDS: LEVOTHYROXINE SODIUM 100 MCG TABLET PO SCH (06:37)
[2021-10-14] MEDS: CALCIUM ACETATE 667 MG CAP/TAB PO SCH ×3 (08:52→16:04)
[2021-10-14] MEDS: NEPHROCAPS PO SCH (08:52)
[2021-10-14] MEDS: BUDESONIDE EC 3 MG CAP PO SCH (08:52)
[2021-10-14] MEDS: METOPROLOL SUCC 25MG EXT REL TAB PO SCH ×2 (08:52→20:39)
[2021-10-14] MEDS: PANTOprazole 40 MG TAB PO SCH (08:52)
[2021-10-14] MEDS: ADVANCED PROBIOTIC 1250 MG CAPSULE PO SCH (08:52)
[2021-10-14] MEDS: allopurinoL 100 MG TAB PO SCH (08:53)
[2021-10-14] MEDS: SERTRALINE HCL 50 MG TABLET PO SCH (08:53)
--- NOTE | 2021-10-14 09:43 | Progress Notes ---
DATE OF SERVICE: 10/14/2021. SUBJECTIVE: A 76-year-old white female, now 5 days out from IM nailing of left intertrochanteric fra cture and splinting of the wrist injury. She is doing okay. Hip pain seems to be pretty good. A li ttle bit of an upset stomach this morning. No other complaints. OBJECTIVE: VITAL SIGNS: Temperature 36.5. Vital signs are stable. GENERAL: Frail, elderly female. She is lying in bed, looks pretty comfortable this morning. EXTREMITIES: Examination of the left hip and leg reveals the incision to be clean, dry and intact. No significant drainage or swelling. She is neurologically intact. Her wrist splint is in place as well. ASSESSMENT: A 76-year-old white female with multiple medical comorbidities, now 5 days out from IM n ailing of a left intertrochanteric fracture with a fairly mild wrist injury in a splint. She is doin g orthopedically okay. PLAN: 1. DVT prophylaxis includes thigh-high TEDs and SCDs. 2. PT/OT. She can weight bear as tolerated. 3. Pain control, doing okay with current pain regimen. 4. Medical management as per the medicine service. 5. Disposition: She is orthopedically okay for discharge any time. I need to see her back two to t hree weeks out from her surgery date. Any orthopedic questions can be directed to me at [phone] . Job ID: [id number]
--- NOTE | 2021-10-14 12:20 | Hospitalist Progress Note ---
Date of Service October 14, 2021 Assessment & Plan (1) Closed left hip fracture: Plan: MRI of left hip on 10/08 showed "Acute intertrochanteric fracture of the left femur." - Consulted orthopedics -> S/p left intramedullary kemal with Dr. Moise on 10/09. - Pain control PRN - Tramadol; can use Tylenol PRN and will keep to 2 g or less a day given H/O cirrhosis - Now with some expected post-operative acute blood loss anemia. Given EPO at HD on 10/10. - Hgb dropped to 5.9 10/12 - back to 9.2 s/p s units PRBCs, now stable, repeat CBC in AM (2) Left wrist pain: Plan: XR left wrist on 10/08 showed "Subtle dorsal cortical buckling of the distal radial metaphysis" which is equivocal for a non-displaced fracture. - Orthopedics consulted -> Reached out to Ortho on 10/10 as they had not addressed this in their original consult. - Orthotic consulted - cock-up splint to wear x 1 month (3) Nonspecific colitis: Plan: No diarrhea but has chronic abdominal pain and proctocolitis on CT despite budesonide use. -- Stool PCR negative on last admission - is a c. diff carrier and stool calprotectin elevated at 328 - GI consulted - Recommend conservative management. Continue home budesonide. (4) ESRD on hemodialysis: Plan: - Avoid IV fluids - Consult nephrology for dialysis management, due MWF (5) HTN (hypertension): Plan: - STABLE - Continue home meds: * Amlodipine 5mg PO HS * Clonidine 0.2mg HS * Metoprolol succinate 25mg PO BID (6) Pancytopenia: Plan: At baseline, secondary to ESRD & cirrhosis. - Monitor (7) Frequent falls: Plan: Suspected secondary to multiple medical conditions. - PT/OT after surgery. Patient amenable to rehab. (8) Anemia in chronic renal disease: Plan: Baseline hgb ranges from 9 - 11 mg/dL. Management per nephrology with EPO. Mild hemarthrosis represents acute blood loss anemia. - s/p 2 units PRBCs as above - FOB pending collection but no gross melena or bright red blood in stool (9) Cirrhosis: Plan: No acute management. Follow with [facility]. - Fluid management with dialysis (10) Hypothyroidism: Plan: TSH was 2.6 in 07/2021. Now TSH is 5.2, but FT4 is 0.9 (normal). No signs/symptoms of hypo-/hyperthyroidism. - Continue home Synthroid 100 mcg - Recheck TSH in 6 weeks. (11) Depression: Plan: - Continue sertraline Plan: VTE Prophylaxis - chemical prophylaxis deferred per orthopedics and significant hemoglobin drop Plan for rehab at [facility] vs [facility] (suspect more SNF level); medically stable pending placement at this time Admission and Anticipated Discharge Date Admission Date: October 08, 2021 Subjective No new concerns or questions. Large bowel movement yesterday. No melena or bright red blood in stool. Remains medically stable for discharge. Review of Systems Review of Systems: All systems reviewed & are unremarkable except as noted in Subjective Physical Exam Constitutional: WD/WN, vitals as above Respiratory: normal respiratory effort, lungs clear to auscultation Cardiovascular: Rate/Rhythm: regular rate and regular rhythm Heart Sounds: no murmur Extremities: normal capillary refill; no calf tenderness and no pedal edema Gastrointestinal (Abdomen): Inspection/Auscultation: normal bowel sounds Percussion/Palpation: abdomen soft; abdomen nontender, no guarding and abdomen not rigid Neurologic: moves all extremities and awake; not confused Results & Data Results & Data ([facility]) Vital Signs (Past 12 Hours) Vital Signs Temp Pulse Resp BP Pulse Ox 10/14/21 07:56 36.5 C 61 16 119/64 99 PG Care Time/CCT Total # of Minutes Spent Total Time Spent with Patient: Total time spent is greater than 50% in coordination of care (as documented) at patient's floor/unit and/or counseling patient: Coding Level of Care Code 96290 Subseq Hosp Care Lvl 1 Diagnoses Closed left hip fracture S72.002A Left wrist pain M25.532 Nonspecific colitis K52.9 ESRD on hemodialysis N18.6; Z99.2 HTN (hypertension) I10 Pancytopenia D61.818 Frequent falls R29.6 Anemia in chronic renal disease N18.5; D63.1 Chronic kidney disease stage: stage 5, not on chronic dialysis Cirrhosis K74.60 Ascites presence: without ascites Hepatic cirrhosis type: unspecified hepatic cirrhosis Hypothyroidism E03.9 Depression F32.9 (1) Cirrhosis Ascites presence: without ascites Hepatic cirrhosis type: unspecified hepatic cirrhosis Qualified Code(s): K74.60 - Unspecified cirrhosis of liver (2) Anemia in chronic renal disease Chronic kidney disease stage: stage 5, not on chronic dialysis Qualified Code(s): N18.5 - Chronic kidney disease, stage 5; D63.1 - Anemia in chronic kidney disease
--- NOTE | 2021-10-14 12:38 | Nephrology Progress Note ---
Date of Service October 14, 2021 Assessment & Plan (1) ESRD on hemodialysis: Plan: ESRD on HD MWF. Volume status acceptable. Next planned HD tomorrow. AVF functioning well. Medications appropriately dosed for IHD. (2) Closed left hip fracture: Plan: ORIF 10/10 with kemal placement. Ortho cleared for discharge. (3) Frequent falls: Plan: Anticipated discharge to [facility] on Friday for PT. (4) Anemia in chronic renal disease: Plan: PRBC transfusion support provided post operatively. Epogen provided with HD yesterday. Repeat H/H prior to next dialysis treatment. (5) HTN (hypertension): Plan: Euvolemic. BP controlled. Admission and Anticipated Discharge Date Admission Date: October 08, 2021 Subjective No acute events overnight. No complaints this AM. Review of Systems Review of Systems: All systems reviewed & are unremarkable except as noted in HPI & below Physical Exam Constitutional: well developed and + thin; no acute distress Eyes: + anicteric sclerae; no corneal abnormality ENMT: Mouth: no oral mucosal abnormality and oral mucous membranes not dry Neck: normal visual inspection and trachea midline Respiratory: normal respiratory effort Auscultation: lungs clear to auscultation bilaterally Cardiovascular: Rate/Rhythm: regular rate Heart Sounds: normal S1, normal S2 and + murmur Extremities: + AV fistula; no edema Musculoskeletal: Extremities: no cyanosis and no clubbing Skin: + turgor decreased and + incision (dressing CDI) Neurologic: Motor/Sensory: no tremor and no asterixis Psychiatric: Orientation: alert and oriented x 3 Results & Data ([facility]) Vital Signs (Past 12 Hours) Vital Signs Temp Pulse Resp BP Pulse Ox 10/14/21 07:56 36.5 C 61 16 119/64 99 Laboratory Results Laboratory Results - last 24 hr 10/13/21 05:41 Hep Bs Antigen NON-REACTIVE PG Care Time/CCT Total # of Minutes Spent Total Time Spent with Patient: Total time spent is greater than 50% in coordination of care (as documented) at patient's floor/unit and/or counseling patient: Coding Level of Care Code 91007 Subseq Hosp Care Lvl 3 Diagnoses ESRD on hemodialysis N18.6; Z99.2 Closed left hip fracture S72.002A Frequent falls R29.6 Anemia in chronic renal disease N18.5; D63.1 Chronic kidney disease stage: stage 5, not on chronic dialysis HTN (hypertension) I10 (1) Anemia in chronic renal disease Chronic kidney disease stage: stage 5, not on chronic dialysis Qualified Code(s): N18.5 - Chronic kidney disease, stage 5; D63.1 - Anemia in chronic kidney disease
[2021-10-14] MEDS: HYDROmorphone INJ 0.5 MG/0.5 ML SYR IV PRN (18:45)
[2021-10-14] MEDS: cloNIDine HCL 0.1 MG TAB PO SCH (20:39)
[2021-10-14] MEDS: amLODIPine BESYLATE 5 MG TAB PO SCH (20:39)
[2021-10-14] MEDS: DOCUSATE SODIUM/SENNA 50/8.6MG TAB PO SCH (20:40)
[2021-10-15] MEDS: LEVOTHYROXINE SODIUM 100 MCG TABLET PO SCH (06:30)
[2021-10-15] MEDS: traMADol HCL 50 MG TABLET PO PRN ×2 (06:30→14:42)
[2021-10-15 06:50] LABS: Hematocrit (blood only) 28.6 % (37-47); Hemoglobin 9.5 g/dL (12.0-16.0); Mean Corpuscular Hemoglobin 33.9 pg (25-34); Mean Corpuscular Hgb Conc 33.2 g/dL (32-36); Mean Corpuscular Volume 102.1 fL (80-100); Mean Platelet Volume 11.6 fL (7.4-10.4); Platelet Count 143 K/uL (130-400); RDW Coefficient of Variation 19.4 % (11.5-14.5); RDW Standard Deviation 71.4 fL (36.4-46.3); White Blood Count 4.23 K/uL (4.8-10.8)
[2021-10-15 07:03] LABS: Albumin Level 2.9 gm/dl (3.4-5.0); BUN Creatinine Ratio 12.2 (10-20); Calcium 8.3 mg/dl (8.5-10.1); Creatinine Clr Calc Pharmacy 6.8 ml/min; Est GFR (Non-African American) 6.1 ml/min; Phosphorus 4.5 mg/dl (2.5-4.9)
--- NOTE | 2021-10-15 08:33 | Progress Notes ---
DATE OF SERVICE: 10/15/2021. SUBJECTIVE: A 76-year-old female now postop day 6 from IM nailing of left intertrochanteric fracture . She is doing okay. Pain seems to be controlled. She was just been waiting for placement. [facility] has a place for her today. OBJECTIVE: VITAL SIGNS: Temperature 36.8. Vital signs are stable. GENERAL: This is a pleasant, elderly female, she is sitting up in bed, looks fairly comfortable. EXTREMITIES: Examination of the left hip reveals the dressing to be in place. Just a slight bit of drainage. Minimal swelling. Leg lengths were equal. She is neurologically intact. LABORATORY DATA: Hemoglobin 9.5. Hematocrit 28.6. ASSESSMENT: A 76-year-old white female, 6 days out from IM nailing of left intertrochanteric fractur e and conservative care with mild wrist injury. She is doing reasonably well orthopedically. She ap pears medically stable. PLAN: 1. DVT prophylaxis includes thigh-high TEDs, SCDs. I do not think she is an appropriate candidate f or further anticoagulation due to her low platelets. 2. PT/OT. She can weight bear as tolerated, left lower extremity. 3. Pain control, doing okay with current pain regimen. 4. Left wrist injury. We are going to wear a wrist splint for a month. 5. Disposition: She is orthopedically okay for discharge any time. [facility] has a b ed for her today. I need to see her back in two to three weeks out from surgery date. Any orthopedi c questions can be directed to me at [phone]. Job ID: [id number]
[2021-10-15] MEDS: BUDESONIDE EC 3 MG CAP PO SCH (08:34)
[2021-10-15] MEDS: CALCIUM ACETATE 667 MG CAP/TAB PO SCH ×2 (08:34→11:48)
[2021-10-15] MEDS: SERTRALINE HCL 50 MG TABLET PO SCH (08:35)
[2021-10-15] MEDS: METOPROLOL SUCC 25MG EXT REL TAB PO SCH ×2 (08:35→09:21)
[2021-10-15] MEDS: allopurinoL 100 MG TAB PO SCH (08:35)
[2021-10-15] MEDS: NEPHROCAPS PO SCH (08:35)
[2021-10-15] MEDS: ADVANCED PROBIOTIC 1250 MG CAPSULE PO SCH (08:35)
[2021-10-15] MEDS: PANTOprazole 40 MG TAB PO SCH (08:36)
--- NOTE | 2021-10-15 10:35 | Nephrology Progress Note ---
Date of Service October 15, 2021 Assessment & Plan (1) ESRD on hemodialysis: Plan: ESRD on HD MWF. Orders for HD today entered into the EHR and reviewed with the dialysis nurse. UF goal 2 L. BP acceptable. AVF functioning well. Medications appropriately dosed for IHD. (2) Closed left hip fracture: Plan: ORIF 10/10 with kemal placement. Ortho cleared for discharge. (3) Frequent falls: Plan: Anticipated discharge to [facility] for PT. (4) Anemia in chronic renal disease: Plan: PRBC transfusion support provided post operatively. Epogen provided with HD yesterday. Repeat H/H prior to next dialysis treatment. (5) HTN (hypertension): Plan: Euvolemic. BP controlled. Admission and Anticipated Discharge Date Admission Date: October 08, 2021 Subjective No acute events overnight. Whit was seen and evaluated during hemodialysis this AM. She is tolerating treatment well. BP acceptable. Whit is pleasantly, slightly confused this AM. She denies pain. Review of Systems Review of Systems: All systems reviewed & are unremarkable except as noted in HPI & below Physical Exam Constitutional: well developed, + thin and + frail appearing; no acute distress Eyes: + anicteric sclerae; no corneal abnormality ENMT: Mouth: no oral mucosal abnormality and oral mucous membranes not dry Neck: normal visual inspection and trachea midline Respiratory: normal respiratory effort Auscultation: lungs clear to auscultation bilaterally Cardiovascular: Rate/Rhythm: regular rate Heart Sounds: normal S1, normal S2 and + murmur Extremities: + AV fistula; no edema Musculoskeletal: Extremities: no cyanosis and no clubbing Skin: + turgor decreased and + incision (dressing CDI) Neurologic: Motor/Sensory: no tremor and no asterixis Results & Data ([facility]) Vital Signs (Past 12 Hours) Vital Signs Temp Pulse Pulse Pulse Pulse Resp BP 10/15/21 10:00 62 115/60 10/15/21 09:39 65 137/98 10/15/21 09:28 37.0 C 62 10/15/21 07:37 36.6 C 64 18 10/14/21 22:43 36.8 C 71 18 BP Pulse Ox 10/15/21 10:00 10/15/21 09:39 10/15/21 09:28 10/15/21 07:37 138/78 99 10/14/21 22:43 156/70 H 99 Laboratory Results Laboratory Results - last 24 hr 10/15/21 10/15/21 10/15/21 05:42 05:42 07:23 WBC 4.23 L RBC 2.80 L Hgb 9.5 L Hct 28.6 L MCV 102.1 H MCH 33.9 MCHC 33.2 RDW Std Deviation 71.4 H RDW Coeff of Joseph 19.4 H Plt Count 143 MPV 11.6 H Sodium 128 L Potassium 5.1 Chloride 92 L Carbon Dioxide 24 Anion Gap 12 H BUN 76 H Creatinine 6.24 H* Est Cr Clr Drug Dosing 6.8 Est GFR ( Amer) 7.0 Est GFR (Non-Af Amer) 6.1 BUN/Creatinine Ratio 12.2 Glucose 76 Calcium 8.3 L Phosphorus 4.5 Albumin 2.9 L PG Care Time/CCT Total # of Minutes Spent Total Time Spent with Patient: Total time spent is greater than 50% in coordination of care (as documented) at patient's floor/unit and/or counseling patient: Coding Level of Care Code 83923 Subseq Hosp Care Lvl 3 Diagnoses ESRD on hemodialysis N18.6; Z99.2 Closed left hip fracture S72.002A Frequent falls R29.6 Anemia in chronic renal disease N18.5; D63.1 Chronic kidney disease stage: stage 5, not on chronic dialysis HTN (hypertension) I10 (1) Anemia in chronic renal disease Chronic kidney disease stage: stage 5, not on chronic dialysis Qualified Code(s): N18.5 - Chronic kidney disease, stage 5; D63.1 - Anemia in chronic kidney disease
[2021-10-15 13:21] VITALS: BP 126/64; TEMP 97.7; O2SAT 100
[2021-10-15 13:23] VITALS: PULSE 69
--- NOTE | 2021-10-15 15:22 | Discharge Summary ---
Date of Service October 15, 2021 Admission HPI Per Admitting Provider Whit Cruz is a 76 year old female who presents to the ER with left hip pain following a fall. The patient reports having multiple falls recently due to being unbalanced. While getting up this morning before heading to dialysis, her was bringing her breakfast but did not witness the fall. She was getting herself dressed while leaning on the side of the bed. She fell to her left side and hit her head on the way down. After falling she had been unable to stand up due to left hip pain therefore her called for an ambulance who brought her to the ER. While she is still she is not in any pain but has pain on any movement. She denies any chest pain, shortness of breath or dizziness before falling. Her has noted she has been more weak over the last week and required help getting her back from dialysis last week to get her back into the car. No fever or chills. Most of the time at home she spends in bed where she is most comfortable. In the ER CT hip was concerning for mildly impacted and minimally displaced left femoral greater trochanteric and basicervical fractures. She was referred to medicine for admission and ongoing management of this. This CT also showed nonspecific proctocolitis with small volume pelvic ascites. She has chronic abdominal pain and reports this is no worse than usual but no improvement with budesonide recently started last month by gastroenterology. She cannot remember is she is having any problems with diarrhea. She has known end stage renal disease and undergoes dialysis on Friday, Friday and Fridays. Can't remember if she is having any problem with diarrhea. Discharge Data Allergies Allergy/AdvReac Type Severity Reaction Status Date / Time Cephalosporins Allergy Intermediate ertapenem Verified 10/08/21 09:25 ok from multiple occasions codeine Allergy Intermediate RASH Verified 10/08/21 09:25 levofloxacin Allergy Intermediate hives, Verified 10/08/21 09:25 itching, per patient tolerates Cipro lisinopril Allergy Intermediate HIVES, Verified 10/08/21 09:25 ITCHING morphine Allergy Intermediate HIVES Verified 10/08/21 09:25 Sulfa (Sulfonamide Allergy Intermediate Rash Verified 10/08/21 09:25 Antibiotics) meperidine Allergy Unknown HAD RXN IN Verified 10/08/21 09:25 RR Iodinated Contrast Media AdvReac Severe PT HAD A Verified 10/08/21 09:25 KIDNEY TRANSPLANT chlorhexidine AdvReac Intermediate RASH Verified 10/08/21 09:25 captopril AdvReac Mild ITCHING Verified 10/08/21 09:25 celecoxib AdvReac Mild ITCHING Verified 10/08/21 09:25 hydralazine AdvReac Mild ITCHING Verified 10/08/21 09:25 nitrofurantoin AdvReac Mild GI PROBLEMS Verified 10/08/21 09:25 Consultations 10/08/21 12:04 Consult Nephrology Routine 10/08/21 12:05 ED Decision to Admit Stat 10/08/21 12:20 Consult Orthopedic Surgery Routine 10/08/21 12:33 Consult Gastroenterology Routine Procedures Performed Operation Date: 10/09/21 08:20 Actual Procedures p Left Hip Fracture Intramedullary West Femur(Left) - David Moise MD Ordered Studies 10/08/21 09:04 CT head/brain wo con Stat 10/08/21 10:10 CT hip LT wo con Stat 10/08/21 12:48 MR hip LT wo con Stat 10/09/21 12:00 FL hip LT 2-3V Routine Hospital Course (1) Closed left hip fracture: MRI of left hip on 10/08 showed "Acute intertrochanteric fracture of the left femur." - Consulted orthopedics -> S/p left intramedullary west with Dr. Moise on 10/09. - Pain control PRN - Tramadol; can use Tylenol PRN and will keep to 2 g or less a day given H/O cirrhosis - Now with some expected post-operative acute blood loss anemia. Given EPO at HD on 10/10. -- Hgb 7.1 on AM labs -- will repeat this afternoon -- currently asymptomatic and vitals stable (2) Left wrist pain: XR left wrist on 10/08 showed "Subtle dorsal cortical buckling of the distal radial metaphysis" which is equivocal for a non-displaced fracture. - Orthopedics consulted -> Reached out to Ortho on 10/10 as they had not addressed this in their original consult. - Orthotic consulted - cock-up splint to wear x 1 month (3) Nonspecific colitis: No diarrhea but has chronic abdominal pain and proctocolitis on CT despite budesonide use. -- Stool PCR negative on last admission - is a c. diff carrier and stool calprotectin elevated at 328 - GI consulted - Recommend conservative management. Continue home budesonide. (4) ESRD on hemodialysis: - Avoid IV fluids - Consult nephrology for dialysis management, due MWF (5) HTN (hypertension): - STABLE - Continue home meds: * Amlodipine 5mg PO BID * Clonidine 0.2mg HS * Metoprolol succinate 25mg PO BID (6) Pancytopenia: At baseline, secondary to ESRD & cirrhosis. - Monitor (7) Frequent falls: Suspected secondary to multiple medical conditions. - PT/OT after surgery. Patient amenable to rehab. (8) Anemia in chronic renal disease: Baseline hgb ranges from 9 - 11 mg/dL. Management per nephrology with EPO. Mild hemarthrosis represents acute blood loss anemia. - Currently at 7.1, possibly due to the hemarthrosis. - Monitor (9) Cirrhosis: No acute management. Follow with [facility]. - Fluid management with dialysis (10) Hypothyroidism: TSH was 2.6 in 07/2021. Now TSH is 5.2, but FT4 is 0.9 (normal). No signs/symptoms of hypo-/hyperthyroidism. - Continue home Synthroid 100 mcg - Recheck TSH in 6 weeks. (11) Depression: - Continue sertraline (12) DVT prophylaxis: SCDs - Defer to orthopedic service Plan for rehab at [facility] vs [facility] (suspect more SNF level); orthopedically stable but will need to monitor Hgb prior to determining medical stability for discharge. Will update [facility] today Discharge Plan Discharge Items Patient Disposition: Transfer Inpatient Rehab Fac Reason For Visit: HIP FRACTURE Discharge Diagnosis: IM Nailing of Left Hip Fracture Left wrist pain Post operative anemia Activity: Per Instructions section Weightbearing: Full weightbearing Non-emergency contact: Primary Care Provider and Surgeon Call non-emergency contact if: you have any medication questions and your symptoms worsen Follow-up/Referrals: Niki Nobles MD [Primary Care Provider] - David Moise MD [Physician] - (Orthopedic follow-up 2-3 weeks from OR Date.) Diet: Dialysis Renal Addtl Attending Provider Instructions: You were admitted to [facility] from October 08 - 2021 due to hip pain following a fall. You were diagnosed with a left intertrochanteric hip fracture. This was treated operatively by Dr Moise on October 09 with intramedullary nail. You required 2 units of packed red blood cells during your post operative course due to anemia with hemoglobin drop to 5.9 g/dL. This improved to 9.5 g/dL on discharge with additional erythropoietin given by nephrology on October 12. Recommend repeat CBC labs in approximately 1 week following discharge.Due to this post operative anemia and ongoing thrombocytopenia; anticoagulation for venous thromboembolism prophylaxis not recommended at this time - if you develop lower extremity swelling or calf pain recommend prompt ultrasound venous dopplers to assess for this. You were also diagnosed with left wrist injury without a clear fracture. Orthopedics recommended using a cock up splint for 1 months with orthopedic follow up for this in addition. Your post operative course was otherwise unremarkable and you continued receiving dialysis on Friday, Friday, Friday schedule. You are requiring furt her rehabilitation on discharge and will be transferred to [facility] to enable this. Of note amlodipine was decreased due to relative hypotension - suspect this can be increased as she recovers from her operation. 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 May remove dressings for bathing/showering/hygiene Pending Studies at Discharge: No Stand-Alone Forms: [facility] Skilled Items Patient informed of condition?: Yes DNR: Yes Discharge Level of Care: Acute rehab Communicable Disease: No Discharge Prognosis: Stable Lines: None Urinary Catheter: No (does not produce urine) Medications and DC Order Prescriptions: New acetaminophen [Tylenol Extra Strength] 500 mg Tablet 1,000 mg PO BID Qty: 28 RF: 0 tramadol 50 mg Tablet 50 mg PO TID PRN (Reason: pain) Qty: 30 RF: 0 Continued calcium acetate(phosphat bind) 667 mg capsule 1,334 mg PO TIDM Qty: 720 RF: 3 ondansetron HCl 4 mg tablet 4 mg PO QID PRN (Reason: Nausea) Qty: 12 RF: 0 metoprolol succinate 25 mg tablet extended release 24 hr 25 mg PO BID Qty: 180 RF: 3 clonidine HCl 0.2 mg tablet 0.2 mg PO HS Qty: 90 RF: 3 allopurinol 100 mg tablet 100 mg PO QAM Qty: 90 RF: 3 budesonide [Entocort EC] 3 mg capsule,delayed,extend.release 9 mg PO DAILY Qty: 90 RF: 1 sertraline 25 mg tablet 25 mg PO DAILY Qty: 90 RF: 3 ProRenal 8 mg iron-800 mcg-1,000 unit Tablet 1 tab PO QAM RF: 0 pantoprazole 40 mg tablet,delayed release (DR/EC) 40 mg PO QAM RF: 0 Probiotic 15 billion cell Capsule 1 cap PO DAILY RF: 0 levothyroxine 100 mcg tablet 100 mcg PO DAILYBB RF: 0 Changed amlodipine 5 mg tablet 5 mg PO HS Qty: 180 RF: 3 Discontinued tramadol 50 mg tablet 50 mg PO TID PRN (Reason: Pain) Qty: 30 RF: 0 Discharge Orders: Discharge Order (Routine); Ordered 10/15/21 Ordered By: Grabiel Hector Admission Data Admit Date/Time: 10/08/21 12:10 Attending Provider: Grabiel Hector Admit Provider: Grabiel Hector Primary Care Provider: Niki Nobles Other Providers: Chapin Handley ; Anahi Castro ; Grabiel Hector ; David Cyr ; Yadiel Posada ; [facility] Other Interventions: Discharge Summary Assessment (RN) Last Done: 10/15/21 12:19 Coding Diagnoses Closed left hip fracture S72.002A Left wrist pain M25.532 Nonspecific colitis K52.9 ESRD on hemodialysis N18.6; Z99.2 HTN (hypertension) I10 Pancytopenia D61.818 Frequent falls R29.6 Anemia in chronic renal disease N18.5; D63.1 Chronic kidney disease stage: stage 5, not on chronic dialysis Cirrhosis K74.60 Ascites presence: without ascites Hepatic cirrhosis type: unspecified hepatic cirrhosis Hypothyroidism E03.9 Depression F32.9 DVT prophylaxis Z29.9
== END 2021-10-15 15:28 | DRG 480 ==
LOC: ED 08:56 → 3E 12:10 → SUATTDRO 12:10 → 3E 14:00

== ENCOUNTER 2021-10-22 05:44 | Inpatient (IN) ==
[2021-10-22] MEDS ORDERED: SODIUM CHLORIDE 0.9% 500 ML IV SCH (06:00)
--- NOTE | 2021-10-22 06:04 | Emergency Department Note ---
Impression & Plan Acute GI bleeding, Sepsis, Altered mental status Admit to the [facility] service ED Provider Note NAME: EMIR NAVA AGE: 76 SEX: F ARRIVES VIA: Ambulance INFORMANT: EMS ED PROVIDER(S): Luz Maria Everett DO CHIEF COMPLAINT: GI bleed; altered mental status PLAN: Disposition: Admit to the [facility] Condition: Critical MEDICAL DECISION MAKING: This is a 76-year-old female patient with an extensive past medical history who presents to the emergency department from [facility] with significant GI bleeding and altered mental status. The patient's hemoglobin has dropped by nearly 4 g in the past 3 days. She has an elevated white blood cell count. Her mental status has significantly declined in the past 24 hours. After discussion with the patient's , he had intentions of withdrawing the patient from dialysis today. We will withhold transfusing packed red blood cells and giving IV antibiotics. He would like comfort care for the patient. I will discussed the case with the [facility] group. Patient CT scan of the brain was negative for any new findings. Triage Nursing notes reviewed and agree with them. Additional history obtained from EMS Prior medical records reviewed Vital Signs: reviewed and remarkable for hypotension Differential diagnosis: Upper GI bleeding, lower GI bleeding, intracranial hemorrhage, acute CVA, upper glycemia ER treatment provided: IV normal saline bolus IV Dilaudid IV Zofran Diagnostics interpreted by me: ECG: Sinus tachycardia at [address] segment elevation or signs of acute ischemia. Cardiac Monitoring: Sinus tachycardia at 104 Laboratory studies: See below Imaging studies: CT scan of the brain: See radiology report Portable chest x-ray: As per my interpretation-no acute pulmonary infiltrates or consolidations. HPI: 76/F arrives for evaluation of GI bleeding. EMS was called to [facility] because this patient was having increased GI bleeding over the weekend. The patient had a large bowel movement at 4 AM which was significantly bloody. Upon their arrival, they found the patient to be significantly obtunded and not able to answer questions or follow commands. It seems that this is new for the patient. The patient is a dialysis patient and was recently seen in the emergency department on 10/18. ROS: See above HPI for pertinent positives & negatives. A total of 10 systems reviewed and were otherwise negative. PAST MEDICAL HISTORY:See Below PAST SURGICAL HISTORY:See Below FAMILY HISTORY:See Below SOCIAL HISTORY:See Below HOME MEDICATIONS:See list ALLERGIES:See list VITALS:See Below PHYSICAL EXAMINATION: HEENT: Head - normocephalic with some bruises noted about the patient's head. Pupils are 2 mm equal, round, and sluggishly reactive to light. Extraocular eye muscles are intact, and sclera are anicteric. Nose - moist nasal mucosa without discharge. Mouth - moist buccal mucosa. Oropharynx is nonerythematous and there is no tonsillar exudate or edema noted. Neck: Supple; no JVD or nuchal rigidity Heart: Tachycardic rate and regular rhythm. There is a normal S1 and S2 with no murmurs, clicks, or gallops appreciated. Lungs: Clear to auscultation bilaterally with no wheezes, rales, or rhonchi. Abdomen: Soft, completely nontender, mildly distended, with good bowel sounds. There are no palpable pulsatile masses or hepatosplenomegaly. There is no guarding, rigidity, or rebound noted. Extremities: Moderate edema in her extremities with significant skin tears noted and ecchymosis. Distal pulses are thready. Skin: Multiple areas of skin tears and bruising. Dry with poor turgor but no rashes noted. Rectal: There were melanotic clots coming from the rectum along with some bright red bleeding Neuro: The patient is unresponsive. She does not answer questions or follow commands. She will withdraw from pain. ED COURSE: Times/Reassessments: 0550: The patient was evaluated in room B4. A complete history and physical was performed. Previous electronic medical records were reviewed. An order was placed for continuous cardiac monitoring. Patient is in a sinus tachycardia at 110. An IV lock was initiated and labs were drawn as above. She was typed and screened for blood. She was bolused with 500 cc of saline as she was hypotensive and tachycardic. She will go for CT scan of the brain. Twelve-lead EKG was obtained as described above. The charge nurse attempted to contact the power of banking attorney but could not reach him. She left a message on the 's phone. The patient had significant elevation to her white blood cell count in comparison to just a couple of days ago. I ordered IV antibiotics. The patient's called back and I spoke with him on the phone. He would like to withdraw advance care for his . He does not want the patient to be transfused with packed red blood cells, he does not want her to receive IV antibiotics, and he does not want her to receive dialysis. He would like the patient to be kept comfortable. He will be coming to the hospital. Upon returning to the room, the patient was slightly agitated as they were trying to clean blood from her perineum. She will be given a small dose of IV Dilaudid and IV Zofran. 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 CHAUDHARY) Sensorineural hearing loss (SNHL) of both ears Stomach ulcer Subarachnoid hemorrhage 5 YEARS AGO Transplanted organ rejection 1 TRANSPLANTED KIDNEY Traumatic injury of head Vitamin D deficiency Surgical History H/O: hysterectomy History of colonoscopy History of esophagogastroduodenoscopy (EGD) History of herniorrhaphy History of nephrectomy RT/LEFT REMOVED History of open reduction and internal fixation (ORIF) procedure LEFT ANKLE History of vascular access device A-PORT ACCESS LEFT SIDE (DIFFICULT IV STICK) Hx of cholecystectomy Status post hardware removal 12/2018 left ankle Family History Other Family history non-contributory Denies family history of Ovarian cancer Prostate cancer Crohn's disease Myocardial infarction Breast cancer Colorectal cancer Ulcerative colitis Social History Smoking Status: Never smoker Second Hand Exposure: No; Do You Dip or Chew Tobacco: No; Hx Alcohol Use: No Hx Substance Use: No Preferred Language: Niuean Communication Ability: Impaired Shake Backboard Notcher Required: No Beliefs That Will Affect Care: None marital status: Current Living Situation: Personal Care Facility Current Living Situation Comment: [facility] How many Children do You have: 2 Feels Safe at Home: Yes caffeine: No during the past year weight has: remained stable Assistive Devices: None Allergies Allergies Allergy/AdvReac Type Severity Reaction Status Date / Time Cephalosporins Allergy Intermediate ertapenem Verified 10/22/21 06:56 ok from multiple occasions codeine Allergy Intermediate RASH Verified 10/22/21 06:56 levofloxacin Allergy Intermediate hives, Verified 10/22/21 06:56 itching, per patient tolerates Cipro lisinopril Allergy Intermediate HIVES, Verified 10/22/21 06:56 ITCHING morphine Allergy Intermediate HIVES Verified 10/22/21 06:56 Sulfa (Sulfonamide Allergy Intermediate Rash Verified 10/22/21 06:56 Antibiotics) meperidine Allergy Unknown HAD RXN IN Verified 10/22/21 06:56 RR Iodinated Contrast Media AdvReac Severe PT HAD A Verified 10/22/21 06:56 KIDNEY TRANSPLANT chlorhexidine AdvReac Intermediate RASH Verified 10/22/21 06:56 captopril AdvReac Mild ITCHING Verified 10/22/21 06:56 celecoxib AdvReac Mild ITCHING Verified 10/22/21 06:56 hydralazine AdvReac Mild ITCHING Verified 10/22/21 06:56 nitrofurantoin AdvReac Mild GI PROBLEMS Verified 10/22/21 06:56 Home Meds Home Medications Medication Instructions Recorded Confirmed vit B complx, C-iron 8 mg-folic 1 tab PO QAM 12/25/18 10/22/21 acid 800 mcg-D3 1,000 unit-zinc tablet (ProRenal) pantoprazole 40 mg tablet,delayed 40 mg PO QAM 10/19/20 10/22/21 release levothyroxine 100 mcg tablet 100 mcg PO DAILYBB 10/08/21 10/22/21 Lactobacills gasseri-Bifidobac 1 cap PO QAM 10/18/21 10/22/21 bifidum,longum 1.5 billion cell capsule ([employer]) budesonide 3 mg 9 mg PO QAM 10/18/21 10/22/21 capsule,delayed,extended release menthol 0.44 %-zinc oxide 20.6 % 1 applic TOPICAL QS 10/18/21 10/22/21 topical ointment in packet (Calmoseptine) metoprolol succinate 25 mg 25 mg PO QAM 10/18/21 10/22/21 tablet,extended release 24 hr sertraline 25 mg tablet 25 mg PO QAM 10/18/21 10/22/21 Previous Rx's Medication Instructions Recorded calcium acetate(phosphat bind) 667 1,334 mg PO TIDM #720 cap 07/29/19 mg capsule ondansetron HCl 4 mg tablet 4 mg PO QID PRN #12 tab 12/06/19 clonidine HCl 0.2 mg tablet 0.2 mg PO HS #90 tab 03/11/21 allopurinol 100 mg tablet 100 mg PO QAM #90 tab 09/18/21 acetaminophen 500 mg tablet 1,000 mg PO BID #28 tab 10/15/21 (Tylenol Extra Strength) amlodipine 5 mg tablet 5 mg PO HS #180 tab 10/15/21 tramadol 50 mg tablet 50 mg PO TID PRN #30 tab 10/15/21 Results & Data (ED) Vital Signs Vital Signs - 24 hr 10/22/21 07:45 10/22/21 08:00 10/22/21 08:15 Pulse Rate 106 H 104 H 101 H Pulse Rate from SpO2 Sensor 107 H 104 H 101 H Respiratory Rate 16 16 15 Blood Pressure 103/61 111/52 L 93/45 L Blood Pressure Mean 75 71 61 Pulse Oximetry 99 98 99 10/22/21 08:30 10/22/21 08:45 10/22/21 09:00 Pulse Rate 98 H 100 H 100 H Pulse Rate from SpO2 Sensor 98 H 100 H 100 H Respiratory Rate 15 22 23 Blood Pressure 104/50 L 109/55 L 111/57 L Blood Pressure Mean 68 73 75 Pulse Oximetry 98 99 99 10/22/21 09:15 Pulse Rate 100 H Pulse Rate from SpO2 Sensor 99 H Respiratory Rate 19 Blood Pressure 104/53 L Blood Pressure Mean 70 Pulse Oximetry 99 Laboratory Data Result diagrams: 10/22/21 06:06 10/22/21 06:06 Lab Results 10/22/21 10/22/21 10/22/21 Range/Units 06:06 06:06 06:06 WBC 18.60 H (4.8-10.8) K/uL RBC 2.08 L (4.2-5.4) M/uL Hgb 6.9 L* (12.0-16.0) g/dL Hct 21.7 L (37-47) % MCV 104.3 H (80-100) fL MCH 33.2 (25-34) pg MCHC 31.8 L (32-36) g/dL RDW Std Deviation 75.0 H (36.4-46.3) fL RDW Coeff of Joseph 19.8 H (11.5-14.5) % Plt Count 239 (130-400) K/uL MPV 9.4 (7.4-10.4) fL Immature Gran % (Auto) 0.5 % Neut % (Auto) 80.2 % Lymph % (Auto) 12.1 % [place] % (Auto) 6.9 % Eos % (Auto) 0.2 % Baso % (Auto) 0.1 % Neut # (Auto) 14.92 H (1.4-6.5) K/uL Lymph # (Auto) 2.25 (1.2-3.4) K/uL [place] # (Auto) 1.28 H (0.11-0.59) K/uL Eos # (Auto) 0.04 (0-0.5) K/uL Baso # (Auto) 0.02 (0-0.2) K/uL Immature Gran # (Auto) 0.09 H (0.00-0.02) K/uL Polychromasia 1+ Anisocytosis Present PT 14.6 H (9.0-12.0) Seconds INR 1.4 H (0.9-1.1) APTT 26.5 (21.0-31.0) Seconds PTT Ratio 1.0 Sodium (136-145) mmol/L Potassium Chloride (98-107) mmol/L Carbon Dioxide (21-32) mmol/L Anion Gap (3-11) BUN (6-23) mg/dl Creatinine (0.6-1.2) mg/dl Est Cr Clr Drug Dosing ml/min Est GFR ( Amer) ml/min Est GFR (Non-Af Amer) ml/min BUN/Creatinine Ratio (10-20) Glucose (70-99(Fasting)) mg/dl Lactate (0.4-2.0) mmol/L Calcium (8.5-10.1) mg/dl Total Bilirubin (0.2-1.0) mg/dl AST ALT (7-52) U/L Alkaline Phosphatase (34-104) U/L Ammonia Troponin I (0-0.04) ng/ml Total Protein (6.0-8.3) gm/dl Albumin (3.4-5.0) gm/dl Globulin (2.5-4.0) gm/dl Albumin/Globulin Ratio (0.9-2) SARS-CoV-2, RNA, NAAT (NEGATIVE) Blood Type A Positive Antibody Screen NEGATIVE 10/22/21 10/22/21 10/22/21 Range/Units 06:06 06:34 06:34 WBC (4.8-10.8) K/uL RBC (4.2-5.4) M/uL Hgb (12.0-16.0) g/dL Hct (37-47) % MCV (80-100) fL MCH (25-34) pg MCHC (32-36) g/dL RDW Std Deviation (36.4-46.3) fL RDW Coeff of Joseph (11.5-14.5) % Plt Count (130-400) K/uL MPV (7.4-10.4) fL Immature Gran % (Auto) % Neut % (Auto) % Lymph % (Auto) % [place] % (Auto) % Eos % (Auto) % Baso % (Auto) % Neut # (Auto) (1.4-6.5) K/uL Lymph # (Auto) (1.2-3.4) K/uL [place] # (Auto) (0.11-0.59) K/uL Eos # (Auto) (0-0.5) K/uL Baso # (Auto) (0-0.2) K/uL Immature Gran # (Auto) (0.00-0.02) K/uL Polychromasia Anisocytosis PT (9.0-12.0) Seconds INR (0.9-1.1) APTT (21.0-31.0) Seconds PTT Ratio Sodium 136 (136-145) mmol/L Potassium TNP Chloride 95 L (98-107) mmol/L Carbon Dioxide 21 (21-32) mmol/L Anion Gap 20 H (3-11) BUN 86 H (6-23) mg/dl Creatinine 6.43 H* (0.6-1.2) mg/dl Est Cr Clr Drug Dosing 6.8 ml/min Est GFR ( Amer) 6.8 ml/min Est GFR (Non-Af Amer) 5.8 ml/min BUN/Creatinine Ratio 13.4 (10-20) Glucose 107 H (70-99(Fasting)) mg/dl Lactate 2.0 (0.4-2.0) mmol/L Calcium 8.8 (8.5-10.1) mg/dl Total Bilirubin 3.1 H (0.2-1.0) mg/dl AST TNP ALT 11 (7-52) U/L Alkaline Phosphatase 105 H (34-104) U/L Ammonia Cancelled Troponin I 0.06 H* (0-0.04) ng/ml Total Protein 5.1 L (6.0-8.3) gm/dl Albumin 2.7 L (3.4-5.0) gm/dl Globulin 2.4 L (2.5-4.0) gm/dl Albumin/Globulin Ratio 1.1 (0.9-2) SARS-CoV-2, RNA, NAAT (NEGATIVE) Blood Type Antibody Screen 10/22/21 Range/Units 07:00 WBC (4.8-10.8) K/uL RBC (4.2-5.4) M/uL Hgb (12.0-16.0) g/dL Hct (37-47) % MCV (80-100) fL MCH (25-34) pg MCHC (32-36) g/dL RDW Std Deviation (36.4-46.3) fL RDW Coeff of Joseph (11.5-14.5) % Plt Count (130-400) K/uL MPV (7.4-10.4) fL Immature Gran % (Auto) % Neut % (Auto) % Lymph % (Auto) % [place] % (Auto) % Eos % (Auto) % Baso % (Auto) % Neut # (Auto) (1.4-6.5) K/uL Lymph # (Auto) (1.2-3.4) K/uL [place] # (Auto) (0.11-0.59) K/uL Eos # (Auto) (0-0.5) K/uL Baso # (Auto) (0-0.2) K/uL Immature Gran # (Auto) (0.00-0.02) K/uL Polychromasia Anisocytosis PT (9.0-12.0) Seconds INR (0.9-1.1) APTT (21.0-31.0) Seconds PTT Ratio Sodium (136-145) mmol/L Potassium Chloride (98-107) mmol/L Carbon Dioxide (21-32) mmol/L Anion Gap (3-11) BUN (6-23) mg/dl Creatinine (0.6-1.2) mg/dl Est Cr Clr Drug Dosing ml/min Est GFR ( Amer) ml/min Est GFR (Non-Af Amer) ml/min BUN/Creatinine Ratio (10-20) Glucose (70-99(Fasting)) mg/dl Lactate (0.4-2.0) mmol/L Calcium (8.5-10.1) mg/dl Total Bilirubin (0.2-1.0) mg/dl AST ALT (7-52) U/L Alkaline Phosphatase (34-104) U/L Ammonia Troponin I (0-0.04) ng/ml Total Protein (6.0-8.3) gm/dl Albumin (3.4-5.0) gm/dl Globulin (2.5-4.0) gm/dl Albumin/Globulin Ratio (0.9-2) SARS-CoV-2, RNA, NAAT NEGATIVE (NEGATIVE) Blood Type Antibody Screen Administered Medications Discontinued Medications Budesonide (Budesonide Ec 3 Mg Cap) 9 mg PO QAM [facility] Stop: 11/21/21 09:29 Last Admin: 10/22/21 12:12 Dose: Not Given Documented by: [id number] Calamine/Phenol (Menthol-Zinc Oxide 360 Appln/120 Gm Tube) 1 appln EXT QS PRESTON Stop: 11/21/21 09:59 Last Admin: 10/23/21 01:15 Dose: 1 appln Documented by: [id number] Admin: 10/22/21 16:02 Dose: 1 appln Documented by: [id number] Admin: 10/22/21 12:35 Dose: 1 appln Documented by: [id number] Hydromorphone HCl (Hydromorphone Inj 0.5 Mg/0.5 Ml Syr) 0.25 mg IV NOW STA Stop: 10/22/21 07:16 Last Admin: 10/22/21 07:24 Dose: 0.25 mg Documented by: [id number] Sodium Chloride (Nss) 500 mls @ 999 mls/hr IV .Q31M PRESTON Stop: 10/22/21 06:30 Last Infusion: 10/22/21 07:19 Dose: 0 mls/hr Documented by: [id number] Admin: 10/22/21 07:04 Dose: 999 mls/hr Documented by: [id number] Vancomycin HCl 1,000 mg/ (Sodium Chloride) 520 mls @ 200 mls/hr IV NOW STA Stop: 10/22/21 09:31 Last Admin: 10/22/21 07:20 Dose: Not Given Documented by: [id number] Lorazepam (Lorazepam 1 Mg Tab) 1 mg SL Q2H PRN PRN Reason: Agitation Stop: 11/21/21 09:29 Last Admin: 10/23/21 01:16 Dose: 1 mg Documented by: [id number] Ondansetron HCl (Ondansetron Inj 2 Mg/Ml 2 Ml Vial) 4 mg IV NOW STA Stop: 10/22/21 07:16 Last Admin: 10/22/21 07:24 Dose: 4 mg Documented by: [id number] Imaging Data Radiologist's Impression: Head CT 10/22/21 05:55 CT head/brain wo con CLINICAL HISTORY: 76 years-old Female with unresponsive. Acutely altered mental status TECHNIQUE: Multiple axial CT images of the head were obtained without contrast. A dose lowering technique was utilized adhering to the principles of ALARA. CT DOSE: 537.48 mGy.cm COMPARISON: Head CT 10/18/2021, 10/08/2021 FINDINGS: No acute intracranial hemorrhage, midline shift, intracranial mass, hydrocephalus, territorial ischemia or abnormal extra-axial collection. Mild white matter hypodensities suggestive of chronic microvascular ischemic disease. Cerebral vascular calcifications. The calvarium is intact. Prior bilateral lens repair. The paranasal sinuses, mastoid air cells, and middle ear cavities are clear. IMPRESSION: No acute intracranial abnormality. ACT 112: Negative or not required by law. The above report was generated using voice recognition software. It may contain grammatical, syntax or spelling errors. Electronically signed by: Tito Sanabria M.D. 10/22/2021 6:57 AM Chest X-Ray 10/22/21 06:47 XR chest 1V portable HISTORY: 76 years-old Female gi bleed patient presents with acute GI bleed COMPARISON: Chest radiograph 10/18/2021 TECHNIQUE: Portable AP view of the chest FINDINGS: The cardiomediastinal and hilar silhouettes are unchanged. Calcified plaque of the thoracic aorta. The patient is mildly side bent and rotated. A linear lucency projects over the medial right lung apex which is likely the patient's airway. No large pleural effusion, overt pulmonary edema or airspace cons olidation typical for pneumonia. Unchanged mild right hemidiaphragmatic elevation with linear subsegmental left basilar atelectasis/scarring. Degenerative changes of the shoulders and spine. IMPRESSION: No acute process. ACT 112: Negative or not required by law. The above report was generated using voice recognition software. It may contain grammatical, syntax or spelling errors. Electronically signed by: Tito Sanabria M.D. 10/22/2021 7:21 AM Discharge Plan Visit Data Chief Complaint: Rectal Bleed Stated Complaint: GI Bleed ED Provider: Luz Maria Everett Discharge Problem: Acute GI bleeding, Sepsis, Altered mental status Patient Disposition: Admitted As Inpatient Discharge Instructions Interventions: ED Discharge Assessment Last Done: 10/22/21 10:54 Discharge Problem: Sepsis Qualifiers: Sepsis type: sepsis due to unspecified organism Sepsis acute organ dysfunction status: unspecified Qualified Code(s): A41.9 - Sepsis, unspecified organism Altered mental status Qualifiers: Altered mental status type: somnolence Qualified Code(s): R40.0 - Somnolence
[2021-10-22 06:28] LABS: Hematocrit (blood only) 21.7 % (37-47); Hemoglobin 6.9 g/dL (12.0-16.0); Mean Corpuscular Hemoglobin 33.2 pg (25-34); Mean Corpuscular Hgb Conc 31.8 g/dL (32-36); Mean Corpuscular Volume 104.3 fL (80-100); Mean Platelet Volume 9.4 fL (7.4-10.4); Platelet Count 239 K/uL (130-400); RDW Coefficient of Variation 19.8 % (11.5-14.5); Red Blood Count 2.08 M/uL (4.2-5.4)
[2021-10-22 06:31] LABS: INR 1.4 (0.9-1.1); Partial Thromboplastin Time 26.5 Seconds (21.0-31.0); Prothrombin Time 14.6 Seconds (9.0-12.0)
[2021-10-22 06:37] LABS: Anisocytosis Present; Basophils # (auto) 0.02 K/uL (0-0.2); Basophils % (auto) 0.1 %; Eosinophils # (auto) 0.04 K/uL (0-0.5); Eosinophils % (auto) 0.2 %; Immature Granulocytes # (auto) 0.09 K/uL (0.00-0.02); Immature Granulocytes % (auto) 0.5 %; Lymphocytes # (auto) 2.25 K/uL (1.2-3.4); Lymphocytes % (auto) 12.1 %; Monocytes # (auto) 1.28 K/uL (0.11-0.59); Monocytes % (auto) 6.9 %; Neutrophils # (auto) 14.92 K/uL (1.4-6.5); Neutrophils % (auto) 80.2 %; Polychromasia 1+
[2021-10-22 06:54] LABS: Troponin I 0.06 ng/ml (0-0.04)
[2021-10-22] MEDS ORDERED: VANCOMYCIN HCL 1,000 MG in SODIUM CHLORIDE 0.9% 500 ML IV STA (06:56)
[2021-10-22] MEDS ORDERED: VANCOMYCIN CONSULT ACTIVE PRN (06:56)
--- NOTE | 2021-10-22 06:59 | CT Scan Report ---
CT head/brain wo con CLINICAL HISTORY: 76 years-old Female with unresponsive. Acutely altered mental status TECHNIQUE: Multiple axial CT images of the head were obtained without contrast. A dose lowering tech nique was utilized adhering to the principles of ALARA. CT DOSE: 537.48 mGy.cm COMPARISON: Head CT 10/18/2021, 10/08/2021 FINDINGS: No acute intracranial hemorrhage, midline shift, intracranial mass, hydrocephalus, territorial ischem ia or abnormal extra-axial collection. Mild white matter hypodensities suggestive of chronic microvas cular ischemic disease. Cerebral vascular calcifications. The calvarium is intact. Prior bilateral lens repair. The paranasal sinuses, mastoid air cells, and m iddle ear cavities are clear. IMPRESSION: No acute intracranial abnormality. ACT 112: Negative or not required by law. The above report was generated using voice recognition software. It may contain grammatical, syntax o r spelling errors. Electronically signed by: Tito Sanabria M.D. 10/22/2021 6:57 AM
[2021-10-22 07:07] LABS: Alanine Aminotransferase 11 U/L (7-52); Albumin Globulin Ratio 1.1 (0.9-2); Albumin Level 2.7 gm/dl (3.4-5.0); Alkaline Phosphatase 105 U/L (34-104); Anion Gap 20 (3-11); BUN Creatinine Ratio 13.4 (10-20); Bilirubin,Total 3.1 mg/dl (0.2-1.0); Blood Urea Nitrogen 86 mg/dl (6-23); Calcium 8.8 mg/dl (8.5-10.1); Carbon Dioxide 21 mmol/L (21-32); Chloride 95 mmol/L (98-107); Creatinine Clr Calc Pharmacy 6.8 ml/min; Est GFR (African American) 6.8 ml/min; Est GFR (Non-African American) 5.8 ml/min; Globulin 2.4 gm/dl (2.5-4.0); Glucose 107 mg/dl (70-99(Fasting)); Sodium 136 mmol/L (136-145); Total Protein 5.1 gm/dl (6.0-8.3)
[2021-10-22] MEDS ORDERED: HYDROmorphone INJ 0.5 MG/0.5 ML SYR IV STA (07:15)
[2021-10-22] MEDS ORDERED: ONDANSETRON INJ 2 MG/ML 2 ML VIAL IV STA (07:15)
--- NOTE | 2021-10-22 07:23 | XRay Report ---
XR chest 1V portable HISTORY: 76 years-old Female gi bleed patient presents with acute GI bleed COMPARISON: Chest radiograph 10/18/2021 TECHNIQUE: Portable AP view of the chest FINDINGS: The cardiomediastinal and hilar silhouettes are unchanged. Calcified plaque of the thoracic aorta. Th e patient is mildly side bent and rotated. A linear lucency projects over the medial right lung apex which is likely the patient's airway. No large pleural effusion, overt pulmonary edema or airspace co nsolidation typical for pneumonia. Unchanged mild right hemidiaphragmatic elevation with linear subse gmental left basilar atelectasis/scarring. Degenerative changes of the shoulders and spine. IMPRESSION: No acute process. ACT 112: Negative or not required by law. The above report was generated using voice recognition software. It may contain grammatical, syntax o r spelling errors. Electronically signed by: Tito Sanabria M.D. 10/22/2021 7:21 AM
--- NOTE | 2021-10-22 09:17 | History & Physical Report ---
Date of Service October 22, 2021 Assessment & Plan (1) Comfort measures only status: Plan: Patient will be admitted under Comofrt measures only. Informed protective services case worker, will see if patient qualifies for inpatient hospice. However this seeems unlikely as she appears to be comfortable and is not have any complaints. Placed on PRN meds such as ativan, roxanol. is at bedside and is aware. (2) Anemia: Plan: Patient came in with acute bld lss anemia. Hemoglobin is below 7. Patient will be focused on comfort. will not transfuse (3) Acute GI bleeding: Plan: Likely lower GI bleed no interventions, goals of care is focusing on her being comfortable. (4) ESRD on hemodialysis: Plan: will withhld further Hemodialysis. (5) Cirrhosis: Plan: as noted in PMH (6) HTN (hypertension): Plan: holding oral meds at this time, especially given she is not responsive and Blood pressure is at goal History of Present Illness Chief Complaint: GI bleed Primary Care Provider: [facility] This is a pleasant patient Whit Cruz is a 76 yo female with ESRD on HD and recent hspital stay due to a fall which resulted in a minimally displaced left femoral greater trochanteric fracture. Patient returns to the hospital as she is having severe GI bleeding. She has had chronic abdominal pain in the past and has been treated for nonspecific peggy- colitis by gastro with Budesonide. She returns to the ER for GI bleeding. Her bleeding has worsened over the course of the past weekend. Patient is had a large bloody bowel movement this AM at 4. arrived at bedside shortly thereafter. He recommended to focus on her comfort. He does not want any interventions done at this time, and given her multiple comorbidities and advanced age. Patient will be admitted under comfort measures. Allergies Allergy/AdvReac Type Severity Reaction Status Date / Time Cephalosporins Allergy Intermediate ertapenem Verified 10/22/21 06:56 ok from multiple occasions codeine Allergy Intermediate RASH Verified 10/22/21 06:56 levofloxacin Allergy Intermediate hives, Verified 10/22/21 06:56 itching, per patient tolerates Cipro lisinopril Allergy Intermediate HIVES, Verified 10/22/21 06:56 ITCHING morphine Allergy Intermediate HIVES Verified 10/22/21 06:56 Sulfa (Sulfonamide Allergy Intermediate Rash Verified 10/22/21 06:56 Antibiotics) meperidine Allergy Unknown HAD RXN IN Verified 10/22/21 06:56 RR Iodinated Contrast Media AdvReac Severe PT HAD A Verified 10/22/21 06:56 KIDNEY TRANSPLANT chlorhexidine AdvReac Intermediate RASH Verified 10/22/21 06:56 captopril AdvReac Mild ITCHING Verified 10/22/21 06:56 celecoxib AdvReac Mild ITCHING Verified 10/22/21 06:56 hydralazine AdvReac Mild ITCHING Verified 10/22/21 06:56 nitrofurantoin AdvReac Mild GI PROBLEMS Verified 10/22/21 06:56 Home Medications Medication Instructions Recorded Confirmed Type vit B complx, C-iron 8 mg-folic 1 tab PO QAM 12/25/18 10/22/21 History acid 800 mcg-D3 1,000 unit-zinc tablet (ProRenal) calcium acetate(phosphat bind) 667 1,334 mg PO TIDM #720 cap 07/29/19 10/22/21 Rx mg capsule ondansetron HCl 4 mg tablet 4 mg PO QID PRN #12 tab 12/06/19 10/22/21 Rx pantoprazole 40 mg tablet,delayed 40 mg PO QAM 10/19/20 10/22/21 History release clonidine HCl 0.2 mg tablet 0.2 mg PO HS #90 tab 03/11/21 10/22/21 Rx allopurinol 100 mg tablet 100 mg PO QAM #90 tab 09/18/21 10/22/21 Rx levothyroxine 100 mcg tablet 100 mcg PO DAILYBB 10/08/21 10/22/21 History acetaminophen 500 mg tablet 1,000 mg PO BID #28 tab 10/15/21 10/22/21 Rx (Tylenol Extra Strength) amlodipine 5 mg tablet 5 mg PO HS #180 tab 10/15/21 10/22/21 Rx tramadol 50 mg tablet 50 mg PO TID PRN #30 tab 10/15/21 10/22/21 Rx Lactobacills gasseri-Bifidobac 1 cap PO QAM 10/18/21 10/22/21 History bifidum,longum 1.5 billion cell capsule (Roombeats) budesonide 3 mg 9 mg PO QAM 10/18/21 10/22/21 History capsule,delayed,extended release menthol 0.44 %-zinc oxide 20.6 % 1 applic TOPICAL QS 10/18/21 10/22/21 History topical ointment in packet (Calmoseptine) metoprolol succinate 25 mg 25 mg PO QAM 10/18/21 10/22/21 History tablet,extended release 24 hr sertraline 25 mg tablet 25 mg PO QAM 10/18/21 10/22/21 History Past Med/Surg History Medical History Anxiety HX OF Arachnoid cyst Ataxic gait Back pain with sciatica Benign familial tremor Breast mass, left Cardiac murmur Chronic abdominal pain Cirrhosis Clostridium difficile colitis Colitis Degenerative joint disease, ankle, left Depression HX OF ESRD on hemodialysis Gout, joint Hyperlipidemia Hypertension Hypothyroidism Lumbosacral radiculopathy Mild cognitive impairment MVP (mitral valve prolapse) Pancytopenia Peripheral neuropathy 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 CHAUDHARY) Sensorineural hearing loss (SNHL) of both ears Stomach ulcer Subarachnoid hemorrhage 5 YEARS AGO Transplanted organ rejection 1 TRANSPLANTED KIDNEY Traumatic injury of head Vitamin D deficiency Surgical History H/O: hysterectomy History of colonoscopy History of esophagogastroduodenoscopy (EGD) History of herniorrhaphy History of nephrectomy RT/LEFT REMOVED History of open reduction and internal fixation (ORIF) procedure LEFT ANKLE History of vascular access device A-PORT ACCESS LEFT SIDE (DIFFICULT IV STICK) Hx of cholecystectomy Status post hardware removal 12/2018 left ankle Family History Other Family history non-contributory Denies family history of Ovarian cancer Prostate cancer Crohn's disease Myocardial infarction Breast cancer Colorectal cancer Ulcerative colitis Social History Smoking Status: Never smoker Second Hand Exposure: No; Do You Dip or Chew Tobacco: No; Hx Alcohol Use: No Hx Substance Use: No Preferred Language: Turkish Communication Ability: Impaired Ecommerce Manager Required: No Beliefs That Will Affect Care: None marital status: Current Living Situation: Personal Care Facility Current Living Situation Comment: [place] [facility] How many Children do You have: 2 Feels Safe at Home: Yes caffeine: No during the past year weight has: remained stable Assistive Devices: None Review of Systems Review of Systems: Unobtainable due to cognitive status Physical Exam Physical Exam: HEENT: Head - normocephalic with some bruises noted about the patient's head. Oropharynx is nonerythematous and there is no tonsillar exudate or edema noted. Neck: Supple; no JVD or nuchal rigidity Heart: Tachycardic rate and regular rhythm. There is a normal S1 and S2 with no murmurs, clicks, or gallops appreciated. Lungs: Clear to auscultation bilaterally with no wheezes, rales, or rhonchi. Abdomen: Soft, completely nontender, mildly distended, with good bowel sounds. There are no palpable pulsatile masses or hepatosplenomegaly. There is no guarding, rigidity, or rebound noted. Extremities: Moderate edema in her extremities with significant skin tears noted and ecchymosis. Distal pulses are thready. Skin: Dry with poor turgor but no rashes noted Neuro: The patient is unresponsive. Results & Data Results & Data ([facility]) Vital Signs (Past 12 Hours) Vital Signs Temp Pulse Resp BP Pulse Ox 10/22/21 08:30 98 H 15 104/50 L 98 10/22/21 08:15 101 H 15 93/45 L 99 10/22/21 08:00 104 H 16 111/52 L 98 10/22/21 07:45 106 H 16 103/61 99 10/22/21 07:30 108 H 23 77/58 L 97 10/22/21 07:16 118 H 28 H 135/104 H 98 10/22/21 07:09 105 H 21 97 10/22/21 07:00 105 H 21 107/45 L 97 10/22/21 06:50 111 H 17 98 10/22/21 06:49 115 H 20 133/79 99 10/22/21 06:47 112 H 20 10/22/21 06:30 109 H 17 99 10/22/21 06:20 108 H 17 98 10/22/21 06:10 107 H 25 H 99 10/22/21 06:09 107 H 16 103/63 10/22/21 06:00 109 H 26 H 10/22/21 05:50 114 H 15 95 10/22/21 05:49 115 H 21 83 L 10/22/21 05:38 36.5 C 110 H 18 93/59 L 95 PG Care Time/CCT Total # of Minutes Spent Total Time Spent with Patient: Total time spent is greater than 50% in coordination of care (as documented) at patient's floor/unit and/or counseling patient: Coding Level of Care Code 09513 Initial Inpt Care Lvl 3 Diagnoses Anemia D64.9 Anemia type: unspecified type Acute GI bleeding K92.2 ESRD on hemodialysis N18.6; Z99.2 Cirrhosis K74.60 Ascites presence: without ascites Hepatic cirrhosis type: unspecified hepatic cirrhosis HTN (hypertension) I10 Comfort measures only status Z51.5 (1) Anemia Anemia type: unspecified type Qualified Code(s): D64.9 - Anemia, unspecified (2) Cirrhosis Ascites presence: without ascites Hepatic cirrhosis type: unspecified hepatic cirrhosis Qualified Code(s): K74.60 - Unspecified cirrhosis of liver
[2021-10-22] MEDS ORDERED: HYDROmorphone INJ 0.5 MG/0.5 ML SYR IV PRN (09:22)
[2021-10-22] MEDS ORDERED: LORazepam 1 MG TAB SL PRN (09:23)
[2021-10-22] MEDS ORDERED: BUDESONIDE EC 3 MG CAP PO SCH (09:30)
--- NOTE | 2021-10-22 12:27 | Electrocardiogram Report ---
Test Reason : Blood Pressure : / mmHG Vent. Rate : 118 BPM Atrial Rate : 118 BPM P-R Int : 148 ms QRS Dur : 098 ms QT Int : 354 ms P-R-T Axes : 000 263 068 degrees QTc Int : 496 ms Sinus tachycardia Right superior axis deviation Right ventricular hypertrophy Abnormal ECG When compared with ECG of 18-OCT-2021 12:55, Vent. rate has increased BY 42 BPM Criteria for Septal infarct are no longer Present Confirmed by Julito Covarrubias ([id number]) on 10/22/2021 12:27:15 PM Referred By: Confirmed By:Julito Covarrubias
[2021-10-22] MEDS: MENTHOL-ZINC OXIDE 360 APPLN/120 GM TUBE EXT SCH ×2 (12:35→16:02)
[2021-10-23] MEDS: MENTHOL-ZINC OXIDE 360 APPLN/120 GM TUBE EXT SCH (01:15)
[2021-10-23] MEDS ORDERED: LEVOTHYROXINE SODIUM 100 MCG TABLET PO SCH (06:30)
--- NOTE | 2021-10-23 08:59 | Discharge Summary ---
Date of Service October 23, 2021 Admission HPI Per Admitting Provider This is a pleasant patient Whit Cruz is a 76 yo female with ESRD on HD and recent hspital stay due to a fall which resulted in a minimally displaced left femoral greater trochanteric fracture. Patient returns to the hospital as she is having severe GI bleeding. She has had chronic abdominal pain in the past and has been treated for nonspecific peggy- colitis by gastro with Budesonide. She returns to the ER for GI bleeding. Her bleeding has worsened over the course of the past weekend. Patient is had a large bloody bowel movement this AM at 4. arrived at bedside shortly thereafter. He recommended to focus on her comfort. He does not want any interventions done at this time, and given her multiple comorbidities and advanced age. Patient will be admitted under comfort measures. Principal Diagnosis anemia Discharge Exam pronounced by nursing. Discharge Data Allergies Allergy/AdvReac Type Severity Reaction Status Date / Time Cephalosporins Allergy Intermediate ertapenem Verified 10/22/21 06:56 ok from multiple occasions codeine Allergy Intermediate RASH Verified 10/22/21 06:56 levofloxacin Allergy Intermediate hives, Verified 10/22/21 06:56 itching, per patient tolerates Cipro lisinopril Allergy Intermediate HIVES, Verified 10/22/21 06:56 ITCHING morphine Allergy Intermediate HIVES Verified 10/22/21 06:56 Sulfa (Sulfonamide Allergy Intermediate Rash Verified 10/22/21 06:56 Antibiotics) meperidine Allergy Unknown HAD RXN IN Verified 10/22/21 06:56 RR Iodinated Contrast Media AdvReac Severe PT HAD A Verified 10/22/21 06:56 KIDNEY TRANSPLANT chlorhexidine AdvReac Intermediate RASH Verified 10/22/21 06:56 captopril AdvReac Mild ITCHING Verified 10/22/21 06:56 celecoxib AdvReac Mild ITCHING Verified 10/22/21 06:56 hydralazine AdvReac Mild ITCHING Verified 10/22/21 06:56 nitrofurantoin AdvReac Mild GI PROBLEMS Verified 10/22/21 06:56 Consultations 10/22/21 08:00 ED Decision to Admit Stat Ordered Studies 10/22/21 05:55 CT head/brain wo con Stat Hospital Course (1) Comfort measures only status: Patient will be admitted under Comofrt measures only. Informed case management director, will see if patient qualifies for inpatient hospice. However this seeems unlikely as she appears to be comfortable and is not have any complaints. Placed on PRN meds such as ativan, roxanol. is at bedside and is aware. On 10/23 patient ceased to breath at 3:10 Family was updated. (2) Anemia: Patient came in with acute bld lss anemia. Hemoglobin is below 7. Patient will be focused on comfort. will not transfuse (3) Acute GI bleeding: Likely lower GI bleed no interventions, goals of care is focusing on her being comfortable. (4) ESRD on hemodialysis: will withhld further Hemodialysis. (5) Cirrhosis: as noted in PMH (6) HTN (hypertension): holding oral meds at this time, especially given she is not responsive and Blood pressure is at goal Total Time Total Time Spent Total Time Spent (In Minutes): 10 Discharge Plan Discharge Items Patient Disposition: Other Date/Time: 10/23/21 03:20 Coding Level of Care Code D/C DAY MANAGEMENT <30 MINS Diagnoses Comfort measures only status Z51.5 Anemia D64.9 Anemia type: unspecified type Acute GI bleeding K92.2 ESRD on hemodialysis N18.6; Z99.2 Cirrhosis K74.60 Ascites presence: without ascites Hepatic cirrhosis type: unspecified hepatic cirrhosis HTN (hypertension) I10
[2021-10-23] MEDS ORDERED: allopurinoL 100 MG TAB PO SCH (09:00)
[2021-10-23] MEDS ORDERED: SERTRALINE HCL 50 MG TABLET PO SCH (09:00)
[2021-10-23] MEDS ORDERED: NON-FORMULARY MEDICATION (L. Gasseri-B. Bifidum-B Longum [Phillips' Colon Health] 1.5 bill PO SCH (09:00)
[2021-10-23] MEDS ORDERED: PANTOprazole 40 MG TAB PO SCH (09:00)
[2021-10-23] MEDS ORDERED: NON-FORMULARY MEDICATION (Vit B,C-Iron Fum-Fa-D3-Zinc Ox [Prorenal] 8 mg iron-800 mcg-1,00 PO SCH (09:00)
== END 2021-10-23 06:20 | disposition expired | DRG 951 ==
LOC: ED 05:44 → 3E 09:18
DX: K92.1 Melena; Z88.8 Allergy status to other drugs, medicaments and biological substances; D62 Acute posthemorrhagic anemia; Y92.89 Other specified places as the place of occurrence of the external cause; N18.6 End stage renal disease; K74.60 Unspecified cirrhosis of liver; S72.102D Unspecified trochanteric fracture of left femur, subsequent encounter for closed fracture with routine healing; Z94.0 Kidney transplant status; Z79.890 Hormone replacement therapy; Z88.5 Allergy status to narcotic agent; Z95.828 Presence of other vascular implants and grafts; Z66 Do not resuscitate; I12.0 Hypertensive chronic kidney disease with stage 5 chronic kidney disease or end stage renal disease; X58.XXXD Exposure to other specified factors, subsequent encounter; E03.9 Hypothyroidism, unspecified; Z51.5 Encounter for palliative care; Z88.1 Allergy status to other antibiotic agents; H90.3 Sensorineural hearing loss, bilateral; Z91.041 Radiographic dye allergy status; Z99.2 Dependence on renal dialysis